=== PATIENT | male | born 1955 | race Caucasian/White ===

== ENCOUNTER 2016-06-22 12:17 | Emergency (ER) | payer BC ==
[~2016-06-22] VITALS: Ht 182.9 cm; Wt 107.8 kg
[~2016-06-22 12:17] MED LIST: CARV6.252 PO; ERGO1CAP41 PO; MULT-506 PO; milk thistle PO
[2016-06-22 12:34] VITALS: Ht 182.9 cm; Wt 107.8 kg
[2016-06-22] MEDS ORDERED: AMOX875T PO (13:06)
[2016-06-22] MEDS ORDERED: DIPHTHERIA/TETANUS/PERTUSSIS 0.5 ML SYR/VIAL IM. ONE (13:45)
[2016-06-22] MEDS ORDERED: AMOXICILLIN/CLAVULANATE TAB 875 MG TAB PO ONE (13:45)
[2016-06-22 14:12] VITALS: BP 180/102; PULSE 58; TEMP 37.2; O2SAT 94
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
== END 2016-06-22 14:14 | disposition home or self-care (01) ==
LOC: C.EDB 12:20 → C.EDD 14:14
DX: S61.452A Open bite of left hand, initial encounter (principal); W54.0XXA Bitten by dog, initial encounter; Z23 Encounter for immunization; K74.60 Unspecified cirrhosis of liver; I85.00 Esophageal varices without bleeding

== ENCOUNTER 2016-07-03 13:34 | Emergency (ER) | payer OTHER, BC ==
[~2016-07-03] VITALS: Ht 182.9 cm; Wt 108.0 kg
[2016-07-03 13:38] VITALS: TEMP 36.5; Ht 182.9 cm; Wt 108.0 kg
[2016-07-03] MEDS ORDERED: CHOL1000 PO (13:52)
--- NOTE | 2016-07-03 14:25 | DIAGNOSTIC IMAGING REPORT ---
RIGHT KNEE 3 VIEWS CLINICAL HISTORY: Right knee pain status post trauma COMPARISON: 05/11/2010 DISCUSSION: There are mild osteoarthritic changes. No fractures or dislocations are visualized. IMPRESSION: No fractures identified. Electronically signed by: Wilfredo Mcneal M.D. 07/03/2016 2:24 PM Dictated Date/Time: 07/03/2016 2:24 PM
--- NOTE | 2016-07-03 14:25 | DIAGNOSTIC IMAGING REPORT ---
LEFT KNEE 3 VIEWS CLINICAL HISTORY: Left knee pain status post trauma COMPARISON: None. DISCUSSION: No acute fractures or dislocations are visualized. There are mild degenerative changes. There is an osteochondroma versus supracondylar process arising from the medial femoral metaphysis. IMPRESSION: Distal femoral osteochondroma/supracondylar process. No acute fractures. Electronically signed by: Wilfredo Mcneal M.D. 07/03/2016 2:23 PM Dictated Date/Time: 07/03/2016 2:20 PM
[2016-07-03 14:43] VITALS: BP 151/77; PULSE 54; O2SAT 94
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
== END 2016-07-03 14:45 | disposition home or self-care (01) ==
LOC: C.EDB 13:36 → C.EDD 14:45
DX: S80.01XA Contusion of right knee, initial encounter (principal); S80.02XA Contusion of left knee, initial encounter; W18.09XA Striking against other object with subsequent fall, initial encounter; Y93.89 Activity, other specified; Y99.8 Other external cause status; I10 Essential (primary) hypertension; K74.60 Unspecified cirrhosis of liver

== ENCOUNTER → 2017-01-25 | Outpatient (CLI) | payer BC ==
[~2017-01-25] MED LIST changes: +CHOL1000 PO; -ERGO1CAP41 PO
== END | disposition home or self-care (01) ==
LOC: C.MAMM 08:07
PROVIDERS: ATTEND Nurse Practitioner Family
DX: K74.69 Other cirrhosis of liver (principal)

== ENCOUNTER → 2017-04-08 | Day surgery (SDC) | payer BC ==
[~2017-04-08] VITALS: Ht 180.3 cm; Wt 100.0 kg
[~2017-04-08] MED LIST changes: -CARV6.252 PO; +FENTANYL CITRATE INJ 50 MCG/1 ML 2 ML VIAL ONE; +LIDOCAINE HCL 2% 2 ML VIAL (20MG/ML) ONE; +PROPOFOL IV EMULSION 10 MG/ML 20 ML VIAL IV ONE; +SODIUM CHLORIDE 0.9% 500ML 500 ML IV ONE
[2017-04-08 12:35] VITALS: Ht 180.3 cm; Wt 100.0 kg
--- NOTE | 2017-04-08 13:25 | Endo History and Physical ---
History & Physical Date of Service: Apr 08, 2017. Chief Complaint: ABNORMAL CT SCAN Referring Physician: DR. RODRIGUEZ History of Present Illness abnormal virtual colonoscopy and cologard Past Medical History Arthritis, Hypertension, Liver Disease Past Surgical History Hx Cardiac Surgery: No Hx Internal Defibrillator: No Hx Pacemaker: No Hx Abdominal Surgery: No Hx of Implantable Prosthesis: No Hx Post-Op Nausea and Vomiting: No Hx Cancer Surgery: No Hx Thoracic Surgery: No Hx Orthopedic: No Hx Urinary Tract Surgery: No Family History None Social History Smoking Status: Never Smoker Hx Substance Use: No Hx Alcohol Use: No Allergies Coded Allergies: No Known Allergies (Verified , 04/08/17) Current Medications Reported Home Medications Medications Dose Route/Sig Max Daily Dose Days Date Category Vitamin D3 (Cholecalciferol) 1,000 Unit Tab 5,000 Units PO DAILY 07/03/16 Reported [milk thistle] 500 Mg PO QAM 07/25/11 Reported Multivitamin (Multivitamins) Tab 1 Tab PO QAM 07/25/11 Reported Vital Signs Weight (Kilograms): 100.00 Height (Feet): 5 Height (Inches): 11 Date Time Temp Pulse Resp B/P (MAP) Pulse Ox O2 Delivery O2 Flow Rate FiO2 04/08/17 12:55 36.6 81 20 183/58 (99) 97 Room Air Physical Exam General Appearance: WD/WN, no apparent distress Respiratory/Chest: Auscultation: breath sounds normal Cardiovascular: Heart Auscultation: RRR Abdomen: Bowel Sounds: normal Inspection & Palpation: soft, non-distended, no tenderness, guarding & rebound Assessment and Plan colonoscopy today
--- NOTE | 2017-04-08 14:36 | Discharge Instructions ---
Endoscopy Patient Instructions Date / Procedure(s) Performed Apr 08, 2017. Colonoscopy Allergy Information Coded Allergies: No Known Allergies (Verified , 04/08/17) Discharge Date / Findings Apr 08, 2017. colon polyps Medication Instructions Restart Stopped Medication(s): Reported Home Medications Medications Dose Route/Sig Max Daily Dose Days Date Category Vitamin D3 (Cholecalciferol) 1,000 Unit Tab 5,000 Units PO DAILY 07/03/16 Reported [milk thistle] 500 Mg PO QAM 07/25/11 Reported Multivitamin (Multivitamins) Tab 1 Tab PO QAM 07/25/11 Reported Reported Home Medications Medications Dose Route/Sig Max Daily Dose Days Date Category Vitamin D3 (Cholecalciferol) 1,000 Unit Tab 5,000 Units PO DAILY 07/03/16 Reported [milk thistle] 500 Mg PO QAM 07/25/11 Reported Multivitamin (Multivitamins) Tab 1 Tab PO QAM 07/25/11 Reported Provider Instructions Activity Restrictions - No exercising or heavy lifting for 24 hours. - Do not drink alcohol the day of the procedure. - Do not drive a car or operate machinery until the day after the procedure. - Do not make any important decisions or sign important papers in 24 hours after the procedure. Following Day: - Return to full activity which may include returning to work/school. Diet Start your diet with liquids and light foods (jello, soup, juice, toast). Then eat your usual diet if not nauseated. Treatment For Common After Affects For mild abdominal pain, bloating, or excessive gas: - Rest - Eat lightly - Lie on right side Follow-Up Information Follow-up with DR. RODRIGUEZ as scheduled Anesthesia Information What You Should Know You have had a procedure that required some medicine to reduce anxiety and discomfort. This treatment is called moderate sedation. After receiving the treatment, you may be sleepy, but you will be able to breathe on your own. The effects of the treatment may last for several hours. Follow these instructions along with Activity/Diet recommendations noted above: * Do NOT do anything where dizziness or clumsiness would be dangerous. * Rest quietly at home today, then you can be up and about tomorrow. * Have a responsible person stay with you the rest of today. * You may have had an I.V. today. If so, you may take the dressing off later today. Recommendations Call your doctor if: * Trouble breathing * Continuous vomiting for more than 24 hours * Temperature above 101 degrees * Severe abdominal pain or bloating * Pain not relieved by pain medicine ordered * There is increased drainage or redness from any incision * A large amount of rectal bleeding greater than 2-3 tablespoons. (If you had a polyp/s removed or have hemorrhoids, a small amount of blood - from the rectum is to be expected.) * You have any unanswered questions or concerns. IN THE EVENT OF A SERIOUS EMERGENCY, GO TO THE NEAREST EMERGENCY ROOM Your discharge instructions were prepared by provider Tung Landeros. Patient Instructions Signature Page Emile Card Patient (or Guardian) Signature/Date: I have read and understand the instructions given to me by my caregivers. Caregiver/RN/Doctor Signature/Date: The above-named patient and/or guardian has received patient instructions on this date. + Original Patient Signature Page (only) stays with chart. Please make copy for patient.
--- NOTE | 2017-04-08 14:50 | GI REPORT ---
Procedure Date: 04/08/2017 1:32 PM Procedure: Colonoscopy Indications: Abnormal virtual colonoscopy, equivocal Cologard Medicines: Propofol per Anesthesia Complications: No immediate complications. Estimated blood loss: None. Estimated Blood Loss: Estimated blood loss: none. Procedure: Pre-Anesthesia Assessment: - Prior to the procedure, a History and Physical was performed, and patient medications and allergies were reviewed. The patient's tolerance of previous anesthesia was also reviewed. The risks and benefits of the procedure and the sedation options and risks were discussed with the patient. All questions were answered, and informed consent was obtained. Prior Anticoagulants: The patient has taken no previous anticoagulant or antiplatelet agents. ASA Grade Assessment: III - A patient with severe systemic disease. After reviewing the risks and benefits, the patient was deemed in satisfactory condition to undergo the procedure. After I obtained informed consent, the scope was passed under direct vision. Throughout the procedure, the patient's blood pressure, pulse, and oxygen saturations were monitored continuously. The scope was introduced through the anus and advanced to the terminal ileum, with identification of the appendiceal orifice and IC valve. The colonoscopy was performed without difficulty. The patient tolerated the procedure well. The quality of the bowel preparation was good. Findings: The perianal and digital rectal examinations were normal. Pertinent negatives include normal sphincter tone, no palpable rectal lesions and no anal lesion or abnormality was detected. Two sessile polyps were found in the cecum. The polyps were 3 to 7 mm in size. These polyps were removed with a hot snare. Resection and retrieval were complete. To prevent bleeding after the polypectomy, two hemostatic clips were successfully placed (MR conditional). There was no bleeding during, and at the end, of the procedure. Two sessile polyps were found in the proximal ascending colon. The polyps were 5 to 8 mm in size. These polyps were removed with a hot snare. Resection and retrieval were complete. To prevent bleeding after the polypectomy, two hemostatic clips were successfully placed (MR conditional). There was no bleeding during, and at the end, of the procedure. A 14 mm polyp was found at 40 cm proximal to the anus. The polyp was pedunculated. Area was successfully injected with 2 mL of a 1:10,000 solution of epinephrine for a lift polypectomy. The polyp was removed with a hot snare. Resection and retrieval were complete. Verification of patient identification for the specimen was done by the physician and drain technician using the patient's name and medical record number. To prevent bleeding after the polypectomy, two hemostatic clips were successfully placed (MR conditional). There was no bleeding during, and at the end, of the procedure. Many small-mouthed diverticula were found in the sigmoid colon. The retroflexed view of the distal rectum and anal verge was normal and showed no anal or rectal abnormalities. The exam was otherwise without abnormality. The terminal ileum appeared normal. Impression: - Two 3 to 7 mm polyps in the cecum, removed with a hot snare. Resected and retrieved. Clips (MR conditional) were placed. - Two 5 to 8 mm polyps in the proximal ascending colon, removed with a hot snare. Resected and retrieved. Clips (MR conditional) were placed. - One 14 mm polyp at 40 cm proximal to the anus, removed with a hot snare. Resected and retrieved. Injected. Clips (MR conditional) were placed. - Diverticulosis in the sigmoid colon. - The distal rectum and anal verge are normal on retroflexion view. - The examination was otherwise normal. - The examined portion of the ileum was normal. Recommendation: - Discharge patient to home (ambulatory). - Advance diet as tolerated. - Continue present medications. - Await pathology results. - Repeat colonoscopy for surveillance based on pathology results. - Return to referring physician as previously scheduled. MD Tung Edgar MD 04/08/2017 2:49:10 PM This report has been signed electronically. Note Initiated On: 04/08/2017 1:32 PM I attest to the content of the Intraoperative Record and orders documented therein, exceptions below
--- NOTE | 2017-04-08 14:57 | Anesthesiology Progress Note ---
Anesthesia Post Op Note Date & Time Apr 08, 2017 at 14:57 Vital Signs Pain Intensity: 0 Vital Signs Past 12 Hours Date Time Temp Pulse Resp B/P (MAP) Pulse Ox O2 Delivery O2 Flow Rate FiO2 04/08/17 14:53 74 16 119/92 (101) 94 Room Air 04/08/17 14:38 73 14 116/54 (74) 95 Room Air 04/08/17 12:55 36.6 81 20 183/58 (99) 97 Room Air Notes Mental Status: alert / awake / arousable, participated in evaluation Pt Amnestic to Procedure: Yes Nausea / Vomiting: adequately controlled Pain: adequately controlled Airway Patency, RR, SpO2: stable & adequate BP & HR: stable & adequate Hydration State: stable & adequate Anesthetic Complications: no major complications apparent
[2017-04-08 15:22] VITALS: BP 143/71; PULSE 68; O2SAT 94
== END | disposition home or self-care (01) ==
LOC: C.GI 12:06
PROVIDERS: ATTEND Internal Medicine Gastroenterology
DX: R93.3 Abnormal findings on diagnostic imaging of other parts of digestive tract (principal); D12.0 Benign neoplasm of cecum; D12.2 Benign neoplasm of ascending colon; D12.9 Benign neoplasm of anus and anal canal; K57.30 Diverticulosis of large intestine without perforation or abscess without bleeding; I10 Essential (primary) hypertension

== ENCOUNTER 2018-11-10 02:47 | Inpatient (IN) ==
[2018-11-10 03:26] LABS: Basophils # (auto) 0.09 K/uL (0-0.2); Basophils % (auto) 1.1 %; Eosinophils # (auto) 0.15 K/uL (0-0.5); Eosinophils % (auto) 1.9 %; Hematocrit (blood only) 37.2 % (42-52); Hemoglobin 13.2 g/dL (14.0-18.0); Immature Granulocytes # (auto) 0.36 K/uL (0.00-0.02); Immature Granulocytes % (auto) 4.5 %; Lymphocytes # (auto) 1.13 K/uL (1.2-3.4); Lymphocytes % (auto) 14.1 %; Mean Corpuscular Hgb Conc 35.5 g/dL (32-36); Mean Corpuscular Volume 94.7 fL (80-100); Mean Platelet Volume 9.4 fL (7.4-10.4); Monocytes # (auto) 0.69 K/uL (0.11-0.59); Monocytes % (auto) 8.6 %; Neutrophils # (auto) 5.62 K/uL (1.4-6.5); Neutrophils % (auto) 69.8 %; Platelet Count 179 K/uL (130-400); RDW Coefficient of Variation 18.9 % (11.5-14.5); RDW Standard Deviation 64.8 fL (36.4-46.3); Red Blood Count 3.93 M/uL (4.7-6.1); White Blood Count 8.04 K/uL (4.8-10.8)
[2018-11-10 04:05] LABS: Albumin Globulin Ratio 0.2 (0.9-2); Albumin Level 1.4 gm/dl (3.4-5.0); BUN Creatinine Ratio 30.9 (10-20); Bilirubin,Total 4.4 mg/dl (0.2-1); Creatinine Clr Calc Pharmacy 156.2 ml/min; Est GFR (African American) 123.2; Est GFR (Non-African American) 106.3; Globulin 5.7 gm/dl (2.5-4.0); Total Protein 7.1 gm/dl (6.4-8.2)
[2018-11-10] MEDS ORDERED: IOVERSOL 100ml IV PRN (04:28)
[2018-11-10 05:49] LABS: INR 1.6 (0.9-1.1)
--- NOTE | 2018-11-10 06:22 | Emergency Department Note ---
Entered by Joselyn Potts acting as a scribe for History of Present Illness General Chief complaint: Abdominal Pain Stated complaint: PAIN IN ABD AREA Time Seen by Provider: 11/10/18 02:56 Source: patient History of Present Illness Provider complaint: abdominal pain Onset (ago): day(s) 1 Location: abdomen Pain Consistency: + intermittent Maximum Pain Intensity: 10 Quality: + stabbing Relieved By: + none Associated symptoms: + denies other symptoms The patient is a 63 y/o male who presents to the emergency department for evaluation of intermittent stabbing abdominal pain that began prior to arrival. The patient states he woke up to go to the bathroom and had stabbing abdominal pain; he used the rest room and felt like he wanted to throw up but was unable to. He notes that he has also been retaining fluid in his abdomen for a month. 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 The patient states he also has cellulitis of his left foot. He reports he is taking Doxycycline for the Lymes disease which he thought may have caused the stomach pain though he notes he felt fine before bed. The patient denies any other symptoms. Home Medications Home Medications Medication Instructions Recorded Confirmed Type cholecalciferol (vitamin D3) 5,000 unit PO DAILY 03/28/18 11/10/18 History [Vitamin D3] milk thistle 175 mg PO DAILY 03/28/18 11/10/18 History multivitamin 1 tab PO DAILY 03/28/18 11/10/18 History propranolol 60 mg PO QPM 03/28/18 11/10/18 History doxycycline hyclate 100 mg PO BID 11/10/18 11/10/18 History metformin 500 mg PO BID 11/10/18 11/10/18 History Allergies Allergy/AdvReac Type Severity Reaction Status Date / Time No Known Allergies Allergy Verified 11/10/18 05:10 Past Med/Surg History Medical History Cirrhosis GUAMAN Hypertension Osteoarthritis Prediabetes Sciatica Surgical History History of colonoscopy History of esophagogastroduodenoscopy (EGD) History of tooth extraction Social History Preferred Language: Amharic Communication Ability: Effective Beliefs That Will Affect Care: None Current Living Situation: Spouse Feels Safe at Home: Yes Smoking Status: Never smoker Second Hand Exposure: Yes (RARE OCCASION) Hx Alcohol Use: No Hx Substance Use: No Review of Systems See HPI for pertinent positives & negatives. and A total of 10 systems reviewed and were otherwise negative Physical Exam Vital Signs Vital Signs - 24 hr 11/10/18 02:50 11/10/18 03:19 11/10/18 05:33 Temperature 36.5 C Temperature Source Oral Sepsis Recent Fever Within 48 Hours No Sepsis Action Taken by Nursing No Action Required Pulse Rate 65 Pulse Rate [Right Finger] 58 L Pulse Rhythm Regular Pulse Rhythm [Right Finger] Irregular Pulse Strength [Right Finger] Normal Respiratory Rate 15 18 Respiratory Effort / Characteristics Non-Labored Non-Labored Respiratory Depth Normal Normal Respiratory Pattern Regular Regular Blood Pressure 122/74 Blood Pressure [Right Arm] 158/78 H Blood Pressure Mean 90 Blood Pressure Mean [Right Arm] 104 Blood Pressure Position Lying Blood Pressure Position [Right Arm] Lying Pulse Oximetry 97 96 Oxygen Delivery Method Room Air Room Air Room Air HEENT: Head - normocephalic and atraumatic Pupils are equal, round, and reactive to light. Extraocular eye muscles are intact, and sclera are anicteric. Eyes: Scleral icterus. Nose - moist nasal mucosa without discharge. Mouth - moist buccal mucosa. Oropharynx is nonerythematous and there is no tonsillar exudate or edema noted. Neck: Supple; no JVD, nuchal rigidity, cervical lymphadenopathy, or auscultated bruits. Heart: Regular rate and rhythm. There is a normal S1 and S2 with no murmurs, clicks, or gallops appreciated. Lungs: Clear to auscultation bilaterally with no wheezes, rales, or rhonchi. Abdomen: Soft, with good bowel sounds. There are no palpable pulsatile masses or hepatosplenomegaly. There is no guarding, rigidity, or rebound noted. Mild epi gastric discomfort to palpation. The abdomen is distended and appears to have ascites. Extremities: No evidence of cyanosis, clubbing, or edema. There are easily palpable peripheral pulses. The patient has his left ankle and left foot wrapped with an Caleb wrap because of significant edema secondary to cellulitis. Skin: Jaundice, warm and dry with good turgor and no rashes. The patient has multiple scabbed over lesions about his chest, back and neck where he had scratched himself. Course 0301: Past medical records reviewed. The patient was evaluated in room A10. A complete history and physical exam was performed. An IV lock was initiated and labs were drawn as above. 0412: I checked on the patient and sent him to CT. He states that the epigastric pain has not returned. . 0515: I checked on the patient and discussed the results. He is comfortable. Spoke with Dr. Gregg Hospitalist, she will evaluate for further management. Consultations Consultation #1: Spoke with Dr. Gregg Hospitalist, she will evaluate for further management. Time: 05:15 Administered Medications Ioversol (Optiray 320 100ml) 94 ml IV ONCE PRN PRN Reason: Interaction Checking Stop: 11/14/18 04:27 Last Admin: 11/10/18 04:28 Dose: 94 ml Documented by: [id number] Medical Decision Making Differential Diagnosis Differential Diagnosis: Ascites, pancreatitis, esophagitis, gastritis. Medical Records Attestation: I reviewed the patient's medical records. Home Medications Current Medication List: was personally reviewed by me Laboratory Data Attestation: I reviewed the patient's lab results. Result diagrams: 11/10/18 03:16 11/10/18 03:16 Lab Results 11/10/18 11/10/18 11/10/18 Range/Units 03:16 03:16 03:16 WBC 8.04 (4.8-10.8) K/uL RBC 3.93 L (4.7-6.1) M/uL Hgb 13.2 L (14.0-18.0) g/dL Hct 37.2 L (42-52) % MCV 94.7 (80-100) fL MCH 33.6 (25-34) pg MCHC 35.5 (32-36) g/dL RDW Std Deviation 64.8 H (36.4-46.3) fL RDW Coeff of Janice 18.9 H (11.5-14.5) % Plt Count 179 (130-400) K/uL MPV 9.4 (7.4-10.4) fL Immature Gran % (Auto) 4.5 % Neut % (Auto) 69.8 % Lymph % (Auto) 14.1 % Alfalfa % (Auto) 8.6 % Eos % (Auto) 1.9 % Baso % (Auto) 1.1 % Immature Gran # (Auto) 0.36 H (0.00-0.02) K/uL Neut # (Auto) 5.62 (1.4-6.5) K/uL Lymph # (Auto) 1.13 L (1.2-3.4) K/uL Alfalfa # (Auto) 0.69 H (0.11-0.59) K/uL Eos # (Auto) 0.15 (0-0.5) K/uL Baso # (Auto) 0.09 (0-0.2) K/uL PT 16.0 H (9.0-12.0) Seconds INR 1.6 H (0.9-1.1) Sodium 137 (136-145) mmol/L Potassium 4.0 (3.5-5.1) mmol/L Chloride 106 (98-107) mmol/L Carbon Dioxide 28 (21-32) mmol/L Anion Gap 3.0 (3-11) BUN 18 (7-18) mg/dl Creatinine 0.60 (0.6-1.4) mg/dl Est Cr Clr Drug Dosing 156.2 ml/min Est GFR ( Amer) 123.2 Est GFR (Non-Af Amer) 106.3 BUN/Creatinine Ratio 30.9 H (10-20) Glucose 224 H (70-99) mg/dl Calcium 8.0 L (8.5-10.1) mg/dl Total Bilirubin 4.4 H (0.2-1) mg/dl AST 109 H (15-37) U/L ALT 72 (12-78) U/L Alkaline Phosphatase 353 H (45-117) U/L Total Protein 7.1 (6.4-8.2) gm/dl Albumin 1.4 L (3.4-5.0) gm/dl Globulin 5.7 H (2.5-4.0) gm/dl Albumin/Globulin Ratio 0.2 L (0.9-2) Lipase 798 H (73-393) U/L Imaging Data Radiologist's Impression: Radiology results as stated below per my review and the radiologist's interpretation: CT ABDOMEN & PELVIS With Contrast: Irregular contours to the liver with a markedly prominent recanalized paraumbilical vein which demonstrates collateral varicosities along the anterior abdominal and pelvic wall leads into the left femoral vein. Findings are most consistent with cirrhosis and portal hypertension. Please correlate clinically. Moderate ascites throughout the abdomen and pelvis. No obvious inflammatory changes surrounding the pancreas is identified. Ascites slightly limits detailed evaluation. However, the pancreas demonstrates normal enhancement. Splenomegaly. The adrenal glands and kidneys demonstrate no significant abnormality. No bowel obstruction. The bladder is unremarkable. No acute osseous abnormality. Small fat containing umbilical hernia. Blood Pressure Blood Pressure Findings: Elevated blood pressure Blood Pressure Disposition: further management by hospitalist WENDY Narrative The patient is a 63 y/o male who presents to the emergency department for evaluation of intermittent stabbing abdominal pain that began prior to arrival. Patient has a long-standing history of cryptogenic cirrhosis. The patient has recently had a bout of left lower extremity cellulitis for which she was on antibiotics and then a bout of shingles. He is to developed increasing abdominal distention and fluid in his abdomen. He became more concerned tonight when he awoke with severe epigastric pain. The patient is uncomfortable on exam but declines wanting anything for the epigastric pain. CT scan confirms evidence of ascites with multiple abdominal wall varicosities. There is no active bleeding. There is no CT evidence of pancreatitis. I discussed the case with the [facility] Hospitalist and they will evaluate for further management. The patient is hemodynamically stable at this time. Impression & Plan Ascites, Epigastric pain Discharge Plan Visit Data Chief Complaint: Abdominal Pain Stated Complaint: PAIN IN ABD AREA ED Provider: Corinna Hoff Discharge Problem: Ascites, Epigastric pain Patient Disposition: Being Evaluated by Hospitalist Forms Stand Alone Forms: Call Back Authorization, Important Visit Information Prescriptions Prescriptions: No Action metformin 500 mg tablet 500 mg PO BID RF: 0 doxycycline hyclate 100 mg capsule 100 mg PO BID RF: 0 multivitamin Tablet 1 tab PO DAILY RF: 0 propranolol 60 mg Capsule,Extended Release 24 Hr 60 mg PO QPM RF: 0 milk thistle 175 mg Tablet 175 mg PO DAILY RF: 0 cholecalciferol (vitamin D3) [Vitamin D3] 5,000 unit Tablet 5,000 unit PO DAILY RF: 0 Referrals Referrals: Kim Saravia [Primary Care Provider] - Discharge Problem: Ascites Qualifiers: Ascites type: other type Qualified Code(s): R18.8 - Other ascites The scribe's documentation has been prepared under my direction and personally reviewed by me in its entirety. I confirm that the note above accurately reflects all work, treatment, procedures, and medical decision making performed by me.
--- NOTE | 2018-11-10 06:35 | CT Scan Report ---
CT abd pelvis IV con only CLINICAL HISTORY: Abdominal pain. Possible pancreatitis. COMPARISON STUDY: Ultrasound study dated 2009 TECHNIQUE: The patient was scanned in a dynamic helical fashion during intravenous administration of 94 cc of Optiray 320. A dose lowering technique was utilized adhering to the principles of ALARA. CT DOSE: 902.12 mGy.cm FINDINGS: Lower chest: There is lower lobe subpleural reticulation and atelectatic change. Liver: The liver has a cirrhotic morphology. No focal masses are visualized. There is a dilated recan nulization of the umbilical vein, which extends to the left femoral vein.. Gallbladder: Unremarkable. Spleen: The spleen is enlarged measuring 17 cm. There is evidence of portal hypertension. There are p eriesophageal varices. Pancreas: Unremarkable. Adrenal glands: Unremarkable. Kidneys: There is symmetric renal cortical enhancement. The kidneys are normal in size without hydron ephrosis. Bowel: There are no transition zones indicate bowel obstruction. There are no findings to indicate ac [place] diverticulitis. There are no findings to indicate acute appendicitis. Peritoneum: There is moderate ascites. No free air is visualized. There is a fat-containing umbilical hernia. Vasculature: The abdominal aorta is normal in course and caliber. Adenopathy: None. Pelvic viscera: The bladder, and pelvic viscera are unremarkable. Skeletal structures: No destructive osseous lesions are seen. IMPRESSION: 1. No evidence of bowel obstruction. No evidence of free air 2. No evidence of acute diverticulitis. No evidence of acute appendicitis 3. Cirrhotic liver with evidence of portal hypertension, varices, and splenomegaly. Electronically signed by: Wilfredo Mcneal M.D. 11/10/2018 6:34 AM
--- NOTE | 2018-11-10 06:49 | History & Physical Report ---
Date of Service November 10, 2018 Assessment & Plan (1) Cirrhosis: Patient with history of cryptogenic cirrhosis initially discovered in 2006. He has been following with [facility] and has been stable and improved, was recently taken off the transplant list. Patient with Grade I varices in the lower 3rd of the esophagus, moderate portal hypertensive gastropathy noted on EGD by Dr. Landeros 04/07/18. Patient presents today with episode of upper abdominal pain. Labs reveal decompensated cirrhosis. CT abdomen with moderate ascites. Per history it seems like patient has been steadily declining over the last month with worsening ascites, jaundice/icterus and edema. No inciting event identified. Patient does not drink or use Tylenol. He is afebrile, hemodynamically stable, nontoxic in appearance. No bleeding. No evidence of encephalopathy or asterixis. MELD=17, Child C -Admit to medical floor -Check Tylenol level, AFP, Hepatitis panel -Check RUQUS -Trend hepatic panel, LFTs -Mild thistle -Propranolol for varices -Diagnostic paracentesis ordered as this is patient's first presentation with ascites - studies to calculate SAAG, cell count, gram stain and culture ordered -GI consultation - appreciate assistance with this case -Given high MELD and Child score patient would benefit from continued followup at [facility]/Hepatology and placement on transplant list Present on Admission?: Yes (2) Ascites: As above. Patient denies previous history of ascites. Abdomen is nontender, no concern for SBP at this time -Diagnostic paracentesis -Consider initiation of diuretics for ascites management Present on Admission?: Yes (3) Epigastric pain: Etiology uncertain. Patient with mild elevation in Lipase, no inflammation on CT -RUQUS as above -Continue to monitor Present on Admission?: Yes (4) Hypertension: Patient reports blood pressure has been fairly low outpatient and he has not been taking his propranolol lately -Resume propranolol for BP and varices management -Continue to monitor Present on Admission?: Yes (5) Pre-diabetes: Blood sugar elevated at 212 -Check AIC -MOnitor fingersticks (6) Anemia: Patient with normochromic/normocytic anemia, H/H=13.2/37.2. No active bleeding. No melena/hematochezia -Continue to monitor (7) Lyme disease: Newly diagnosed. Patient on Doxycycline -Continue Doxycycline 100mg po BID F/E/N- Heplock. MOnitor electrolytes and replete as needed. NPO for now Ppx - Lovenox Code - Full Admit to medical floor History of Present Illness Chief Complaint: abdominal pain Primary Care Provider: Kim Saravia Mr. 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 His liver disease was incidentally discovered in 2006. He was following routinely with Hepatology at [facility] as well as Dr. Chacon and was previously on the transplant list. His laboratory values reportedly improved greatly and he was taken off the transplant list on 07 July 2018. Last labs were reportedly on September 29 and were near his baseline. He reports progressive jaundice, scleral icterus and abdominal distention and pedal edema since October. He was recently diagnosed with Lyme disease and started on Doxycycline 100mg po BID. Patient presents today with acute episode of epigastric/upper abdominal pain which woke him from sleep at 02:00 associated with nausea. Pain 10/10, stabbing in nature. Non-radiating. No diarrhea/fevers/chills. He presently feels well, abdominal pain has resolved. ER Course: CT Allergies Allergy/AdvReac Type Severity Reaction Status Date / Time No Known Allergies Allergy Verified 11/10/18 05:10 Home Medications Home Medications Medication Instructions Recorded Confirmed Type cholecalciferol (vitamin D3) 5,000 unit PO DAILY 03/28/18 11/10/18 History [Vitamin D3] milk thistle 175 mg PO DAILY 03/28/18 11/10/18 History multivitamin 1 tab PO DAILY 03/28/18 11/10/18 History propranolol 60 mg PO QPM 03/28/18 11/10/18 History doxycycline hyclate 100 mg PO BID 11/10/18 11/10/18 History metformin 500 mg PO BID 11/10/18 11/10/18 History Past Med/Surg History Medical History Lyme disease Cirrhosis GUAMAN Hypertension Osteoarthritis Prediabetes Sciatica Surgical History History of colonoscopy History of esophagogastroduodenoscopy (EGD) History of tooth extraction Family History Other No significant family history Social History Preferred Language: Citizen Of [place] Communication Ability: Effective Beliefs That Will Affect Care: None Current Living Situation: Spouse Feels Safe at Home: Yes Smoking Status: Never smoker Second Hand Exposure: Yes (RARE OCCASION) Hx Alcohol Use: No Hx Substance Use: No Review of Systems Review of Systems: All systems reviewed & are unremarkable except as noted in HPI & below +Blurry vision +Icterus +chills +mild SOB Physical Exam Physical Exam: General: patient resting comfortably, NAD, non-toxic in appearance, AA&O x 4 Skin: warm, dry, intact, +Jaundice, +scleral icterus HEENT: NC/AT, PERRL, EOMI, +Icteric sclera, conjunctiva without injection, external ear normal to inspection, tenderness of right TMJ, nares patent, moist mucus membranes with jaundice of oral mucosa, dentition intact, no oropharyngeal lesions, neck supple, trachea midline, no LAD, no thyromegaly, no JVD Heart: +S1/S2, regular, no m/r/g Lungs: equal air entry bilaterally, no rales/rhonchi/wheezes Abd: distended, soft, NT, no masses/organomegaly, +reducible umbilical hernia Ext: warm, 2+ pulses in UE/LE bilaterally, no clubbing/cyanosis, 3+ edema of bilateral LE Neuro: nonfocal, patient AA&O x 4, speech intact, no facial droop, moving all extremities on command with equal strength 5/5, no asterixis Results & Data Vital Signs (Past 12 Hours) Vital Signs Temp Pulse Pulse Resp BP BP Pulse Ox 11/10/18 05:33 58 L 18 158/78 H 96 11/10/18 02:50 36.5 C 65 15 122/74 97 Laboratory Results Lab Results 11/10/18 11/10/18 11/10/18 Range/Units 03:16 03:16 03:16 WBC 8.04 (4.8-10.8) K/uL RBC 3.93 L (4.7-6.1) M/uL Hgb 13.2 L (14.0-18.0) g/dL Hct 37.2 L (42-52) % MCV 94.7 (80-100) fL MCH 33.6 (25-34) pg MCHC 35.5 (32-36) g/dL RDW Std Deviation 64.8 H (36.4-46.3) fL RDW Coeff of Janice 18.9 H (11.5-14.5) % Plt Count 179 (130-400) K/uL MPV 9.4 (7.4-10.4) fL Immature Gran % (Auto) 4.5 % Neut % (Auto) 69.8 % Lymph % (Auto) 14.1 % [place] % (Auto) 8.6 % Eos % (Auto) 1.9 % Baso % (Auto) 1.1 % Immature Gran # (Auto) 0.36 H (0.00-0.02) K/uL Neut # (Auto) 5.62 (1.4-6.5) K/uL Lymph # (Auto) 1.13 L (1.2-3.4) K/uL [place] # (Auto) 0.69 H (0.11-0.59) K/uL Eos # (Auto) 0.15 (0-0.5) K/uL Baso # (Auto) 0.09 (0-0.2) K/uL PT 16.0 H (9.0-12.0) Seconds INR 1.6 H (0.9-1.1) Sodium 137 (136-145) mmol/L Potassium 4.0 (3.5-5.1) mmol/L Chloride 106 (98-107) mmol/L Carbon Dioxide 28 (21-32) mmol/L Anion Gap 3.0 (3-11) BUN 18 (7-18) mg/dl Creatinine 0.60 (0.6-1.4) mg/dl Est Cr Clr Drug Dosing 156.2 ml/min Est GFR ( Amer) 123.2 Est GFR (Non-Af Amer) 106.3 BUN/Creatinine Ratio 30.9 H (10-20) Glucose 224 H (70-99) mg/dl Calcium 8.0 L (8.5-10.1) mg/dl Total Bilirubin 4.4 H (0.2-1) mg/dl AST 109 H (15-37) U/L ALT 72 (12-78) U/L Alkaline Phosphatase 353 H (45-117) U/L Total Protein 7.1 (6.4-8.2) gm/dl Albumin 1.4 L (3.4-5.0) gm/dl Globulin 5.7 H (2.5-4.0) gm/dl Albumin/Globulin Ratio 0.2 L (0.9-2) Lipase 798 H (73-393) U/L Diagnostic Findings CT ABDOMEN AND PELVIS WITH CONTRAST: Irregular contours to the liver with a markedly prominent recanalized paraumbilical vein which demonstrates collateral varicosities along the anterior abdominal and pelvic wall lead into the femoral vein. Findings are most consistent with cirrhosis and portal hypertension. Moderate ascites throughout the abdomen and pelvis. No obvious inflammatory changes surrounding the pancreas is identified. Ascites slightly limits detailed evaluation. However, the pancreas demonstrates normal enhancement. Spllenomegaly. The adrenal glands and kidneys demonstrate no significant abnormality. No bowel obstruction. Bladder unremarkable. Small fat containing umbilical hernia Code Status & VTE Plan Code Status FULL VTE Prophylaxis Plan VTE Prophylaxis will be ordered: Yes (1) Cirrhosis Hepatic cirrhosis type: other cirrhosis Qualified Code(s): K74.69 - Other cirrhosis of liver (2) Ascites Ascites type: other type Qualified Code(s): R18.8 - Other ascites (3) Hypertension Hypertension type: essential hypertension Qualified Code(s): I10 - Essential (primary) hypertension
[2018-11-10] MEDS ORDERED: CARBOHYDRATES FOR HYPOGLYCEMIA PO PRN (08:07)
[2018-11-10] MEDS ORDERED: GLUCOSE 10 TABS/TUBE PO PRN (08:07)
[2018-11-10] MEDS ORDERED: DEXTROSE 50% 50 ML SYRINGE IV PRN (08:07)
[2018-11-10] MEDS ORDERED: GLUCOSE 40% GEL 15 GM TUBE PO PRN (08:07)
[2018-11-10] MEDS ORDERED: GLUCAGON FOR INJ 1 MG VIAL SQ PRN (08:07)
[2018-11-10] MEDS ORDERED: NON-FORMULARY MEDICATION (Milk Thistle 175 MG) PO SCH (09:00)
[2018-11-10] MEDS ORDERED: ENOXAPARIN INJ 40 MG/0.4 ML SYR SQ SCH (09:00)
[2018-11-10] MEDS ORDERED: PNEUMOCOCCAL ADMINISTRATION CHARGE ONE (09:30)
[2018-11-10] MEDS ORDERED: PNEUMOCOCCAL POLYSACCHARIDES 25 MCG/0.5 ML VIAL/SYR IM ONE (09:30)
[2018-11-10 09:44] LABS: Hepatitis B Surface Antigen Neg (Neg); Magnesium 1.6 mg/dl (1.8-2.4); Phosphorus 2.9 mg/dl (2.5-4.9)
[2018-11-10 10:17] LABS: Hepatitis C IgG 13Yrs+Old_Rflx Neg (Neg)
--- NOTE | 2018-11-10 10:57 | Ultrasound Report ---
THERAPEUTIC AND DIAGNOSTIC PARACENTESIS UNDER ULTRASOUND GUIDANCE CLINICAL HISTORY: Ascites COMPARISON STUDY: No previous studies for comparison. FINDINGS: The risks, benefits, and alternatives to the procedure were discussed with the patient. Melvijuan diego coelho informed consent was obtained. Following real-time ultrasound localization, the skin was prepped and draped. Following local anesthesia with Xylocaine, the sheath paracentesis needle was inserted a nd approximately 2.1 liters of straw-colored fluid was removed by vacuum suction. A right lower quadr ant approach was utilized. 1 L of fluid was sent to the laboratory for analysis as specified by the kyle deras clinician. The patient tolerated the procedure well and left the department in satisfactory condition. IMPRESSION: Successful ultrasound-guided paracentesis with removal of approximately 2.1 liters of asc itic fluid. Electronically signed by: Wilfredo Mcneal M.D. 11/10/2018 10:55 AM
--- NOTE | 2018-11-10 11:07 | Ultrasound Report ---
Study: Duplex Doppler of the portal and hepatic veins HISTORY: Cirrhosis. FINDINGS: Diminished antegrade volume of flow through the portal and hepatic veins. There is a patent umbilical vein. This potentially indicates increased resistance hepatic and portal venous structures all there is no evidence for venous occlusion or retrograde flow or occlusion. IMPRESSION:. 1. Diminished flow within the hepatic and portal venous structures 2. The amount of flow, however is antegrade 3. Patent rather prominent umbilical vein 4. No evidence for thrombosis or venous occlusion Electronically signed by: Jeronimo Yeboah M.D. 11/10/2018 11:06 AM
[2018-11-10] MEDS: DOXYCYCLINE HYCLATE 100 MG CAP PO SCH ×2 (11:27→19:25)
[2018-11-10 11:44] LABS: Albumin Peritoneal Fluid < 0.6 g/dl; Lipase Peritoneal Fluid 313 U/L; Triglyceride Peritoneal Fluid 44 mg/dl
[2018-11-10 12:12] LABS: Appearance Peritoneal Fluid CLEAR; Color Peritoneal Fluid YELLOW; Mononuclear WBC Peritoneal 72.6 %; Polynuclear WBC Peritoneal 27.4 %; RBC Peritoneal Fluid (A) < 3000 /uL; WBC Peritoneal Fluid (A) 693 /ul (0-300)
--- NOTE | 2018-11-10 13:58 | Family Medicine Progress Note ---
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 Acute decompensated cirrhosis, MELD [address] abdomen shows moderate ascites, varices, splenic megaly. Portal vein ultrasound shows anterograde but diminished portal flow with no evidence of thrombosis AST 109, alk phos 353, lipase 798 APAP level, AFP, hepatitis panel pending Propranolol 60 mg nightly for varices, poor compliance prior to admission. Hold as below GI consulted Ascites First episode, no prior episodes and no prior paracenteses Diagnostic paracentesis shows elevated white blood cells (693), negative RBC, total protein 1.0, albumin less than 0.6 Paracentesis with no organisms on Gram stain, culture pending Paracentesis cytology pending No signs of SBP Atrial flutter with high degree 6:1 block and bradycardia No prior cardiac or arrhythmia history per patient Serial troponins ordered. Troponin X1 negative. TTE with contrast pending No history of digoxin use/exposure. New arrhythmia with high-grade AV block suspicious for Lyme carditis. Continue treatment as below Transferred to telemetry If 2/2 Lyme carditis should have some recovery within 1 week, a complete recovery may be prolonged over several weeks. -Consider cardiology consult for evaluation as a possible pacer candidate if not improving or likely worsening Epigastric pain Unclear etiology Lipase RUQ ultrasound as above Hypertension Propranolol for BP and varices management, hold for hypotension/bradycardia Adequately controlled Prediabetes PSG elevated at 212 on admit, per his outpatient provider with his liver condition his target goal is approximately 200 A1c pending Chronic anemia Normocytic/normocytic anemia Hemoglobin 13.2 today, no signs of active bleeding CBC daily Lyme disease Continue doxycycline 100 mg p.o. twice daily -Suspicious for Lyme carditis as noted above Given concern for cardiac involvement treat with doxycycline for 21 days Diet: 2 g sodium restricted diet DVT prophylaxis: Enoxaparin 40 SQ CODE STATUS: Full code (2) Epigastric pain: (3) Lyme disease: (4) Pre-diabetes: (5) Anemia: Subjective Same day admission, see H&P for subjective Review of Systems Review of Systems: See H&P for subjective Physical Exam 2 Physical Exam: General: A&Ox3. NAD. Cooperative. HEENT: Atraumatic, normocephalic. Pulm: CTAB A&P. -wheezes, -rales, -rhonchi. Symmetrical chest rise. No increase work of breathing. No respiratory distress. Cardiac: RRR, -mrg. Radial pulses intact and symmetrical. Abdominal: Softly distended, nontender, soft. See same-day H&P for detailed physical Results & Data Vital Signs (Past 12 Hours) Vital Signs Temp Pulse Pulse Resp BP BP Pulse Ox 11/10/18 06:55 36.4 C L 47 L 16 111/55 L 95 11/10/18 06:38 54 L 16 154/72 H 99 11/10/18 05:33 58 L 18 158/78 H 96 11/10/18 02:50 36.5 C 65 15 122/74 97 PG Care Time/CCT Total # of Minutes Spent Total Time Spent with Patient: Total time spent is greater than 50% in coordination of care (as documented) at patient's floor/unit and/or counseling patient: Resident Activity Tracking Resident Involvement: Resident Care Provided Care Provided: Adult Hospital Medicine (1) Cirrhosis Hepatic cirrhosis type: other cirrhosis Qualified Code(s): K74.69 - Other cirrhosis of liver
--- NOTE | 2018-11-10 15:25 | Cardiology Consultation ---
Date of Consultation November 10, 2018 Assessment & Plan (1) Bradycardia: He reports that he has a long history of bradycardia, however generally at around 60 bpm. He is only noticed today that his heart rate is significantly slower, in the 40s. He is not aware of the irregularity. He has never been told that he has an abnormal rhythm in the past. Since he has not been taking his propranolol for about 4 days I do not know that that is a factor but I would certainly hold it. He has evidence of intact AV conduction at a slow heart rate during atrial fibrillation, however his heart rate seems to be limited at at the lower and at just about 45 bpm suggesting if this may be a junctional rhythm at those rates. This low heart rate may indicate when he converted to atrial fibrillation, it could also indicate that he has developed heart block, possibly from Lyme disease. He is asymptomatic, I do not think we have to do anything particular other than hold his propranolol although it is conceivable he will need a pacemaker in the future. (2) Atrial fibrillation: He presents now in atrial fibrillation, he is unaware of the arrhythmia and I do not have recent electrocardiograms to determine when this might have occurred. He has not been feeling well recently which could indicate the arrhythmia but that has been at least several weeks, he also noted his heart rate was slower than normal this morning which could indicate that it started down. We do not know the true duration of the arrhythmia therefore I would be uncomfortable trying to convert the rhythm. Ordinarily I would consider anticoagulation but he is already somewhat auto anticoagulated (presumably from his liver disease) with an INR of 1.6. I do not know that it would be prudent to add an anticoagulant to his regimen at this point. (3) Lyme disease: He has been diagnosed with Lyme disease, that can certainly cause bradycardia and heart block however generally that does not occur after starting doxycycline which based on his history would seem to be the case here. It still could be contributory and in that case it is likely to resolve with treatment. (4) Aortic valve sclerosis: He has aortic sclerosis but does not have aortic stenosis. He should have periodic echocardiograms (every year or 2) but certainly I would not do anything with this finding now. History of Present Illness Reason for Consultation: Atrial fibrillation, bradycardia, aortic sclerosis Attending Physician: Lo Lees MD History of Present Illness This is a very pleasant 63-year-old gentleman who has a history of cirrhosis which was identified in 2006. He was on a liver transplant list but was taken off. He does have esophageal varices and does have ascites. He has been feeling worse over the last month or so, he has been recently diagnosed with Lyme disease and by his recollection he started doxycycline about 4 days ago although the infection apparently was present prior to that. He came into the emergency room today with symptoms of abdominal pain which resolved. He was however observed to have a slow heart rate which he reports was not present until this morning, generally when he checks his heart rate at home it is around 60 bpm until this morning. He does take propranolol I believe for portal hypertension, however he was not feeling well so he actually has not taken it for at least the last 3 evenings including last evening. He takes it in the evening only. At the time of my evaluation he is feeling relatively well, he felt that he did not have the strength he has recently but is no longer having abdominal pain. He denies symptoms of palpitations, he has not had lightheadedness or dizziness. He has never been told he had atrial fibrillation. I do not believe he has ever seen a insulation worker but he has had extensive evaluations at [facility], he describes annual visits including a number of what sounds like dobutamine stress test and was never told that he had a problem with his heart or an arrhythmia that he is aware of. Allergies Allergy/AdvReac Type Severity Reaction Status Date / Time No Known Allergies Allergy Verified 11/10/18 05:10 Home Medications Home Medications Medication Instructions Recorded Confirmed Type cholecalciferol (vitamin D3) 5,000 unit PO DAILY 03/28/18 11/10/18 History [Vitamin D3] milk thistle 175 mg PO DAILY 03/28/18 11/10/18 History multivitamin 1 tab PO DAILY 03/28/18 11/10/18 History propranolol 60 mg PO QPM 03/28/18 11/10/18 History doxycycline hyclate 100 mg PO BID 11/10/18 11/10/18 History metformin 500 mg PO BID 11/10/18 11/10/18 History Patient History Medical History Lyme disease Cirrhosis GUAMAN Hypertension Osteoarthritis Prediabetes Sciatica Surgical History History of colonoscopy History of esophagogastroduodenoscopy (EGD) History of tooth extraction Family History Other No significant family history Social History Preferred Language: Vietnamese Communication Ability: Effective Beliefs That Will Affect Care: Scientology Scientology Beliefs: Baptist Current Living Situation: Spouse Feels Safe at Home: Yes Smoking Status: Never smoker Second Hand Exposure: No Hx Alcohol Use: No Hx Substance Use: No Review of Systems Review of Systems: All systems reviewed & are unremarkable except as noted in HPI & below Physical Exam Physical Exam: Constitutional: Alert, cooperative and in no distress. HEENT: Unremarkable Neck: No jugular venous distention, carotid pulses are irregular but otherwise normal and equal bilaterally without bruits. Pulmonary: Clear to auscultation bilaterally. Cardiac: Irregular slow rhythm with a soft crescendo decrescendo murmur at the base, no gallop or rub. Abdomen: Soft, nontender with normal bowel sounds. Extremities: No edema. Distal pulses intact. Neurologic: No focal findings. Gait is steady. Skin: No rash, ecchymoses or petechiae. Results & Data Vital Signs (Past 12 Hours) Vital Signs Temp Pulse Pulse Resp BP BP Pulse Ox 11/10/18 06:55 36.4 C L 47 L 16 111/55 L 95 11/10/18 06:38 54 L 16 154/72 H 99 11/10/18 05:33 58 L 18 158/78 H 96 Diagnostic Findings An electrocardiogram done November 10, 2018 at 9 AM shows atrial fibrillation or perhaps atrial flutter but it looks more like a course of atrial fibrillation, with a slow ventricular response of 54 bpm. The only prior electrocardiogram here was in 2011. An echocardiogram done November 10, 2018 shows normal left ventricular systolic function, concentric left ventricular hypertrophy, aortic sclerosis without stenosis and mild mitral regurgitation. Telemetry: Atrial fibrillation with a slow heart rate, based on the trend I believe at times that he is in a junctional rhythm at around 40-45 bpm, other times slow atrial fibrillation.
--- NOTE | 2018-11-10 17:49 | Discharge Summary ---
Date of Service November 10, 2018 Admission HPI Per Admitting Provider Mr. 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 His liver disease was incidentally discovered in 2006. He was following routinely with Hepatology at [facility] as well as Dr. Chacon and was previously on the transplant list. His laboratory values reportedly improved greatly and he was taken off the transplant list on 07 July 2018. Last labs were reportedly on September 29 and were near his baseline. He reports progressive jaundice, scleral icterus and abdominal distention and pedal edema since October. He was recently diagnosed with Lyme disease and started on Doxycycline 100mg po BID. Patient presents today with acute episode of epigastric/upper abdominal pain which woke him from sleep at 02:00 associated with nausea. Pain 10/10, stabbing in nature. Non-radiating. No diarrhea/fevers/chills. He presently feels well, abdominal pain has resolved. ER Course: CT Admission Exam Per Admitting Provider General: patient resting comfortably, NAD, non-toxic in appearance, AA&O x 4 Skin: warm, dry, intact, +Jaundice, +scleral icterus HEENT: NC/AT, PERRL, EOMI, +Icteric sclera, conjunctiva without injection, external ear normal to inspection, tenderness of right TMJ, nares patent, moist mucus membranes with jaundice of oral mucosa, dentition intact, no oropharyngeal lesions, neck supple, trachea midline, no LAD, no thyromegaly, no JVD Heart: +S1/S2, regular, no m/r/g Lungs: equal air entry bilaterally, no rales/rhonchi/wheezes Abd: distended, soft, NT, no masses/organomegaly, +reducible umbilical hernia Ext: warm, 2+ pulses in UE/LE bilaterally, no clubbing/cyanosis, 3+ edema of bilateral LE Neuro: nonfocal, patient AA&O x 4, speech intact, no facial droop, moving all extremities on command with equal strength 5/5, no asterixis Principal Diagnosis Decompensated nonalcoholic liver cirrhosis, Lyme disease, Atrial flutter with junctional heart block Discharge Exam General: A&Ox3. NAD. Cooperative. + Jaundice, +scleral icterus HEENT: Atraumatic, normocephalic. Pulm: CTAB A&P. -wheezes, -rales, -rhonchi. Symmetrical chest rise. No increase work of breathing. No respiratory distress. Cardiac: bradycardic. +systolic murmur. Radial pulses intact and symmetrical. Abdominal: soft, mild distension, nontender. Discharge Data Allergies Allergy/AdvReac Type Severity Reaction Status Date / Time No Known Allergies Allergy Verified 11/10/18 05:10 Consultations 11/10/18 06:27 ED Decision to Admit Stat 11/10/18 08:07 Consult Gastroenterology Routine 11/10/18 14:45 Consult Cardiology Routine Ordered Studies 11/10/18 04:10 CT abd pelvis IV con only Urgent 11/10/18 08:07 US paracentesis abd w/image Routine 11/10/18 08:40 US duplex portal hepatic veins Routine Hospital Course (1) Bradycardia: Emile is a 63-year-old male with past medical history of prediabetes, hypertension, nonalcoholic cirrhosis followed by [facility] hepatology since 2006 who presented with acute upper abdominal pain and his first episode of moderate ascites. He was noted to be in atrial flutter with a junctional rhythm on admission, and after consultation with cardiology and his hepatology team he was accepted for transfer for further care at [facility]. Acute decompensated cirrhosis, MALT 17, child Rodriguez class C Emile is a history of nonalcoholic cirrhosis followed since 2006 by [facility] hepatology. He was previously doing well, and had withdrawn from the transplant list in September 2018. On admission his CT scan showed moderate ascites, varices, and splenomegaly. Portal vein ultrasound showed anterior grade but diminished portal flow with no evidence of thrombosis. He had mild transaminitis with increased alkaline phosphatase and lipase. Synthetic dysfunction was present with an increased INR. He had previously been prescribed and lost 60 mg nightly for varices, but had not been taking this prior to admission. He was noted to be bradycardic with a junctional rhythm on admission which may have contributed to his decompensation, further discussed below. He had moderate ascites on admission, this was his first episode of ascites and he had had no prior paracenteses. Diagnostic paracentesis showed a elevated white blood cell count, was negative for red blood cells, and had a total protein of 1.0. He had no organisms seen on Gram stain with culture pending. Paracentesis cytology was pending at time of transfer. His epigastric pain resolved by admission to the floor. Atrial flutter/fibrillation with bradycardic junctional rhythm versus high degree block Twelve-lead EKG revealed atrial flutter and with bradycardia. He was noted to have a systolic murmur on physical exam. He was hemodynamically stable and denied any cardiac symptoms including chest pain, chest pressure, palpitations, shortness of breath, lightheadedness, and dizziness. He endorsed a long history of mild bradycardia in the 60s, never in the 40s, and otherwise he had no prior history of arrhythmia or murmurs. He had no history of digoxin exposure. He was transferred to telemetry and cardiology was consulted. Given his medical complexity, mild hepatic coagulopathy, and concern for decompensation his case the need for a possible pacer was discussed. His case was discussed between [facility] hospitalist service, [facility] cardiology and [facility]. It was recommended that he be transferred to [facility] for further care. He was accepted for transfer to IMC at [facility]. Echo done today - Mild LVH, Normal systolic function, mild AV sclerosis, mild AR Hypertension Emile is a history of hypertension for which she takes propranolol both for blood pressure and varices management. He had not been taking propranolol prior to admission. This was held on admission in the setting of bradycardia. His blood pressure was moderately controlled ranging from 111-144 systolic during admission. Lyme disease Emile had approximately 1 month of aches and malaise before having positive Lyme serology prior to admission. He had completed approximately 6 days of doxycycline 100 mg by mouth twice daily prior to admission. He was continued on doxycycline 100 mg p.o. twice daily with an anticipated total course of 21 days out of concern for possible Lyme carditis. Prediabetes Emile has a past medical history of prediabetes for which she takes metformin 500 mg p.o. twice daily. He was intolerant to higher doses of metformin due to global malaise and overall ill feeling without diarrhea. On admission his serum glucose was 224, he reports that his goal glucose is approximately 200. Per his outpatient provider he is maintained on a slightly higher target glucose due to his liver disease. DVT prophylaxis On admission Guerda was noted to have mild synthetic dysfunction with an INR of 1.6. He was maintained on DVT prophylaxis with enoxaparin 40 mg SQ daily and did not show any signs of thrombosis or bleeding. CODE STATUS CODE STATUS was confirmed with Emile on admission, he is full code. (2) Lyme disease: (3) Non-alcoholic cirrhosis: (4) Atrial fibrillation: (5) Aortic valve sclerosis: (6) Pre-diabetes: (7) Hypertension: (8) Ascites: Total Time Total Time Spent Total Time Spent (In Minutes): 30 Discharge Plan Discharge Items Reason For Visit: ASCITES Discharge Diagnosis: Atrial flutter with junctional rhythm, Acute decompensated nonalcoholic cirrhosis Discharge Goals: Therapeutic intervention Activity: Per 'Additional Instructions' section Non-emergency contact: Primary Care Provider Follow-up/Referrals: Kim Saravia [Primary Care Provider] - Diet: Low Sodium (2gm) Addtl Provider Instructions: You were seen in the hospital for sudden onset abdominal pain. You were found to have an acute worsening of your liver cirrhosis with ascites. You were also found to have an abnormal heart rhythm. Your case was discussed with the land acquisition specialist and hematology team at [facility] and was recommended that you be transferred to their service for further care. You have been acc epted for [place] [facility] [place] at [facility]. A discharge summary including the details of your admission to [facility] have been sent to [facility]. Prescriptions: Continued metformin 500 mg tablet 500 mg PO BID RF: 0 doxycycline hyclate 100 mg capsule 100 mg PO BID RF: 0 multivitamin Tablet 1 tab PO DAILY RF: 0 milk thistle 175 mg Tablet 175 mg PO DAILY RF: 0 cholecalciferol (vitamin D3) [Vitamin D3] 5,000 unit Tablet 5,000 unit PO DAILY RF: 0 Discontinued propranolol 60 mg Capsule,Extended Release 24 Hr 60 mg PO QPM RF: 0 Stand-Alone Forms: Call Back Authorization, My [facility] Admission Data Admit Date/Time: 11/10/18 06:12 Attending Provider: Lo Lees Admit Provider: Gabi Worthington Primary Care Provider: Kim Saravia Other Providers: Gabi Worthington ; Saravanan Chacon ; Travis Coffey Service: Telemetry Supervising Physician Co-Signing Physician Notes Resident Physician Supervision Note: I independently interviewed and examined the patient and verified the linton history and physical, reviewed labs and image studies, discussed the case with the resident Dr. Baresel and agree with the findings and care plan. Spent 60min of critical care time in following and reviewing the case with multiple providers, arranging transfer to [facility]. Resident Activity Tracking Resident Involvement: Resident Care Provided Care Provided: Adult [facility] Medicine
--- NOTE | 2018-11-10 19:26 | Gastrointestinal Consultation ---
Date of Consultation November 10, 2018 Assessment & Plan (1) Ascites: New, cytology pending, no obvious SBP. Pt going to [facility] so this can continue to be addressed there. Serum ascites albumin gradient cannot be accurately calculated because serum albumin 1.4 and ascites albumin states as less than 06 but no number. Suspect from cirrhosis cryptogenic cirrhosis--can be adresed at [facility] and perhaps will go back on transplant list. junctional heart rhythm--managed by cardiology and patient being sent to [place] for this.. History of Present Illness Reason for Consultation: Ascites Requesting Physician: DR Gabi Worthington Attending Physician: Lo Lees MD History of Present Illness CC ascites HPI Pt with cryptogenic cirrhosis on transplant list unitl 07/2018 when patient elected to come off because he felt he was stable. He was treated with Keflex for cellulitis of his foot then diagnossed with Lyme disease and treated with Doxyclycline. Worsening of his baseline TB from up to 7.7 on 11/03 vs 3.6 07/03/18 was noted. Also ascites new for him recently. He has lower extremity edema also. Paracentesis today or 2 L of fluid showed calculaed neutrophil count of 187 so no obvious SBP and dopple liver us negative for occulsion of liver vessels. CT showed moderate varices and ascites. Pt denies abd pain. Pt with junctional rhythm noted today and plan he is planning to go to [facility] in about an hour to manage heart problems. Allergies Allergy/AdvReac Type Severity Reaction Status Date / Time No Known Allergies Allergy Verified 11/10/18 05:10 Home Medications Home Medications Medication Instructions Recorded Confirmed Type cholecalciferol (vitamin D3) 5,000 unit PO DAILY 03/28/18 11/10/18 History [Vitamin D3] milk thistle 175 mg PO DAILY 03/28/18 11/10/18 History multivitamin 1 tab PO DAILY 03/28/18 11/10/18 History propranolol 60 mg PO QPM 03/28/18 11/10/18 History doxycycline hyclate 100 mg PO BID 11/10/18 11/10/18 History metformin 500 mg PO BID 11/10/18 11/10/18 History Patient History Medical History Lyme disease Cirrhosis GUAMAN Hypertension Osteoarthritis Prediabetes Sciatica Surgical History History of colonoscopy History of esophagogastroduodenoscopy (EGD) History of tooth extraction Family History Other No significant family history Social History Preferred Language: Icelandic Communication Ability: Effective Beliefs That Will Affect Care: Amish Amish Beliefs: Bahai Current Living Situation: Spouse Feels Safe at Home: Yes Smoking Status: Never smoker Second Hand Exposure: No Hx Alcohol Use: No Hx Substance Use: No Review of Systems Review of Systems: All systems reviewed & are unremarkable except as noted in HPI & below Physical Exam Constitutional: WD/WN, vitals as above Eyes: PERRL, conjunctivae normal, anicteric sclerae ENMT: external ear and nose normal, oropharynx normal Neck: normal visual inspection and trachea midline Respiratory: normal respiratory effort, lungs clear to auscultation Cardiovascular: Rate/Rhythm: + bradycardic Heart Sounds: normal S1 and normal S2 Gastrointestinal (Abdomen): moderate distension, pos bs, no guarding nor rebound Psychiatric: A+Ox3, euthymic affect Results & Data Vital Signs (Past 12 Hours) Vital Signs Temp Pulse Resp BP Pulse Ox 11/10/18 15:56 36.4 C L 47 L 20 144/69 H 97 (1) Ascites Ascites type: other type Qualified Code(s): R18.8 - Other ascites
[2018-11-10] MEDS ORDERED: PROPRANOLOL HCL 60 MG LA CAP PO SCH (21:00)
[2018-11-13 09:32] LABS: AFP Tumor Marker Serum 2.2 NG/ML (<6.1)
== END 2018-11-10 22:10 | disposition short-term general hospital (02) | DRG 433 ==
LOC: ED 02:47 → 3N 06:12 → SUATTDRO 06:12 → 3N 06:38 → 2S 12:11

== ENCOUNTER 2022-12-14 01:39 | Inpatient (IN) ==
[2022-12-14] MEDS ORDERED: AMPICILLIN/SULBACTAM SOD 3,000 MG in 0.9 % SODIUM CHLORIDE 100 ML IV STA (02:10)
[2022-12-14] MEDS ORDERED: SODIUM CHLORIDE 0.9% 1000ML 1,000 ML IV SCH (02:15)
[2022-12-14 02:52] LABS: Basophils # (auto) 0.02 K/uL (0-0.2); Basophils % (auto) 0.4 %; Eosinophils # (auto) 0.17 K/uL (0-0.50); Eosinophils % (auto) 3.5 %; Hematocrit (blood only) 36.3 % (42.0-52.0); Hemoglobin 13.1 g/dl (14.0-18.0); Immature Granulocytes # (auto) 0.01 K/uL (0.01-0.20); Immature Granulocytes % (auto) 0.2 %; Lymphocytes # (auto) 0.81 K/uL (1.2-3.4); Lymphocytes % (auto) 16.9 %; Mean Corpuscular Hemoglobin 31.8 pg (25.0-34.0); Mean Corpuscular Hgb Conc 36.1 g/dL (32.0-36.0); Mean Corpuscular Volume 88.1 fL (80.0-100.0); Mean Platelet Volume 10.9 fL (9.4-12.4); Monocytes # (auto) 0.53 K/uL (0.11-0.59); Monocytes % (auto) 11.1 %; Neutrophils # (auto) 3.25 K/uL (1.40-6.50); Neutrophils % (auto) 67.9 %; Platelet Count 110 K/uL (130-400); RDW Coefficient of Variation 13.4 % (11.5-14.5); RDW Standard Deviation 43.5 fL (36.4-46.3); Red Blood Count 4.12 M/uL (4.70-6.10); White Blood Count 4.79 K/ul (4.8-10.8)
[2022-12-14 03:08] LABS: Albumin Globulin Ratio 0.8 (0.9-2); Bilirubin,Total 2.6 mg/dl (0.2-1.0); C Reactive Protein 4.26 mg/dl (0-0.5); Calcium 8.5 mg/dl (8.6-10.3); Creatinine Clr Calc Pharmacy 127.2 ml/min; Est GFR (African American) 118.9 ml/min; Est GFR (Non-African American) 102.6 ml/min; Globulin 3.7 gm/dl (2.5-4.0); Potassium 4.1 mmol/L (3.5-5.1); Total Protein 6.7 gm/dl (6.0-8.3)
--- NOTE | 2022-12-14 03:42 | Emergency Department Note ---
ED Visit Note I was consulted by the Advanced Practice Provider. I saw the patient personally and performed a substantive portion of the visit. This includes aspects of the HPI, MDM, diagnostic interpretations, and disposition/plan. Patient's exam and workup are consistent for possible tenosynovitis. Hospitalization was felt warranted. IV antibiotic therapy was felt warranted. .
--- NOTE | 2022-12-14 03:48 | Emergency Department Note ---
History of Present Illness General Chief complaint: Hand Injury/Pain Stated complaint: SEVERE PAIN IN RIGHT HAND AND ARM Time Seen by Provider: 12/14/22 01:48 History of Present Illness Maximum Pain Intensity: 10 This is a 67-year-old male presenting to the emergency department for evaluation of pain into his right hand and wrist. Patient was bit by his dog about a month ago, and the injuries have taken a long time to heal. Over the past 1 to 2 days he has had worsening pain and discomfort into the hand, which is now puffy and swollen. He is right-hand dominant and has difficulty with flexion. The patient is diabetic. No fevers or chills. He rates his discomfort a 10/10. He went to his primary care physician earlier today and has completed 1 dose of Augmentin. Home Medications Medication Instructions Recorded Confirmed Type milk thistle 175 mg tablet 175 mg PO DAILY 03/28/18 12/14/22 History multivitamin 1 tab PO DAILY 03/28/18 12/14/22 History spironolactone 25 mg tablet 25 mg PO QAM PRN NEEDED 11/02/19 12/14/22 History fluticasone propionate 50 1 spray intranasal DAILY PRN 01/15/22 12/14/22 History mcg/actuation nasal Congestion spray,suspension furosemide 40 mg tablet (Lasix) 40 mg PO BID PRN SWELLING 01/15/22 12/14/22 History glipizide 5 mg tablet See Rx Instructions .Route .COMPLEX 01/15/22 12/14/22 History propranolol 20 mg tablet 20 mg PO QPM 01/15/22 12/14/22 History amoxicillin 500 mg-potassium 1 tab PO BID 12/14/22 12/14/22 History clavulanate 125 mg tablet cholecalciferol (vitamin D3) 50 50 mcg PO DAILY 12/14/22 12/14/22 History mcg (2,000 unit) capsule (Vitamin D3) Allergies Allergy/AdvReac Type Severity Reaction Status Date / Time No Known Allergies Allergy Verified 12/14/22 02:18 Past Med/Surg History Medical History Cirrhosis GUAMAN (REASON FOR PROPRANOLOL) Degenerative disc disease Diabetes mellitus, type 2 Esophageal varices History of abdominal paracentesis History of atrial fibrillation WHEN DX WITH LYMES DISEASE 2019 *HAD SEEN DR. 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 Beliefs That Will Affect Care: None Current Living Situation: Spouse Other Information That Helps Us Care for You: No Feels Safe at Home: Yes Safety Concerns: Feels Safe At This Time Assistive Devices: None Review of Systems A total of 10 systems reviewed and were otherwise negative Physical Exam Vital Signs Vital Signs - 24 hr 12/14/22 03:45 12/14/22 03:53 Pulse Rate 52 L Pulse Rate [Apical] 57 L Pulse Rhythm [Apical] Regular Pulse Strength [Apical] Normal Respiratory Rate 16 Respiratory Effort / Characteristics Non-Labored Spontaneous Respiratory Depth Normal Respiratory Pattern Regular Blood Pressure [Left Arm] 152/69 H Blood Pressure Mean [Left Arm] 96 Pulse Oximetry 95 Oxygen Delivery Method Room Air VITALS: Vitals are noted on the nurse's note and reviewed by myself. Vital signs stable. GENERAL: Well-developed, well-nourished, white male, who is in no acute distress and resting comfortably. Patient is cooperative with the examination. HEAD: Normocephalic atraumatic. HEART: Regular rate and rhythm without murmurs gallops or rubs. LUNGS: Clear to auscultation bilaterally without wheezes, rales or rhonchi. No retractions or accessory muscle use. MUSCULOSKELETAL: Notable edema and tenderness around the right wrist and hand. There appears to be slow healing puncture wound to the dorsal aspect of the hand. Patient not able to fully close the hand. Chairperson Anesthesiology strength is 1/5. Course Administered Medications Ampicillin Sodium/Sulbactam Sodium 3,000 mg/ Sodium Chloride 108 mls @ 200 mls/hr IV Q6H ALISIA; Protocol Stop: 01/25/23 08:59 Last Infusion: 12/14/22 21:48 Dose: 0 mls/hr Documented By: Admin: 12/14/22 20:51 Dose: 200 mls/hr Documented By: Infusion: 12/14/22 16:12 Dose: 0 mls/hr Documented By: Admin: 12/14/22 15:31 Dose: 200 mls/hr Documented By: Infusion: 12/14/22 09:38 Dose: 0 mls/hr Documented By: Admin: 12/14/22 08:49 Dose: 200 mls/hr Documented By: VANDANA Insulin Aspart (Insulin Aspart Per Unit Charge) 0 units SC ACHS ALISIA Stop: 01/13/23 11:29 Last Admin: 12/14/22 20:51 Dose: 6 units Documented By: ALLYSON Co-signed By: NEMO Admin: 12/14/22 17:41 Dose: 10 units Documented By: VANDANA Co-signed By: ED Admin: 12/14/22 12:33 Dose: 11 units Documented By: VANDANA Co-signed By: [facility] Insulin Glargine (Lantus Per Unit Charge) 5 units SQ BID ALISIA Stop: 01/13/23 08:59 Last Admin: 12/14/22 20:52 Dose: 5 units Documented By: ALLYSON Co-signed By: NEMO Admin: 12/14/22 08:49 Dose: 5 units Documented By: VANDANA Co-signed By: Propranolol HCl (Propranolol Hcl 20 Mg Tab) 20 mg PO QPM ALISIA Stop: 01/13/23 20:59 Last Admin: 12/14/22 20:50 Dose: 20 mg Documented By: ALLYSON Discontinued Medications Sodium Chloride (Nss 1000ml) 1,000 mls @ 999 mls/hr IV .Q1H1M ALISIA Stop: 12/14/22 03:15 Last Infusion: 12/14/22 03:24 Dose: 0 mls/hr Documented By: Admin: 12/14/22 02:25 Dose: 999 mls/hr Documented By: HORACIO Ampicillin Sodium/Sulbactam Sodium 3,000 mg/ Sodium Chloride 108 mls @ 200 mls/hr IV NOW STA; Protocol Stop: 12/14/22 02:42 Last Infusion: 12/14/22 03:24 Dose: 0 mls/hr Documented By: Admin: 12/14/22 02:51 Dose: 200 mls/hr Documented By: RADHA Acetaminophen (Ofirmev) 1,000 mg in 100 mls @ 400 mls/hr IV NOW STA Stop: 12/14/22 04:43 Last Infusion: 12/14/22 04:56 Dose: 0 mls/hr Documented By: Admin: 12/14/22 04:41 Dose: 400 mls/hr Documented By: RADHA Lactated Ringer's (Lr) 1,000 mls @ 125 mls/hr IV .Q8H ALISIA Stop: 12/14/22 13:50 Last Infusion: 12/14/22 15:31 Dose: 0 mls/hr Documented By: Admin: 12/14/22 06:24 Dose: 125 mls/hr Documented By: MERLIN Insulin Aspart (Insulin Aspart Per Unit Charge) 0 units SC Q6 ALISIA Stop: 01/13/23 05:59 Last Admin: 12/14/22 06:24 Dose: 6 units Documented By: MERLIN Co-signed By: INDIGO Insulin Human Regular (Novolin-R Insulin Per Unit Charge) 8 units IV NOW STA Stop: 12/14/22 03:58 Last Admin: 12/14/22 04:09 Dose: 8 units Documented By: RADHA Co-signed By: PEYMAN Medical Decision Making Differential Diagnosis Differential diagnosis includes: Etiologies such as cellulitis, abscess, osteomyelitis, MRSA infection, DVT, necrotizing fasciitis, dermatitis, drug eruption, as well as others were enter tained Laboratory Data 12/14/22 02:16 12/14/22 02:16 Lab Results 12/14/22 12/14/22 12/14/22 Range/Units 02:16 02:16 02:16 WBC 4.79 L (4.8-10.8) K/ul RBC 4.12 L (4.70-6.10) M/uL Hgb 13.1 L (14.0-18.0) g/dl Hct 36.3 L (42.0-52.0) % MCV 88.1 (80.0-100.0) fL MCH 31.8 (25.0-34.0) pg MCHC 36.1 H (32.0-36.0) g/dL RDW Std Deviation 43.5 (36.4-46.3) fL RDW Coeff of Janice 13.4 (11.5-14.5) % Plt Count 110 L (130-400) K/uL MPV 10.9 (9.4-12.4) fL Immature Gran % (Auto) 0.2 % Neut % (Auto) 67.9 % Lymph % (Auto) 16.9 % [place] % (Auto) 11.1 % Eos % (Auto) 3.5 % Baso % (Auto) 0.4 % Neut # (Auto) 3.25 (1.40-6.50) K/uL Lymph # (Auto) 0.81 L (1.2-3.4) K/uL [place] # (Auto) 0.53 (0.11-0.59) K/uL Eos # (Auto) 0.17 (0-0.50) K/uL Baso # (Auto) 0.02 (0-0.2) K/uL Immature Gran # (Auto) 0.01 (0.01-0.20) K/uL ESR 63 H (0-20) mm/hr Sodium 132 L (136-145) mmol/L Potassium 4.1 (3.5-5.1) mmol/L Chloride 104 (98-107) mmol/L Carbon Dioxide 23 (21-32) mmol/L Anion Gap 5 (3-11) BUN 14 (6-23) mg/dl Creatinine 0.61 (0.6-1.4) mg/dl Est Cr Clr Drug Dosing 127.2 ml/min Est GFR ( Amer) 118.9 ml/min Est GFR (Non-Af Amer) 102.6 ml/min BUN/Creatinine Ratio 23.0 H (10-20) Glucose 383 H* (70-99(Fasting)) mg/dl Uric Acid 1.8 L (2.6-7.2) mg/dl Calcium 8.5 L (8.6-10.3) mg/dl Total Bilirubin 2.6 H (0.2-1.0) mg/dl AST 73 H (13-39) U/L ALT 68 H (7-52) U/L Alkaline Phosphatase 356 H (34-104) U/L C-Reactive Protein 4.26 H (0-0.5) mg/dl Total Protein 6.7 (6.0-8.3) gm/dl Albumin 3.0 L (3.4-5.0) gm/dl Globulin 3.7 (2.5-4.0) gm/dl Albumin/Globulin Ratio 0.8 L (0.9-2) Lyme Disease IgG Ab (Negative) Lyme Disease IgM Ab (Negative) 12/14/22 Range/Units 03:50 WBC (4.8-10.8) K/ul RBC (4.70-6.10) M/uL Hgb (14.0-18.0) g/dl Hct (42.0-52.0) % MCV (80.0-100.0) fL MCH (25.0-34.0) pg MCHC (32.0-36.0) g/dL RDW Std Deviation (36.4-46.3) fL RDW Coeff of Janice (11.5-14.5) % Plt Count (130-400) K/uL MPV (9.4-12.4) fL Immature Gran % (Auto) % Neut % (Auto) % Lymph % (Auto) % [place] % (Auto) % Eos % (Auto) % Baso % (Auto) % Neut # (Auto) (1.40-6.50) K/uL Lymph # (Auto) (1.2-3.4) K/uL [place] # (Auto) (0.11-0.59) K/uL Eos # (Auto) (0-0.50) K/uL Baso # (Auto) (0-0.2) K/uL Immature Gran # (Auto) (0.01-0.20) K/uL ESR (0-20) mm/hr Sodium (136-145) mmol/L Potassium (3.5-5.1) mmol/L Chloride (98-107) mmol/L Carbon Dioxide (21-32) mmol/L Anion Gap (3-11) BUN (6-23) mg/dl Creatinine (0.6-1.4) mg/dl Est Cr Clr Drug Dosing ml/min Est GFR ( Amer) ml/min Est GFR (Non-Af Amer) ml/min BUN/Creatinine Ratio (10-20) Glucose (70-99(Fasting)) mg/dl Uric Acid (2.6-7.2) mg/dl Calcium (8.6-10.3) mg/dl Total Bilirubin (0.2-1.0) mg/dl AST (13-39) U/L ALT (7-52) U/L Alkaline Phosphatase (34-104) U/L C-Reactive Protein (0-0.5) mg/dl Total Protein (6.0-8.3) gm/dl Albumin (3.4-5.0) gm/dl Globulin (2.5-4.0) gm/dl Albumin/Globulin Ratio (0.9-2) Lyme Disease IgG Ab Positive A (Negative) Lyme Disease IgM Ab Negative (Negative) MDM Narrative Physical exam and history were performed. Nursing notes, EMR, and Medication List were personally reviewed. No social concerns were identified as barriers to patients care. Patient appears to have pain and swelling to his right hand. This is atraumatic, and is likely from a dog bite last month. IV access was established and labs were obtained. Patient was hydrated and given IV Unasyn. Patient's blood work is as above and was reviewed. He does not have a significantly elevated white blood cell count, gross anemia, or significant electrolyte imbalance. Glucose is markedly elevated over 300. Additionally he has increases in his sed rate and CRP. X-ray does show some arthritic findings but no obvious bony decay. Case was discussed with the on-call hospitalist for ongoing care and evaluation. The patient does not appear well for discharge home. I have concern for flexor tenosynovitis or deep space infection. He will likely need ongoing antibiotics and possibly orthopedic evaluation. Please see the hospitalist dictation for further patient course, plan, and disposition. The chart was completed utilizing [employer] Speech Voice Recognition Software. Grammatical errors, random word insertions, pronoun errors, and incomplete sentences are an occasional consequence of this system due to software limitations, ambient noise, and hardware issues. Any formal questions or concerns about the content, text, or information contained within the body of this dictation should be directly addressed to the provider for clarification. . Impression & Plan Dog bite of right arm Discharge Plan Visit Data Chief Complaint: Hand Injury/Pain Stated Complaint: SEVERE PAIN IN RIGHT HAND AND ARM ED Provider: Eris Jorgensen ED Midlevel Provider: Samuel Ash Discharge Problem: Dog bite of right arm Patient Disposition: Admitted As Inpatient Discharge Instructions Interventions: ED Discharge Assessment Last Done: 12/14/22 05:27
[2022-12-14] MEDS ORDERED: NovoLIN-R INSULIN PER UNIT CHARGE IV STA (03:57)
--- NOTE | 2022-12-14 04:03 | History & Physical Report ---
Date of Service December 14, 2022 Assessment & Plan (1) Dog bite of left hand: Plan: 67yo male with history of DM, atrial fibrillation and cirrhosis of the liver presenting with worsening pain and stiffness of right hand following a dog bite from approximately 1 month ago. Afebrile, HD stable, no evidence of sepsis. Does have elevation of ESR=63 and CRP=4/26 -Continue Unasyn -Tylenol, Oxycodone, Morphine as needed for pain control -Orthopedic surgery consultation appreciated (2) Cirrhosis: Plan: Chronic -Continue Propranolol -Repeat LFTs in AM (3) Diabetes mellitus, type 2: Plan: With hyperglycemia. Patient is on Glipizide outpatient. Elevated blood sugar presently at 383 likely secondary to underlying infection. -Lantus 8u IV given -Lantus 5u BID with ISS -Goal blood sugar 110-140 F/E/N - LR at 125mL/hr x 1 liter, monitor electrolytes, NPO for now Ppx - low risk for DVT Code - Full per discussion with patient Dispo - Admit to medical History of Present Illness Chief Complaint: right hand pain Primary Care Provider: Ashleigh Carreno Emile Card is a pleasant 67yo male with history of liver cirrhosis with varices, DM and atrial fibrillation presenting with infection of the right hand. Patient reports his dog bit him in the right hand approximately 1 month ago. The dog is a pet, indoor animal, healthy and up to date with his veterinary care. He reports that the hand bite was sore and painful at first but then slowly recovered through November. He had some increased pain and stiffness of the right hand, wrist and forearm which prompted him to see his PCP yesterday 12/13/22. He was subsequently started on Augmentin for concern for infection. He reports taking one dose of Augmentin on 12/13/22 around 16:00 after which he developed more pain and swelling in his right hand. He also had pain in the right forearm and wrist. He reports limited mobility and strength of the right hand. He is right handed Denies fever, chills, nausea, malaise or other evidence of systemic infection. No report of chest pain, cough, SOB, vomiting, diarrhea. No additional complaints at this time. In the ER he is afebrile, HD stable ER Course: Unasyn Ofirmev ordered Allergies Allergy/AdvReac Type Severity Reaction Status Date / Time No Known Allergies Allergy Verified 12/14/22 02:18 Home Medications Medication Instructions Recorded Confirmed Type milk thistle 175 mg tablet 175 mg PO DAILY 03/28/18 12/14/22 History multivitamin 1 tab PO DAILY 03/28/18 12/14/22 History spironolactone 25 mg tablet 25 mg PO QAM PRN NEEDED 11/02/19 12/14/22 History fluticasone propionate 50 1 spray intranasal DAILY PRN 01/15/22 12/14/22 History mcg/actuation nasal Congestion spray,suspension furosemide 40 mg tablet (Lasix) 40 mg PO BID PRN SWELLING 01/15/22 12/14/22 History glipizide 5 mg tablet See Rx Instructions .Route .COMPLEX 01/15/22 12/14/22 History propranolol 20 mg tablet 20 mg PO QPM 01/15/22 12/14/22 History amoxicillin 500 mg-potassium 1 tab PO BID 12/14/22 12/14/22 History clavulanate 125 mg tablet cholecalciferol (vitamin D3) 50 50 mcg PO DAILY 12/14/22 12/14/22 History mcg (2,000 unit) capsule (Vitamin D3) Past Med/Surg History Medical History (Updated 12/14/22 @ 04:52 by Gabi Worthington DO) Cirrhosis GUAMAN (REASON FOR PROPRANOLOL) Degenerative disc disease Diabetes mellitus, type 2 Esophageal varices History of abdominal paracentesis History of atrial fibrillation WHEN DX WITH LYMES DISEASE 2019 *HAD SEEN DR. MUNIZ Lyme disease 2019 Osteoarthritis Sciatica Surgical History History of colonoscopy History of esophagogastroduodenoscopy (EGD) History of right cataract extraction History of tooth extraction Family History Other No significant family history Social History Smoking Status: Never smoker Second Hand Exposure: Yes (mom smoked/father smoked a pipe); Do You Dip or Chew Tobacco: No; Hx Alcohol Use: No Preferred Language: Occitan Communication Ability: Effective Parks And Recreation Manager Required: No Beliefs That Will Affect Care: None Current Living Situation: Spouse Feels Safe at Home: Yes Assistive Devices: Glasses Review of Systems Review of Systems: All systems reviewed & are unremarkable except as noted in HPI & below Physical Exam Physical Exam: General: patient resting comfortably, NAD, non-toxic in appearance, AA&O x 4 HEENT: NC/AT, PERRL, EOMI, anicteric sclera, conjunctiva without injection, external ear normal to inspection and nontender, nares patent, moist mucus membranes, dentition intact, no oropharyngeal lesions, neck supple, trachea midline, no LAD, no thyromegaly, no JVD Heart: +S1/S2, irregularly irregular, no m/r/g Lungs: equal air entry bilaterally, no rales/rhonchi/wheezes Abd: +BS, soft, NT/ND, no masses/organomegaly/ascites Ext: warm, 2+ pulses in UE/LE bilaterally, no clubbing/cyanosis or edema Right hand held in semi-flexed position - difficulty with full extension. Weakness. Pain with palpation of wrist Neuro: nonfocal, patient AA&O x 4, speech intact, no facial droop, moving all extremities on command with equal strength with exception of right hand limited due to pain Results & Data Results & Data Vital Signs (Past 12 Hours) Vital Signs Temp Pulse Pulse Resp BP BP Pulse Ox 12/14/22 03:53 52 L 12/14/22 03:45 57 L 16 152/69 H 95 12/14/22 01:42 36.8 C 63 20 149/69 H 96 O2 Del Method 12/14/22 03:53 12/14/22 03:45 Room Air 12/14/22 01:42 Room Air Laboratory Results Laboratory Results WBC 4.79 K/ul (4.8-10.8) L 12/14/22 02:16 RBC 4.12 M/uL (4.70-6.10) L 12/14/22 02:16 Hgb 13.1 g/dl (14.0-18.0) L 12/14/22 02:16 Hct 36.3 % (42.0-52.0) L 12/14/22 02:16 MCV 88.1 fL (80.0-100.0) 12/14/22 02:16 MCH 31.8 pg (25.0-34.0) 12/14/22 02:16 MCHC 36.1 g/dL (32.0-36.0) H 12/14/22 02:16 RDW Std Deviation 43.5 fL (36.4-46.3) 12/14/22 02:16 RDW Coeff of Janice 13.4 % (11.5-14.5) 12/14/22 02:16 Plt Count 110 K/uL (130-400) L 12/14/22 02:16 MPV 10.9 fL (9.4-12.4) 12/14/22 02:16 Immature Gran % (Auto) 0.2 % 12/14/22 02:16 Neut % (Auto) 67.9 % 12/14/22 02:16 Lymph % (Auto) 16.9 % 12/14/22 02:16 [place] % (Auto) 11.1 % 12/14/22 02:16 Eos % (Auto) 3.5 % 12/14/22 02:16 Baso % (Auto) 0.4 % 12/14/22 02:16 Neut # (Auto) 3.25 K/uL (1.40-6.50) 12/14/22 02:16 Lymph # (Auto) 0.81 K/uL (1.2-3.4) L 12/14/22 02:16 [place] # (Auto) 0.53 K/uL (0.11-0.59) 12/14/22 02:16 Eos # (Auto) 0.17 K/uL (0-0.50) 12/14/22 02:16 Baso # (Auto) 0.02 K/uL (0-0.2) 12/14/22 02:16 Immature Gran # (Auto) 0.01 K/uL (0.01-0.20) 12/14/22 02:16 ESR 63 mm/hr (0-20) H 12/14/22 02:16 Sodium 132 mmol/L (136-145) L 12/14/22 02:16 Potassium 4.1 mmol/L (3.5-5.1) 12/14/22 02:16 Chloride 104 mmol/L (98-107) 12/14/22 02:16 Carbon Dioxide 23 mmol/L (21-32) 12/14/22 02:16 Anion Gap 5 (3-11) 12/14/22 02:16 BUN 14 mg/dl (6-23) 12/14/22 02:16 Creatinine 0.61 mg/dl (0.6-1.4) 12/14/22 02:16 Est Cr Clr Drug Dosing 127.2 ml/min 12/14/22 02:16 Est GFR ( Amer) 118.9 ml/min 12/14/22 02:16 Est GFR (Non-Af Amer) 102.6 ml/min 12/14/22 02:16 BUN/Creatinine Ratio 23.0 (10-20) H 12/14/22 02:16 Glucose 383 mg/dl (70-99(Fasting)) H* 12/14/22 02:16 Uric Acid 1.8 mg/dl (2.6-7.2) L 12/14/22 02:16 Calcium 8.5 mg/dl (8.6-10.3) L 12/14/22 02:16 Total Bilirubin 2.6 mg/dl (0.2-1.0) H 12/14/22 02:16 AST 73 U/L (13-39) H 12/14/22 02:16 ALT 68 U/L (7-52) H 12/14/22 02:16 Alkaline Phosphatase 356 U/L (34-104) H 12/14/22 02:16 C-Reactive Protein 4.26 mg/dl (0-0.5) H 12/14/22 02:16 Total Protein 6.7 gm/dl (6.0-8.3) 12/14/22 02:16 Albumin 3.0 gm/dl (3.4-5.0) L 12/14/22 02:16 Globulin 3.7 gm/dl (2.5-4.0) 12/14/22 02:16 Albumin/Globulin Ratio 0.8 (0.9-2) L 12/14/22 02:16 PG Care Time/CCT Total # of Minutes Spent Total Time Spent with Patient: Total time spent is greater than 50% in coordination of care (as documented) at patient's floor/unit and/or counseling patient: Coding Level of Care Code 19313 INT INP/OBS CARE 2/55MIN Diagnoses Dog bite of left hand S61.452A; W54.0XXA Cirrhosis K74.69 Hepatic cirrhosis type: other cirrhosis Diabetes mellitus, type 2 E11.9 (2) Cirrhosis Hepatic cirrhosis type: other cirrhosis Qualified Code(s): K74.69 - Other cirrhosis of liver
[2022-12-14 04:18] LABS: Uric Acid 1.8 mg/dl (2.6-7.2)
[2022-12-14] MEDS ORDERED: ACETAMINOPHEN 1,000 MG/100 ML VIAL IV STA (04:29)
[2022-12-14 05:02] LABS: Lyme Ab IgM w/WB Rflx Negative (Negative)
[2022-12-14] MEDS ORDERED: LACTATED RINGER'S 1,000 ML IV SCH (05:51)
[2022-12-14] MEDS ORDERED: CARBOHYDRATES FOR HYPOGLYCEMIA PO PRN (05:51)
[2022-12-14] MEDS ORDERED: ACETAMINOPHEN 325 MG TAB PO PRN (05:51)
[2022-12-14] MEDS ORDERED: DOCUSATE SODIUM 100 MG CAP PO PRN (05:51)
[2022-12-14] MEDS ORDERED: GLUCOSE 40% GEL 15 GM TUBE PO PRN (05:51)
[2022-12-14] MEDS ORDERED: oxyCODONE HCL IR 5 MG TAB (IMMEDIATE RELEASE) PO PRN (05:51)
[2022-12-14] MEDS ORDERED: ONDANSETRON INJ 2 MG/ML 2 ML VIAL IV PRN (05:51)
[2022-12-14] MEDS ORDERED: GLUCAGON FOR INJ 1 MG VIAL SQ PRN (05:51)
[2022-12-14] MEDS ORDERED: GLUCOSE 10 TAB/TUBE PO PRN (05:51)
[2022-12-14] MEDS ORDERED: DEXTROSE 50% 50 ML SYRINGE IV PRN (05:51)
[2022-12-14] MEDS ORDERED: MoRPHine SULFATE 2 MG/ML CARP IV PRN (05:51)
[2022-12-14 05:56] LABS: Lyme Ab IgG w/WB Rflx Positive (Negative)
[2022-12-14] MEDS ORDERED: Nursing to Pharmacy Communication SCH ×2 (06:00→11:15)
[2022-12-14] MEDS ORDERED: INSULIN ASPART PER UNIT CHARGE SC SCH (06:00)
--- NOTE | 2022-12-14 07:00 | XRay Report ---
RIGHT WRIST 4 VIEWS CLINICAL HISTORY: Wrist pain. Infection. Dog bite injury. FINDINGS: 4 views of the right wrist are correlated with radiographs of the right hand dated 02/29/20. The skeletal structures are well mineralized. No fracture is seen. There is no bony erosion or pe riostitis. Mild degenerative change is seen at the radiocarpal articulation as well as at the distal radioulnar joint. Cystic change seen in the lunate. Moderate osteoarthritic change is present at the first carpometacarpal joint. Mild soft tissue swelling is seen around the wrist and hand. No soft tis joaquim gas or radiodense foreign body is identified. IMPRESSION: Soft tissue swelling with no acute bony abnormality identified. Electronically signed by: Eris Russell M.D. 12/14/2022 6:59 AM
[2022-12-14] MEDS: LANTUS PER UNIT CHARGE SQ SCH ×2 (08:49→20:52)
[2022-12-14] MEDS: AMPICILLIN/SULBACTAM SOD 3,000 MG in 0.9 % SODIUM CHLORIDE 100 ML IV SCH ×3 (08:49→20:51)
--- NOTE | 2022-12-14 09:08 | Orthopedic Consultation ---
Date of Consultation December 14, 2022 Assessment & Plan (1) Dog bite of left hand: Patient has a history of a dog bite from home pet approximately 6 weeks ago. Symptoms are improving since he has been given IV antibiotics in the ER. He does have an elevated sed rate at 63 and elevated CRP at 4.46 which can be inflammatory versus infectious. Recommend continuing IV antibiotics. He was advised on continue with gentle range of motion of the fingers wrist and forearm. Recommend repeat CRP and sed rate in the morning of 12/15/2022. His white blood cell count is normal no elevation he is afebrile. Would recommend upon discharge being transitioned to oral antibiotic if symptoms continue to improve. At this time no surgical intervention is required. He does have findings of arthritis in the right wrist as well as the right thumb. Discussed this can be managed as an outpatient with injections however I would not recommend any injections at this time. Pain per primary service. Patient can resume normal diet/diabetic diet. If any changes or concerns please do not hesitate to contact our office. Will continue to follow patient while in house. Patient can follow up in our office as an outpatient once d/c approx 7-10 days post d/c. Time spent with patient and reviewing chart/imaging 35 minutes. I, Dr. Chun, spent 40 minutes reviewing the chart, reading the imaging, evaluating the patient, discussing care plan with the patient and my PA. I, Dr. Chun, saw and examined the patient and discussed the management with my PA. I reviewed my PAs note and agree with the documented findings and the plan of care I developed. RUE: Sensation to light touch intact distally. BCR < sec. Motor to median, radial, ulnar, AIN, PIN are intact. No erythema. No swelling. Able to make a full fist. Partial amp right IF healed ,no evidence of infection. Small wounds scabbed, no evidence of infection. Present on Admission?: Yes (2) Osteoarthritis of right wrist: See above can be treated as an out patient. D/W patient potentially using a cock-up wrist as needed. (3) Osteoarthritis of carpometacarpal joint of right thumb: See above can be treated as an outpatient. History of Present Illness Reason for Consultation: Right hand pain history of dog bite Requesting Physician: Mike Chun MD Attending Physician: Gaby Barclay, History of Present Illness Patient is a 67-year-old [id number] male who went to the emergency room last night and admitted for right hand pain with a history of a dog bite. Patient explains he has a 14 y.o. great Jero, he was assisting the pet up like he had previously done multiple times because of back leg weakness when the dog reached around and bit his right hand. He states this occurred November 06. He states he had slight bleeding however he was able to clean it out and put a topical ointment on the 2 areas that were marked. He states this seemed to heal pretty quickly. He states he initially had some soreness. He never had any drainage or redness around the bite telles. He states he continued about doing activities without any difficulty. He states over the weekend and on Tuesday he had pain in the right hand and forearm which prompted him to see his PCP. He states he did not really have any redness but he had pain that was worsening with activities so he was seen and provided with a prescription of Augmentin. He states he took 1 pill yesterday however he felt that his symptoms seem to get worse in the right upper extremity and this prompted him to go to the ER. He states he had some swelling and had pain with motion of his fingers and wrist. He states the pain went the whole way up into his forearm. He states since being seen in the ER and having IV antibiotics the pain has greatly improved as well as his motion in his hand. He states he has pain that is 5/10. He denies any redness over the upper extremity. He states he is able to almost close his fist where he was not able to do this last night. He states he has no numbness or tingling in his fingers he denies any fever, chills, night sweats, nausea or vomiting. He does have a history of being a prediabetic he is on glipizide. He is unsure what his A1c is. He does have a history of cirrhosis of the liver denies any history of alcohol abuse. In his history he is listed as having A- fib patient denies this he states he never had a history of this and denies being on any anticoagulation. He does have a history of having a partial amputation at the DIP joint of the right index finger last fall 2021. He states there is a little area over the top of it that has been there and is unchanged. He denies any drainage or redness from the site Allergies Allergy/AdvReac Type Severity Reaction Status Date / Time No Known Allergies Allergy Verified 12/14/22 02:18 Home Medications Medication Instructions Recorded Confirmed Type milk thistle 175 mg tablet 175 mg PO DAILY 03/28/18 12/14/22 History multivitamin 1 tab PO DAILY 03/28/18 12/14/22 History spironolactone 25 mg tablet 25 mg PO QAM PRN NEEDED 11/02/19 12/14/22 History fluticasone propionate 50 1 spray intranasal DAILY PRN 01/15/22 12/14/22 History mcg/actuation nasal Congestion spray,suspension furosemide 40 mg tablet (Lasix) 40 mg PO BID PRN SWELLING 01/15/22 12/14/22 History glipizide 5 mg tablet See Rx Instructions .Route .COMPLEX 01/15/22 12/14/22 History propranolol 20 mg tablet 20 mg PO QPM 01/15/22 12/14/22 History amoxicillin 500 mg-potassium 1 tab PO BID 12/14/22 12/14/22 History clavulanate 125 mg tablet cholecalciferol (vitamin D3) 50 50 mcg PO DAILY 12/14/22 12/14/22 History mcg (2,000 unit) capsule (Vitamin D3) Patient History Medical History (Updated 12/14/22 @ 09:20 by KIRILL Marmolejo) Cirrhosis GUAMAN (REASON FOR PROPRANOLOL) Degenerative disc disease Diabetes mellitus, type 2 Esophageal varices History of abdominal paracentesis History of atrial fibrillation WHEN DX WITH LYMES DISEASE 2019 *HAD SEEN DR. MUNIZ Lyme disease 2019 Osteoarthritis Sciatica Surgical History History of colonoscopy History of esophagogastroduodenoscopy (EGD) History of right cataract extraction History of tooth extraction Family History Other No significant family history Social History Smoking Status: Never smoker Second Hand Exposure: Yes (mom smoked/father smoked a pipe); Do You Dip or Chew Tobacco: No; Hx Alcohol Use: No Hx Substance Use: No Preferred Language: Croatian Communication Ability: Effective [employer] Manager Required: No Beliefs That Will Affect Care: None Current Living Situation: Spouse Other Information That Helps Us Care for You: No Feels Safe at Home: Yes Safety Concerns: Feels Safe At This Time Assistive Devices: None Review of Systems 2 Constitutional: as per Subjective / HPI Respiratory: Denies any shortness of breath or wheezing Cardiovascular: as per Subjective / HPI Additional Comments: Denies any chest pain Gastrointestinal: as per Subjective / HPI Musculoskeletal: as per Subjective / HPI Integumentary: as per Subjective / HPI Physical Exam Physical Exam: General: Patient is alert and oriented x 3 pleasant and conversive Integumentary: There are 2 areas over the dorsum of the hand and 1 on the radial and ulnar aspect. There is a scab on the ulnar aspect and scarring on the radial aspect. Both areas showed no signs of infection including erythema or edema. There is no fluctuance or induration of these areas. On the upper forearm more proximally he has superficial abrasions per patient this was not from the dog. Bilateral upper extremities are normal in temperature they feel the same. There is minimal edema over the distal hand when compared to the left upper extremity. Musculoskeletal: Negative for any deformities except right index finger partial amputation at the DIP. There is a small area at the tip that appears to be like an ulceration negative for any drainage induration or erythema at this area. Patient has palpable tenderness over the first CMC joint. He is able to tolerate palpation over the bite zhane areas without increased pain. He has no palpable tenderness over the metacarpals on the dorsal or palmar side of the hand. Mild tenderness over the radiocarpal joint. Negative for any tenderness over the digits. He is able to tolerate deep palpation over the forearm without discomfort. No elbow joint tenderness. Patient is able to actively flex and extend wrist and fingers. There may be slight limitation with wrist flexion and extension when compared to left upper extremity by 5 degrees. He is able to flex and extend digits able to almost close the fist. 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 He has full active elbow extension and flexion. Full supination and pronation. He has no pain with passive range of motion of the wrist and digits. Radial pulses 2. Results & Data Vital Signs (Past 12 Hours) Vital Signs Temp Pulse Pulse Pulse Resp BP BP 12/14/22 05:51 36.6 C 60 16 132/61 12/14/22 05:00 54 L 15 143/68 H 12/14/22 03:53 52 L 12/14/22 03:45 57 L 16 152/69 H 12/14/22 01:42 36.8 C 63 20 149/69 H Pulse Ox O2 Del Method 12/14/22 05:51 95 Room Air 12/14/22 05:00 94 Room Air 12/14/22 03:53 12/14/22 03:45 95 Room Air 12/14/22 01:42 96 Room Air Laboratory Results 12/14/22 12/14/22 12/14/22 Range/Units 06:04 05:11 03:50 WBC (4.8-10.8) K/ul RBC (4.70-6.10) M/uL Hgb (14.0-18.0) g/dl Hct (42.0-52.0) % MCV (80.0-100.0) fL MCH (25.0-34.0) pg MCHC (32.0-36.0) g/dL RDW Std Deviation (36.4-46.3) fL RDW Coeff of Janice (11.5-14.5) % Plt Count (130-400) K/uL MPV (9.4-12.4) fL Immature Gran % (Auto) % Neut % (Auto) % Lymph % (Auto) % Frontier % (Auto) % Eos % (Auto) % Baso % (Auto) % Neut # (Auto) (1.40-6.50) K/uL Lymph # (Auto) (1.2-3.4) K/uL Frontier # (Auto) (0.11-0.59) K/uL Eos # (Auto) (0-0.50) K/uL Baso # (Auto) (0-0.2) K/uL Immature Gran # (Auto) (0.01-0.20) K/uL ESR (0-20) mm/hr Sodium (136-145) mmol/L Potassium (3.5-5.1) mmol/L Chloride (98-107) mmol/L Carbon Dioxide (21-32) mmol/L Anion Gap (3-11) BUN (6-23) mg/dl Creatinine (0.6-1.4) mg/dl Est Cr Clr Drug Dosing ml/min Est GFR ( Amer) ml/min Est GFR (Non-Af Amer) ml/min BUN/Creatinine Ratio (10-20) Glucose (70-99(Fasting)) mg/dl POC Glucose 233 H 247 H (70-99) mg/dl Uric Acid (2.6-7.2) mg/dl Calcium (8.6-10.3) mg/dl Total Bilirubin (0.2-1.0) mg/dl AST (13-39) U/L ALT (7-52) U/L Alkaline Phosphatase (34-104) U/L C-Reactive Protein (0-0.5) mg/dl Total Protein (6.0-8.3) gm/dl Albumin (3.4-5.0) gm/dl Globulin (2.5-4.0) gm/dl Albumin/Globulin Ratio (0.9-2) Lyme Disease IgG Ab (Negative) Lyme IgG (Western Blot) Pending Lyme IgG 18 kDa Band Pending Lyme IgG 23 kDa Band Pending Lyme IgG 28 kDa Band Pending Lyme IgG 30 kDa Band Pending Lyme IgG 39 kDa Band Pending Lyme IgG 41 kDa Band Pending Lyme IgG 45 kDa Band Pending Lyme IgG 58 kDa Band Pending Lyme IgG 66 kDa Band Pending Lyme IgG 93 kDa Band Pending Lyme IgM Ab (WB) Pending Lyme Disease IgM Ab (Negative) Lyme IgM 23 kDa Band Pending Lyme IgM 39 kDa Band Pending Lyme IgM 41 kDa Band Pending 12/14/22 12/14/22 12/14/22 Range/Units 03:50 02:16 02:16 WBC (4.8-10.8) K/ul RBC (4.70-6.10) M/uL Hgb (14.0-18.0) g/dl Hct (42.0-52.0) % MCV (80.0-100.0) fL MCH (25.0-34.0) pg MCHC (32.0-36.0) g/dL RDW Std Deviation (36.4-46.3) fL RDW Coeff of Janice (11.5-14.5) % Plt Count (130-400) K/uL MPV (9.4-12.4) fL Immature Gran % (Auto) % Neut % (Auto) % Lymph % (Auto) % Frontier % (Auto) % Eos % (Auto) % Baso % (Auto) % Neut # (Auto) (1.40-6.50) K/uL Lymph # (Auto) (1.2-3.4) K/uL Frontier # (Auto) (0.11-0.59) K/uL Eos # (Auto) (0-0.50) K/uL Baso # (Auto) (0-0.2) K/uL Immature Gran # (Auto) (0.01-0.20) K/uL ESR 63 H (0-20) mm/hr Sodium 132 L (136-145) mmol/L Potassium 4.1 (3.5-5.1) mmol/L Chloride 104 (98-107) mmol/L Carbon Dioxide 23 (21-32) mmol/L Anion Gap 5 (3-11) BUN 14 (6-23) mg/dl Creatinine 0.61 (0.6-1.4) mg/dl Est Cr Clr Drug Dosing 127.2 ml/min Est GFR ( Amer) 118.9 ml/min Est GFR (Non-Af Amer) 102.6 ml/min BUN/Creatinine Ratio 23.0 H (10-20) Glucose 383 H* (70-99(Fasting)) mg/dl POC Glucose (70-99) mg/dl Uric Acid 1.8 L (2.6-7.2) mg/dl Calcium 8.5 L (8.6-10.3) mg/dl Total Bilirubin 2.6 H (0.2-1.0) mg/dl AST 73 H (13-39) U/L ALT 68 H (7-52) U/L Alkaline Phosphatase 356 H (34-104) U/L C-Reactive Protein 4.26 H (0-0.5) mg/dl Total Protein 6.7 (6.0-8.3) gm/dl Albumin 3.0 L (3.4-5.0) gm/dl Globulin 3.7 (2.5-4.0) gm/dl Albumin/Globulin Ratio 0.8 L (0.9-2) Lyme Disease IgG Ab Positive A (Negative) Lyme IgG (Western Blot) Lyme IgG 18 kDa Band Lyme IgG 23 kDa Band Lyme IgG 28 kDa Band Lyme IgG 30 kDa Band Lyme IgG 39 kDa Band Lyme IgG 41 kDa Band Lyme IgG 45 kDa Band Lyme IgG 58 kDa Band Lyme IgG 66 kDa Band Lyme IgG 93 kDa Band Lyme IgM Ab (WB) Lyme Disease IgM Ab Negative (Negative) Lyme IgM 23 kDa Band Lyme IgM 39 kDa Band Lyme IgM 41 kDa Band 12/14/22 Range/Units 02:16 WBC 4.79 L (4.8-10.8) K/ul RBC 4.12 L (4.70-6.10) M/uL Hgb 13.1 L (14.0-18.0) g/dl Hct 36.3 L (42.0-52.0) % MCV 88.1 (80.0-100.0) fL MCH 31.8 (25.0-34.0) pg MCHC 36.1 H (32.0-36.0) g/dL RDW Std Deviation 43.5 (36.4-46.3) fL RDW Coeff of Janice 13.4 (11.5-14.5) % Plt Count 110 L (130-400) K/uL MPV 10.9 (9.4-12.4) fL Immature Gran % (Auto) 0.2 % Neut % (Auto) 67.9 % Lymph % (Auto) 16.9 % Frontier % (Auto) 11.1 % Eos % (Auto) 3.5 % Baso % (Auto) 0.4 % Neut # (Auto) 3.25 (1.40-6.50) K/uL Lymph # (Auto) 0.81 L (1.2-3.4) K/uL Frontier # (Auto) 0.53 (0.11-0.59) K/uL Eos # (Auto) 0.17 (0-0.50) K/uL Baso # (Auto) 0.02 (0-0.2) K/uL Immature Gran # (Auto) 0.01 (0.01-0.20) K/uL ESR (0-20) mm/hr Sodium (136-145) mmol/L Potassium (3.5-5.1) mmol/L Chloride (98-107) mmol/L Carbon Dioxide (21-32) mmol/L Anion Gap (3-11) BUN (6-23) mg/dl Creatinine (0.6-1.4) mg/dl Est Cr Clr Drug Dosing ml/min Est GFR ( Amer) ml/min Est GFR (Non-Af Amer) ml/min BUN/Creatinine Ratio (10-20) Glucose (70-99(Fasting)) mg/dl POC Glucose (70-99) mg/dl Uric Acid (2.6-7.2) mg/dl Calcium (8.6-10.3) mg/dl Total Bilirubin (0.2-1.0) mg/dl AST (13-39) U/L ALT (7-52) U/L Alkaline Phosphatase (34-104) U/L C-Reactive Protein (0-0.5) mg/dl Total Protein (6.0-8.3) gm/dl Albumin (3.4-5.0) gm/dl Globulin (2.5-4.0) gm/dl Albumin/Globulin Ratio (0.9-2) Lyme Disease IgG Ab (Negative) Lyme IgG (Western Blot) Lyme IgG 18 kDa Band Lyme IgG 23 kDa Band Lyme IgG 28 kDa Band Lyme IgG 30 kDa Band Lyme IgG 39 kDa Band Lyme IgG 41 kDa Band Lyme IgG 45 kDa Band Lyme IgG 58 kDa Band Lyme IgG 66 kDa Band Lyme IgG 93 kDa Band Lyme IgM Ab (WB) Lyme Disease IgM Ab (Negative) Lyme IgM 23 kDa Band Lyme IgM 39 kDa Band Lyme IgM 41 kDa Band Diagnostic Findings Wrist X-Ray 12/14/22 02:10 RIGHT WRIST 4 VIEWS CLINICAL HISTORY: Wrist pain. Infection. Dog bite injury. FINDINGS: 4 views of the right wrist are correlated with radiographs of the right hand dated 02/28/2022. The skeletal structures are well mineralized. No fracture is seen. There is no bony erosion or periostitis. Mild degenerative change is seen at the radiocarpal articulation as well as at the distal radioulnar joint. Cystic change seen in the lunate. Moderate osteoarthritic change is present at the first carpometacarpal joint. Mild soft tissue swelling is seen around the wrist and hand. No soft tissue gas or radiodense foreign body is identified. IMPRESSION: Soft tissue swelling with no acute bony abnormality identified. Electronically signed by: Eris Russell M.D. 12/14/2022 6:59 AM
[2022-12-14] MEDS: INSULIN ASPART PER UNIT CHARGE SC SCH ×3 (12:33→20:51)
[2022-12-14] MEDS ORDERED: PROPRANOLOL HCL 20 MG TAB PO SCH (21:00)
[2022-12-15] MEDS: AMPICILLIN/SULBACTAM SOD 3,000 MG in 0.9 % SODIUM CHLORIDE 100 ML IV SCH ×2 (03:09→08:52)
[2022-12-15] MEDS: LANTUS PER UNIT CHARGE SQ SCH (08:40)
[2022-12-15] MEDS: INSULIN ASPART PER UNIT CHARGE SC SCH ×2 (08:41→12:24)
--- NOTE | 2022-12-15 09:06 | Orthopedic Progress Note ---
Date of Service December 15, 2022 Assessment & Plan (1) Dog bite of right arm: Plan: Swelling, pain and stiffness are improving with antibiotic treatment. Repeat CBC, ESR and CRP are pending. Patient states his wrist pain and discomfort is improving. (2) Osteoarthritis of right wrist: Plan: Pain and stiffness and warmth to the right hand. He states has been ongoing for years. 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 He is right-hand dominant. He may have inflammatory underlying infectious process due to the recent dog bite. This does seem to be improving with the antibiotics. Encouraged wrist, finger and hand range of motion. He can advance activities as tolerated. Follow-up next week with Dr. Chun in 7 to 10 days for reassessment. Once infection is completely treated or ruled out we can consider possibly doing a cortisone injection as an outpatient with or without fluoroscopic or ultrasound guidance. Patient understands and agrees with the plan. Discharge instructions were reviewed. Will follow-up as needed while in the hospital and outpatient follow-up has been scheduled. Admission and Anticipated Discharge Date Admission Date: December 14, 2022 Subjective Patient is doing well today. States that he is even improved since yesterday. Less pain and less swelling. He states that it was a little stiff and sore this morning but he attributes that to the way that it was positioned while he was sleeping. Denies any numbness or tingling in his hand. States there is redness and warmth have also improved. Physical Exam Musculoskeletal: Mild edema. Mild warmth. No erythema. Strength of his right upper extremity is 5/5. Distal pulses are 1+. Sensation is normal throughout his right hand and forearm. He has full pronation and supination. Limited extension and flexion due to discomfort and stiffness. He is able to approximate his thumb to all of his fingers. Mild stiffness in the MCP joints but full range of motion of the DIP and PIP joints of his right hand. Full elbow range of motion. Nontender throughout his forearm. Most of his tenderness is over the dorsal aspect of the wrist and base of his hand. Wound is healing nicely with no surrounding erythema or fluctuance. Nontender to palpation. No active drainage. Clean and dry. Results & Data Vital Signs (Past 12 Hours) Vital Signs Temp Pulse Resp BP Pulse Ox O2 Del Method 12/15/22 06:24 36.6 C 62 16 118/51 L 95 Room Air Laboratory Results 12/15/22 12/15/22 12/15/22 Range/Units 07:44 07:44 07:44 WBC Pending RBC Pending Hgb Pending Hct Pending MCV Pending MCH Pending MCHC Pending Plt Count Pending ESR 49 H (0-20) mm/hr Sodium Pending Potassium Pending Chloride Pending Carbon Dioxide Pending Anion Gap Pending BUN Pending Creatinine Pending Est Cr Clr Drug Dosing Pending Est GFR ( Amer) Pending Est GFR (Non-Af Amer) Pending BUN/Creatinine Ratio Pending Glucose Pending POC Glucose (70-99) mg/dl Calcium Pending Total Bilirubin Pending Direct Bilirubin Pending AST Pending ALT Pending Alkaline Phosphatase Pending C-Reactive Protein Pending Total Protein Pending Albumin Pending 12/15/22 12/14/22 12/14/22 Range/Units 07:37 20:17 16:33 WBC RBC Hgb Hct MCV MCH MCHC Plt Count ESR (0-20) mm/hr Sodium Potassium Chloride Carbon Dioxide Anion Gap BUN Creatinine Est Cr Clr Drug Dosing Est GFR ( Amer) Est GFR (Non-Af Amer) BUN/Creatinine Ratio Glucose POC Glucose 140 H 244 H 194 H (70-99) mg/dl Calcium Total Bilirubin Direct Bilirubin AST ALT Alkaline Phosphatase C-Reactive Protein Total Protein Albumin 12/14/22 Range/Units 11:35 WBC RBC Hgb Hct MCV MCH MCHC Plt Count ESR (0-20) mm/hr Sodium Potassium Chloride Carbon Dioxide Anion Gap BUN Creatinine Est Cr Clr Drug Dosing Est GFR ( Amer) Est GFR (Non-Af Amer) BUN/Creatinine Ratio Glucose POC Glucose 267 H (70-99) mg/dl Calcium Total Bilirubin Direct Bilirubin AST ALT Alkaline Phosphatase C-Reactive Protein Total Protein Albumin
--- NOTE | 2022-12-15 09:12 | Discharge Summary ---
Discharge Summary Date of Service December 15, 2022 Admission HPI Per Admitting Provider Emile Card is a pleasant 67yo male with history of liver cirrhosis with varices, DM and atrial fibrillation presenting with infection of the right hand. Patient reports his dog bit him in the right hand approximately 1 month ago. The dog is a pet, indoor animal, healthy and up to date with his veterinary care. He reports that the hand bite was sore and painful at first but then slowly recovered through November. He had some increased pain and stiffness of the right hand, wrist and forearm which prompted him to see his PCP yesterday 12/13/22. He was subsequently started on Augmentin for concern for infection. He reports taking one dose of Augmentin on 12/13/22 around 16:00 after which he developed more pain and swelling in his right hand. He also had pain in the right forearm and wrist. He reports limited mobility and strength of the right hand. He is right handed Denies fever, chills, nausea, malaise or other evidence of systemic infection. No report of chest pain, cough, SOB, vomiting, diarrhea. No additional complaints at this time. In the ER he is afebrile, HD stable ER Course: Unasyn Ofirmev ordered Admission Exam Per Admitting Provider General: patient resting comfortably, NAD, non-toxic in appearance, AA&O x 4 HEENT: NC/AT, PERRL, EOMI, anicteric sclera, conjunctiva without injection, external ear normal to inspection and nontender, nares patent, moist mucus membranes, dentition intact, no oropharyngeal lesions, neck supple, trachea midline, no LAD, no thyromegaly, no JVD Heart: +S1/S2, irregularly irregular, no m/r/g Lungs: equal air entry bilaterally, no rales/rhonchi/wheezes Abd: +BS, soft, NT/ND, no masses/organomegaly/ascites Ext: warm, 2+ pulses in UE/LE bilaterally, no clubbing/cyanosis or edema Right hand held in semi-flexed position - difficulty with full extension. Weakness. Pain with palpation of wrist Neuro: nonfocal, patient AA&O x 4, speech intact, no facial droop, moving all extremities on command with equal strength with exception of right hand limited due to pain Principal Dx & Hospital Course #1 = Principal Diagnosis (1) Dog bite of left hand: 67yo male with history of DM, atrial fibrillation and cirrhosis of the liver presenting with worsening pain and stiffness of right hand following a dog bite from approximately 1 month ago. Afebrile, HD stable, no evidence of sepsis Does have elevation of ESR and CRP improved with IV Abx Unasyn transitioned to Augmentin to complete 10 more days, advised probiotic Could consider Abx outpatient adjustment if symptoms worsening however did well on amp/sulbactam of which Augmentin is a good oral transition Orthopedic surgery consultation appreciated, no surgical intervention needed at this time, follow up outpatient 7-10 days post-discharge with Dr. Chun (2) Cirrhosis: Chronic Continue Propranolol LFTs stable to improved, follow up with PCP (3) Diabetes mellitus, type 2: Can resume home regimen on discharge, intermittent hyperglycemia likely in the setting of acute infection, advised monitoring and given return precautions. Discharge Exam Constitutional WD/WN, vitals as above Musculoskeletal No ascending erythema, swelling of right hand improved, can make a fist with good strength and minimal pain, very minimal tenderness to palpation over wrist Updated Medication List Medication Instructions Recorded Confirmed Type milk thistle 175 mg tablet 175 mg PO DAILY 03/28/18 12/14/22 History multivitamin 1 tab PO DAILY 03/28/18 12/14/22 History spironolactone 25 mg tablet 25 mg PO QAM PRN NEEDED 11/02/19 12/14/22 History fluticasone propionate 50 1 spray intranasal DAILY PRN 01/15/22 12/14/22 History mcg/actuation nasal Congestion spray,suspension furosemide 40 mg tablet (Lasix) 40 mg PO BID PRN SWELLING 01/15/22 12/14/22 History glipizide 5 mg tablet See Rx Instructions .Route .COMPLEX 01/15/22 12/14/22 History propranolol 20 mg tablet 20 mg PO QPM 01/15/22 12/14/22 History cholecalciferol (vitamin D3) 50 50 mcg PO DAILY 12/14/22 12/14/22 History mcg (2,000 unit) capsule (Vitamin D3) amoxicillin 875 mg-potassium 1 tab PO BID 10 days #20 tabs 12/15/22 Rx clavulanate 125 mg tablet Hospital Stay Data Consultations 12/14/22 03:55 ED Decision to Admit Stat 12/14/22 05:51 Consult Orthopedic Surgery Routine Pending Results Patient Have Any Pending Studies at Discharge: No Discharge Instructions Given to Patient (Per Discharging Provider) You are admitted to the hospital for evaluation and management of a possible infection from a dog bite. You were started on IV antibiotics, with improvement in your findings. You were given the IV equivalent of amoxicillin here, so you were able to be transitioned to Augmentin. You were seen by the orthopedic service, who fortunately did not feel that any surgical intervention was needed for this infection. You were able to be discharged with the following recommendations: You will start Augmentin, and oral antibiotic, 1 tablet every 12 hours starting this evening. This will continue through December 23. This was sent to your [facility]. You should continue this antibiotic even if your hand feels completely better, to make sure that all of the bacteria is killed. If you have any worsening of the pain or redness, please call the orthopedic service or your family doctor to try adjusting the antibiotic choice. You will have follow-up with [facility] orthopedics with Dr. Chun or one of his colleagues in 7 to 10 days. Total Time Total Time Spent Total Time Spent (In Minutes): 35 min Coding Level of Care Code 33837 INP/OBS DISCH >30 MIN Diagnoses Dog bite of left hand S61.452A; W54.0XXA Cirrhosis K74.69 Hepatic cirrhosis type: other cirrhosis Diabetes mellitus, type 2 E11.9
[2022-12-15 09:15] LABS: Hematocrit (blood only) 36.1 % (42.0-52.0); Hemoglobin 12.7 g/dl (14.0-18.0); Mean Corpuscular Hemoglobin 31.4 pg (25.0-34.0); Mean Corpuscular Hgb Conc 35.2 g/dL (32.0-36.0); Mean Corpuscular Volume 89.4 fL (80.0-100.0); Mean Platelet Volume 10.7 fL (9.4-12.4); Platelet Count 94 K/uL (130-400); RDW Coefficient of Variation 13.7 % (11.5-14.5); RDW Standard Deviation 45.1 fL (36.4-46.3); Red Blood Count 4.04 M/uL (4.70-6.10); White Blood Count 3.75 K/ul (4.8-10.8)
[2022-12-15 09:19] LABS: Albumin Level 2.7 gm/dl (3.4-5.0); BUN Creatinine Ratio 24.5 (10-20); Bilirubin Direct 1.6 mg/dl (0-0.2); C Reactive Protein 4.14 mg/dl (0-0.5); Calcium 8.4 mg/dl (8.6-10.3); Est GFR (African American) 130.1 ml/min; Est GFR (Non-African American) 112.3 ml/min; Potassium 3.9 mmol/L (3.5-5.1); Total Protein 6.1 gm/dl (6.0-8.3)
[2022-12-15 13:57] LABS: 18KDIGG Band REACTIVE; 23KDIGG Band NON-REACTIVE; 23KDIGM Band NON-REACTIVE; 28KDIGG Band NON-REACTIVE; 30KDIGG Band NON-REACTIVE; 39KDIGG Band REACTIVE; 39KDIGM Band NON-REACTIVE; 41KDIGG Band NON-REACTIVE; 41KDIGM Band NON-REACTIVE; 45KDIGG Band NON-REACTIVE; 58KDIGG Band REACTIVE; 66KDIGG Band NON-REACTIVE; 93KDIGG Band NON-REACTIVE; Lyme Antibodies, WB IgG NEGATIVE (NEGATIVE); Lyme Antibodies, WB IgM NEGATIVE (NEGATIVE)
--- NOTE | 2022-12-16 14:32 | Coding Query ---
CODING QUERY To promote full compliance with coding requirements relating to patient care, provider participation is requested in all cases of class b driver uncertainty. Please assist us with the question(s) below: Coding Question(s): The Orthopedic Consultation documents, "Symptoms are improving since he has been given IV antibiotics in the ER. He does have an elevated sed rate at 63 and elevated CRP at 4.46 which can be inflammatory versus infectious. Recommend continuing IV antibiotics", and the 12/15 Orthopedic Progress Note documents, "He may have inflammatory underlying infectious process due to the recent dog bite. This does seem to be improving with the antibiotics". The ER H&P's document, "possible tenosynovitis", and, "concern for flexor tenosynovitis or deep space infection", but this is not documented past the ER. Please specify below, in your clinical opinion, the possible underlying infectious process due to the recent dog bite: ( ) Possible infectious process is possible Tenosynovitis of right hand ( x ) Possible infectious process is unspecified infection of skin/subcutaneous right hand ( ) Possible infectious process is Other: Please Specify Physician's Response(s): Thank you Lisbeth Murillo Principal Diagnosis: "that condition established after study, to be chiefly responsible for occasioning the admission of the patient to the hospital for care." Co-Existing Principal Diagnosis: "when two or more diagnoses equally meet the criteria for principal diagnosis as determined by the circumstances of admission, diagnostic work up, and/or therapy provided, and the Alphabetic Index, Tabular List, or another coding guideline does not provide sequencing direction, any one of the diagnoses may be sequenced first." "When the physician has documented what appears to be a current diagnosis in the body of the record, but has not included the diagnosis in the final diagnostic statement, the physician should be asked whether the diagnosis should be added." (Source Coding Clinic 2 QTR90. p3-4) DAR
== END 2022-12-15 12:58 | disposition home or self-care (01) | DRG 603 ==
LOC: ED 01:39 → 3N 04:03 → SUATTDRO 04:03 → 3N 05:27

== ENCOUNTER 2024-11-05 07:28 | Inpatient (IN) ==
[2024-11-05] MEDS: METOPROLOL TARTRATE 1 MG/ML VIAL IV STA ×2 (07:59→09:41)
[2024-11-05] MEDS: METOPROLOL TARTRATE 1 MG/ML VIAL IV ONE (08:00)
[2024-11-05 08:09] LABS: Hematocrit (blood only) 40.1 % (42.0-52.0); Hemoglobin 13.6 g/dl (14.0-18.0); Immature Granulocytes # (auto) 0.03 K/uL (0.01-0.20); Immature Granulocytes % (auto) 0.6 %; Mean Corpuscular Hemoglobin 32.8 pg (25.0-34.0); Mean Corpuscular Volume 96.6 fL (80.0-100.0); Platelet Count 142 K/uL (130-400); RDW Standard Deviation 58.4 fL (36.4-46.3); Red Blood Count 4.15 M/uL (4.70-6.10); White Blood Count 5.24 K/ul (4.8-10.8)
[2024-11-05 08:25] LABS: Alanine Aminotransferase 85.0 U/L (7-52); Albumin Globulin Ratio 0.8 (0.9-2); Alkaline Phosphatase 326.0 U/L (34-104); Anion Gap 8.0 (3-11); Bilirubin,Total 11.6 mg/dl (0.2-1.0); Blood Urea Nitrogen 46.0 mg/dl (6-23); Calcium 8.7 mg/dl (8.6-10.3); Carbon Dioxide 25.0 mmol/L (21-32); Chloride 99.0 mmol/L (98-107); Creatinine Clr Calc Pharmacy 79.6 ml/min; Globulin 3.9 gm/dl (2.5-4.0); Glucose 208.0 mg/dl (70-99(Fasting)); Magnesium 2.0 mg/dl (1.7-2.4); Potassium 3.3 mmol/L (3.5-5.1); Sodium 132.0 mmol/L (136-145); Total Protein 6.9 gm/dl (6.0-8.3)
[2024-11-05 08:39] LABS: INR 1.4 (0.9-1.1); Partial Thromboplastin Time 34 Seconds (21-31); Prothrombin Time 15.1 Seconds (9.0-12.0)
--- NOTE | 2024-11-05 09:10 | Ultrasound Report ---
US liver CLINICAL HISTORY: cirrhosis, jaundiced today COMPARISON STUDY: 11/11/2023 MRCP and 09/07/2023 CT and ultrasound of 06/29/2022. FINDINGS: The pancreas is mostly obscured by bowel gas. The liver has diffuse nodular contour and het erogeneity consistent with cirrhosis. No focal liver abnormality seen. Liver measures 16 cm. There is reversed direction of flow in the portal vein. There is a recanalized umbilical vein. There is trace ascites. There is gallbladder sludge. Gallbladder wall thickness is upper limits of normal to border line thickened between 3 and 4 mm. Common bile duct measures normal diameter for age of 7 mm. Right k idney shows no hydronephrosis. IMPRESSION: 1. Cirrhosis with reversal of portal vein flow consistent with portal hypertension. Trace ascites. 2. Gallbladder sludge with borderline gallbladder wall thickness. No sonographic Worrell's sign was pr esent during the exam, so this likely relates to gallbladder edema due to the trace ascites. 3. Otherwise as described. ACT 112: Negative or not required by law. Electronically signed by: Timothy Choi M.D. 11/05/2024 9:08 AM
[2024-11-05] MEDS: SODIUM CHLORIDE 0.9% 1,000 ML IV SCH (09:14)
--- NOTE | 2024-11-05 09:15 | XRay Report ---
XR chest 1V portable CLINICAL HISTORY: Dyspnea COMPARISON STUDY: 07/31/2020 FINDINGS: There is prominent cardiomegaly with moderate pulmonary vascular congestion. There are diff use interstitial and faint patchy pulmonary opacities. There are small bilateral pleural effusions wi th associated lung base consolidation. No pneumothorax. IMPRESSION: 1. CHF with small bilateral pleural effusions. 2. Diffuse pulmonary opacities could represent pulmonary edema or pneumonia. ACT 112: Negative or not required by law. Electronically signed by: Timothy Choi M.D. 11/05/2024 9:13 AM
[2024-11-05] MEDS: FUROSEMIDE 40 MG/4 ML VIAL IV ONE (09:17)
--- NOTE | 2024-11-05 09:52 | History & Physical Report ---
Date of Service November 05, 2024 Assessment & Plan (1) Atrial fibrillation: (2) (HFpEF) heart failure with preserved ejection fraction: (3) Acute respiratory failure with hypoxia: (4) Hypokalemia: Plan This patient is a 69-year-old male with a history of cryptogenic cirrhosis with portal hypertension and esophageal varices, DM2, paroxysmal atrial fibrillation/flutter and Lyme carditis, seasonal allergies, pancytopenia who presents to the ER with increasing shortness of breath, fatigue, generalized weakness, leg swelling, and abdominal bloating over the last 4 to 5 days. He is admitted for rapid atrial fibrillation and acute on chronic HFpEF with acute on chronic respiratory failure with hypoxemia in the setting of cirrhosis. #Rapid atrial fibrillation/PAF/acute on chronic HFpEF/acute respiratory failure with hypoxemia-most likely the rapid A-fib contributing to the acute HFpEF. His typical resting heart rate is 60-70 but he is otherwise asymptomatic with the atrial fibrillation-unclear how long he has had paroxysms of atrial fibrillation. Pulse ox 85-88% on room air and now improved with supplemental O2. Troponin negative, BNP elevated at 533. Heart rate was responsive with IV Lopressor going from the 130s to the low 100s, BPs are soft. With peripheral edema, ascites and abdominal bloating, cardiomegaly and pulmonary edema on CXR. No ischemic changes on ECG. Would not consider cardioversion at this point without further information to include echo and KAHLIL therefore would approach with rate control at this point. Last echo 2018 with preserved EF. - Admit to PCU for telemetry/arrhythmia monitoring - Switch home propranolol to carvedilol which is also a nonselective beta- anant for his portal hypertension but can titrate for better improvement in rate control - Consult cardiology for further assessment/management - Check echo - Start Lasix 40 Mg IV twice daily, make spironolactone from home daily rather than as needed - Follow BMP, magnesium and keep electrolytes replete/optimal - Check TSH - Strict I's and O's, fluid restriction 1500 mL, low-sodium diet, daily weights - Start Eliquis 5 Mg p.o. twice daily-will consult GI for opinion on anticoagulation in the setting of cirrhosis-however, platelets normal to low normal and no current bleeding #Hypokalemia potassium mildly low at 3.3 on admission - Give potassium chloride 40 mEq p.o. x 1 now and start daily spironolactone - Follow BMP, magnesium level in the morning #Cryptogenic cirrhosis with portal HTN/grade 1 esophageal varices-His total bilirubin is elevated more than previous at 11, and AST/ALT/alkaline phosphatase all slightly more elevated than previous. A RUQ US showed cirrhosis with portal HTN, trace ascites, gallbladder sludge with borderline gallbladder wall thickness likely related to ascites. He has abdominal bloating likely from ascites but no abdominal pain. Last EGD In 03/2023 with grade 1 varices. Fortunately, platelets are normal at this time. MELD score 23 currently -Consult to GI appreciated - Follow BMP, LFTs, INR #Pancytopenia-secondary to cirrhosis, mild - Check iron studies, TSH, B12, folate and keep nutrients replete as needed - Follow CBC #DM2-no recent HgbA1c in our system - Hold home glipizide - Give NovoLog SSI, Accu-Cheks ACHS - Check HgbA1c in the a.m. DVT prophylaxis-LISSY Barker Disposition-admit to PCU History of Present Illness Chief Complaint: Shortness of breath Primary Care Provider: Ashleigh Carreno This patient is a 69-year-old male with a history of cryptogenic cirrhosis with portal hypertension and esophageal varices, DM2, paroxysmal atrial fibrillation/flutter and Lyme carditis, seasonal allergies, pancytopenia who presents to the ER with increasing shortness of breath, fatigue, generalized weakness, leg swelling, and abdominal bloating over the last 4 to 5 days. At 3:00 this morning, he took his vital signs and his heart rate was 70 and his pulse ox was 97%. He felt worse as the morning went on and his rechecked his vital signs and found his heart rate to be in the 130s and his pulse ox was 85% on room air at home. He does not have any chest pain or heart palpitations but describes significant abdominal bloating and lower extremity edema. In the ED, he was found to be hypoxemic at 88% on room air. He was also found to be in rapid atrial fibrillation with rates in the 120s. He was given IV metoprolol and IV Lasix as well as some IV fluids initially. His total bilirubin is elevated more than previous at 11 and a right upper quadrant ultrasound showed cirrhosis with portal HTN, trace ascites, gallbladder sludge with borderline gallbladder wall thickness likely related to ascites. He will be admitted for rapid atrial fibrillation and acute on chronic HFpEF with acute on chronic respiratory failure with hypoxemia. Allergies Allergy/AdvReac Type Severity Reaction Status Date / Time penicillin G Allergy Unknown Childhood Unverified 11/05/24 09:54 allergy penicillin V Allergy Unknown Childhood Unverified 11/05/24 09:54 allergy Home Medications Medication Instructions Recorded Confirmed Type multivitamin 1 tab PO QAM 03/28/18 11/05/24 History spironolactone 25 mg tablet 25 mg PO QAM PRN swelling 11/02/19 11/05/24 History furosemide 40 mg tablet (Lasix) 40 mg PO DAILY PRN SWELLING 01/15/22 11/05/24 History glipizide 5 mg tablet See Rx Instructions .Route .COMPLEX 01/15/22 11/05/24 History propranolol 20 mg tablet 20 mg PO QAM 01/15/22 11/05/24 History cholecalciferol (vitamin D3) 50 100 mcg PO QAM 12/14/22 11/05/24 History mcg (2,000 unit) capsule (Vitamin D3) ascorbic acid (vitamin C) 250 mg 250 mg PO QAM 03/04/23 11/05/24 History tablet (Vitamin C) fluticasone propionate 50 1 spray intranasal DAILY 11/05/24 11/05/24 History mcg/actuation nasal spray,suspension glucosamine sulf dipot 1 cap PO DAILY 11/05/24 11/05/24 History chlr,msm,chond 550 mg-C 30 mg-lauren 1 mg capsule (Glucosamine Chondroitin) hydroxyzine HCl 10 mg tablet 10 mg PO TID PRN Itching 11/05/24 11/05/24 History milk thistle 150 mg capsule 150 mg PO QAM 11/05/24 11/05/24 History Past Med/Surg History Problem List (Updated 11/05/24 @ 09:51 by Zoey Pardo MD) Acute respiratory failure with hypoxia (HFpEF) heart failure with preserved ejection fraction Hypokalemia History of colon polyps Colon cancer screening Dog bite of right arm (Acute) Osteoarthritis of carpometacarpal joint of right thumb Osteoarthritis of right wrist Esophageal varices Diabetes mellitus, type 2 NIDDM Encounter for pre-operative examination Non-alcoholic cirrhosis Aortic valve sclerosis Atrial fibrillation hx ~2019. no current issues. follows with Dr Vegas Bradycardia Anemia Lyme disease hx ~2019. no current issues. Pre-diabetes Hypertension Epigastric pain (Acute) Ascites (Acute) hx - is unsure. Cirrhosis (Acute) Encounter for pre-operative examination Elevated blood pressure reading (Acute) Dog bite of left hand (Acute) Medical History Ascites pt denies current issues HTN (hypertension) Hx of Lyme disease hx ~2019. no current issues. History of anemia Aortic valve sclerosis Atrial fibrillation hx ~2019. no current issues. 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 History of right cataract extraction History of esophagogastroduodenoscopy (EGD) History of colonoscopy History of tooth extraction Family History Other No family history of adverse response to anesthesia No significant family history Social History Smoking Status: Former smoker Second Hand Exposure: Yes (mom smoked/father smoked a pipe); Do You Dip or Chew Tobacco: No; Hx Alcohol Use: No Hx Substance Use: No Preferred Language: Venezuelan Communication Ability: Effective Annealing Furnace Tender Required: No Beliefs That Will Affect Care: None Current Living Situation: Spouse Feels Safe at Home: Yes Assistive Devices: Glasses Review of Systems Review of Systems: All systems reviewed & are unremarkable except as noted in HPI & below Denies fevers or chills, no cough or cold symptoms. Has felt pressure in his ears lately. No bleeding in the stool-previously had bleeding hemorrhoids when had loose stools from metformin. Physical Exam Constitutional: WD/WN, vitals as above Eyes: + scleral abnormality (Scleral icterus) ENMT: external ear and nose normal, oropharynx normal Ears: no external ear abnormality, no EAC abnormality and no TM abnormality Neck: trachea midline, no thyromegaly Respiratory: + tachypneic (With speaking in complete sentences); does not use accessory muscles and no cough Auscultation: + diminished lung sounds (At the bases bilaterally) and + crackles (Left base); no wheezes Cardiovascular: Rate/Rhythm: + tachycardic and + irregularly irregular Heart Sounds: no murmur Extremities: + edema (1+ pitting edema from the feet to the mid legs bilaterally) Chest (Breasts): Chest: normal inspection of chest Gastrointestinal (Abdomen): Inspection/Auscultation: + abdomen distended (Mild), normal bowel sounds and + visible herniation (Umbilical, reducible) Percussion/Palpation: abdomen soft; abdomen nontender and no guarding Musculoskeletal: Extremities: extremities normal to inspection; no cyanosis and no clubbing Skin: no rashes, warm and dry Neurologic: moves all extremities and awake; no focal motor deficits Psychiatric: A+Ox3, euthymic affect Results & Data Results & Data Vital Signs (Past 12 Hours) Vital Signs Temp Pulse Pulse Resp BP BP Pulse Ox 11/05/24 09:41 128 H 108/73 11/05/24 09:29 117 H 18 108/73 93 11/05/24 09:24 130 H 20 92 11/05/24 09:15 108 H 105/80 11/05/24 09:08 105/80 11/05/24 08:08 138 H 11/05/24 08:03 116 H 19 93 11/05/24 08:00 122 H 25 H 93 11/05/24 08:00 111/73 11/05/24 08:00 111/73 11/05/24 07:59 142 H 106/83 11/05/24 07:56 110 H 18 93 11/05/24 07:56 11/05/24 07:43 11/05/24 07:42 129 H 25 H 88 L 11/05/24 07:36 134/91 11/05/24 07:29 18 88 L 11/05/24 07:29 11/05/24 07:29 36.4 C L 99 H 18 134/91 88 L O2 Del Method O2 Flow Rate 11/05/24 09:41 11/05/24 09:29 Nasal Cannula 2 11/05/24 09:24 11/05/24 09:15 11/05/24 09:08 11/05/24 08:08 11/05/24 08:03 11/05/24 08:00 11/05/24 08:00 11/05/24 08:00 11/05/24 07:59 11/05/24 07:56 Nasal Cannula 2 11/05/24 07:56 Nasal Cannula 2 11/05/24 07:43 Nasal Cannula 2 11/05/24 07:42 11/05/24 07:36 11/05/24 07:29 Room Air 11/05/24 07:29 Room Air 11/05/24 07:29 Room Air Laboratory Results CBC, CMP, PT/INR/PTT, magnesium, troponin, BNP, and UA reviewed Diagnostic Findings Chest x-ray image personally reviewed by me and agree with the following report: Chest X-Ray 11/05/24 07:56 XR chest 1V portable CLINICAL HISTORY: Dyspnea COMPARISON STUDY: 07/31/2020 FINDINGS: There is prominent cardiomegaly with moderate pulmonary vascular congestion. There are diffuse interstitial and faint patchy pulmonary opacities. There are small bilateral pleural effusions with associated lung base consolidation. No pneumothorax. IMPRESSION: 1. CHF with small bilateral pleural effusions. 2. Diffuse pulmonary opacities could represent pulmonary edema or pneumonia. Liver ultrasound report reviewed: Liver Ultrasound 11/05/24 07:58 US liver CLINICAL HISTORY: cirrhosis, jaundiced today COMPARISON STUDY: 11/11/2023 MRCP and 09/07/2023 CT and ultrasound of 06/29/2022. FINDINGS: The pancreas is mostly obscured by bowel gas. The liver has diffuse nodular contour and heterogeneity consistent with cirrhosis. No focal liver abnormality seen. Liver measures 16 cm. There is reversed direction of flow in the portal vein. There is a recanalized umbilical vein. There is trace ascites. There is gallbladder sludge. Gallbladder wall thickness is upper limits of normal to borderline thickened between 3 and 4 mm. Common bile duct measures normal diameter for age of 7 mm. Right kidney shows no hydronephrosis. IMPRESSION: 1. Cirrhosis with reversal of portal vein flow consistent with portal hypertension. Trace ascites. 2. Gallbladder sludge with borderline gallbladder wall thickness. No sonographic Worrell's sign was present during the exam, so this likely relates to gallbladder edema due to the trace ascites. 3. Otherwise as described. ECG Indication: SOB/dyspnea, tachycardia and weakness Rate (beats per minute): 137 Additional Comments: ECG on 11/05/2024 at 7:41 AM with atrial fibrillation with RVR, rate 137, no acute ischemic changes, QTc 398 Code Status & VTE Plan Code Status Full code VTE Prophylaxis Plan VTE Prophylaxis will be ordered: Yes PG Care Time/CCT Total # of Minutes Spent Total Time Spent with Patient: Total time spent is greater than 50% in coordination of care (as documented) at patient's floor/unit and/or counseling patient: Coding Level of Care Code 61806 INT INP/OBS CARE 3/75MIN Diagnoses Atrial fibrillation I48.91 (HFpEF) heart failure with preserved ejection fraction I50.30 Acute respiratory failure with hypoxia J96.01 Hypokalemia E87.6
[2024-11-05] MEDS: POTASSIUM CHLORIDE CRTAB 20 MEQ TABCR PO STA (09:59)
--- NOTE | 2024-11-05 10:10 | Emergency Department Note ---
Impression & Plan Atrial fibrillation with rapid ventricular response, Cirrhosis, Jaundice ED Provider Note CHIEF COMPLAINT: Shortness of breath HISTORY OF PRESENT ILLNESS: This 69-year-old male patient with past medical history of cirrhosis of the liver secondary to GUAMAN, esophageal varices, type 2 diabetes aortic valve sclerosis, presents to the emergency department with complaints of shortness of breath and generalized weakness for the last several days. Patient's notes that he has been a bit jaundiced. He does have a history of cirrhosis of the liver and was listed on the liver transplant list at 1 point but was taken off. He has been doing reasonably well over the last several years. REVIEW OF SYSTEMS: A review of systems was performed with positives and pertinent negatives listed in the history of present illness. 10 systems were reviewed and are otherwise negative. ALLERGIES: see below MEDICATIONS: see below PMH: see below SOCIAL HISTORY: see below DDx: Cardiac arrhythmia, sepsis, pneumonia, congestive heart failure, metabolic abnormality, electrolyte abnormality, kidney failure, UTI among others. PHYSICAL EXAM: Vital signs reviewed. General: Chronically ill-appearing 69-year-old male, jaundiced, in no distress. HEENT: Positive scleral icterus, PERRLA, neck supple. Moist mucous membranes. Cardiovascular: Tachycardic and irregular. Pulmonary: Clear to auscultation bilaterally, normal work of breathing. Abdomen: Soft, nontender, nondistended, positive bowel sounds. Musculoskeletal: Atraumatic, no peripheral edema. Neurologic: Patient awake alert and oriented x 3, speech is clear Skin: Warm, dry, no rash. Jaundiced with telangiectasias noted to the anterior chest wall and upper thighs bilaterally. EMERGENCY DEPARTMENT COURSE/MDM: This patient was evaluated and appeared to be in no significant distress. Patient is noted to be jaundiced on exam. IV access was obtained and laboratory work was drawn. Patient was placed on the cardiac cath lab technologist and noted to be in atrial fibrillation with RVR. Gentle IV hydration was initiated, patient was given 5 mg of IV metoprolol. Chest x-ray reveals CHF with bilateral pleural effusions with diffuse pulmonary opacities representing edema or pneumonia. IV fluids were then stopped and the patient was given 40 mg of IV Lasix. Patient did require second dose of IV metoprolol. Ultrasound of right upper quadrant was performed and reveals cirrhosis with gallbladder sludge and wall thickness consistent with ascites. This is likely consistent with the patient's known liver disease. Laboratory work reveals a total bilirubin of 11.6 with moderately elevated liver enzymes. WBC is within normal limits, troponin is normal. Patient's case was discussed with the hospitalist service who will evaluate the patient for admission and further management. MONITORING: An order for cardiac monitoring was placed and the patient is noted to be in a rapid atrial fibrillation at 130 beats per minute. RADIOLOGY: Chest x-ray: IMPRESSION: 1. CHF with small bilateral pleural effusions. 2. Diffuse pulmonary opacities could represent pulmonary edema or pneumonia. Ultrasound of the right upper quadrant: IMPRESSION: 1. Cirrhosis with reversal of portal vein flow consistent with portal hypertension. Trace ascites. 2. Gallbladder sludge with borderline gallbladder wall thickness. No sonographic Worrell's sign was present during the exam, so this likely relates to gallbladder edema due to the trace ascites. 3. Otherwise as described. EKG: To my interpretation reveals atrial fibrillation with rapid ventricular response at 137 bpm. Overall low voltage, QTc of 398. DISPOSITION: Admission I have personally spent greater than 40 minutes of critical care time in the direct management of this patient. This includes bedside care, interpretation of diagnostic studies, and testing, discussion with consultants, patient, and family members, and other required patient management activities. This 40 minutes is in excess of all separately billable procedures. Past Med/Surg History Problem List (Updated 11/10/24 @ 08:32 by Macey Burgess MD) Jaundice (Acute) Atrial fibrillation with rapid ventricular response (Acute) Pericardial effusion Acute respiratory failure with hypoxia (HFpEF) heart failure with preserved ejection fraction Hypokalemia History of colon polyps Colon cancer screening Dog bite of right arm (Acute) Osteoarthritis of carpometacarpal joint of right thumb Osteoarthritis of right wrist Esophageal varices Diabetes mellitus, type 2 NIDDM Encounter for pre-operative examination Non-alcoholic cirrhosis Aortic valve sclerosis Atrial fibrillation hx ~2019. no current issues. follows with Dr Vegas Bradycardia Anemia Lyme disease hx ~2019. no current issues. Pre-diabetes Hypertension Epigastric pain (Acute) Ascites (Acute) hx - is unsure. Cirrhosis (Acute) Encounter for pre-operative examination Elevated blood pressure reading (Acute) Dog bite of left hand (Acute) Medical History Ascites pt denies current issues HTN (hypertension) Hx of Lyme disease hx ~2019. no current issues. History of anemia Aortic valve sclerosis Atrial fibrillation hx ~2019. no current issues. 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 History of right cataract extraction History of esophagogastroduodenoscopy (EGD) History of colonoscopy History of tooth extraction Family History Other No family history of adverse response to anesthesia No significant family history Social History Smoking Status: Former smoker Second Hand Exposure: Yes (mom smoked/father smoked a pipe); Do You Dip or Chew Tobacco: No; Hx Alcohol Use: No Hx Substance Use: No Preferred Language: Indian Communication Ability: Effective Ethnic Studies Professor Required: No Beliefs That Will Affect Care: None Current Living Situation: Spouse Feels Safe at Home: Yes Assistive Devices: None Allergies Allergies Allergy/AdvReac Type Severity Reaction Status Date / Time penicillin G Allergy Unknown Childhood Unverified 11/05/24 09:54 allergy penicillin V Allergy Unknown Childhood Unverified 11/05/24 09:54 allergy Home Meds Home Medications Medication Instructions Recorded Confirmed multivitamin 1 tab PO QAM 03/28/18 11/05/24 glipizide 5 mg tablet See Rx Instructions .Route .COMPLEX 01/15/22 11/05/24 cholecalciferol (vitamin D3) 50 100 mcg PO QAM 12/14/22 11/05/24 mcg (2,000 unit) capsule (Vitamin D3) ascorbic acid (vitamin C) 250 mg 250 mg PO QAM 03/04/23 11/05/24 tablet (Vitamin C) fluticasone propionate 50 1 spray intranasal DAILY 11/05/24 11/05/24 mcg/actuation nasal spray,suspension glucosamine sulf dipot 1 cap PO DAILY 11/05/24 11/05/24 chlr,msm,chond 550 mg-C 30 mg-lauren 1 mg capsule (Glucosamine Chondroitin) hydroxyzine HCl 10 mg tablet 10 mg PO TID PRN Itching 11/05/24 11/05/24 milk thistle 150 mg capsule 150 mg PO QAM 11/05/24 11/05/24 Previous Rx's Medication Instructions Recorded apixaban 5 mg tablet (Eliquis) 5 mg PO BID #60 tabs 11/08/24 bumetanide 1 mg tablet 1 mg PO BID #60 tabs 11/09/24 carvedilol 3.125 mg tablet 3.125 mg PO BIDM #60 tabs 11/09/24 lactulose 10 gram/15 mL oral 30 g (45 mL) PO DAILY 30 days 11/09/24 solution #1,350 mL magnesium chloride 64 mg 64 mg PO QAM #30 tabs 11/09/24 (magnesium chloride) tablet,delayed release (Mag 64) spironolactone 50 mg tablet 50 mg PO DAILY #30 tabs 11/09/24 Results & Data (ED) Vital Signs Vital Signs - 24 hr 11/05/24 07:29 11/05/24 07:29 11/05/24 07:29 Temperature 36.4 C L Temperature Source Oral Pulse Rate 99 H Pulse Rate [Apical] Pulse Rate from SpO2 Sensor Respiratory Rate 18 18 Blood Pressure 134/91 Blood Pressure [Left Arm] Blood Pressure Mean 105 Blood Pressure Mean [Left Arm] Pulse Oximetry 88 L 88 L Oxygen Delivery Method Room Air Room Air Room Air Oxygen Flow Rate Sepsis Recent Fever Within 48 Hours No Sepsis New/Unexplained Change in Mental Status N/A Sepsis Action Taken by Nursing No Action Required Pulse Oximetry Post Tiitration 11/05/24 07:36 11/05/24 07:42 11/05/24 07:43 Temperature Temperature Source Pulse Rate 129 H Pulse Rate [Apical] Pulse Rate from SpO2 Sensor 107 H Respiratory Rate 25 H Blood Pressure 134/91 Blood Pressure [Left Arm] Blood Pressure Mean 113 Blood Pressure Mean [Left Arm] Pulse Oximetry 88 L Oxygen Delivery Method Nasal Cannula Oxygen Flow Rate 2 Sepsis Recent Fever Within 48 Hours Sepsis New/Unexplained Change in Mental Status Sepsis Action Taken by Nursing Pulse Oximetry Post Tiitration 91 11/05/24 07:56 11/05/24 07:56 11/05/24 07:59 Temperature Temperature Source Pulse Rate 110 H 142 H Pulse Rate [Apical] Pulse Rate from SpO2 Sensor Respiratory Rate 18 Blood Pressure 106/83 Blood Pressure [Left Arm] Blood Pressure Mean Blood Pressure Mean [Left Arm] Pulse Oximetry 93 Oxygen Delivery Method Nasal Cannula Nasal Cannula Oxygen Flow Rate 2 2 Sepsis Recent Fever Within 48 Hours Sepsis New/Unexplained Change in Mental Status Sepsis Action Taken by Nursing Pulse Oximetry Post Tiitration 11/05/24 08:00 11/05/24 08:00 11/05/24 08:00 Temperature Temperature Source Pulse Rate 122 H Pulse Rate [Apical] Pulse Rate from SpO2 Sensor 92 H Respiratory Rate 25 H Blood Pressure 111/73 111/73 Blood Pressure [Left Arm] Blood Pressure Mean 78 78 Blood Pressure Mean [Left Arm] Pulse Oximetry 93 Oxygen Delivery Method Oxygen Flow Rate Sepsis Recent Fever Within 48 Hours Sepsis New/Unexplained Change in Mental Status Sepsis Action Taken by Nursing Pulse Oximetry Post Tiitration 11/05/24 08:03 11/05/24 08:08 11/05/24 09:08 Temperature Temperature Source Pulse Rate 116 H 138 H Pulse Rate [Apical] Pulse Rate from SpO2 Sensor 106 H Respiratory Rate 19 Blood Pressure 105/80 Blood Pressure [Left Arm] Blood Pressure Mean 93 Blood Pressure Mean [Left Arm] Pulse Oximetry 93 Oxygen Delivery Method Oxygen Flow Rate Sepsis Recent Fever Within 48 Hours Sepsis New/Unexplained Change in Mental Status Sepsis Action Taken by Nursing Pulse Oximetry Post Tiitration 11/05/24 09:15 11/05/24 09:24 11/05/24 09:29 Temperature Temperature Source Pulse Rate 108 H 130 H Pulse Rate [Apical] 117 H Pulse Rate from SpO2 Sensor 85 Respiratory Rate 20 18 Blood Pressure 105/80 Blood Pressure [Left Arm] 108/73 Blood Pressure Mean Blood Pressure Mean [Left Arm] 84 Pulse Oximetry 92 93 Oxygen Delivery Method Nasal Cannula Oxygen Flow Rate 2 Sepsis Recent Fever Within 48 Hours Sepsis New/Unexplained Change in Mental Status Sepsis Action Taken by Nursing Pulse Oximetry Post Tiitration 11/05/24 09:30 11/05/24 09:30 11/05/24 09:33 Temperature Temperature Source Pulse Rate 117 H Pulse Rate [Apical] Pulse Rate from SpO2 Sensor 86 Respiratory Rate 20 Blood Pressure 108/73 108/73 Blood Pressure [Left Arm] Blood Pressure Mean 75 75 Blood Pressure Mean [Left Arm] Pulse Oximetry 92 Oxygen Delivery Method Oxygen Flow Rate Sepsis Recent Fever Within 48 Hours Sepsis New/Unexplained Change in Mental Status Sepsis Action Taken by Nursing Pulse Oximetry Post Tiitration 11/05/24 09:41 11/05/24 09:45 11/05/24 09:51 Temperature Temperature Source Pulse Rate 128 H 114 H 112 H Pulse Rate [Apical] Pulse Rate from SpO2 Sensor 95 H 107 H Respiratory Rate 24 22 Blood Pressure 108/73 Blood Pressure [Left Arm] Blood Pressure Mean Blood Pressure Mean [Left Arm] Pulse Oximetry 93 91 Oxygen Delivery Method Oxygen Flow Rate Sepsis Recent Fever Within 48 Hours Sepsis New/Unexplained Change in Mental Status Sepsis Action Taken by Nursing Pulse Oximetry Post Tiitration 11/05/24 09:55 Temperature Temperature Source Pulse Rate 105 H Pulse Rate [Apical] Pulse Rate from SpO2 Sensor Respiratory Rate Blood Pressure Blood Pressure [Left Arm] Blood Pressure Mean Blood Pressure Mean [Left Arm] Pulse Oximetry Oxygen Delivery Method Oxygen Flow Rate Sepsis Recent Fever Within 48 Hours Sepsis New/Unexplained Change in Mental Status Sepsis Action Taken by Nursing Pulse Oximetry Post Tiitration Home Medications Current Medication List: was personally reviewed by me Laboratory Data Attestation: I reviewed the patient's lab results. 11/09/24 06:40 11/09/24 06:40 Lab Results 11/05/24 Range/Units 07:55 WBC 5.24 (4.8-10.8) K/ul RBC 4.15 L (4.70-6.10) M/uL Hgb 13.6 L (14.0-18.0) g/dl Hct 40.1 L (42.0-52.0) % MCV 96.6 (80.0-100.0) fL MCH 32.8 (25.0-34.0) pg MCHC 33.9 (32.0-36.0) g/dL RDW Std Deviation 58.4 H (36.4-46.3) fL RDW Coeff of Janice 16.8 H (11.5-14.5) % Plt Count 142 (130-400) K/uL MPV 9.6 (9.4-12.4) fL Immature Gran % (Auto) 0.6 % Neut % (Auto) 69.6 % Lymph % (Auto) 12.6 % Cotton % (Auto) 13.7 % Eos % (Auto) 2.5 % Baso % (Auto) 1.0 % Neut # (Auto) 3.65 (1.40-6.50) K/uL Lymph # (Auto) 0.66 L (1.20-3.40) K/uL Cotton # (Auto) 0.72 H (0.11-0.59) K/uL Eos # (Auto) 0.13 (0.00-0.50) K/uL Baso # (Auto) 0.05 (0.00-0.20) K/uL Immature Gran # (Auto) 0.03 (0.01-0.20) K/uL PT 15.1 H (9.0-12.0) Seconds INR 1.4 H (0.9-1.1) APTT 34 H (21-31) Seconds PTT Ratio 1.3 Sodium 132 L (136-145) mmol/L Potassium 3.3 L (3.5-5.1) mmol/L Chloride 99 (98-107) mmol/L Carbon Dioxide 25 (21-32) mmol/L Anion Gap 8 (3-11) BUN 46 H (6-23) mg/dl Creatinine 1.03 (0.6-1.4) mg/dl Est Cr Clr Drug Dosing 79.6 ml/min eGFR 78.15 BUN/Creatinine Ratio 44.7 H (10-20) Glucose 208 H (70-99(Fasting)) mg/dl Calcium 8.7 (8.6-10.3) mg/dl Magnesium 2.0 (1.7-2.4) mg/dl Total Bilirubin 11.6 H (0.2-1.0) mg/dl AST 129 H (13-39) U/L ALT 85 H (7-52) U/L Alkaline Phosphatase 326 H (34-104) U/L Troponin I High Sens 9.3 (0-20) pg/ml B-Natriuretic Peptide 533 H (0-100) pg/ml Total Protein 6.9 (6.0-8.3) gm/dl Albumin 3.0 L (3.4-5.0) gm/dl Globulin 3.9 (2.5-4.0) gm/dl Albumin/Globulin Ratio 0.8 L (0.9-2) TSH 5.340 H (0.300-4.500) uIu/ml Free T4 1.21 (0.61-1.60) ng/dl Administered Medications Discontinued Medications Apixaban (Apixaban 5 Mg Tablet) 5 mg PO BID ALISIA Stop: 12/05/24 20:59 Last Admin: 11/09/24 07:54 Dose: 5 mg Documented By: Admin: 11/08/24 20:58 Dose: 5 mg Documented By: Admin: 11/08/24 10:06 Dose: 5 mg Documented By: Admin: 11/07/24 20:33 Dose: 5 mg Documented By: Admin: 11/07/24 08:25 Dose: 5 mg Documented By: Admin: 11/06/24 21:57 Dose: 5 mg Documented By: Admin: 11/06/24 08:29 Dose: 5 mg Documented By: Admin: 11/05/24 21:49 Dose: 5 mg Documented By: CINDY Benzocaine/Butamben/Tetracaine HCl (Benzocaine/Tetracain/Butam 50 Appln/5 Gm Can) Confirm Administered Dose 50 appln EXT .STK-MED ONE Stop: 11/08/24 08:00 Last Admin: 11/08/24 10:03 Dose: Not Given Documented By: KEN Carvedilol (Carvedilol 3.125 Mg Tab) 3.125 mg PO BIDM [facility] Stop: 12/05/24 12:51 Last Admin: 11/06/24 16:59 Dose: 3.125 mg Documented By: Admin: 11/06/24 08:29 Dose: 3.125 mg Documented By: Admin: 11/05/24 16:36 Dose: 3.125 mg Documented By: Admin: 11/05/24 13:40 Dose: 3.125 mg Documented By: MEGHA Carvedilol (Carvedilol 6.25 Mg Tab) 6.25 mg PO BIDM [facility] Stop: 12/07/24 07:59 Last Admin: 11/08/24 10:06 Dose: 6.25 mg Documented By: Admin: 11/07/24 16:47 Dose: 6.25 mg Documented By: Admin: 11/07/24 08:25 Dose: 6.25 mg Documented By: MEGHA Carvedilol (Carvedilol 3.125 Mg Tab) 3.125 mg PO BIDM [facility] Stop: 12/08/24 16:59 Last Admin: 11/09/24 07:54 Dose: 3.125 mg Documented By: Admin: 11/08/24 16:53 Dose: 3.125 mg Documented By: KEN Digoxin (Digoxin 0.125 Mg Tab) 0.125 mg PO DAILY@1600 [facility] Stop: 12/06/24 15:59 Last Admin: 11/07/24 15:46 Dose: 0.125 mg Documented By: Admin: 11/06/24 16:58 Dose: 0.125 mg Documented By: MEGHA Fluticasone Propionate (Fluticasone Propionate Na Spr 16 Gm Btl) 1 sprays CINTHYA DAILY ALISIA Stop: 12/06/24 08:59 Last Admin: 11/09/24 07:55 Dose: 1 sprays Documented By: Admin: 11/08/24 10:06 Dose: 1 sprays Documented By: Admin: 11/07/24 08:25 Dose: 1 sprays Documented By: Admin: 11/06/24 08:27 Dose: 1 sprays Documented By: MEGHA Furosemide (Furosemide 40 Mg/4 Ml Vial) 40 mg IV ONE ONE Stop: 11/05/24 09:15 Last Admin: 11/05/24 09:17 Dose: 40 mg Documented By: EMELINA Furosemide (Furosemide 40 Mg/4 Ml Vial) 40 mg IV BID17 ALISIA Stop: 12/05/24 16:59 Last Admin: 11/08/24 16:53 Dose: 40 mg Documented By: Admin: 11/08/24 10:07 Dose: 40 mg Documented By: Admin: 11/07/24 16:48 Dose: 40 mg Documented By: Admin: 11/07/24 08:25 Dose: 40 mg Documented By: Admin: 11/06/24 16:59 Dose: 40 mg Documented By: Admin: 11/06/24 08:30 Dose: 40 mg Documented By: Admin: 11/05/24 16:36 Dose: 40 mg Documented By: MEGHA Furosemide (Furosemide 40 Mg/4 Ml Vial) 60 mg IV BID17 ALISIA Stop: 12/09/24 08:59 Last Admin: 11/09/24 07:53 Dose: 60 mg Documented By: GARY Sodium Chloride (Nss) 1,000 mls @ 125 mls/hr IV .Q8H ALISIA Stop: 11/08/24 08:44 Last Infusion: 11/05/24 13:29 Dose: Infused Documented By: Admin: 11/05/24 09:14 Dose: 125 mls/hr Documented By: MES Digoxin 250 mcg/ Syringe 10 mls @ 2 mls/min IV Q6H ALISIA Stop: 11/06/24 00:19 Last Admin: 11/05/24 23:52 Dose: 2 mls/min Documented By: Admin: 11/05/24 18:36 Dose: 2 mls/min Documented By: MEGHA Magnesium Sulfate/Dextrose (Magnesium Sulfate / D5w) 1 gm in 100 mls @ 50 mls/hr IV ONE ONE Stop: 11/06/24 11:23 Last Infusion: 11/06/24 12:06 Dose: Infused Documented By: Admin: 11/06/24 09:52 Dose: 50 mls/hr Documented By: MEGHA Magnesium Sulfate/Dextrose (Magnesium Sulfate / D5w) 1 gm in 100 mls @ 50 mls/hr IV ONE ONE Stop: 11/07/24 10:22 Last Infusion: 11/07/24 10:44 Dose: Infused Documented By: Admin: 11/07/24 08:28 Dose: 50 mls/hr Documented By: MEGHA Magnesium Sulfate/Dextrose (Magnesium Sulfate / D5w) 1 gm in 100 mls @ 50 mls/hr IV ONE ONE Stop: 11/08/24 10:38 Last Infusion: 11/08/24 12:44 Dose: Infused Documented By: Admin: 11/08/24 10:14 Dose: 50 mls/hr Documented By: KEN Insulin Aspart (Insulin Aspart Per Unit Charge) 0 units SC ACHS [facility] Stop: 12/05/24 12:51 Last Admin: 11/09/24 11:41 Dose: 4 units Documented By: GARY Co-signed By: SMITH Admin: 11/09/24 07:54 Dose: Not Given Documented By: Admin: 11/08/24 20:58 Dose: 3 units Documented By: EVANGELINA Co-signed By: KIT Admin: 11/08/24 16:53 Dose: 3 units Documented By: KEN Co-signed By: APRIL Admin: 11/08/24 11:55 Dose: 5 units Documented By: KEN Co-signed By: APRIL Admin: 11/08/24 07:34 Dose: Not Given Documented By: Admin: 11/07/24 20:32 Dose: 3 units Documented By: ASM Co-signed By: HSM Admin: 11/07/24 16:50 Dose: 3 units Documented By: RRD Co-signed By: RJL Admin: 11/07/24 12:19 Dose: 4 units Documented By: PK Co-signed By: OSCAR Admin: 11/07/24 08:28 Dose: 2 units Documented By: PK Co-signed By: OSCAR Admin: 11/06/24 21:56 Dose: 1 units Documented By: ASM Co-signed By: MILVIAP Admin: 11/06/24 17:00 Dose: 2 units Documented By: PK Co-signed By: CM Admin: 11/06/24 12:05 Dose: 4 units Documented By: PK Co-signed By: OSCAR Admin: 11/06/24 08:34 Dose: 1 units Documented By: PK Co-signed By: OSCAR Admin: 11/05/24 21:49 Dose: 3 units Documented By: CINDY Co-signed By: ANALI Admin: 11/05/24 16:35 Dose: 3 units Documented By: PK Co-signed By: DTT Admin: 11/05/24 13:43 Dose: 2 units Documented By: PK Co-signed By: SOLOMON Ioversol (Optiray 320 125ml) 115 ml IV ONCE ONE Stop: 11/06/24 14:23 Last Admin: 11/06/24 14:24 Dose: 115 ml Documented By: ANDRADE Lactulose (Lactulose Syrup 20 Gm/30 Ml Udc) 20 gm PO NOW ONE Stop: 11/07/24 14:16 Last Admin: 11/07/24 14:23 Dose: 20 gm Documented By: MEGHA Lactulose (Lactulose Syrup 20 Gm/30 Ml Udc) 30 gm PO DAILY ALISIA Stop: 12/08/24 12:14 Last Admin: 11/09/24 07:53 Dose: 30 gm Documented By: Admin: 11/08/24 12:53 Dose: 30 gm Documented By: KEN Magnesium Chloride (Magnesium Chloride W/Calcium 64mg Delayed Rel Tab) 64 mg PO QAShayna ALISIA Stop: 12/09/24 08:59 Last Admin: 11/09/24 07:54 Dose: 64 mg Documented By: GARY Metoprolol Tartrate (Metoprolol Tartrate 1 Mg/Ml Vial) 5 mg IV NOW STA Stop: 11/05/24 07:58 Last Admin: 11/05/24 07:59 Dose: 5 mg Documented By: EMELINA Metoprolol Tartrate (Metoprolol Tartrate 1 Mg/Ml Vial) Confirm Administered Dose 5 mg IV .STK-MED ONE Stop: 11/05/24 07:59 Last Admin: 11/05/24 08:00 Dose: Not Given Documented By: EMELINA Metoprolol Tartrate (Metoprolol Tartrate 1 Mg/Ml Vial) 5 mg IV NOW STA Stop: 11/05/24 09:40 Last Admin: 11/05/24 09:41 Dose: 5 mg Documented By: EMELINA Potassium Chloride (Potassium Chloride Crtab 20 Meq Tabcr) 40 meq PO NOW STA Stop: 11/05/24 09:53 Last Admin: 11/05/24 09:59 Dose: 40 meq Documented By: EMELINA Potassium Chloride (Potassium Chloride Crtab 20 Meq Tabcr) 40 meq PO NOW STA Stop: 11/06/24 09:25 Last Admin: 11/06/24 09:52 Dose: 40 meq Documented By: MEGHA Potassium Chloride (Potassium Chloride Crtab 20 Meq Tabcr) 20 meq PO NOW STA Stop: 11/07/24 08:24 Last Admin: 11/07/24 08:28 Dose: 20 meq Documented By: MEGHA Potassium Chloride (Potassium Chloride 10 Meq Tabcr) 10 meq PO NOW STA Stop: 11/08/24 08:40 Last Admin: 11/08/24 10:10 Dose: 10 meq Documented By: KEN [facility]ironolact[facility] (Sp[facility]actone 25 Mg Tab) [facility] Stop: 12/05/24 12:51 Last Admin: 11/07/24 08:26 Dose: 25 mg Documented By: Admin: 11/06/24 08:29 Dose: 25 mg Documented By: Admin: 11/05/24 13:40 Dose: 25 mg Documented By: MEGHA Spironolactone (Spironolactone 25 Mg Tab) [facility] Stop: 12/08/24 08:59 Last Admin: 11/09/24 07:54 Dose: 50 mg Documented By: Admin: 11/08/24 10:05 Dose: 50 mg Documented By: KEN Vitamin D (Cholecalciferol 25 Mcg (1000 Units) Tab) [facility] Stop: 12/06/24 08:59 Last Admin: 11/09/24 07:54 Dose: 100 mcg Documented By: Admin: 11/08/24 10:06 Dose: 100 mcg Documented By: Admin: 11/07/24 08:25 Dose: 100 mcg Documented By: Admin: 11/06/24 08:27 Dose: 100 mcg Documented By: PK Imaging Data Radiologist's Impression: Chest X-Ray 11/05/24 07:56 XR chest 1V portable CLINICAL HISTORY: Dyspnea COMPARISON STUDY: 07/31/2020 FINDINGS: There is prominent cardiomegaly with moderate pulmonary vascular congestion. There are diffuse interstitial and faint patchy pulmonary opacities. There are small bilateral pleural effusions with associated lung base consolidation. No pneumothorax. IMPRESSION: 1. CHF with small bilateral pleural effusions. 2. Diffuse pulmonary opacities could represent pulmonary edema or pneumonia. ACT 112: Negative or not required by law. Electronically signed by: Timothy Choi M.D. 11/05/2024 9:13 AM Liver Ultrasound 11/05/24 07:58 US liver CLINICAL HISTORY: cirrhosis, jaundiced today COMPARISON STUDY: 11/11/2023 MRCP and 09/07/2023 CT and ultrasound of 06/29/2022. FINDINGS: The pancreas is mostly obscured by bowel gas. The liver has diffuse nodular contour and heterogeneity consistent with cirrhosis. No focal liver abnormality seen. Liver measures 16 cm. There is reversed direction of flow in the portal vein. There is a recanalized umbilical vein. There is trace ascites. There is gallbladder sludge. Gallbladder wall thickness is upper limits of normal to borderline thickened between 3 and 4 mm. Common bile duct measures normal diameter for age of 7 mm. Right kidney shows no hydronephrosis. IMPRESSION: 1. Cirrhosis with reversal of portal vein flow consistent with portal hypertension. Trace ascites. 2. Gallbladder sludge with borderline gallbladder wall thickness. No sonographic Worrell's sign was present during the exam, so this likely relates to gallbladder edema due to the trace ascites. 3. Otherwise as described. ACT 112: Negative or not required by law. Electronically signed by: Timothy Choi M.D. 11/05/2024 9:08 AM Discharge Plan Visit Data Chief Complaint: Shortness of Breath/Dyspnea Stated Complaint: LOW OXIGEN, LIVER DISEASES ED Provider: Macey Burgess Discharge Problem: Atrial fibrillation with rapid ventricular response, Cirrhosis, Jaundice Patient Disposition: Admitted As Inpatient Condition: Fair Discharge Instructions Interventions: ED Discharge Assessment Last Done: 11/05/24 12:12 Discharge Problem: Cirrhosis Qualifiers: Hepatic cirrhosis type: unspecified hepatic cirrhosis Ascites presence: with ascites Qualified Code(s): K74.60 - Unspecified cirrhosis of liver
[2024-11-05 11:42] LABS: Thyroid Stimulating Hormone 5.34 uIu/ml (0.300-4.500)
[2024-11-05] MEDS ORDERED: ACETAMINOPHEN 325 MG TAB PO PRN (12:52)
[2024-11-05] MEDS ORDERED: ONDANSETRON INJ 2 MG/ML 2 ML VIAL IV PRN (12:52)
[2024-11-05] MEDS ORDERED: GLUCOSE 40% GEL 15 GM TUBE PO PRN (12:52)
[2024-11-05] MEDS ORDERED: GLUCOSE 10 TAB/TUBE PO PRN (12:52)
[2024-11-05] MEDS ORDERED: CARBOHYDRATES FOR HYPOGLYCEMIA PO PRN (12:52)
[2024-11-05] MEDS ORDERED: DEXTROSE 50% 50 ML SYRINGE IV PRN (12:52)
[2024-11-05] MEDS ORDERED: POLYETHYLENE (MIRALAX) 17 GM PACK PO PRN (12:52)
[2024-11-05] MEDS ORDERED: GLUCAGON FOR INJ 1 MG VIAL SQ PRN (12:52)
--- NOTE | 2024-11-05 13:16 | Gastrointestinal Consultation ---
Date of Consultation November 05, 2024 Assessment & Plan (1) Acute respiratory failure with hypoxia: (2) (HFpEF) heart failure with preserved ejection fraction: (3) Cirrhosis: Plan 69-year-old male with a history of cryptogenic cirrhosis with portal hypertension and esophageal varices, DM2, paroxysmal atrial fibrillation/flutter and Lyme carditis, seasonal allergies, pancytopenia who presents to the ER with increasing shortness of breath, fatigue, generalized weakness, leg swelling, and abdominal bloating over the last 4 to 5 days. He is admitted for rapid atrial fibrillation and acute on chronic HFpEF with acute on chronic respiratory failure with hypoxemia in the setting of cirrhosis. (1) Cirrhosis with volume overload r/t acute on chronic HFpEF in the setting of reportedly stable cirrhosis. MELD Na 24, Child Rodriguez class B. - Requested records from Hepatology. - In regards to use of AC for Afib: If considering apixaban, patient is Child Rodriguez class B, therefore per manufacturing label, this is okay to use for AC moving forward. It's recommend to avoid this in CTP class C. If using warfarin would consider lowering dosing with close INR monitoring as patient would be at increased risk for bleeding/supratherapeutic INR. - In regards to volume overload. Agree with current recommendations on Lasix IV 40mg BID and Spironolactone 25mg/day per cardiology and primary team. - Please feel free to reach out if you have any further questions or concerns. - Further recommendations to come with Supervising GI provider on medical rounds. Please see co-signature comments. Supervising Physician Co-Signing Physician Notes I saw and examined this patient with our nurse practitioner and agree with her assessment and plan. Major issues appear to be cardiopulmonary related to new onset atrial fibrillation at a rapid rate chronic respiratory failure also be aggravated by fluid overload. This less likely represents hepatopulmonary syndrome related to his liver disease. There is no significant hydrothorax. His liver disease appears to be stable his bilirubin back over a year ago was 8.9 now it is 11.1 which is not too different. He has been followed closely at [facility] [address] and had a recent evaluation a few months ago. Recommend addressing his rapid atrial fibrillation possibly a pulmonary comment on his chest x-ray findings. We are awaiting records from [facility] [address] regarding his liver disease. History of Present Illness Reason for Consultation: Cirrhosis Attending Physician: Zoey Pardo MD History of Present Illness 69-year-old male with a history of cryptogenic cirrhosis with portal hypertension and esophageal varices, DM2, paroxysmal atrial fibrillation/flutter and Lyme carditis, seasonal allergies, pancytopenia who presents to the ER with increasing shortness of breath, fatigue, generalized weakness, leg swelling, and abdominal bloating over the last 4 to 5 days. He is admitted for rapid atrial fibrillation and acute on chronic HFpEF with acute on chronic respiratory fa ilure with hypoxemia in the setting of cirrhosis. The hospitalist team is requesting recommendations of anticoagulation given history of cirrhosis and atrial fibrillation. Hgb 13.6g/dl, Hct 40.1% Plt 142k/ul, WBC 5.24 k/ul Na 132, K 3.3, Cl 99, CO2 25, BUN 46, Cr 1.3, GFR 78, Glucose 208, T-Bili 11.6, AST 129, ALT 85, Alk Phos 326, Albumin 3.0. Troponin 9.3, BNP 533 INR 1.4 Liver US 11/05/24 IMPRESSION: 1. Cirrhosis with reversal of portal vein flow consistent with portal hypertension. Trace ascites. 2. Gallbladder sludge with borderline gallbladder wall thickness. No sonographic Worrell's sign was present during the exam, so this likely relates to gallbladder edema due to the trace ascites. 3. Otherwise as described. CXR 11/05/24 FINDINGS: There is prominent cardiomegaly with moderate pulmonary vascular congestion. There are diffuse interstitial and faint patchy pulmonary opacities. There are small bilateral pleural effusions with associated lung base consolidation. No pneumothorax. IMPRESSION: 1. CHF with small bilateral pleural effusions. 2. Diffuse pulmonary opacities could represent pulmonary edema or pneumonia. He reports that he started to feel more edematous with larger abdominal girth and shortness of breath over the last few weeks. Patient was seen by Cardiology and is starting on IV Lasix 40mg BID and Spironolactone 25mg/day. He denies any fevers, chills, abdominal pain, dysphagia, N/V/D, changes in urination. We reviewed his cirrhosis history: Cirrhosis Management Currently following with Dr. Digna [facility]. Records are to be faxed over. He reports that he follows closely with them reporting he just had an EGD and Liver US in the past couple weeks. He also reports that they ordered a CT scan of lungs. Decompensations Edema/Ascites - trace Varices - + Grade 1 Hepatic Encephalopathy - None Screenings HCC - Liver US 10/26/24 - No evidence of mass. Varices/EGD - 03/10/23 - Grade 1 Varices. Hep A and B immunizations. Hepatitis A vaccine received. Hepatitis B immunity documented. MELD 23 CTP class B. Allergies Allergy/AdvReac Type Severity Reaction Status Date / Time penicillin G Allergy Unknown Childhood Unverified 11/05/24 09:54 allergy penicillin V Allergy Unknown Childhood Unverified 11/05/24 09:54 allergy Home Medications Medication Instructions Recorded Confirmed Type multivitamin 1 tab PO QAM 03/28/18 11/05/24 History spironolactone 25 mg tablet 25 mg PO QAM PRN swelling 11/02/19 11/05/24 History furosemide 40 mg tablet (Lasix) 40 mg PO DAILY PRN SWELLING 01/15/22 11/05/24 History glipizide 5 mg tablet See Rx Instructions .Route .COMPLEX 01/15/22 11/05/24 History propranolol 20 mg tablet 20 mg PO QAM 01/15/22 11/05/24 History cholecalciferol (vitamin D3) 50 100 mcg PO QAM 12/14/22 11/05/24 History mcg (2,000 unit) capsule (Vitamin D3) ascorbic acid (vitamin C) 250 mg 250 mg PO QAM 03/04/23 11/05/24 History tablet (Vitamin C) fluticasone propionate 50 1 spray intranasal DAILY 11/05/24 11/05/24 History mcg/actuation nasal spray,suspension glucosamine sulf dipot 1 cap PO DAILY 11/05/24 11/05/24 History chlr,msm,chond 550 mg-C 30 mg-lauren 1 mg capsule (Glucosamine Chondroitin) hydroxyzine HCl 10 mg tablet 10 mg PO TID PRN Itching 11/05/24 11/05/24 History milk thistle 150 mg capsule 150 mg PO QAM 11/05/24 11/05/24 History Patient History Medical History Ascites pt denies current issues HTN (hypertension) Hx of Lyme disease hx ~2018. no current issues. History of anemia Aortic valve sclerosis Atrial fibrillation hx ~2018. no current issues. 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 History of right cataract extraction History of esophagogastroduodenoscopy (EGD) History of colonoscopy History of tooth extraction Family History Other No family history of adverse response to anesthesia No significant family history Social History Smoking Status: Former smoker Second Hand Exposure: Yes (mom smoked/father smoked a pipe); Do You Dip or Chew Tobacco: No; Hx Alcohol Use: No Hx Substance Use: No Preferred Language: Congolese Communication Ability: Effective Window Maker Required: No Beliefs That Will Affect Care: None Current Living Situation: Spouse Other Information That Helps Us Care for You: No Feels Safe at Home: Yes Safety Concerns: Feels Safe At This Time Assistive Devices: Glasses Review of Systems Review of Systems: See HPI Physical Exam Physical Exam: Constitutional: NAD. Alert. Answering questions appropriately. Respiratory: Breathing is even, non-labored. Lungs penn are clear to auscultation anteriorly. Cardiovascular: Irregular irregular rhythm. Tachycardiac. No murmurs appreciated. Gastrointestinal (Abdomen): Normoactive bowel sounds x4, soft, non-tender. Mildly distended. Musculoskeletal: Lying in bed comfortably. +1 BLE pedal to knees bilaterally. Results & Data Vital Signs (Past 12 Hours) Vital Signs Temp Pulse Pulse Resp BP BP Pulse Ox 11/05/24 12:52 97.2 F L 111 H 16 106/78 92 11/05/24 12:12 111 H 18 113/90 93 11/05/24 11:28 121 H 18 112/72 92 11/05/24 09:55 105 H 11/05/24 09:51 112 H 22 91 11/05/24 09:45 114 H 24 93 11/05/24 09:41 128 H 108/73 11/05/24 09:33 117 H 20 92 11/05/24 09:30 108/73 11/05/24 09:30 108/73 11/05/24 09:29 117 H 18 108/73 93 11/05/24 09:24 130 H 20 92 11/05/24 09:15 108 H 105/80 11/05/24 09:08 105/80 11/05/24 08:08 138 H 11/05/24 08:03 116 H 19 93 11/05/24 08:00 122 H 25 H 93 11/05/24 08:00 111/73 11/05/24 08:00 111/73 11/05/24 07:59 142 H 106/83 11/05/24 07:56 110 H 18 93 11/05/24 07:56 11/05/24 07:43 11/05/24 07:42 129 H 25 H 88 L 11/05/24 07:36 134/91 11/05/24 07:29 18 88 L 11/05/24 07:29 11/05/24 07:29 97.5 F L 99 H 18 134/91 88 L O2 Del Method O2 Flow Rate 11/05/24 12:52 Room Air 11/05/24 12:12 Nasal Cannula 2 11/05/24 11:28 Nasal Cannula 2 11/05/24 09:55 11/05/24 09:51 11/05/24 09:45 11/05/24 09:41 11/05/24 09:33 11/05/24 09:30 11/05/24 09:30 11/05/24 09:29 Nasal Cannula 2 11/05/24 09:24 11/05/24 09:15 11/05/24 09:08 11/05/24 08:08 11/05/24 08:03 11/05/24 08:00 11/05/24 08:00 11/05/24 08:00 11/05/24 07:59 11/05/24 07:56 Nasal Cannula 2 11/05/24 07:56 Nasal Cannula 2 11/05/24 07:43 Nasal Cannula 2 11/05/24 07:42 11/05/24 07:36 11/05/24 07:29 Room Air 11/05/24 07:29 Room Air 11/05/24 07:29 Room Air Laboratory Results Laboratory Results - last 48 hr 11/05/24 11/05/24 11/05/24 07:55 13:37 13:40 WBC 5.24 RBC 4.15 L Hgb 13.6 L Hct 40.1 L MCV 96.6 MCH 32.8 MCHC 33.9 RDW Std Deviation 58.4 H RDW Coeff of Janice 16.8 H Plt Count 142 MPV 9.6 Immature Gran % (Auto) 0.6 Neut % (Auto) 69.6 Lymph % (Auto) 12.6 Dickinson % (Auto) 13.7 Eos % (Auto) 2.5 Baso % (Auto) 1.0 Neut # (Auto) 3.65 Lymph # (Auto) 0.66 L Dickinson # (Auto) 0.72 H Eos # (Auto) 0.13 Baso # (Auto) 0.05 Immature Gran # (Auto) 0.03 PT 15.1 H INR 1.4 H APTT 34 H PTT Ratio 1.3 Sodium 132 L Potassium 3.3 L Chloride 99 Carbon Dioxide 25 Anion Gap 8 BUN 46 H Creatinine 1.03 Est Cr Clr Drug Dosing 79.6 eGFR 78.15 BUN/Creatinine Ratio 44.7 H Glucose 208 H POC Glucose 180 H Calcium 8.7 Magnesium 2.0 Total Bilirubin 11.6 H AST 129 H ALT 85 H Alkaline Phosphatase 326 H Troponin I High Sens 9.3 B-Natriuretic Peptide 533 H Total Protein 6.9 Albumin 3.0 L Globulin 3.9 Albumin/Globulin Ratio 0.8 L TSH 5.340 H Free T4 1.21 Urine Color Dark Yellow Urine Appearance Clear Urine pH 5.5 Ur Specific [place] 1.017 Urine Protein Negative Urine Glucose (UA) Negative Urine Ketones Negative Urine Blood Negative Urine Nitrite Negative Urine Bilirubin 2+ H Urine Urobilinogen Negative Ur Leukocyte Esterase Trace H Urine WBC (Auto) 0-5 Urine RBC (Auto) 0-2 U Hyaline Cast (Auto) 6-10 H U Epithel Cells (Auto) 0-2 Urine Bacteria (Auto) None Seen Hyaline Casts Present A Urine Comment Diagnostic Findings Chest X-Ray 11/05/24 07:56 XR chest 1V portable CLINICAL HISTORY: Dyspnea COMPARISON STUDY: 07/31/2020 FINDINGS: There is prominent cardiomegaly with moderate pulmonary vascular congestion. There are diffuse interstitial and faint patchy pulmonary opacities. There are small bilateral pleural effusions with associated lung base consolidation. No pneumothorax. IMPRESSION: 1. CHF with small bilateral pleural effusions. 2. Diffuse pulmonary opacities could represent pulmonary edema or pneumonia. ACT 112: Negative or not required by law. Electronically signed by: Timothy Choi M.D. 11/05/2024 9:13 AM Liver Ultrasound 11/05/24 07:58 US liver CLINICAL HISTORY: cirrhosis, jaundiced today COMPARISON STUDY: 11/11/2023 MRCP and 09/07/2023 CT and ultrasound of 06/29/2022. FINDINGS: The pancreas is mostly obscured by bowel gas. The liver has diffuse nodular contour and heterogeneity consistent with cirrhosis. No focal liver abnormality seen. Liver measures 16 cm. There is reversed direction of flow in the portal vein. There is a recanalized umbilical vein. There is trace ascites. There is gallbladder sludge. Gallbladder wall thickness is upper limits of normal to borderline thickened between 3 and 4 mm. Common bile duct measures normal diameter for age of 7 mm. Right kidney shows no hydronephrosis. IMPRESSION: 1. Cirrhosis with reversal of portal vein flow consistent with portal hypertension. Trace ascites. 2. Gallbladder sludge with borderline gallbladder wall thickness. No sonographic Worrell's sign was present during the exam, so this likely relates to gallbladder edema due to the trace ascites. 3. Otherwise as described. ACT 112: Negative or not required by law. Electronically signed by: Timothy Choi M.D. 11/05/2024 9:08 AM PG Care Time/CCT Total # of Minutes Spent Total Time Spent with Patient: Total time spent is greater than 50% in coordination of care (as documented) at patient's floor/unit and/or counseling patient: Coding Level of Care Code 91685 IN/OBS CONSULT LVL 3,45M Diagnoses Acute respiratory failure with hypoxia J96.01 (HFpEF) heart failure with preserved ejection fraction I50.30 Other cirrhosis of liver K74.60
[2024-11-05] MEDS: SPIRONOLACTONE 25 MG TAB PO SCH (13:40)
[2024-11-05] MEDS: INSULIN ASPART PER UNIT CHARGE SC SCH (13:43)
[2024-11-05 15:45] LABS: Appearance Urine Clear (Clear); Bacteria Urine Automated None Seen (None Seen); Epithelial Cell Urine Auto 0-2 /hpf (0-2); Glucose Urine UA Negative (Negative); RBC Urine Automated 0-2 /hpf (0-2); WBC Urine Automated 0-5 /hpf (0-5)
[2024-11-05] MEDS ORDERED: METOPROLOL TARTRATE 1 MG/ML VIAL IV PRN (16:31)
[2024-11-05] MEDS: FUROSEMIDE 40 MG/4 ML VIAL IV SCH (16:36)
--- NOTE | 2024-11-05 17:14 | Cardiology Consultation ---
Date of Consultation November 05, 2024 Assessment & Plan (1) Acute respiratory failure with hypoxia: (2) Atrial fibrillation: (3) (HFpEF) heart failure with preserved ejection fraction: (4) Hypokalemia: Plan Mr. Angel'juju heart rate continues to be rapid in afib. He has been started on carvedilol for rate control. He has also had a few doses of IV metoprolol to help slow him down. His blood pressures are low end of normal. I will start him on digoxin with a loading IV dose today and po starting tomorrow. He was started on Eliquis for stroke prevention. Per GI's note, he is a Child Rodriguez class B and ok for blood thinner. If he were to progress to a class C, ant icoagulation would be contraindicated. He is receiving furosemide and spironolactone for his heart failure. My assumption is that he has been in afib for some time as he does not feel it, and is now experiencing tachycardia induced cardiomyopathy. Echo is pending. Given that we do not know how long he has been in afib, I would recommend holding off on cardioversion for now. If we cannot get his rates under control, he would need a KAHLIL cardioversion. Otherwise, a rate control strategy can be undertaken for the next three weeks and then cardioversion if still in afib at that point. He was hypokalemic on admission and given po potassium replacement. Continue to follow and supplement per hospitalists to keep serum potassium above 4. Case was discussed with Dr. Vegas who is in agreement Supervising Physician Co-Signing Physician Notes ECHO reviewed. EF 35-40% with moderate hypokinesis. There is beat to beat variability in the EF due to Afib with RVR. There is a moderate circumferential pericardial effusion without tamponade physiology. PA pressures 35-40mmHg. History of Present Illness Attending Physician: Zoey Pardo MD History of Present Illness Mr. Nacho Nina presented to the emergency department this morning due to progressive shortness of breath over the last few days. His had been noticing he seemed winded and urged him to present. He is not having any chest discomfort but did have belly discomfort below his ribs. No orthopnea. He has some lower extremity edema. No palpitations; he has not been able to sense being in afib. His bnp is significantly elevated. Troponin has remained wnl. Allergies Allergy/AdvReac Type Severity Reaction Status Date / Time penicillin G Allergy Unknown Childhood Unverified 11/05/24 09:54 allergy penicillin V Allergy Unknown Childhood Unverified 11/05/24 09:54 allergy Home Medications Medication Instructions Recorded Confirmed Type multivitamin 1 tab PO QAM 03/28/18 11/05/24 History spironolactone 25 mg tablet 25 mg PO QAM PRN swelling 11/02/19 11/05/24 History furosemide 40 mg tablet (Lasix) 40 mg PO DAILY PRN SWELLING 01/15/22 11/05/24 History glipizide 5 mg tablet See Rx Instructions .Route .COMPLEX 01/15/22 11/05/24 History propranolol 20 mg tablet 20 mg PO QAM 01/15/22 11/05/24 History cholecalciferol (vitamin D3) 50 100 mcg PO QAM 12/14/22 11/05/24 History mcg (2,000 unit) capsule (Vitamin D3) ascorbic acid (vitamin C) 250 mg 250 mg PO QAM 03/04/23 11/05/24 History tablet (Vitamin C) fluticasone propionate 50 1 spray intranasal DAILY 11/05/24 11/05/24 History mcg/actuation nasal spray,suspension glucosamine sulf dipot 1 cap PO DAILY 11/05/24 11/05/24 History chlr,msm,chond 550 mg-C 30 mg-lauren 1 mg capsule (Glucosamine Chondroitin) hydroxyzine HCl 10 mg tablet 10 mg PO TID PRN Itching 11/05/24 11/05/24 History milk thistle 150 mg capsule 150 mg PO QAM 11/05/24 11/05/24 History Patient History Medical History Ascites pt denies current issues HTN (hypertension) Hx of Lyme disease hx ~2018. no current issues. History of anemia Aortic valve sclerosis Atrial fibrillation hx ~2018. no current issues. 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 History of right cataract extraction History of esophagogastroduodenoscopy (EGD) History of colonoscopy History of tooth extraction Family History Other No family history of adverse response to anesthesia No significant family history Social History Smoking Status: Former smoker Second Hand Exposure: Yes (mom smoked/father smoked a pipe); Do You Dip or Chew Tobacco: No; Hx Alcohol Use: No Hx Substance Use: No Preferred Language: [place] Islander Communication Ability: Effective Refining Supervisor Required: No Beliefs That Will Affect Care: None Current Living Situation: Spouse Other Information That Helps Us Care for You: No Feels Safe at Home: Yes Safety Concerns: Feels Safe At This Time Assistive Devices: Glasses Review of Systems Review of Systems: All systems reviewed & are unremarkable except as noted in HPI & below Physical Exam Constitutional: WD/WN, vitals as above Respiratory: normal respiratory effort, lungs clear to auscultation Cardiovascular: Rate/Rhythm: + abnormal rate and + abnormal rhythm Heart Sounds: no murmur Extremities: + edema (mild bilateral) Skin: + jaundice Neurologic: moves all extremities and awake Psychiatric: A+Ox3, euthymic affect Results & Data Vital Signs (Past 12 Hours) Vital Signs Temp Pulse Pulse Resp BP BP Pulse Ox 11/05/24 16:25 121 H 11/05/24 15:46 36.3 C L 106 H 19 108/78 90 11/05/24 13:27 130 H 11/05/24 12:52 36.2 C L 111 H 16 106/78 92 11/05/24 12:12 111 H 18 113/90 93 11/05/24 11:28 121 H 18 112/72 92 11/05/24 09:55 105 H 11/05/24 09:51 112 H 22 91 11/05/24 09:45 114 H 24 93 11/05/24 09:41 128 H 108/73 11/05/24 09:33 117 H 20 92 11/05/24 09:30 108/73 11/05/24 09:30 108/73 11/05/24 09:29 117 H 18 108/73 93 11/05/24 09:24 130 H 20 92 11/05/24 09:15 108 H 105/80 11/05/24 09:08 105/80 11/05/24 08:08 138 H 11/05/24 08:03 116 H 19 93 11/05/24 08:00 122 H 25 H 93 11/05/24 08:00 111/73 11/05/24 08:00 111/73 11/05/24 07:59 142 H 106/83 11/05/24 07:56 110 H 18 93 11/05/24 07:56 11/05/24 07:43 11/05/24 07:42 129 H 25 H 88 L 11/05/24 07:36 134/91 11/05/24 07:29 18 88 L 11/05/24 07:29 11/05/24 07:29 36.4 C L 99 H 18 134/91 88 L O2 Del Method O2 Flow Rate 11/05/24 16:25 11/05/24 15:46 Room Air 11/05/24 13:27 11/05/24 12:52 Room Air 11/05/24 12:12 Nasal Cannula 2 11/05/24 11:28 Nasal Cannula 2 11/05/24 09:55 11/05/24 09:51 11/05/24 09:45 11/05/24 09:41 11/05/24 09:33 11/05/24 09:30 11/05/24 09:30 11/05/24 09:29 Nasal Cannula 2 11/05/24 09:24 11/05/24 09:15 11/05/24 09:08 11/05/24 08:08 11/05/24 08:03 11/05/24 08:00 11/05/24 08:00 11/05/24 08:00 11/05/24 07:59 11/05/24 07:56 Nasal Cannula 2 11/05/24 07:56 Nasal Cannula 2 11/05/24 07:43 Nasal Cannula 2 11/05/24 07:42 11/05/24 07:36 11/05/24 07:29 Room Air 11/05/24 07:29 Room Air 11/05/24 07:29 Room Air (2) Atrial fibrillation Atrial fibrillation type: paroxysmal Qualified Code(s): I48.0 - Paroxysmal atrial fibrillation
[2024-11-05] MEDS: DIGOXIN 250 MCG in SYRINGE 9 ML IV SCH (18:36)
[2024-11-05] MEDS: APIXABAN 5 MG TABLET PO SCH (21:49)
[2024-11-06 07:49] LABS: Hematocrit (blood only) 39.9 % (42.0-52.0); Hemoglobin 13.3 g/dl (14.0-18.0); Immature Granulocytes # (auto) 0.03 K/uL (0.01-0.20); Immature Granulocytes % (auto) 0.6 %; Mean Corpuscular Hemoglobin 32.4 pg (25.0-34.0); Mean Corpuscular Volume 97.3 fL (80.0-100.0); Platelet Count 129 K/uL (130-400); RDW Standard Deviation 58.5 fL (36.4-46.3); Red Blood Count 4.10 M/uL (4.70-6.10); White Blood Count 4.71 K/ul (4.8-10.8)
[2024-11-06 08:07] LABS: Alanine Aminotransferase 80.0 U/L (7-52); Alkaline Phosphatase 288.0 U/L (34-104); Anion Gap 9.0 (3-11); Bilirubin,Total 11.7 mg/dl (0.2-1.0); Blood Urea Nitrogen 46.0 mg/dl (6-23); Calcium 8.5 mg/dl (8.6-10.3); Carbon Dioxide 25.0 mmol/L (21-32); Chloride 100.0 mmol/L (98-107); Creatinine Clr Calc Pharmacy 70.3 ml/min; Glucose 154.0 mg/dl (70-99(Fasting)); Iron 71.0 mcg/dl (35-175); Magnesium 1.9 mg/dl (1.7-2.4); Potassium 3.6 mmol/L (3.5-5.1); Sodium 134.0 mmol/L (136-145); Total Iron Binding Cap Calc 225.0 mcg/dl (250-450); Total Protein 6.9 gm/dl (6.0-8.3); Transferrin 161.0 mg/dl (200-360); Transferrin (FE) Percent Satur 32.0 % (20-50)
[2024-11-06 08:25] LABS: Ferritin 725.3 ng/ml (8-388)
[2024-11-06] MEDS: FLUTICASONE PROPIONATE NA SPR 16 GM BTL NAE SCH (08:27)
[2024-11-06] MEDS: CHOLECALCIFEROL 25 MCG (1000 UNITS) TAB PO SCH (08:27)
[2024-11-06 08:28] LABS: INR 1.6 (0.9-1.1); Prothrombin Time 16.7 Seconds (9.0-12.0)
[2024-11-06 08:30] LABS: Folate (Folic Acid),Ser orPlas > 22.30 ng/ml (>5.38)
[2024-11-06 08:31] LABS: Vitamin B12 > 1500 pg/ml (180-914)
[2024-11-06 08:40] LABS: Hemoglobin A1C 6.5 % (4.5-5.6)
--- NOTE | 2024-11-06 09:07 | Gastroenterology Progress Note ---
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 He is admitted for rapid atrial fibrillation and acute on chronic HFpEF with acute on chronic respiratory failure with hypoxemia in the setting of cirrhosis. Today he's reportedly breathing much easier with diuresis. No GI issues or complications from diuresis (ie, hepatic encephalopathy). 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 MELD Na 25, Child Rodriguez class B. - Continue with rhythm/rate and stroke prevention management per Cardiology. Reviewed AC options given liver disease. At Child Rodriguez class A and B Eliquis can be given without dose modification with caution. Medication should be avoided in Child Rodriguez class C. - The hospitalist group asked us to weigh in on the pericardial effusion possibly being related to PSC which can occur rarely. Other possible differentials would include viral pericarditis or volume overload. - Continue with diuresis management per cardiology. - Reviewed liver labs today and CBC which remained stable. - Case reviewed with plan developed with Supervising GI provider Dr. Duke who will plan to see patient in person today on afternoon medical rounds. Please see co-signature additional recommendations. Admission and Anticipated Discharge Date Admission Date: November 05, 2024 Supervising Physician Co-Signing Physician Notes I saw and examined this patient with our nurse practitioner and agree with her assessment and plan. Patient clinically improved after diuresis. Symptoms most consistent with fluid overload. Primary sclerosing cholangitis is not commonly associated with pericardial effusion, case reports are rare. Other autoimmune disorders are more likely. He has had colonoscopies in the past which were not consistent with ulcerative colitis. At the present time his liver disease seems stable. 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 Subjective 69-year-old male with a history of cryptogenic cirrhosis with portal hypertension and esophageal varices, DM2, paroxysmal atrial fibrillation/flutter and Lyme carditis, seasonal allergies, pancytopenia who presents to the ER with increasing shortness of breath, fatigue, generalized weakness, leg swelling, and abdominal bloating over the last 4 to 5 days. He is admitted for rapid atrial fibrillation and acute on chronic HFpEF with acute on chronic respiratory failure with hypoxemia in the setting of cirrhosis. The hospitalist team is requesting recommendations of anticoagulation given history of cirrhosis and atrial fibrillation. He reports that he started to feel more edematous with larger abdominal girth and shortness of breath over the last few weeks. Patient was seen by Cardiology and is starting on IV Lasix 40mg BID and Spironolactone 25mg/day. He is Child Rodriguez class B with normal platelets, therefore Eliquis for stroke prevention was recommended. He's seen today for 1 day follow up on rounds. He reports he's doing well and breathing much better with diuretics received. He voices decreased bloating in abdomen and legs are less edematous. He's speaking full sentences with ease. He denies any fevers, chills, abdominal pain, N/V/D, melena or hematochezia. No encephalopathy reported. [facility] records were obtained and summarized below. Pertinent Labs 11/06/24 - Hgb 13.3 g/dl, Hct 39.9%, WBC 4.71, Plt 129 k/ul, INR 1.6 Na 134, K 3.6, Cl 100, CO2 25, AG 9, BUN 46, Cr 1.16, Glucose 165, Ca 8.5, T- Bili 11.7 mg/dl, Bilirubin 6.0, AST 114, ALT 80, Alk Phos 288, Albumin 3.0 gm/dl. Iron 71, Transferrin Sat 32%, Ferritin 725. Labs on Presentation 11/05/24: Hgb 13.6g/dl, Hct 40.1% Plt 142k/ul, WBC 5.24 k/ul Na 132, K 3.3, Cl 99, CO2 25, BUN 46, Cr 1.3, GFR 78, Glucose 208, T-Bili 11.6, AST 129, ALT 85, Alk Phos 326, Albumin 3.0. Troponin 9.3, BNP 533 INR 1.4 Liver US 11/05/24 IMPRESSION: 1. Cirrhosis with reversal of portal vein flow consistent with portal hypertension. Trace ascites. 2. Gallbladder sludge with borderline gallbladder wall thickness. No sonographic Worrell's sign was present during the exam, so this likely relates to gallbladder edema due to the trace ascites. 3. Otherwise as described. CXR 11/05/24 FINDINGS: There is prominent cardiomegaly with moderate pulmonary vascular congestion. There are diffuse interstitial and faint patchy pulmonary opacities. There are small bilateral pleural effusions with associated lung base consolidation. No pneumothorax. IMPRESSION: 1. CHF with small bilateral pleural effusions. 2. Diffuse pulmonary opacities could represent pulmonary edema or pneumonia. Echocardiogram 11/05/24 - LV normal in size, Moderate concentric LVH - LVEF 35-40% moderately reduced ejection fraction - Circumferential pericardial effusion noted without echocardiographic evidence of tamponade. 05/2023 MRCP IMPRESSION: 1. Redemonstration of the cirrhotic liver with sequela of portal hypertension including splenomegaly. This is similar to the prior study. 2. Trace ascites. 3. Normal caliber common bile duct. No filling defects within the common bile duct. 4. Multifocal smooth strictures seen within the intra and extra hepatic bile ducts. Therefore, these findings raise the possibly of primary sclerosing cholangitis Colonoscopy 03/12/2024 Indication H/O adenomatous polyps. Findings: - The perianal examination was normal. - A 4 mm polyp was found in the transverse colon. The polyp was sessile. The polyp was removed with a cold snare. Resection and retrieval were complete. - Multiple small-mouthed diverticula were found in the sigmoid colon. - Internal hemorrhoids were found during retroflexion. The hemorrhoids were small. Impression: - One 4 mm polyp in the transverse colon, removed with a cold snare. Resected and retrieved. - Diverticulosis in the sigmoid colon. - Internal hemorrhoids. Recommendation: - Discharge patient to home (ambulatory). - Resume previous diet. - Continue present medications. - Repeat colonoscopy date to be determined after pending pathology results are reviewed for surveillance based on pathology results. - Return to referring physician as previously scheduled. - Patient has a contact number available for emergencies. The signs and symptoms of potential delayed complications were discussed with the patient. Return to normal activities tomorrow. Written discharge instructions were provided to the patient. Path: Benign gastric mucosa with lymphoid aggregate. We reviewed his cirrhosis history: 06/05/2024 ERCP ([facility]) The fire official film was normal. The esophagus was successfully intubated under direct vision. The scope was advanced to a normal major papilla in the descending duodenum without detailed examination of the pharynx, larynx and associated structures, and upper GI tract. The upper GI tract was grossly normal. A short 0.025 inch Jagwire was passed into the biliary tree. The short-nosed traction sphincterotome was passed over the guidewire and the bile duct was then deeply cannulated. Contrast was injected. I personally interpreted the bile duct images. Ductal flow of contrast was adequate. Image quality was adequate. Contrast extended to the main bile duct. Opacification of the entire biliary tree was successful. The maximum diameter of the ducts was 8 mm. No dominant strictures seen. Intrahepatic ducts with beading pattern consistent with PSC. Biliary sphincterotomy was made with a monofilament traction (standard) sphincterotome using ERBE electrocautery. There was no post-sphinc terotomy bleeding. Dilation of the common hepatic ducts and bifurcations with a 6 mm balloon dilator was successful. The biliary tree was swept with a 12 mm balloon starting at the bifurcation. Debris was swept from the duct. The biliary tree was irrigated with saline to wash out the contrast. Cirrhosis Management Currently following with Dr. [facility]. Records are to be faxed over (received 11/06/24) He reports that he follows closely with them reporting he just had an EGD and Liver US in the past couple weeks. He also reports that they ordered a CT scan of lungs. Decompensations Edema/Ascites - trace Varices - + Grade 1 Hepatic Encephalopathy - None Screenings HCC - Liver US 10/26/24 - No evidence of mass. Varices/EGD - 03/10/23 - Grade 1 Varices. Hep A and B immunizations. Hepatitis A vaccine received. Hepatitis B immunity documented. MELD 23 CTP class B. Last Seen by Hepatology 07/11/24 Assessment and plan: PSC cirrhosis c/b ascites and non-bleeding EV. Was told for many years over 15 years he had cryptogenic cirrhosis but MRCP imaging in November 2023 with evidence of PSC and this was found on ERCP as well. -Liver disease severity. Pt.'s last MELD was 17. We will get MELD labs today.His ferritin was 657 and iron saturation 75%. HFE genetic testing ordered but he did not get this done yet. He will get this today. Most recent LFTs with AST 66, ALT 53, ALP 322, total bilirubin 3.4. we discussed that if he has + HFE genetic testing we would get MRI to quantify iron in the liver and if there was iron overload would pursue phlebotomy. -Variceal screening: EGD 03/2024 with small varices. Repeat again in 1 year or sooner in event of decompensation. He is on propanolol for primary prophylaxis. -Ascites. Has not required diuretics in 5 years. Had 1 paracentesis 5 years ago. I recommend a low salt diet no more than 2 grams per day. No need for TIPS at this time. -Hepatic encephalopathy: based on today's examination, the pt. does not have asterixis. No history of HE. -Renal function: pt.'s most recent SCr was 0.6. We will get another BMP and monitor his renal function periodically. -HCC screening. Pt.'s last liver imaging study was done 04/2024. Pt will need HCC screening every 6 months with imaging in conjunction with an AFP. Due gain 10/2024 which was ordered today. Will alternate MRCP with ultrasound every 6 months. -Avoid liver toxins including over the counter herbal supplements. May take Acetaminophen up to 2 grams a day. Avoid NSAIDS due to increased risk of GI bleeding and fluid retention. Avoid all alcohol. Patient encouraged to avoid benzodiazepines and opiate pain medications due to risk of precipitating HE. -Vaccination: will get HAV and HBV serologies and then vaccinate accordingly. -Transplant evaluation: while MELD is 17 currently he is very well compensated without any ascites for 5 years, no HE, no swelling, and he has not had any episodes of cholangitis. He was previously listed for transplant for 12 years at [facility] but taken off the list. Will continue to monitor and only if MELD worsens or he decompensates refer for transplant. -Follow up in 6 months Kathrin Sawyer DO Gastroenterology and Hepatology Review of Systems Review of Systems: See HPI Physical Exam Physical Exam: Constitutional: NAD. Alert. Answering questions appropriately. Eyes: + Scleral icterus. Respiratory: Breathing is even, non-labored. Lungs penn are clear to auscultation anteriorly. Cardiovascular: Irregular irregular rhythm. Rate controlled. Gastrointestinal (Abdomen): Normoactive bowel sounds x4, soft non-tender. Musculoskeletal: Lying in bed comfortably. Trace edema to bilateral shins. Results & Data Results & Data Vital Signs (Past 12 Hours) Vital Signs Temp Pulse Pulse Resp BP BP Pulse Ox 11/06/24 08:06 97.3 F L 92 H 18 115/74 96 11/06/24 08:00 121 H 11/06/24 07:54 11/06/24 03:17 97.2 F L 94 H 20 103/65 93 11/06/24 00:28 114 H 11/05/24 23:52 110 H 11/05/24 23:50 97.3 F L 97 H 18 112/67 94 11/05/24 22:56 O2 Del Method O2 Flow Rate 11/06/24 08:06 Room Air 11/06/24 08:00 11/06/24 07:54 Nasal Cannula 2 11/06/24 03:17 Nasal Cannula 3.0 11/06/24 00:28 11/05/24 23:52 11/05/24 23:50 Nasal Cannula 3.0 11/05/24 22:56 Nasal Cannula 2 Laboratory Results 11/06/24 11/06/24 11/05/24 07:30 07:24 20:14 WBC 4.71 L RBC 4.10 L Hgb 13.3 L Hct 39.9 L MCV 97.3 MCH 32.4 MCHC 33.3 RDW Std Deviation 58.5 H RDW Coeff of Janice 16.8 H Plt Count 129 L MPV 10.0 Immature Gran % (Auto) 0.6 Neut % (Auto) 69.3 Lymph % (Auto) 14.4 [place] % (Auto) 12.1 Eos % (Auto) 2.8 Baso % (Auto) 0.8 Neut # (Auto) 3.26 Lymph # (Auto) 0.68 L [place] # (Auto) 0.57 Eos # (Auto) 0.13 Baso # (Auto) 0.04 Immature Gran # (Auto) 0.03 PT 16.7 H INR 1.6 H Sodium 134 L Potassium 3.6 Chloride 100 Carbon Dioxide 25 Anion Gap 9 BUN 46 H Creatinine 1.16 Est Cr Clr Drug Dosing 70.3 eGFR 67.76 BUN/Creatinine Ratio 39.7 H Glucose 154 H POC Glucose 162 H 209 H Estimat Average Glucose 140 Hemoglobin A1c 6.5 H Calcium 8.5 L Magnesium 1.9 Iron 71 TIBC 225 L Transferrin 161 L Transferrin % Sat 32 Ferritin 725.3 H Total Bilirubin 11.7 H Direct Bilirubin 6.0 H AST 114 H ALT 80 H Alkaline Phosphatase 288 H B-Natriuretic Peptide Total Protein 6.9 Albumin 3.0 L Vitamin B12 > 1500 H Folate > 22.30 TSH Free T4 Urine Color Urine Appearance Urine pH Ur Specific [place] Urine Protein Urine Glucose (UA) Urine Ketones Urine Blood Urine Nitrite Urine Bilirubin Urine Urobilinogen Ur Leukocyte Esterase Urine WBC (Auto) Urine RBC (Auto) U Hyaline Cast (Auto) U Epithel Cells (Auto) Urine Bacteria (Auto) Hyaline Casts Urine Comment 11/05/24 11/05/24 11/05/24 16:25 13:40 13:37 WBC RBC Hgb Hct MCV MCH MCHC RDW Std Deviation RDW Coeff of Janice Plt Count MPV Immature Gran % (Auto) Neut % (Auto) Lymph % (Auto) [place] % (Auto) Eos % (Auto) Baso % (Auto) Neut # (Auto) Lymph # (Auto) [place] # (Auto) Eos # (Auto) Baso # (Auto) Immature Gran # (Auto) PT INR Sodium Potassium Chloride Carbon Dioxide Anion Gap BUN Creatinine Est Cr Clr Drug Dosing eGFR BUN/Creatinine Ratio Glucose POC Glucose 218 H 180 H Estimat Average Glucose Hemoglobin A1c Calcium Magnesium Iron TIBC Transferrin Transferrin % Sat Ferritin Total Bilirubin Direct Bilirubin AST ALT Alkaline Phosphatase B-Natriuretic Peptide Total Protein Albumin Vitamin B12 Folate TSH Free T4 Urine Color Dark Yellow Urine Appearance Clear Urine pH 5.5 Ur Specific [place] 1.017 Urine Protein Negative Urine Glucose (UA) Negative Urine Ketones Negative Urine Blood Negative Urine Nitrite Negative Urine Bilirubin 2+ H Urine Urobilinogen Negative Ur Leukocyte Esterase Trace H Urine WBC (Auto) 0-5 Urine RBC (Auto) 0-2 U Hyaline Cast (Auto) 6-10 H U Epithel Cells (Auto) 0-2 Urine Bacteria (Auto) None Seen Hyaline Casts Present A Urine Comment 11/05/24 07:55 WBC RBC Hgb Hct MCV MCH MCHC RDW Std Deviation RDW Coeff of Janice Plt Count MPV Immature Gran % (Auto) Neut % (Auto) Lymph % (Auto) [place] % (Auto) Eos % (Auto) Baso % (Auto) Neut # (Auto) Lymph # (Auto) [place] # (Auto) Eos # (Auto) Baso # (Auto) Immature Gran # (Auto) PT INR Sodium Potassium Chloride Carbon Dioxide Anion Gap BUN Creatinine Est Cr Clr Drug Dosing eGFR BUN/Creatinine Ratio Glucose POC Glucose Estimat Average Glucose Hemoglobin A1c Calcium Magnesium Iron TIBC Transferrin Transferrin % Sat Ferritin Total Bilirubin Direct Bilirubin AST ALT Alkaline Phosphatase B-Natriuretic Peptide 533 H Total Protein Albumin Vitamin B12 Folate TSH 5.340 H Free T4 1.21 Urine Color Urine Appearance Urine pH Ur Specific [place] Urine Protein Urine Glucose (UA) Urine Ketones Urine Blood Urine Nitrite Urine Bilirubin Urine Urobilinogen Ur Leukocyte Esterase Urine WBC (Auto) Urine RBC (Auto) U Hyaline Cast (Auto) U Epithel Cells (Auto) Urine Bacteria (Auto) Hyaline Casts Urine Comment PG Care Time/CCT Total # of Minutes Spent Total Time Spent with Patient: Total time spent is greater than 50% in coordination of care (as documented) at patient's floor/unit and/or counseling patient: Coding Level of Care Code 25875 SUB INP/OBS CARE 3/50MIN Diagnoses Acute respiratory failure with hypoxia J96.01 (HFpEF) heart failure with preserved ejection fraction I50.30 Non-alcoholic cirrhosis K74.60 Paroxysmal atrial fibrillation I48.0 Atrial fibrillation type: paroxysmal (4) Atrial fibrillation Atrial fibrillation type: paroxysmal Qualified Code(s): I48.0 - Paroxysmal atrial fibrillation
[2024-11-06] MEDS: POTASSIUM CHLORIDE CRTAB 20 MEQ TABCR PO STA (09:52)
[2024-11-06] MEDS: MAGNESIUM SULFATE / D5W 1 GM/100 ML BAG IV ONE (09:52)
--- NOTE | 2024-11-06 10:35 | Cardiology Progress Note ---
Date of Service November 06, 2024 Assessment & Plan (1) Acute respiratory failure with hypoxia: (2) Atrial fibrillation: (3) (HFpEF) heart failure with preserved ejection fraction: (4) Hypokalemia: Plan Mr. Angel's heart rate has improved with digoxin and carvedilol. Hop efully, with further diuresis his heart rate will further improve. His blood pressures remains on the low end of normal. He was started on Eliquis for stroke prevention. Per GI's note, he is a Child Rodriguez class B and ok for blood thinner. If he were to progress to a class C, anticoagulation would be contraindicated. He is mildly thrombocytopenic. We reviewed that he would need to let us know right away if he were to see any nina bleeding or black tarry stools. If he falls or hits his head while on Eliquis, he needs to seek emergency evaluation. He is receiving furosemide and spironolactone for his heart failure. His echo demonstrates newly reduced EF of 35-40%. 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 He does not have symptoms with his afib and may have been in a rapid rate for some time. Given that we do not know how long he has been in afib, I would recommend holding off on cardioversion for now. If we cannot get his rates under control, he would need a KAHLIL cardioversion. Otherwise, a rate control strategy can be undertaken for the next three weeks and then cardioversion if still in afib at that point. He also has a moderate pericardial effusion without tamponade. I will order crp and sed rate. I'll hold off on colchicine given it's interaction with Coreg. It's unclear if the effusion is secondary to his general fluid overload or whether there are other factors involved. 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 A quick literature perusal notes that this is rarely associated with pericardial effusion but can be in instances of significant inflammation. He was hypokalemic on admission and given po potassium replacement. Continue to follow and supplement per hospitalists to keep serum potassium above 4. Admission and Anticipated Discharge Date Admission Date: November 05, 2024 Subjective Mr. Card is feeling less sob this morning. His Is&Os do not appear accurate but he is down a kg. His edema is improved. No chest pain. He continues to be in afib on the monitor. Rates have improved with digoxin and carvedilol. Review of Systems Review of Systems: All systems reviewed & are unremarkable except as noted in HPI & below Physical Exam Constitutional: WD/WN, vitals as above Respiratory: normal respiratory effort, lungs clear to auscultation Cardiovascular: Rate/Rhythm: + abnormal rate and + abnormal rhythm Heart Sounds: no murmur Extremities: no edema Skin: no rashes, warm and dry Neurologic: moves all extremities and awake Psychiatric: A+Ox3, euthymic affect Results & Data Vital Signs (Past 12 Hours) Vital Signs Temp Pulse Pulse Resp BP BP Pulse Ox 11/06/24 08:06 36.3 C L 92 H 18 115/74 96 11/06/24 08:00 121 H 11/06/24 07:54 11/06/24 03:17 36.2 C L 94 H 20 103/65 93 11/06/24 00:28 114 H 11/05/24 23:52 110 H 11/05/24 23:50 36.3 C L 97 H 18 112/67 94 11/05/24 22:56 O2 Del Method O2 Flow Rate 11/06/24 08:06 Room Air 11/06/24 08:00 11/06/24 07:54 Nasal Cannula 2 11/06/24 03:17 Nasal Cannula 3.0 11/06/24 00:28 11/05/24 23:52 11/05/24 23:50 Nasal Cannula 3.0 11/05/24 22:56 Nasal Cannula 2 (2) Atrial fibrillation Atrial fibrillation type: paroxysmal Qualified Code(s): I48.0 - Paroxysmal atrial fibrillation
--- NOTE | 2024-11-06 10:40 | Electrocardiogram Report ---
Test Reason : Blood Pressure : */* mmHG Vent. Rate : 137 BPM Atrial Rate : * BPM P-R Int : * ms QRS Dur : 74 ms QT Int : 264 ms P-R-T Axes : * 26 258 degrees QTcB Int : 398 ms Atrial fibrillation with rapid ventricular response Low voltage QRS Septal infarct (cited on or before 10-Nov-2018) Abnormal ECG When compared with ECG of 10-Nov-2018 09:01, Atrial fibrillation has replaced Atrial flutter Vent. rate has increased by 83 bpm QRS voltage has decreased Nonspecific T wave abnormality now evident in Anterolateral leads Confirmed by Aron Beth ([id number]) on 11/06/2024 10:39:42 AM Referred By: REFERRED SELF Confirmed By: Aron Beth
--- NOTE | 2024-11-06 14:07 | Hospitalist Progress Note ---
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 He is admitted for rapid atrial fibrillation and acute on chronic HFpEF with acute on chronic respiratory failure with hypoxemia in the setting of cirrhosis. He was subsequently found to have a moderate pericardial effusion. #Rapid atrial fibrillation/PAF/acute on chronic HFrEF/acute respiratory failure with hypoxemia-most likely the rapid A-fib contributing to the acute HFpEF. His typical resting heart rate is 60-70 but he is otherwise asymptomatic with the atrial fibrillation-unclear how long he has had paroxysms of atrial fibrillation. Pulse ox 85-88% on room air initially requiring supplemental O2 and now weaned off to room air after diuresis. Troponin negative, BNP elevated at 533. With peripheral edema, ascites and abdominal bloating, cardiomegaly and pulmonary edema on CXR. No ischemic changes on ECG. Last echo 2018 with preserved EF, however now with reduced EF 35-40%, RV function moderately reduced, moderate pericardial effusion. Heart rates remain uncontrolled with rates in the 90s to 120s despite loading with and continuing on digoxin and starting carvedilol. Blood pressures remain soft. Diuresing and improving. Renal function remains normal. TSH mildly elevated at 5.3 but free T4 normal - Continue telemetry for arrhythmia monitoring - Discontinued home propranolol and started carvedilol (also a nonselective beta-anant for his portal hypertension) for HFrEF and rapid [id number] carvedilol to 6.25 Mg p.o. twice daily - Consult cardiology for further assessment/management appreciated-added digoxin-continue at 0.125 Mg p.o. once daily -Continue Lasix 40 Mg IV twice daily; continue spironolactone daily - Follow BMP, magnesium and keep electrolytes replete/optimal-give KCl 40 mEq p.o. x 1 and magnesium sulfate 1 g IV x 1 - Follow TSH as an outpatient in 4 to 6 weeks - Strict I's and O's, fluid restriction 1500 mL, low-sodium diet, daily weights - Started Eliquis 5 Mg p.o. twice daily-appreciate GI opinion on anticoagulation in the setting of cirrhosis-Eliquis okay for now with hepatic failure Child-Rodriguez class A and B but should be avoided in class C - Plan for cardioversion if rate control strategy not working #Pericardial effusion with circumferential moderate sized pericardial effusion seen on echo without tamponade. ESR elevated at 86, CRP elevated at 8. No recent viral syndrome or signs of infection. No pericarditis or chest pains and troponin normal at 9 on admission. Unclear etiology and could be idiopathic versus autoimmune versus underlying malignancy. He does not have uremia and is not on any medications that typically induce pericardial effusions. No need for urgent drainage at this time. - Checked CT angiogram of chest-no evidence of thoracic aortic dissection or malignancy. There is mild mediastinal lymphadenopathy which will need to be followed - Checked CT abdomen/pelvis-no obvious evidence of malignancy. He had a colonoscopy in 03/2024 without evidence of colon cancer - Check WENDY, RF, ANCA, Sjogren's antibodies, JAME level, vitamin 1, 25 -OH vitamin D (for sarcoidosis) -Will need close follow-up with echocardiogram in the near future #Cryptogenic cirrhosis with portal HTN/grade 1 esophageal varices-His total bi lirubin is elevated more than previous at 11, and AST/ALT/alkaline phosphatase all slightly more elevated than previous although now improving. A RUQ US showed cirrhosis with portal HTN, trace ascites, gallbladder sludge with borderline gallbladder wall thickness likely related to ascites. He has abdominal bloating likely from ascites but no abdominal pain. Last EGD In 03/2023 with grade 1 varices. Fortunately, platelets are normal at this time. MELD score [address] A/P on 11/06 with cirrhosis, portal hypertension and varices seen. No liver masses other than calcified granuloma -Consult to GI appreciated - Follow BMP, LFTs, INR, CBC #Pancytopenia-secondary to cirrhosis, mild. Hemoglobin stable at 11-13 over many years. Iron studies with transferrin saturation of 32%, ferritin elevated in the 700s likely from acute inflammation of unknown cause. B12 and folate normal. TSH mildly elevated at 5.3 with normal free T4. Anemia likely of chronic disease. Thrombocytopenia and leukopenia from liver disease and splenomegaly. - Follow CBC - Okay to continue Eliquis but would hold if platelets drop below 50 #DM2-HgbA1c controlled at 6.5% - Hold home glipizide - Give NovoLog SSI, Accu-Cheks ACHS DVT prophylaxis-LISSY Barker Disposition-continued stay on PCU Admission and Anticipated Discharge Date Admission Date: November 05, 2024 Subjective Patient reports feeling better today. Less short of breath and is now weaned off supplemental O2 to room air. He denies any chest pain. He reports chronic hip and knee pains bilaterally for many years. He only has occasional pain in the hands. No other pains chronically in the other joints including shoulders ankles toes, elbows. No fevers or chills prior to admission. I discussed his care with cardiology and GI. Telemetry with atrial fibrillation, rates in the 100s to 130s. Physical Exam Constitutional: WD/WN, vitals as above Eyes: + scleral abnormality (Scleral icterus) Neck: trachea midline, no thyromegaly Respiratory: does not use accessory muscles and no cough Auscultation: + diminished lung sounds (At the bases bilaterally); no wheezes Cardiovascular: Rate/Rhythm: + tachycardic and + irregularly irregular Heart Sounds: no murmur Extremities: + edema (1+ pitting edema from the feet to the mid legs bilaterally) Chest (Breasts): Chest: normal inspection of chest Gastrointestinal (Abdomen): Inspection/Auscultation: + abdomen distended (Mild), normal bowel sounds and + visible herniation (Umbilical, reducible) Percussion/Palpation: abdomen soft; abdomen nontender and no guarding Musculoskeletal: Extremities: extremities normal to inspection; no cyanosis and no clubbing Skin: + jaundice Neurologic: moves all extremities and awake; no focal motor deficits Psychiatric: A+Ox3, euthymic affect Results & Data Results & Data Vital Signs (Past 12 Hours) Vital Signs Temp Pulse Pulse Resp BP Pulse Ox O2 Del Method 11/06/24 14:05 95 Room Air 11/06/24 12:10 36.3 C L 99 H 20 109/68 98 Nasal Cannula 11/06/24 08:06 36.3 C L 92 H 18 115/74 96 Room Air 11/06/24 08:00 121 H 11/06/24 07:54 Nasal Cannula 11/06/24 03:17 36.2 C L 94 H 20 103/65 93 Nasal Cannula O2 Flow Rate 11/06/24 14:05 11/06/24 12:10 3 11/06/24 08:06 11/06/24 08:00 11/06/24 07:54 2 11/06/24 03:17 3.0 Laboratory Results CBC, BMP, LFTs, magnesium, INR, iron studies, B12, folate, TSH, free T4 reviewed Diagnostic Findings Echo reviewed PG Care Time/CCT Total # of Minutes Spent Total Time Spent with Patient: Total time spent is greater than 50% in coordination of care (as documented) at patient's floor/unit and/or counseling patient: Coding Level of Care Code 15987 SUB INP/OBS CARE 3/50MIN Diagnoses Paroxysmal atrial fibrillation I48.0 Atrial fibrillation type: paroxysmal (HFpEF) heart failure with preserved ejection fraction I50.30 Pericardial effusion I31.39 Acute respiratory failure with hypoxia J96.01 (1) Atrial fibrillation Atrial fibrillation type: paroxysmal Qualified Code(s): I48.0 - Paroxysmal atrial fibrillation
[2024-11-06] MEDS: OPTIRAY 320 125ml IV ONE (14:24)
--- NOTE | 2024-11-06 14:44 | CT Scan Report ---
CT angio chest w con CLINICAL HISTORY: pericardial effusion COMPARISON STUDY: None FINDINGS: There is a moderate pericardial effusion. There is mild cardiomegaly with mild prominence o f the pulmonary vasculature suggesting CHF. There are small bilateral pleural effusions which layer d ependently. There is mild adjacent compressive atelectasis at the lower lung lobes. There is mild sep chu thickening and mild groundglass opacity in the lungs, likely mild pulmonary edema. No pneumothora x. There is mild mediastinal lymphadenopathy with largest lymph node in the left AP window node measu ring 2 cm. There are moderate coronary artery and aortic calcifications. There is no thoracic aortic dissection or aneurysm. The contrast bolus is limited for evaluation of pulmonary embolism, but no la rge central or main pulmonary emboli seen. There is cirrhotic morphology of the liver. No acute osseo us findings. IMPRESSION: 1. Moderate pericardial effusion. 2. CHF with small bilateral pleural effusions and mild pulmonary edema. 3. Otherwise as described. ACT 112: Negative or not required by law. Electronically signed by: Timothy Choi M.D. 11/06/2024 2:43 PM
--- NOTE | 2024-11-06 14:44 | CT Scan Report ---
CT SCAN OF THE ABDOMEN AND PELVIS WITH IV CONTRAST CLINICAL HISTORY: Pericardial effusion. COMPARISON STUDY: Abdominal CT scans dated 09/07/2023 and 11/10/2018. TECHNIQUE: Following the IV administration of 115 cc of Optiray 320, CT scan of the abdomen and pelv is is performed from the lung bases to the proximal femora. Images are reviewed in the axial, sagitta l, and coronal planes. IV contrast was administered without complication. A dose lowering technique w as utilized adhering to the principles of ALARA. CT DOSE: 1950.3 mGy.cm FINDINGS: Lung bases: The heart is top normal in size noting a large pericardial effusion. There are small-to-m oderate pleural effusions with dependent consolidation. Intralobular septal thickening at the lung ba ses suggests fluid overload/congestive change. Esophageal varices are noted. Liver: The contrast-enhanced liver is cirrhotic in morphology and heterogeneous in attenuation. There is hypertrophy of the left lobe and nodularity of the surface contour. There is no intrahepatic bili luisana ductal dilatation. The hepatic veins and portal veins are patent. The left portal vein is markedl y dilated and the right portal vein is diminutive. There is recanalization of the periumbilical vein and large varices in the ventral abdomen and left pelvis. A calcific granuloma is noted in the right lobe. Gallbladder: Unremarkable. Spleen: The spleen is enlarged measuring 15.3 cm in length. There are perisplenic varices. Pancreas: Unremarkable. Adrenal glands: Unremarkable. Kidneys: The contrast enhanced kidneys are normal in size and without hydronephrosis. The kidneys enh ance symmetrically. Abdominal vasculature: The abdominal aorta is normal in course and caliber noting moderate atheroscle rotic calcification. Calcification within the wall of the superior mesenteric vein and the splenic ve in is likely related to portal hypertension. Bowel: There is no bowel obstruction. The appendix is well-visualized and normal. Peritoneum: There is no intraperitoneal free air or abdominal ascites. There is a fat-containing umbi lical hernia. Lymphadenopathy: None. Pelvic viscera: The prostate gland is enlarged and heterogeneous. The bladder wall appears thickened/ trabeculated indicating chronic outlet obstruction. Skeletal structures: The skeletal structures are osteopenic. There is mild to moderate lumbosacral sp ondylosis. No lytic or blastic lesions are seen. Soft tissues: There is mild body wall edema. IMPRESSION: 1. Large pericardial effusion. 2. Small to moderate pleural effusions with dependent consolidation. 3. Intralobular septal thickening at the lung bases suggests fluid overload/congestive change. Correl ate clinically. 4. The liver is cirrhotic in morphology and heterogeneous attenuation. 5. Esophageal varices, splenomegaly, and large abdominal varices/collaterals indicate portal hyperten my. 6. Additional findings as above. ACT 112: Negative or not required by law. Electronically signed by: Eris Russell M.D. 11/06/2024 2:42 PM
[2024-11-06] MEDS: DIGOXIN 0.125 MG TAB PO SCH (16:58)
[2024-11-07 06:13] LABS: Hematocrit (blood only) 39.1 % (42.0-52.0); Hemoglobin 13.7 g/dl (14.0-18.0); Immature Granulocytes # (auto) 0.04 K/uL (0.01-0.20); Immature Granulocytes % (auto) 0.8 %; Mean Corpuscular Hemoglobin 33.8 pg (25.0-34.0); Mean Corpuscular Volume 96.5 fL (80.0-100.0); Platelet Count 140 K/uL (130-400); RDW Standard Deviation 58.2 fL (36.4-46.3); Red Blood Count 4.05 M/uL (4.70-6.10); White Blood Count 5.32 K/ul (4.8-10.8)
[2024-11-07 07:00] LABS: INR 1.7 (0.9-1.1); Prothrombin Time 17.8 Seconds (9.0-12.0)
[2024-11-07 07:22] LABS: Albumin Globulin Ratio 0.8 (0.9-2); Anion Gap 10.0 (3-11); Bilirubin,Total 11.9 mg/dl (0.2-1.0); Calcium 8.4 mg/dl (8.6-10.3); Carbon Dioxide 24.0 mmol/L (21-32); Chloride 98.0 mmol/L (98-107); Globulin 3.9 gm/dl (2.5-4.0); Magnesium 1.8 mg/dl (1.7-2.4); Potassium 3.8 mmol/L (3.5-5.1); Sodium 132.0 mmol/L (136-145)
[2024-11-07 07:27] LABS: Alanine Aminotransferase 82.0 U/L (7-52); Alkaline Phosphatase 292.0 U/L (34-104); Creatinine Clr Calc Pharmacy 69.7 ml/min; Glucose 150.0 mg/dl (70-99(Fasting))
[2024-11-07 07:31] LABS: Blood Urea Nitrogen 44.0 mg/dl (6-23); Total Protein 6.9 gm/dl (6.0-8.3)
--- NOTE | 2024-11-07 07:56 | Cardiology Progress Note ---
Date of Service November 07, 2024 Assessment & Plan (1) Atrial fibrillation: (2) (HFpEF) heart failure with preserved ejection fraction: (3) Hypokalemia: Plan Mr. Angel's heart rate has improved with digoxin and carvedilol, but still remains 120-130s or even faster when ambulating Hopefully, with further diuresis his heart rate will further improve. His blood pressures remains on the low end of normal. He was started on Eliquis for stroke prevention. Per GI's note, he is a Child Rodriguez class B and ok for blood thinner. If he were to progress to a class C, anticoagulation would be contraindicated. He is mildly thrombocytopenic. We reviewed that he would need to let us know right away if he were to see any nina bleeding or black tarry stools. If he falls or hits his head while on Eliquis, he needs to seek emergency evaluation. His last EGD showing some esoph ageal varices was noted. Reviewed with GI need for KAHLIL. will reassess EF post CV. He is receiving furosemide and spironolactone for his heart failure. His echo demonstrates newly reduced EF of 35-40%. 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 He does not have symptoms with his afib and may have been in a rapid rate for some time. Given that we do not know how long he has been in afib, I would recommend holding off on cardioversion for now. If we cannot get his rates under control, he would need a KAHLIL cardioversion. Otherwise, a rate control strategy can be undertaken for the next three weeks and then cardioversion if still in afib at that point. He also has a moderate pericardial effusion without tamponade. I will order crp and sed rate. I'll hold off on colchicine given it's interaction with Coreg. It's unclear if the effusion is secondary to his general fluid overload or whether there are other factors involved. 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 A quick literature perusal notes that this is rarely associated with pericardial effusion but can be in instances of significant inflammation. He was hypokalemic on admission and given po potassium replacement. Continue to follow and supplement per hospitalists to keep serum potassium above 4. Admission and Anticipated Discharge Date Admission Date: November 05, 2024 Subjective Although he is not aware of the Afib with RVR, med changes have not controlled his HR. His BP remains marginal. I discussed with him doing KAHLIL and possible CV if no clot. He is agreeable. Review of Systems Review of Systems: All systems reviewed & are unremarkable except as noted in HPI & below Physical Exam Physical Exam: standing in room in NAD Respiratory: diminished at bases Cardiovascular: tachy MR noted +1 edema Gastrointestinal (Abdomen): protuberant without overt ascites Results & Data Vital Signs (Past 12 Hours) Vital Signs Temp Pulse Pulse Resp BP BP Pulse Ox 11/07/24 07:35 36.3 C L 134 H 18 130/47 L 95 11/07/24 02:32 36.3 C L 105 H 18 127/76 93 11/06/24 22:56 36.4 C L 119 H 18 110/69 93 11/06/24 21:42 143 H O2 Del Method 11/07/24 07:35 Room Air 11/07/24 02:32 Room Air 11/06/24 22:56 Room Air 11/06/24 21:42 Laboratory Results Abnormal lab results 11/06/24 11/06/24 11/06/24 Range/Units 07:24 11:15 16:13 RBC (4.70-6.10) M/uL Hgb (14.0-18.0) g/dl Hct (42.0-52.0) % RDW Std Deviation (36.4-46.3) fL RDW Coeff of Janice (11.5-14.5) % Lymph # (Auto) (1.20-3.40) K/uL Bracken # (Auto) (0.11-0.59) K/uL ESR 86 H (0-20) mm/hr PT 16.7 H (9.0-12.0) Seconds INR 1.6 H (0.9-1.1) Sodium 134 L (136-145) mmol/L BUN 46 H (6-23) mg/dl BUN/Creatinine Ratio 39.7 H (10-20) Glucose 154 H (70-99(Fasting)) mg/dl POC Glucose 234 H 175 H (70-99) mg/dl Hemoglobin A1c 6.5 H (4.5-5.6) % Calcium 8.5 L (8.6-10.3) mg/dl TIBC 225 L (250-450) mcg/dl Transferrin 161 L (200-360) mg/dl Ferritin 725.3 H (8-388) ng/ml Total Bilirubin 11.7 H (0.2-1.0) mg/dl Direct Bilirubin 6.0 H (0-0.2) mg/dl AST 114 H (13-39) U/L ALT 80 H (7-52) U/L Alkaline Phosphatase 288 H (34-104) U/L C-Reactive Protein 8.34 H (0-0.5) mg/dl Albumin 3.0 L (3.4-5.0) gm/dl Albumin/Globulin Ratio (0.9-2) Vitamin B12 > 1500 H (180-914) pg/ml 11/06/24 11/07/24 11/07/24 Range/Units 20:50 05:55 07:16 RBC 4.05 L (4.70-6.10) M/uL Hgb 13.7 L (14.0-18.0) g/dl Hct 39.1 L (42.0-52.0) % RDW Std Deviation 58.2 H (36.4-46.3) fL RDW Coeff of Janice 16.3 H (11.5-14.5) % Lymph # (Auto) 0.72 L (1.20-3.40) K/uL Bracken # (Auto) 0.73 H (0.11-0.59) K/uL ESR (0-20) mm/hr PT 17.8 H (9.0-12.0) Seconds INR 1.7 H (0.9-1.1) Sodium 132 L (136-145) mmol/L BUN 44 H (6-23) mg/dl BUN/Creatinine Ratio 37.6 H (10-20) Glucose 150 H (70-99(Fasting)) mg/dl POC Glucose 169 H 173 H (70-99) mg/dl Hemoglobin A1c (4.5-5.6) % Calcium 8.4 L (8.6-10.3) mg/dl TIBC (250-450) mcg/dl Transferrin (200-360) mg/dl Ferritin (8-388) ng/ml Total Bilirubin 11.9 H (0.2-1.0) mg/dl Direct Bilirubin (0-0.2) mg/dl AST 122 H (13-39) U/L ALT 82 H (7-52) U/L Alkaline Phosphatase 292 H (34-104) U/L C-Reactive Protein (0-0.5) mg/dl Albumin 3.0 L (3.4-5.0) gm/dl Albumin/Globulin Ratio 0.8 L (0.9-2) Vitamin B12 (180-914) pg/ml (1) Atrial fibrillation Atrial fibrillation type: paroxysmal Qualified Code(s): I48.0 - Paroxysmal atrial fibrillation
[2024-11-07] MEDS: MAGNESIUM SULFATE / D5W 1 GM/100 ML BAG IV ONE (08:28)
[2024-11-07] MEDS: POTASSIUM CHLORIDE CRTAB 20 MEQ TABCR PO STA (08:28)
--- NOTE | 2024-11-07 09:42 | Gastroenterology Progress Note ---
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 He is admitted for rapid atrial fibrillation and acute on chronic HFpEF with acute on chronic respiratory failure with hypoxemia in the setting of cirrhosis. Today he's reportedly breathing much easier with diuresis. No GI issues or complications from diuresis (ie, hepatic encephalopathy). 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 MELD Na 25, Child Rodriguez class B. - Continue with rhythm/rate and stroke prevention management per Cardiology. Reviewed AC options given liver disease. At Child Rodriguez class A and B Eliquis can be given with caution and is preferred over warfarin and Xarelto due to less risks of bleeding. However medication should be avoided in Child Rodriguez class C. - The hospitalist group asked us to weigh in on the pericardial effusion possibly being related to PSC which can occur rarely. Case reviewed with Dr. Duke Attending Shingle Sawyer, who feels this is unlikely r/t PSC at this time. - Reviewed EGD with h/o varices. Case reviewed with Cardiology and patient okay from GI perspective to proceed with TEEcho. - Continue with diuresis management per cardiology. - Reviewed liver labs today and CBC which remained stable. - Upon discharge would recommend ongoing f/u with Cardiology and Hepatology. - Case reviewed with plan developed with Supervising GI provider Dr. Duke who will plan to see patient in person today on afternoon medical rounds. Please see co-signature additional recommendations. Admission and Anticipated Discharge Date Admission Date: November 05, 2024 Supervising Physician Co-Signing Physician Notes I saw and examined this patient with our nurse practitioner and agree with her assessment and plan. Continues to improve less short of breath persistent lower extremity edema. Suspect hyperbilirubinemia related to his PSC and aggravated by congestive heart failure. I anticipate the bilirubin to get back to baseline after atrial fibrillation is better controlled and fluid overload improves. Call if any further GI issues. Subjective 69-year-old male with a history of primary sclerosing cholangitis with cirrhosis with portal hypertension and esophageal varices, DM2, paroxysmal atrial fibrillation/flutter and Lyme carditis, seasonal allergies, pancytopenia who presents to the ER with increasing shortness of breath, fatigue, generalized weakness, leg swelling, and abdominal bloating over the last 4 to 5 days. He is admitted for rapid atrial fibrillation and acute on chronic HFpEF with acute on chronic respiratory failure with hypoxemia in the setting of cirrhosis. We were consulted for opinion on anticoagulation given his history of cirrhosis. He reports that he started to feel more edematous with larger abdominal girth and shortness of breath over the last few weeks. Patient was seen by Cardiology and is starting on IV Lasix 40mg BID and Spironolactone 25mg/day. He is Child Rodriguez class B with normal platelets, therefore Eliquis for stroke prevention was recommended. He's seen today for follow up on rounds. He reports he's doing well and breathing much better with diuretics received. He voices decreased bloating in abdomen and legs are less edematous. He's speaking full sentences with ease. However he continues to remain tachycardic with pericardial effusion. Case discussed with cardiology who recommends TEEcho with cardioversion. He denies any fevers, chills, abdominal pain, N/V/D, melena or hematochezia. No encephalopathy reported. [facility] Records Hepatology records were obtained and summarized below. Pertinent Labs 11/07/24 - Hgb 13.7g/dl, HCT 39.1%, WBC 5.32, Plt 140 k/ul INR 1.7 Na 132, K 3.8, Cl 98 CO2 24 BUN 44, Cr 1.17, Glucose 150, T- Bili 11.9 mg/dl, AST 122, ALT 82 Alk Phos 292, Albumin 3.0 gm/dl. Labs on Presentation 11/05/24: Hgb 13.6g/dl, Hct 40.1% Plt 142k/ul, WBC 5.24 k/ul Na 132, K 3.3, Cl 99, CO2 25, BUN 46, Cr 1.3, GFR 78, Glucose 208, T-Bili 11.6, AST 129, ALT 85, Alk Phos 326, Albumin 3.0. Troponin 9.3, BNP 533 INR 1.4 Liver US 11/05/24 IMPRESSION: 1. Cirrhosis with reversal of portal vein flow consistent with portal hypertension. Trace ascites. 2. Gallbladder sludge with borderline gallbladder wall thickness. No sonographic Worrell's sign was present during the exam, so this likely relates to gallbladder edema due to the trace ascites. 3. Otherwise as described. CXR 11/05/24 FINDINGS: There is prominent cardiomegaly with moderate pulmonary vascular congestion. There are diffuse interstitial and faint patchy pulmonary opacities. There are small bilateral pleural effusions with associated lung base consolidat ion. No pneumothorax. IMPRESSION: 1. CHF with small bilateral pleural effusions. 2. Diffuse pulmonary opacities could represent pulmonary edema or pneumonia. Echocardiogram 11/05/24 - LV normal in size, Moderate concentric LVH - LVEF 35-40% moderately reduced ejection fraction - Circumferential pericardial effusion noted without echocardiographic evidence of tamponade. 05/2023 MRCP IMPRESSION: 1. Redemonstration of the cirrhotic liver with sequela of portal hypertension including splenomegaly. This is similar to the prior study. 2. Trace ascites. 3. Normal caliber common bile duct. No filling defects within the common bile duct. 4. Multifocal smooth strictures seen within the intra and extra hepatic bile ducts. Therefore, these findings raise the possibly of primary sclerosing cholan gitis Colonoscopy 03/12/2024 Indication H/O adenomatous polyps. Findings: - The perianal examination was normal. - A 4 mm polyp was found in the transverse colon. The polyp was sess ile. The polyp was removed with a cold snare. Resection and retrieval were complete. - Multiple small-mouthed diverticula were found in the sigmoid colon. - Internal hemorrhoids were found during retroflexion. The hemorrhoids were small. Impression: - One 4 mm polyp in the transverse colon, removed with a cold snare. Resected and retrieved. - Diverticulosis in the sigmoid colon. - Internal hemorrhoids. Recommendation: - Discharge patient to home (ambulatory). - Resume previous diet. - Continue present medications. - Repeat colonoscopy date to be determined after pending pathology results are reviewed for surveillance based on pathology results. - Return to referring physician as previously scheduled. - Patient has a contact number available for emergencies. The signs and symptoms of potential delayed complications were discussed with the patient. Return to normal activities tomorrow. Written discharge instructions were provided to the patient. Path: Benign gastric mucosa with lymphoid aggregate. We reviewed his cirrhosis history: 06/05/2024 ERCP ([facility]) The off track betting manager film was normal. The esophagus was successfully intubated under direct vision. The scope was advanced to a normal major papilla in the descending duodenum without detailed examination of the pharynx, larynx and associated structures, and upper GI tract. The upper GI tract was grossly normal. A short 0.025 inch Jagwire was passed into the biliary tree. The short-nosed traction sphincterotome was passed over the guidewire and the bile duct was then deeply cannulated. Contrast was injected. I personally interpreted the bile duct images. Ductal flow of contrast was adequate. Image quality was adequate. Contrast extended to the main bile duct. Opacification of the entire biliary tree was successful. The maximum diameter of the ducts was 8 mm. No dominant strictures seen. Intrahepatic ducts with beading pattern consistent with PSC. Biliary sphincterotomy was made with a monofilament traction (standard) sphincterotome using ERBE electrocautery. There was no post- sphincterotomy bleeding. Dilation of the common hepatic ducts and bifurcations with a 6 mm balloon dilator was successful. The biliary tree was swept with a 12 mm balloon starting at the bifurcation. Debris was swept from the duct. The biliary tree was irrigated with saline to wash out the contrast. Cirrhosis Management Currently following with Dr. [facility]. Records are to be faxed over (received 11/06/24) He reports that he follows closely with them reporting he just had an EGD and Liver US in the past couple weeks. He also reports that they ordered a CT scan of lungs. Decompensations Edema/Ascites - trace Varices - + Grade 1 Hepatic Encephalopathy - None Screenings HCC - Liver US 10/26/24 - No evidence of mass. Varices/EGD - 03/10/23 - Grade 1 Varices. Hep A and B immunizations. Hepatitis A vaccine received. Hepatitis B immunity documented. MELD 23 CTP class B. Last Seen by Hepatology 07/11/24 Assessment and plan: PSC cirrhosis c/b ascites and non-bleeding EV. Was told for many years over 15 years he had cryptogenic cirrhosis but MRCP imaging in November 2023 with evidence of PSC and this was found on ERCP as well. -Liver disease severity. Pt.'s last MELD was 17. We will get MELD labs today.His ferritin was 657 and iron saturation 75%. HFE genetic testing ordered but he did not get this done yet. He will get this today. Most recent LFTs with AST 66, ALT 53, ALP 322, total bilirubin 3.4. we discussed that if he has + HFE genetic testing we would get MRI to quantify iron in the liver and if there was iron overload would pursue phlebotomy. -Variceal screening: EGD 03/2024 with small varices. Repeat again in 1 year or sooner in event of decompensation. He is on propanolol for primary prophylaxis. -Ascites. Has not required diuretics in 5 years. Had 1 paracentesis 5 years ago. I recommend a low salt diet no more than 2 grams per day. No need for TIPS at this time. -Hepatic encephalopathy: based on today's examination, the pt. does not have asterixis. No history of HE. -Renal function: pt.'s most recent SCr was 0.6. We will get another BMP and monitor his renal function periodically. -HCC screening. Pt.'s last liver imaging study was done 04/2024. Pt will need HCC screening every 6 months with imaging in conjunction with an AFP. Due gain 10/2024 which was ordered today. Will alternate MRCP with ultrasound every 6 months. -Avoid liver toxins including over the counter herbal supplements. May take Acetaminophen up to 2 grams a day. Avoid NSAIDS due to increased risk of GI bleeding and fluid retention. Avoid all alcohol. Patient encouraged to avoid benzodiazepines and opiate pain medications due to risk of precipitating HE. -Vaccination: will get HAV and HBV serologies and then vaccinate accordingly. -Transplant evaluation: while MELD is 17 currently he is very well compensated without any ascites for 5 years, no HE, no swelling, and he has not had any episodes of cholangitis. He was previously listed for transplant for 12 years at [facility] but taken off the list. Will continue to monitor and only if MELD worsens or he decompensates refer for transplant. -Follow up in 6 months Kathrin Sawyer, DO Gastroenterology and Hepatology Review of Systems Review of Systems: See HPI Physical Exam Physical Exam: Constitutional: NAD. Alert. Answering questions appropriately. Eyes: + Scleral icterus. Respiratory: Breathing is even, non-labored. Lungs penn are clear to auscultation anteriorly. Cardiovascular: Irregular irregular rhythm. Tachycardic. Gastrointestinal (Abdomen): Normoactive bowel sounds x4, mildly distended. Improved from initial presentation. Musculoskeletal: Sitting comfortably in gerichair. +2 bilateral shins. Results & Data Results & Data Vital Signs (Past 12 Hours) Vital Signs Temp Pulse Pulse Resp BP BP Pulse Ox 11/07/24 08:00 129 H 11/07/24 07:35 97.3 F L 134 H 18 130/47 L 95 11/07/24 02:32 97.3 F L 105 H 18 127/76 93 11/06/24 22:56 97.5 F L 119 H 18 110/69 93 11/06/24 21:42 143 H O2 Del Method 11/07/24 08:00 11/07/24 07:35 Room Air 11/07/24 02:32 Room Air 11/06/24 22:56 Room Air 11/06/24 21:42 Laboratory Results 11/07/24 11/07/24 11/07/24 11:13 07:16 05:55 WBC 5.32 RBC 4.05 L Hgb 13.7 L Hct 39.1 L MCV 96.5 MCH 33.8 MCHC 35.0 RDW Std Deviation 58.2 H RDW Coeff of Janice 16.3 H Plt Count 140 MPV 9.8 Immature Gran % (Auto) 0.8 Neut % (Auto) 68.4 Lymph % (Auto) 13.5 [place] % (Auto) 13.7 Eos % (Auto) 2.8 Baso % (Auto) 0.8 Neut # (Auto) 3.64 Lymph # (Auto) 0.72 L [place] # (Auto) 0.73 H Eos # (Auto) 0.15 Baso # (Auto) 0.04 Immature Gran # (Auto) 0.04 PT 17.8 H INR 1.7 H Sodium 132 L Potassium 3.8 Chloride 98 Carbon Dioxide 24 Anion Gap 10 BUN 44 H Creatinine 1.17 Est Cr Clr Drug Dosing 69.7 eGFR 67.06 BUN/Creatinine Ratio 37.6 H Glucose 150 H POC Glucose 219 H 173 H Calcium 8.4 L Magnesium 1.8 Total Bilirubin 11.9 H AST 122 H ALT 82 H Alkaline Phosphatase 292 H Total Protein 6.9 Albumin 3.0 L Globulin 3.9 Albumin/Globulin Ratio 0.8 L 11/06/24 11/06/24 20:50 16:13 WBC RBC Hgb Hct MCV MCH MCHC RDW Std Deviation RDW Coeff of Janice Plt Count MPV Immature Gran % (Auto) Neut % (Auto) Lymph % (Auto) [place] % (Auto) Eos % (Auto) Baso % (Auto) Neut # (Auto) Lymph # (Auto) [place] # (Auto) Eos # (Auto) Baso # (Auto) Immature Gran # (Auto) PT INR Sodium Potassium Chloride Carbon Dioxide Anion Gap BUN Creatinine Est Cr Clr Drug Dosing eGFR BUN/Creatinine Ratio Glucose POC Glucose 169 H 175 H Calcium Magnesium Total Bilirubin AST ALT Alkaline Phosphatase Total Protein Albumin Globulin Albumin/Globulin Ratio Diagnostic Findings Abdomen/Pelvis CT 11/06/24 13:23 CT SCAN OF THE ABDOMEN AND PELVIS WITH IV CONTRAST CLINICAL HISTORY: Pericardial effusion. COMPARISON STUDY: Abdominal CT scans dated 09/07/2023 and 11/10/2018. TECHNIQUE: Following the IV administration of 115 cc of Optiray 320, CT scan of the abdomen and pelvis is performed from the lung bases to the proximal femora. Images are reviewed in the axial, sagittal, and coronal planes. IV contrast was administered without complication. A dose lowering technique was utilized adhering to the principles of ALARA. CT DOSE: 1950.3 mGy.cm FINDINGS: Lung bases: The heart is top normal in size noting a large pericardial effusion. There are [id number] pleural effusions with dependent consolidation. Intralobular septal thickening at the lung bases suggests fluid overload/congestive change. Esophageal varices are noted. Liver: The contrast-enhanced liver is cirrhotic in morphology and heterogeneous in attenuation. There is hypertrophy of the left lobe and nodularity of the surface contour. There is no intrahepatic biliary ductal dilatation. The hepatic veins and portal veins are patent. The left portal vein is markedly dilated and the right portal vein is diminutive. There is recanalization of the periumbilical vein and large varices in the ventral abdomen and left pelvis. A calcific granuloma is noted in the right lobe. Gallbladder: Unremarkable. Spleen: The spleen is enlarged measuring 15.3 cm in length. There are perisplenic varices. Pancreas: Unremarkable. Adrenal glands: Unremarkable. Kidneys: The contrast enhanced kidneys are normal in size and without hydronephrosis. The kidneys enhance symmetrically. Abdominal vasculature: The abdominal aorta is normal in course and caliber noting moderate atherosclerotic calcification. Calcification within the wall of the superior mesenteric vein and the splenic vein is likely related to portal hypertension. Bowel: There is no bowel obstruction. The appendix is well-visualized and normal. Peritoneum: There is no intraperitoneal free air or abdominal ascites. There is a fat-containing umbilical hernia. Lymphadenopathy: None. Pelvic viscera: The prostate gland is enlarged and heterogeneous. The bladder wall appears thickened/trabeculated indicating chronic outlet obstruction. Skeletal structures: The skeletal structures are osteopenic. There is mild to moderate lumbosacral spondylosis. No lytic or blastic lesions are seen. Soft tissues: There is mild body wall edema. IMPRESSION: 1. Large pericardial effusion. 2. Small to moderate pleural effusions with dependent consolidation. 3. Intralobular septal thickening at the lung bases suggests fluid overload/congestive change. Correlate clinically. 4. The liver is cirrhotic in morphology and heterogeneous attenuation. 5. Esophageal varices, splenomegaly, and large abdominal varices/collaterals indicate portal hypertension. 6. Additional findings as above. ACT 112: Negative or not required by law. Electronically signed by: Eris Russell M.D. 11/06/2024 2:42 PM Chest CTA 11/06/24 13:23 CT angio chest w con CLINICAL HISTORY: pericardial effusion COMPARISON STUDY: None FINDINGS: There is a moderate pericardial effusion. There is mild cardiomegaly with mild prominence of the pulmonary vasculature suggesting CHF. There are small bilateral pleural effusions which layer dependently. There is mild adjacent compressive atelectasis at the lower lung lobes. There is mild septal thickening and mild groundglass opacity in the lungs, likely mild pulmonary edema. No pneumothorax. There is mild mediastinal lymphadenopathy with largest lymph node in the left AP window node measuring 2 cm. There are moderate coronary artery and aortic calcifications. There is no thoracic aortic dissection or aneurysm. The contrast bolus is limited for evaluation of pulmonary embolism, but no large central or main pulmonary emboli seen. There is cirrhotic morphology of the liver. No acute osseous findings. IMPRESSION: 1. Moderate pericardial effusion. 2. CHF with small bilateral pleural effusions and mild pulmonary edema. 3. Otherwise as described. ACT 112: Negative or not required by law. Electronically signed by: Timothy Choi M.D. 11/06/2024 2:43 PM PG Care Time/CCT Total # of Minutes Spent Total Time Spent with Patient: Total time spent is greater than 50% in coordination of care (as documented) at patient's floor/unit and/or counseling patient: Coding Level of Care Code 16405 SUB INP/OBS CARE 3/50MIN Diagnoses Pericardial effusion I31.39 Other cirrhosis of liver K74.60 Acute respiratory failure with hypoxia J96.01 (HFpEF) heart failure with preserved ejection fraction I50.30 Non-alcoholic cirrhosis K74.60 Paroxysmal atrial fibrillation I48.0 Atrial fibrillation type: paroxysmal Hypokalemia E87.6 (6) Atrial fibrillation Atrial fibrillation type: paroxysmal Qualified Code(s): I48.0 - Paroxysmal atrial fibrillation
--- NOTE | 2024-11-07 14:17 | Hospitalist Progress Note ---
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 He is admitted for rapid atrial fibrillation and acute on chronic HFpEF with acute on chronic respiratory failure with hypoxemia in the setting of cirrhosis. He was subsequently found to have a moderate pericardial effusion. #Rapid atrial fibrillation/PAF/acute on chronic HFrEF/acute respiratory failure with hypoxemia-most likely the rapid A-fib contributing to the acute HFpEF. His typical resting heart rate is 60-70 but he is otherwise asymptomatic with the atrial fibrillation-unclear how long he has had paroxysms of atrial fibrillation. Pulse ox 85-88% on room air initially requiring supplemental O2 and now weaned off to room air after diuresis. Troponin negative, BNP elevated at 533. With peripheral edema, ascites and abdominal bloating, cardiomegaly and pulmonary edema on CXR. No ischemic changes on ECG. Last echo 2018 with preserved EF, however now with reduced EF 35-40%, RV function moderately reduced, moderate pericardial effusion. Heart rates remain uncontrolled with rates in the 90s to 120s despite loading with and continuing on digoxin and starting carvedilol. Blood pressures remain soft. Diuresing and improving, but lower extremity edema remains significant. Renal function remains normal. TSH mildly elevated at 5.3 but free T4 normal - Continue telemetry for monitoring of A-fib - Discontinued home propranolol and started carvedilol (also a nonselective beta-anant for his portal hypertension) for HFrEF and rapid E-wyh-[id number] carvedilol to 6.25 Mg p.o. twice daily - Consult cardiology for further assessment/management appreciated-added digoxin-continue at 0.125 Mg p.o. once daily -Continue Lasix 40 Mg IV twice daily; continue spironolactone daily - Follow BMP, magnesium and keep electrolytes replete/optimal-give KCl 20 mEq p.o. x 1 and magnesium sulfate 1 g IV x 1 - Follow TSH as an outpatient in 4 to 6 weeks - Strict I's and O's, fluid restriction 1500 mL, low-sodium diet, daily weights - Started Eliquis 5 Mg p.o. twice daily-appreciate GI opinion on anticoagulation in the setting of cirrhosis-Eliquis okay for now with hepatic failure Child-Rodriguez class A and B but should be avoided in class C - Plan for cardioversion on 11/08 as rates are not improving with carvedilol and digoxin #Pericardial effusion with circumferential moderate sized pericardial effusion seen on echo without tamponade. ESR elevated at 86, CRP elevated at 8. No recent viral syndrome or signs of infection. No pericarditis or chest pains and troponin normal at 9 on admission. Unclear etiology and could be idiopathic versus autoimmune versus underlying malignancy. He does not have uremia and is not on any medications that typically induce pericardial effusions. Heart failure is not a common cause of pericardial effusion, but can be seen with right-sided heart failure which he does have. No need for urgent drainage at this time. - Checked CT angiogram of chest-no evidence of thoracic aortic dissection or malignancy. There is mild mediastinal lymphadenopathy which will need to be followed as an outpatient with repeat imaging - Checked CT abdomen/pelvis-no obvious evidence of malignancy. He had a colonoscopy in 03/2024 without evidence of colon cancer - Check WENDY, RF, ANCA, Sjogren's antibodies, JAME level, vitamin 1, 25 -OH vitamin D (for sarcoidosis)-pending -Will need close follow-up with echocardiogram in the near future as an outpatient #Hepatic encephalopathy-developed increasing confusion on 11/07. Ammonia level elevated at 78. He has only been moving his bowels once daily at the most since admission - Give lactulose 20 g p.o. x 1 - Follow clinically and provide supportive care - Will likely need daily lactulose dosing #Cryptogenic cirrhosis with portal HTN/grade 1 esophageal varices-His total bilirubin is elevated more than previous at 11, and AST/ALT/alkaline phosphatase all slightly more elevated than previous although stable this admission. A RUQ US showed cirrhosis with portal HTN, trace ascites, gallbladder sludge with borderline gallbladder wall thickness likely related to ascites. He has abdominal bloating likely from ascites but no abdominal pain. Last EGD In 03/2023 with grade 1 varices. Fortunately, platelets are normal at this time. MELD score [address] A/P on 11/06 with cirrhosis, portal hypertension and varices seen. No liver masses other than calcified granuloma -Consult to GI appreciated - Follow BMP, LFTs, CBC #Pancytopenia-secondary to cirrhosis, mild. Hemoglobin stable at 11-13 over many years. Iron studies with transferrin saturation of 32%, ferritin elevated in the 700s likely from acute inflammation of unknown cause. B12 and folate normal. TSH mildly elevated at 5.3 with normal free T4. Anemia likely of chronic disease. Thrombocytopenia and leukopenia from liver disease and splenomegaly. - Follow CBC - Okay to continue Eliquis but would hold if platelets drop below 50 #DM2-HgbA1c controlled at 6.5% - Hold home glipizide - Give NovoLog SSI, Accu-Cheks ACHS DVT prophylaxis-LISSY Barker Disposition-continued stay on PCU Admission and Anticipated Discharge Date Admission Date: November 05, 2024 Subjective Patient a bit more confused today than previous days. He reports he is feeling "lousy" and when I ask why, says that he cannot get his gown tied. He knows that he is having a KAHLIL tomorrow, but then asks me if I need his phone number to call him to tell him when to show up for the appointment for the procedure. He has not moved his bowels in the last 2 days since admission as per nursing notes but the patient did report he moved his bowels once each day. Unclear if this is true as nothing is recorded. I discussed his care with GI at the bedside. Telemetry remains with atrial fibrillation with rates in the 1 teens to 130s Physical Exam Constitutional: WD/WN, vitals as above Eyes: + scleral abnormality (Scleral icterus) Neck: trachea midline, no thyromegaly Respiratory: does not use accessory muscles and no cough Auscultation: + diminished lung sounds (At the bases bilaterally) and + crackles (Left base); no wheezes Cardiovascular: Rate/Rhythm: + tachycardic and + irregularly irregular Heart Sounds: no murmur Extremities: + edema (2+ pitting edema from the feet to the mid legs bilaterally) Chest (Breasts): Chest: normal inspection of chest Gastrointestinal (Abdomen): Inspection/Auscultation: + abdomen distended (Mild, but improved from previous and softer), normal bowel sounds and + visible herniation (Umbilical, reducible) Percussion/Palpation: abdomen soft; abdomen nontender and no guarding Musculoskeletal: Extremities: extremities normal to inspection; no cyanosis an d no clubbing Skin: no rashes, warm and dry + jaundice Neurologic: moves all extremities and awake; no focal motor deficits Results & Data Results & Data Vital Signs (Past 12 Hours) Vital Signs Temp Pulse Pulse Resp BP BP Pulse Ox 11/07/24 14:04 134 H 11/07/24 11:44 36.4 C L 120 H 18 143/78 H 93 11/07/24 08:00 129 H 11/07/24 07:35 36.3 C L 134 H 18 130/47 L 95 11/07/24 02:32 36.3 C L 105 H 18 127/76 93 O2 Del Method 11/07/24 14:04 11/07/24 11:44 Room Air 11/07/24 08:00 11/07/24 07:35 Room Air 11/07/24 02:32 Room Air Laboratory Results CBC, BMP, LFTs, magnesium, INR, ammonia level reviewed PG Care Time/CCT Total # of Minutes Spent Total Time Spent with Patient: Total time spent is greater than 50% in coordination of care (as documented) at patient's floor/unit and/or counseling patient: Coding Level of Care Code 53722 SUB INP/OBS CARE 3/50MIN Diagnoses Paroxysmal atrial fibrillation I48.0 Atrial fibrillation type: paroxysmal (HFpEF) heart failure with preserved ejection fraction I50.30 Pericardial effusion I31.39 Acute respiratory failure with hypoxia J96.01 (1) Atrial fibrillation Atrial fibrillation type: paroxysmal Qualified Code(s): I48.0 - Paroxysmal atrial fibrillation
[2024-11-07] MEDS: LACTULOSE SYRUP 20 GM/30 ML UDC PO ONE (14:23)
[2024-11-08 06:53] LABS: Hematocrit (blood only) 35.9 % (42.0-52.0); Hemoglobin 12.7 g/dl (14.0-18.0); Immature Granulocytes # (auto) 0.03 K/uL (0.01-0.20); Immature Granulocytes % (auto) 0.7 %; Mean Corpuscular Hemoglobin 34.0 pg (25.0-34.0); Mean Corpuscular Volume 96.2 fL (80.0-100.0); Platelet Count 115 K/uL (130-400); RDW Standard Deviation 58.4 fL (36.4-46.3); Red Blood Count 3.73 M/uL (4.70-6.10); White Blood Count 4.33 K/ul (4.8-10.8)
[2024-11-08 07:16] LABS: Alanine Aminotransferase 78.0 U/L (7-52); Albumin Globulin Ratio 0.8 (0.9-2); Alkaline Phosphatase 279.0 U/L (34-104); Anion Gap 9.0 (3-11); Bilirubin,Total 11.2 mg/dl (0.2-1.0); Blood Urea Nitrogen 46.0 mg/dl (6-23); Calcium 8.3 mg/dl (8.6-10.3); Carbon Dioxide 26.0 mmol/L (21-32); Chloride 98.0 mmol/L (98-107); Creatinine Clr Calc Pharmacy 78.9 ml/min; Globulin 3.6 gm/dl (2.5-4.0); Glucose 155.0 mg/dl (70-99(Fasting)); Magnesium 1.9 mg/dl (1.7-2.4); Potassium 3.9 mmol/L (3.5-5.1); Sodium 133.0 mmol/L (136-145); Total Protein 6.5 gm/dl (6.0-8.3)
--- NOTE | 2024-11-08 07:41 | Cardiology Progress Note ---
Date of Service November 08, 2024 Assessment & Plan (1) Atrial fibrillation: (2) (HFpEF) heart failure with preserved ejection fraction: (3) Hypokalemia: Plan He did well with the transesophageal echo and then cardioversion. He is in normal sinus rhythm with occasional PACs. We also did a brief 2D echo after cardioversion and his ejection fraction appears to have normalized since his cardioversion. He should be maintained on NOAC as well as beta-anant. Once he is deemed stable for discharge to home he will need follow-up with Dr. Vegas in the office. Admission and Anticipated Discharge Date Admission Date: November 05, 2024 Subjective Although he is not aware of the Afib with RVR, med changes have not controlled his HR. His BP remains marginal. I discussed with him doing KAHLIL and possible CV if no clot. He is agreeable. For cardioversion this am with anesthesia Review of Systems Review of Systems: All systems reviewed & are unremarkable except as noted in HPI & below Physical Exam Physical Exam: without changes Results & Data Vital Signs (Past 12 Hours) Vital Signs Temp Pulse Pulse Resp BP Pulse Ox O2 Del Method 11/08/24 07:34 107 H 17 99/71 L 93 Room Air 11/08/24 07:24 Room Air 11/08/24 07:24 100 H 11/08/24 03:15 36.5 C 122 H 20 136/75 91 Room Air 11/07/24 23:29 36.4 C L 115 H 20 100/64 93 Room Air 11/07/24 21:56 112 H 11/07/24 20:41 Room Air Laboratory Results Abnormal lab results 11/07/24 11/07/24 11/07/24 Range/Units 11:13 14:31 15:59 WBC (4.8-10.8) K/ul RBC (4.70-6.10) M/uL Hgb (14.0-18.0) g/dl Hct (42.0-52.0) % RDW Std Deviation (36.4-46.3) fL RDW Coeff of Janice (11.5-14.5) % Plt Count (130-400) K/uL Lymph # (Auto) (1.20-3.40) K/uL Sodium (136-145) mmol/L BUN (6-23) mg/dl BUN/Creatinine Ratio (10-20) Glucose (70-99(Fasting)) mg/dl POC Glucose 219 H 207 H (70-99) mg/dl Calcium (8.6-10.3) mg/dl Total Bilirubin (0.2-1.0) mg/dl AST (13-39) U/L ALT (7-52) U/L Alkaline Phosphatase (34-104) U/L Ammonia 78.0 H (18-72) umol/L Albumin (3.4-5.0) gm/dl Albumin/Globulin Ratio (0.9-2) 11/07/24 11/08/24 Range/Units 20:23 06:31 WBC 4.33 L (4.8-10.8) K/ul RBC 3.73 L (4.70-6.10) M/uL Hgb 12.7 L (14.0-18.0) g/dl Hct 35.9 L (42.0-52.0) % RDW Std Deviation 58.4 H (36.4-46.3) fL RDW Coeff of Janice 16.4 H (11.5-14.5) % Plt Count 115 L (130-400) K/uL Lymph # (Auto) 0.55 L (1.20-3.40) K/uL Sodium 133 L (136-145) mmol/L BUN 46 H (6-23) mg/dl BUN/Creatinine Ratio 44.7 H (10-20) Glucose 155 H (70-99(Fasting)) mg/dl POC Glucose 210 H (70-99) mg/dl Calcium 8.3 L (8.6-10.3) mg/dl Total Bilirubin 11.2 H (0.2-1.0) mg/dl AST 112 H (13-39) U/L ALT 78 H (7-52) U/L Alkaline Phosphatase 279 H (34-104) U/L Ammonia (18-72) umol/L Albumin 2.9 L (3.4-5.0) gm/dl Albumin/Globulin Ratio 0.8 L (0.9-2) Medications Administered Current Inpatient Medications Acetaminophen (Acetaminophen 325 Mg Tab) 650 mg PO Q8H PRN PRN Reason: Pain or Fever Stop: 12/05/24 12:51 Apixaban (Apixaban 5 Mg Tablet) 5 mg PO BID [facility] Stop: 12/05/24 20:59 Last Admin: 11/07/24 20:33 Dose: 5 mg Carvedilol (Carvedilol 6.25 Mg Tab) 6.25 mg PO BIDM [facility] Stop: 12/07/24 07:59 Last Admin: 11/07/24 16:47 Dose: 6.25 mg Dextrose (Dextrose 50% 50 Ml Syringe) 25 - 50 ml IV UD PRN; Protocol PRN Reason: Hypoglycemia Protocol Stop: 12/05/24 12:51 Digoxin (Digoxin 0.125 Mg Tab) 0.125 mg PO DAILY@1600 [facility] Stop: 12/06/24 15:59 Last Admin: 11/07/24 15:46 Dose: 0.125 mg Fluticasone Propionate (Fluticasone Propionate Na Spr 16 Gm Btl) 1 sprays CINTHYA DAILY [facility] Stop: 12/06/24 08:59 Last Admin: 11/07/24 08:25 Dose: 1 sprays Furosemide (Furosemide 40 Mg/4 Ml Vial) 40 mg IV BID17 [facility] Stop: 12/05/24 16:59 Last Admin: 11/07/24 16:48 Dose: 40 mg Glucagon (Glucagon For Inj 1 Mg Vial) 1 mg SQ UD PRN; Protocol PRN Reason: Hypoglycemia Protocol Stop: 12/05/24 12:51 Glucose (Glucose 40% Gel 15 Gm Tube) 15 - 30 gm PO UD PRN; Protocol PRN Reason: Hypoglycemia Protocol Stop: 12/05/24 12:51 Glucose (Glucose 10 Tab/Tube) 4 - 8 tab PO UD PRN; Protocol PRN Reason: Hypoglycemia Protocol Stop: 12/05/24 12:51 Hydroxyzine HCl (Hydroxyzine Hcl 10 Mg Tab) 10 mg PO TID PRN PRN Reason: Itching Stop: 12/05/24 12:51 Insulin Aspart (Insulin Aspart Per Unit Charge) 0 units SC ACHS [facility] Stop: 12/05/24 12:51 Last Admin: 11/08/24 07:34 Dose: Not Given Metoprolol Tartrate (Metoprolol Tartrate 1 Mg/Ml Vial) 2.5 mg IV Q4H PRN PRN Reason: HR>120 Stop: 12/05/24 16:30 Miscellaneous (Carbohydrates For Hypoglycemia ) 15 - 30 gm PO UD PRN PRN Reason: Hypoglycemia Protocol Stop: 12/05/24 12:51 Ondansetron HCl (Ondansetron Inj 2 Mg/Ml 2 Ml Vial) 4 mg IV Q6H PRN PRN Reason: Nausea Stop: 12/05/24 12:51 Polyethylene Glycol (Polyethylene (Miralax) 17 Gm Pack) 17 gm PO DAILY PRN PRN Reason: Constipation Stop: 12/05/24 12:51 Spironolactone (Spironolactone 25 Mg Tab) [facility] Stop: 12/05/24 12:51 Last Admin: 11/07/24 08:26 Dose: 25 mg Vitamin D (Cholecalciferol 25 Mcg (1000 Units) Tab) 100 [facility]cg [facility] [place] Stop: 12/06/24 08:59 Last Admin: 11/07/24 08:25 Dose: 100 mcg (1) Atrial fibrillation Atrial fibrillation type: paroxysmal Qualified Code(s): I48.0 - Paroxysmal atrial fibrillation
--- NOTE | 2024-11-08 07:41 | Anesthesiology Consultation ---
Date of Service November 08, 2024 Assessment & Plan Chart Review Chart Review: Acceptable Risk for Surgery and Patient NOT seen in Pre Admission Testing Consults Requested none History Surgery Operation Date: 11/08/24 07:45 Proposed Procedures p Cardioversion Brake Operator w/Anesthesia - Jessica Tolentino DO s Transesophageal Echo w/Anesthesia/ cardioversion - Jessica Tolentino DO Height/Weight Height: 5 ft 11 in Weight: 96 kg Allergies Allergy/AdvReac Type Severity Reaction Status Date / Time penicillin G Allergy Unknown Childhood Unverified 11/05/24 09:54 allergy penicillin V Allergy Unknown Childhood Unverified 11/05/24 09:54 allergy Medications Home Medications Medication Instructions Recorded Confirmed Last Taken multivitamin 1 tab PO QAM 03/28/18 11/05/24 11/04/24 spironolactone 25 mg tablet 25 mg PO QAM PRN swelling 11/02/19 11/05/24 12/09/19 furosemide 40 mg tablet (Lasix) 40 mg PO DAILY PRN SWELLING 01/15/22 11/05/24 Unknown glipizide 5 mg tablet See Rx Instructions .Route .COMPLEX 01/15/22 11/05/24 11/04/24 propranolol 20 mg tablet 20 mg PO QAM 01/15/22 11/05/24 11/04/24 cholecalciferol (vitamin D3) 50 100 mcg PO QAM 12/14/22 11/05/24 11/04/24 mcg (2,000 unit) capsule (Vitamin D3) ascorbic acid (vitamin C) 250 mg 250 mg PO QAM 03/04/23 11/05/24 11/04/24 tablet (Vitamin C) fluticasone propionate 50 1 spray intranasal DAILY 11/05/24 11/05/24 11/04/24 mcg/actuation nasal spray,suspension glucosamine sulf dipot 1 cap PO DAILY 11/05/24 11/05/24 11/04/24 chlr,msm,chond 550 mg-C 30 mg-lauren 1 mg capsule (Glucosamine Chondroitin) hydroxyzine HCl 10 mg tablet 10 mg PO TID PRN Itching 11/05/24 11/05/24 Unknown milk thistle 150 mg capsule 150 mg PO QAM 11/05/24 11/05/24 11/04/24 Active Medications Generic Name Dose Route Start Last Admin Trade Name Freq PRN Reason Stop Dose Admin Apixaban 5 mg 11/05/24 21:00 11/07/24 20:33 Apixaban 5 Mg Tablet PO 12/05/24 20:59 5 mg BID ALISIA Administration Carvedilol 6.25 mg 11/07/24 08:00 11/07/24 16:47 Carvedilol 6.25 Mg Tab PO 12/07/24 07:59 6.25 mg BIDM ALISIA Administration Digoxin 0.125 mg 11/06/24 16:00 11/07/24 15:46 Digoxin 0.125 Mg Tab PO 12/06/24 15:59 0.125 mg DAILY@1600 ALISIA Administration Fluticasone Propionate 1 sprays 11/06/24 09:00 11/07/24 08:25 Fluticasone Propionate Na Spr 16 Gm Btl CINTHYA 12/06/24 08:59 1 sprays DAILY ALISIA Administration Furosemide 40 mg 11/05/24 17:00 11/07/24 16:48 Furosemide 40 Mg/4 Ml Vial IV 12/05/24 16:59 40 mg BID17 ALISIA Administration Insulin Aspart 0 units 11/05/24 12:52 11/08/24 07:34 Insulin Aspart Per Unit Charge SC 12/05/24 12:51 Not Given ACHS ALISIA Spironolactone 25 mg 11/05/24 12:52 11/07/24 08:26 Spironolactone 25 Mg Tab PO 12/05/24 12:51 25 mg QAM ALISIA Administration Vitamin D 100 mcg 11/06/24 09:00 11/07/24 08:25 Cholecalciferol 25 Mcg (1000 Units) Tab PO 12/06/24 08:59 100 mcg QAM ALISIA Administration Past Medical History Medical History Ascites pt denies current issues HTN (hypertension) Hx of Lyme disease hx ~2019. no current issues. History of anemia Aortic valve sclerosis Atrial fibrillation hx ~2019. no current issues. follows with Dr Vegas Hx of esophageal varices Diabetes mellitus NIDDM Degenerative disc disease Osteoarthritis Sciatica Cirrhosis GUAMAN Exercise / Class Metabolic Activity II 4-5 Yardwork/Stairs/Walk up hill Past Family History Family History Other No family history of adverse response to anesthesia No significant family history Past Surgical History Surgical History History of abdominal paracentesis History of amputation partial tip of right index finger History of right cataract extraction History of esophagogastroduodenoscopy (EGD) History of colonoscopy History of tooth extraction Social History Smoking Status: Former smoker Do You Dip or Chew Tobacco: No Hx Alcohol Use: No Hx Substance Use: No substance use type: does not use Physical Exam Vital Signs Last Vital Signs Temp 36.5 C 11/08/24 03:15 Pulse 107 H 11/08/24 07:34 Resp 17 11/08/24 07:34 BP 99/71 L 11/08/24 07:34 Pulse Ox 93 11/08/24 07:34 O2 Del Method Room Air 11/08/24 07:34 O2 Flow Rate 3 11/06/24 12:10 Testing Laboratory Results 11/08/24 06:31 11/08/24 06:31 PT 17.8 Seconds (9.0-12.0) H 11/07/24 05:55 INR 1.7 (0.9-1.1) H 11/07/24 05:55 APTT 34 Seconds (21-31) H 11/05/24 07:55 Hemoglobin A1c 6.5 % (4.5-5.6) H 11/06/24 07:24 Urine Color Dark Yellow 11/05/24 13:40 Urine Appearance Clear (Clear) 11/05/24 13:40 Urine pH 5.5 (4.5-7.5) 11/05/24 13:40 Ur Specific [place] 1.017 (1.000-1.030) 11/05/24 13:40 Urine Protein Negative (Negative) 11/05/24 13:40 Urine Glucose (UA) Negative (Negative) 11/05/24 13:40 Urine Ketones Negative (Negative) 11/05/24 13:40 Urine Nitrite Negative (Negative) 11/05/24 13:40 Ur Leukocyte Esterase Trace (Negative) H 11/05/24 13:40 Urine WBC (Auto) 0-5 /hpf (0-5) 11/05/24 13:40 Urine RBC (Auto) 0-2 /hpf (0-2) 11/05/24 13:40 U Hyaline Cast (Auto) 6-10 /lpf (0-2) H 11/05/24 13:40 U Epithel Cells (Auto) 0-2 /hpf (0-2) 11/05/24 13:40 Urine Bacteria (Auto) None Seen (None Seen) 11/05/24 13:40 11/07/24 20:23 POC Glucose 210 H
[2024-11-08] MEDS ORDERED: PROPOFOL IV EMULSION 10 MG/ML 20 ML VIAL IV ONE (08:35)
[2024-11-08] MEDS ORDERED: PHENYLEPHRINE 100MCG/ML 5ML SYR ONE (08:35)
--- NOTE | 2024-11-08 08:37 | Cardioversion ---
Date of Service November 08, 2024 Electrical Cardioversion Rpt Electrical Cardioversion Report The procedure of DC cardioversion was discussed including all risks and benefits with the patient. Conscious sedation was provided by the anesthesiology department. He tolerated the procedure well. There was no evidence of trauma to his oral cavity or esophagus with the KAHLIL procedure. After his KAHLIL was completed and he was found to have no evidence of left atrial appendage thrombus he underwent synchronous successful DC cardioversion at 200 J x 1. Normal sinus rhythm with occasional PACs were noted. Post cardioversion EKG was ordered and confirms normal sinus rhythm. \ Impression #1 paroxysmal atrial fibrillation with successful DC cardioversion. #2 post cardioversion improvement in the overall left ventricular ejection fraction to 55 to 60% #3 moderate pericardial effusion.
--- NOTE | 2024-11-08 08:39 | Anesthesiology Progress Note ---
Date of Service November 08, 2024 Anesthesia Post Procedure Vital Signs Vital Signs: Temp Pulse Pulse Resp BP BP Pulse Ox 11/08/24 08:37 60 18 94/49 L 95 11/08/24 07:34 107 H 17 99/71 L 93 11/08/24 07:24 11/08/24 07:24 100 H 11/08/24 03:15 36.5 C 122 H 20 136/75 91 11/07/24 23:29 36.4 C L 115 H 20 100/64 93 11/07/24 21:56 112 H 11/07/24 20:41 11/07/24 19:29 36.6 C 117 H 18 104/67 93 11/07/24 15:46 105 H 11/07/24 15:41 36.5 C 105 H 20 112/76 94 11/07/24 15:40 11/07/24 14:04 134 H 11/07/24 11:44 36.4 C L 120 H 18 143/78 H 93 O2 Del Method 11/08/24 08:37 Room Air 11/08/24 07:34 Room Air 11/08/24 07:24 Room Air 11/08/24 07:24 11/08/24 03:15 Room Air 11/07/24 23:29 Room Air 11/07/24 21:56 11/07/24 20:41 Room Air 11/07/24 19:29 Room Air 11/07/24 15:46 11/07/24 15:41 Room Air 11/07/24 15:40 Nasal Cannula 11/07/24 14:04 11/07/24 11:44 Room Air Transfer of Care Handoff Completed per policy Notes Mental Status: alert / awake / arousable and participated in evaluation Patient Amnestic to Procedure: Yes Nausea / Vomiting: adequately controlled Pain: adequately controlled Airway Patency, RR, SpO2: stable & adequate BP & HR: stable & adequate Hydration State: stable & adequate Anesthetic Complications: no major complications apparent and Pt Satisfied with anesthetic care
[2024-11-08] MEDS: BENZOCAINE/TETRACAIN/BUTAM 50 APPLN/5 GM CAN EXT ONE (10:03)
[2024-11-08] MEDS: SPIRONOLACTONE 25 MG TAB PO SCH (10:05)
[2024-11-08] MEDS: POTASSIUM CHLORIDE 10 MEQ TABCR PO STA (10:10)
[2024-11-08] MEDS: MAGNESIUM SULFATE / D5W 1 GM/100 ML BAG IV ONE (10:14)
--- NOTE | 2024-11-08 12:11 | Hospitalist Progress Note ---
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 He is admitted for rapid atrial fibrillation and acute on chronic HFpEF with acute on chronic respiratory failure with hypoxemia in the setting of cirrhosis. He was subsequently found to have a moderate pericardial effusion. #Rapid atrial fibrillation/PAF/acute on chronic HFrEF/acute respiratory failure with hypoxemia-most likely the rapid A-fib contributing to the acute HFpEF. His typical resting heart rate is 60-70 but he is otherwise asymptomatic with the atrial fibrillation-unclear how long he has had paroxysms of atrial fibrillation. Pulse ox 85-88% on room air initially requiring supplemental O2 and now weaned off to room air after diuresis. Troponin negative, BNP elevated at 533. With peripheral edema, ascites and abdominal bloating, cardiomegaly and pulmonary edema on CXR, pericardial effusion. No ischemic changes on ECG. Last echo 2018 with preserved EF, however now with reduced EF 35-40%, RV function moderately reduced, moderate pericardial effusion. Heart rates remained uncontrolled with rates in the 90s to 130s at rest despite loading with and continuing on digoxin and starting carvedilol. Blood pressures remain soft. Diuresing and improving, but lower extremity edema remains significant. Renal function remains normal. TSH mildly elevated at 5.3 but free T4 normal Male status post KAHLIL and cardioversion on 11/08. Post cardioversion Limited echo shows normalized EF. - Continue telemetry for arrhythmia monitoring - Discontinued home propranolol and started carvedilol (also a nonselective beta-anant for his portal hypertension) for HFrEF and rapid [id number] dose back to 3.125 for soft BPs - Consult cardiology for further assessment/management appreciated-added digoxin-will now stop digoxin as per cardiology while in sinus rhythm -Continue Lasix 40 Mg IV twice daily; continue spironolactone daily and increased to 50 mg - Follow BMP, magnesium and keep electrolytes replete/optimal-give 10 mEq of potassium and 1 g IV magnesium today - Follow TSH as an outpatient in 4 to 6 weeks - Strict I's and O's, fluid restriction 1500 mL, low-sodium diet, daily weights - Started Eliquis 5 Mg p.o. twice daily-appreciate GI opinion on anticoagulation in the setting of cirrhosis-Eliquis okay for now with hepatic failure Child-Rodriguez class A and B but should be avoided in class C #Pericardial effusion with circumferential moderate sized pericardial effusion seen on echo without tamponade. ESR elevated at 86, CRP elevated at 8. No recent viral syndrome or signs of infection. No pericarditis or chest pains and troponin normal at 9 on admission. Unclear etiology and could be idiopathic halima candace autoimmune versus underlying malignancy. He does not have uremia and is not on any medications that typically induce pericardial effusions. Heart failure is not a common cause of pericardial effusion, but can be seen with right-sided heart failure which he does have. No need for urgent drainage at this time. - Checked CT angiogram of chest-no evidence of thoracic aortic dissection or malignancy. There is mild mediastinal lymphadenopathy which will need to be followed as an outpatient with repeat imaging - Checked CT abdomen/pelvis-no obvious evidence of malignancy. He had a colonoscopy in 03/2024 without evidence of colon cancer - Check WENDY, RF, ANCA, Sjogren's antibodies, JAME level, vitamin 1, 25 -OH vitamin D (for sarcoidosis)-pending -Will need close follow-up with echocardiogram in the near future as an outpatient #Hepatic encephalopathy-developed increasing confusion on 11/07. Ammonia level elevated at 78. He has only been moving his bowels once daily at the most since admission. Giving lactulose and ammonia level improving and mentation improved on 11/08. Still awaiting bowel movement on 11/08 - Increase lactulose to 30 g daily and make it scheduled - Follow clinically and provide supportive care #Cryptogenic cirrhosis with portal HTN/grade 1 esophageal varices-His total bilirubin is elevated more than previous at 11, and AST/ALT/alkaline phosphatase all slightly more elevated than previous although stable this admission. A RUQ US showed cirrhosis with portal HTN, trace ascites, gallbladder sludge with borderline gallbladder wall thickness likely related to ascites. He has abdominal bloating likely from ascites but no abdominal pain. Last EGD In 03/2023 with grade 1 varices. Fortunately, platelets are normal at this time. MELD score [address] A/P on 11/06 with cirrhosis, portal hypertension and varices seen. No liver masses other than calcified granuloma -Consult to GI appreciated - Follow BMP, LFTs, CBC #Pancytopenia-secondary to cirrhosis, mild. Hemoglobin stable at 11-13 over many years. Iron studies with transferrin saturation of 32%, ferritin elevated in the 700s likely from acute inflammation of unknown cause. B12 and folate normal. TSH mildly elevated at 5.3 with normal free T4. Anemia likely of chronic disease. Thrombocytopenia and leukopenia from liver disease and splenomegaly. - Follow CBC - Okay to continue Eliquis but would hold if platelets drop below 50 #DM2-HgbA1c controlled at 6.5% - Hold home glipizide - Give NovoLog SSI, Accu-Cheks ACHS DVT prophylaxis-Eliquis, LISSY hose Disposition-continued stay on PCU for ongoing diuresis. Eliquis of note is quite expensive for him at $143 per month. He was given a coupon for the first month free and will continue on this for now. He may need samples of Eliquis at his [employer] office versus switching to Coumadin cautiously in the setting of cirrhosis Admission and Anticipated Discharge Date Admission Date: November 05, 2024 Subjective Patient feeling better today. Still no bowel movement. He is not nearly as confused. He had his cardioversion this morning and remains in sinus rhythm. Denies shortness of breath. Still with a lot of leg swelling. The LISSY hose were making his legs feel like they are burning. I discussed his care with stephani iologremi. I discussed his care with his at the bedside. Telemetry with atrial fibrillation with rates in the 100s to 120s overnight and now with normal sinus rhythm with rates in the 50s to 60s Physical Exam Constitutional: WD/WN, vitals as above Eyes: + scleral abnormality (Scleral icterus) Neck: trachea midline, no thyromegaly Respiratory: does not use accessory muscles and no cough Auscultation: + diminished lung sounds (At the bases bilaterally); no wheezes Cardiovascular: Heart Sounds: no murmur Extremities: + edema (2+ pitting edema from the feet to the mid legs bilaterally) Chest (Breasts): Chest: normal inspection of chest Musculoskeletal: Extremities: extremities normal to inspection; no cyanosis Skin: no rashes, warm and dry + jaundice Neurologic: moves all extremities and awake; no focal motor deficits Psychiatric: A+Ox3, euthymic affect Results & Data Results & Data Vital Signs (Past 12 Hours) Vital Signs Temp Pulse Pulse Resp BP BP Pulse Ox 11/08/24 11:30 36.3 C L 61 20 93/56 L 91 11/08/24 11:03 60 11/08/24 09:30 67 18 107/73 11/08/24 09:10 70 18 90/61 L 91 11/08/24 08:57 66 18 97/62 L 91 11/08/24 08:37 60 18 94/49 L 95 11/08/24 07:34 107 H 17 99/71 L 93 11/08/24 07:24 11/08/24 07:24 100 H 11/08/24 03:15 36.5 C 122 H 20 136/75 91 O2 Del Method 11/08/24 11:30 Room Air 11/08/24 11:03 11/08/24 09:30 11/08/24 09:10 Room Air 11/08/24 08:57 Room Air 11/08/24 08:37 Room Air 11/08/24 07:34 Room Air 11/08/24 07:24 Room Air 11/08/24 07:24 11/08/24 03:15 Room Air Laboratory Results CBC, CMP, magnesium, ammonia reviewed PG Care Time/CCT Total # of Minutes Spent Total Time Spent with Patient: Total time spent is greater than 50% in coordination of care (as documented) at patient's floor/unit and/or counseling patient: Coding Level of Care Code 57726 SUB INP/OBS CARE 3/50MIN Diagnoses Paroxysmal atrial fibrillation I48.0 Atrial fibrillation type: paroxysmal (HFpEF) heart failure with preserved ejection fraction I50.30 Pericardial effusion I31.39 Acute respiratory failure with hypoxia J96.01 (1) Atrial fibrillation Atrial fibrillation type: paroxysmal Qualified Code(s): I48.0 - Paroxysmal atrial fibrillation
[2024-11-08] MEDS: LACTULOSE SYRUP 20 GM/30 ML UDC PO SCH (12:53)
[2024-11-09 07:19] LABS: Hematocrit (blood only) 36.0 % (42.0-52.0); Hemoglobin 12.1 g/dl (14.0-18.0); Immature Granulocytes # (auto) 0.03 K/uL (0.01-0.20); Immature Granulocytes % (auto) 0.6 %; Mean Corpuscular Hemoglobin 32.9 pg (25.0-34.0); Mean Corpuscular Volume 97.8 fL (80.0-100.0); Platelet Count 134 K/uL (130-400); RDW Standard Deviation 58.4 fL (36.4-46.3); Red Blood Count 3.68 M/uL (4.70-6.10); White Blood Count 4.67 K/ul (4.8-10.8)
[2024-11-09 07:37] LABS: Alanine Aminotransferase 76.0 U/L (7-52); Albumin Globulin Ratio 0.8 (0.9-2); Alkaline Phosphatase 264.0 U/L (34-104); Anion Gap 7.0 (3-11); Bilirubin,Total 11.3 mg/dl (0.2-1.0); Blood Urea Nitrogen 47.0 mg/dl (6-23); Calcium 8.1 mg/dl (8.6-10.3); Carbon Dioxide 26.0 mmol/L (21-32); Chloride 97.0 mmol/L (98-107); Creatinine Clr Calc Pharmacy 68.9 ml/min; Globulin 3.5 gm/dl (2.5-4.0); Glucose 141.0 mg/dl (70-99(Fasting)); Magnesium 2.0 mg/dl (1.7-2.4); Potassium 3.9 mmol/L (3.5-5.1); Sodium 130.0 mmol/L (136-145); Total Protein 6.3 gm/dl (6.0-8.3)
[2024-11-09] MEDS: FUROSEMIDE 40 MG/4 ML VIAL IV SCH (07:53)
[2024-11-09] MEDS: MAGNESIUM CHLORIDE W/CALCIUM 64MG DELAYED REL TAB PO SCH (07:54)
[2024-11-09 08:27] LABS: INR 1.7 (0.9-1.1); Prothrombin Time 17.5 Seconds (9.0-12.0)
[2024-11-09 12:46] VITALS: PULSE 64; RESP 18; TEMP 97.7; O2SAT 94
--- NOTE | 2024-11-09 13:53 | Discharge Summary ---
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 He is admitted for rapid atrial fibrillation and acute on chronic HFpEF with acute on chronic respiratory failure with hypoxemia in the setting of cirrhosis. He was subsequently found to have a moderate pericardial effusion. #Rapid atrial fibrillation/PAF/acute on chronic HFrEF/acute respiratory failure with hypoxemia-most likely the rapid A-fib contributing to the acute HFpEF. His typical resting heart rate is 60-70 but he is otherwise asymptomatic with the atrial fibrillation-unclear how long he has had paroxysms of atrial fibrillation. Pulse ox 85-88% on room air initially requiring supplemental O2 and now weaned off to room air after diuresis. Troponin negative, BNP elevated at 533. With significant peripheral edema, ascites and abdominal bloating, cardiomegaly and pulmonary edema on CXR, pericardial effusion. No ischemic changes on ECG. Last echo 2018 with preserved EF, however now echo with reduced EF 35-40%, RV function moderately reduced, moderate pericardial effusion. Heart rates remained uncontrolled with rates in the 90s to 130s at rest despite loading with and continuing on digoxin and starting carvedilol. Blood pressures remained soft. Diuresing and improving, but lower extremity edema remains significant. Renal function remains normal. TSH mildly elevated at 5.3 but free T4 normal Now status post KAHLIL and cardioversion on 11/08. Post cardioversion Limited echo shows normalized EF. Feeling much improved and despite significant lower extremity edema, he feels ready for discharge. He is ambulating the halls without dyspnea, remains in a sinus rhythm, and abdominal bloating is much improved. Weaned to room air. - Discontinued home propranolol and started carvedilol (also a nonselective beta-anant for his portal hypertension) for HFrEF and rapid A-fib - Consult cardiology for further assessment/management appreciated-no further digoxin needed as per Cardio. Follow-up with cardiology within 2 weeks - Received Lasix 40 Mg IV twice daily for many days but did not diurese much due to rapid [id number] home on Bumex 1 mg p.o. twice daily for better gut absorption in the setting of cirrhosis -Started spironolactone 50 mg p.o. daily-uptitrate as blood pressure can tolerate as an outpatient - Follow repeat TSH as an outpatient in 4 to 6 weeks - Continue fluid restriction 1500 mL, low-sodium diet, daily weights at home - Started Eliquis 5 Mg p.o. twice daily-appreciate GI opinion on anticoagulation in the setting of cirrhosis-Eliquis okay for now with hepatic failure Child-Rodriguez class A and B but should be avoided in class C #Pericardial effusion with circumferential moderate sized pericardial effusion seen on echo without tamponade. ESR elevated at 86, CRP elevated at 8. No recent viral syndrome or signs of infection. No pericarditis or chest pains and troponin normal at 9 on admission. Unclear etiology and could be idiopathic versus autoimmune versus underlying malignancy. He does not have uremia and is not on any medications that typically induce pericardial effusions. Heart failure is not a common cause of pericardial effusion, but can be seen with right-sided heart failure which he does have. No need for urgent drainage at this time. - Checked CT angiogram of chest-no evidence of thoracic aortic dissection or malignancy. There is mild mediastinal lymphadenopathy which will need to be followed as an outpatient with repeat imaging - Checked CT abdomen/pelvis-no obvious evidence of malignancy. He had a colonoscopy in 03/2024 without evidence of colon cancer - Check WENDY, RF, ANCA, Sjogren's antibodies, JAME level, vitamin 1, 25 -OH vitamin D (for sarcoidosis)-pending still at the time of discharge -Will need close follow-up with echocardiogram in the near future as an [id number] with cardiology #Hepatic encephalopathy-developed increasing confusion on 11/07. Ammonia level elevated at 78. He has only been moving his bowels once daily at the most since admission. Giving lactulose and ammonia level improving and mentation improved on 11/08. Moving bowels once daily and mentation normalized - Continue lactulose 30 g daily on discharge - Follow clinically and provide supportive care #Cryptogenic cirrhosis with portal HTN/grade 1 esophageal varices-His total bilirubin is elevated more than previous at 11, and AST/ALT/alkaline phosphatase all slightly more elevated than previous although stable this admission. A RUQ US showed cirrhosis with portal HTN, trace ascites, gallbladder sludge with borderline gallbladder wall thickness likely related to ascites. He has abdominal bloating likely from ascites but no abdominal pain. Last EGD In 03/2023 with grade 1 varices. Fortunately, platelets are normal at this time. MELD score [address] A/P on 11/06 with cirrhosis, portal hypertension and varices seen. No liver masses other than calcified granuloma. His total bilirubin remained at 11 throughout his hospital stay. His abdominal bloating improved with diuresis -Consult to GI appreciated -Follow-up with timber hand as an outpatient - Started on spironolactone and loop diuretic this admission as well as lactulose #Pancytopenia-secondary to cirrhosis, mild. Hemoglobin stable at 11-13 over man y years. Iron studies with transferrin saturation of 32%, ferritin elevated in the 700s likely from acute inflammation of unknown cause. B12 and folate normal. TSH mildly elevated at 5.3 with normal free T4. Anemia likely of chronic disease. Thrombocytopenia and leukopenia from liver disease and splenomegaly. - Follow CBC - Okay to continue Eliquis but would hold if platelets drop below 50 #DM2-HgbA1c controlled at 6.5% - Okay to resume home glipizide on discharge DVT prophylaxis-LISSY Barker Disposition-discharged to home. Eliquis of note is quite expensive for him at $143 per month. He was given a coupon for the first month free and will continue on this for now. He may need samples of Eliquis at his icing machine operator office versus switching to Coumadin cautiously in the setting of cirrhosis Notes For Next Care Provider Needs close follow-up with cardiology and PCP as an outpatient Medication Changes From Visit See list Admission HPI Per Admitting Provider This patient is a 69-year-old male with a history of cryptogenic cirrhosis with portal hypertension and esophageal varices, DM2, paroxysmal atrial fibrillatio n/flutter and Lyme carditis, seasonal allergies, pancytopenia who presents to the ER with increasing shortness of breath, fatigue, generalized weakness, leg swelling, and abdominal bloating over the last 4 to 5 days. At 3:00 this morning, he took his vital signs and his heart rate was 70 and his pulse ox was 97%. He felt worse as the morning went on and his rechecked his vital signs and found his heart rate to be in the 130s and his pulse ox was 85% on room air at home. He does not have any chest pain or heart palpitations but describes significant abdominal bloating and lower extremity edema. In the ED, he was found to be hypoxemic at 88% on room air. He was also found to be in rapid atrial fibrillation with rates in the 120s. He was given IV metoprolol and IV Lasix as well as some IV fluids initially. His total bilirubin is elevated more than previous at 11 and a right upper quadrant ultrasound showed cirrhosis with portal HTN, trace ascites, gallbladder sludge with borderline gallbladder wall thickness likely related to ascites. He will be admitted for rapid atrial fibrillation and acute on chronic HFpEF with acute on chronic respiratory failure with hypoxemia. Discharge Exam Constitutional WD/WN, vitals as above Eyes + scleral abnormality (Scleral icterus) ENMT Ears: no external ear abnormality, no EAC abnormality and no TM abnormality Neck trachea midline, no thyromegaly Respiratory normal respiratory effort Auscultation: + diminished lung sounds (At the bases bilaterally); no crackles and no wheezes Cardiovascular Rate/Rhythm: regular rate and regular rhythm Heart Sounds: no murmur Extremities: + edema (2+ pitting edema from the feet to the mid legs bilaterally) Chest (Breasts) Chest: normal inspection of chest Gastrointestinal (Abdomen) Inspection/Auscultation: normal bowel sounds and + visible herniation (Umbilical, reducible); abdomen not distended Percussion/Palpation: abdomen soft; abdomen nontender and no guarding Musculoskeletal Extremities: extremities normal to inspection; no cyanosis and no clubbing Skin no rashes, warm and dry + jaundice Neurologic moves all extremities and awake; no focal motor deficits Psychiatric A+Ox3, euthymic affect Discharge Plan Discharge Items Patient Disposition: Home - Self-Care Reason For Visit: RAPID AFIB, CHF Discharge Diagnosis: Rapid atrial fibrillation Congestive heart failure Acute respiratory failure with hypoxia Pericardial effusion Activity: As commented below Lifting: No more than 10 pounds Bathing: No limitations Exercise Comment: No heavy exertion Non-emergency contact: Primary Care Provider and Principal Bioinformatics Specialist Call non-emergency contact if: you have any medication questions and your symptoms worsen Follow-up/Referrals: Ashleigh Carreno [Primary Care Provider] - (Follow-up within 1 to 2 weeks after discharge) Dutch Vegas, DO [Physician] - (Please follow-up within 2 weeks after discharge.) Diet: Low Sodium (2gm) Fluids: 1500ml (6 cups) Addtl Attending Provider Instructions: You are admitted with rapid atrial fibrillation and fluid overload and low oxygen levels from congestive heart failure. This did improve with a cardioversion back to a normal heart rhythm. You were also given diuretics to get fluid off. You still have a lot of swelling in the legs and this hopefully will continue to improve with taking the diuretics at home. Please weigh yourself every day and let your doctor know if your weight goes up by more than 2 to 3 pounds from 1 day to the next. You were found to have fluid around your heart which is called a pericardial effusion. This may be from congestive heart failure but there are some blood test still pending to help determine the cause of this. You will need to follow-up closely with icing machine operator for this problem. You were started on a blood thinner called Eliquis. This is to help prevent stroke in the setting of having atrial fibrillation. Here are some guidelines about taking Eliquis: There is an increased risk of blood clots if you stop taking Eliquis. Do not stop taking Eliquis without talking to your doctor.. Stopping Eliquis increases your risk of having a stroke. Three is an increased risk of bleeding. Eliquis can cause bleeding which can be serious and may lead to . This is because Eliquis is a blood thinner medicine (anticoagulant) that lowers blood clotting. During treatment with Eliquis you are likely to bruise more easily, and it may take longer for bleeding to stop. * If you ever cannot get the bleeding to stop please report to the ER * If you have a bruise that is large/painful or swollen you should also be seen by a medical provider Call your doctor or get medical help right away if you or your child develop any of these signs or symptoms of bleeding: unexpected bleeding or bleeding that lasts a long time, such as: * Nose bleeds that happen often * unusual bleeding from the gums * bleeding that is severe or you cannot control * red, pink or brown urine * bright red or black stools (looks like tar) * cough up blood or blood clots * vomit blood or your vomit looks like coffee grounds If you have a fall and hit your head, please come to the ER and get checked out. Being on a blood thinner increases your risk of brain bleeding with falls. Avoid high risk activities, such as: * standing on tall ladders * riding motorcycles * anything where you are high risk for falls or trauma Avoid taking NSAIDs (pain medication) while you are taking a blood thinner. This includes: * Ibuprofen, Aleve Advil, Naproxen. * If you are ever unsure you can ask your doctor or pharmacist. * Tylenol is SAFE to take. If you have any new or worsening chest pain or shortness of breath please return to the ER. Call your Primary Care doctor if any of the following symptoms or problems start or get worse: * Shortness of breath or difficulty breathing * Wake up at night short of breath * Chest pain * Cough * Swelling of your hands, feet, or legs * More fatigued or tired with your normal activity * Palpitations - sudden fast heart beats WEIGHT * Weigh yourself every morning after using the bathroom. * Use the same scale. * Wear the same amount of clothing. * Write your weight down on a chart. * Call your Primary Care doctor if you gain more than 2-3 pounds in 1-2 days. MEDICATIONS * Use this discharge instruction sheet for medication instructions. * Take your medications at the time your doctor ordered. * Do not skip a dose of your medicines. * If you miss a dose of medicine, take it as soon as possible, but DO NOT DOUBLE A DOSE. * Read your medicine information when you get home. * Know all of the side effects of your medicine. If in doubt, ask your pharmacist * Call your Primary Care doctor's office if you have any side effects. * Be sure all of your doctors know what medicine and herbs you take (including cold, flu, and herbal medicine). Take the following with you to your follow-up doctor appointments: * Weight Chart * Medication List * List of questions Do not drink excessive alcohol, beer or wine. Pending Studies at Discharge: Yes Studies:: RF, WENDY, ANCA, Sjogren antibodies, vitamin D 1, 25-OH, JAME level Stand-Alone Forms: My [facility] Medications and DC Order Prescriptions: New Eliquis 5 mg Tablet 5 mg PO BID Qty: 60 0RF carvedilol 3.125 mg Tablet 3.125 mg PO BIDM Qty: 60 0RF spironolactone 50 mg tablet 50 mg PO DAILY Qty: 30 0RF lactulose 10 gram/15 mL Solution 30 g PO DAILY 30 Days Qty: 1350 0RF magnesium chloride [Mag 64] 64 mg Tablet,Delayed Release (Dr/Ec) 64 mg PO QAM Qty: 30 0RF bumetanide 1 mg tablet 1 mg PO BID Qty: 60 0RF Rx Instructions: Take the evening dose around 5 PM Continued multivitamin Tablet 1 tab PO QAM cholecalciferol (vitamin D3) [Vitamin D3] 50 mcg (2,000 unit) Capsule 100 mcg PO QAM glipizide 5 mg Tablet See Rx Instructions .ROUTE .COMPLEX Rx Instructions: TAKES 5 MG QAM, THEN 10 MG QPM. ascorbic acid (vitamin C) [Vitamin C] 250 mg Tablet 250 mg PO QAM milk thistle 150 mg Capsule 150 mg PO QAM Rx Instructions: give with meal/snack hydroxyzine HCl 10 mg tablet 10 mg PO TID PRN (Reason: Itching) fluticasone propionate [Flonase] 50 mcg/actuation [place],Suspension 1 spray INTRANASAL DAILY Rx Instructions: administer into each nostril Glucosamine Chondroitin 550-30-1 mg Capsule 1 cap PO DAILY Discontinued spironolactone 25 mg Tablet 25 mg PO QAM PRN (Reason: swelling) furosemide [Lasix] 40 mg Tablet 40 mg PO DAILY PRN (Reason: SWELLING) propranolol 20 mg Tablet 20 mg PO QAM Discharge Orders: Discharge Order- CHF (Routine); Ordered 11/09/24 Ordered By: Zoey Lezama/Other Patient Handouts: Managing Type 2 Diabetes Admission Data Admit Date/Time: 11/05/24 10:55 Attending Provider: Zoey Pardo Admit Provider: Zoey Pardo Primary Care Provider: Ashleigh Carreno Other Providers: Johnny Duke I; Jessica Tolentino; Zoey Pardo; Opal Dickey; Pearl Cortez; Carlee Garcia; Pricila Mtz; Robert Wilcox; Heron Dickens; Lucas Molina; Lalit Gillis; Lady Cosby; Derick Vega; Hiro Boyle; Dimitrios Barton; Sherrill Borja; Jeronimo Arrieta; Rolanda Arrieta; Juan Carlos Wilkerson; Kathrin Cobos; Scar Rg; Camelia Mcmullen; nAnette Sheriff; Timothy Teixeira; Gabi De Santiago; Minna Richards; Nancy Newell; Macey Schwarz; Kingsley Schwarz V; Nate Christian; Pearl Cruz; Price Birch; Shaina Garcia; Kingsley Bello; Sebas Borja; Tello Payne; Nany Murillo; Gretel Rodriguez; Kingsley Segura; Dusty Hoskins; Iva Burrows; Eris Palomo; Shaila Herrera; Mirian Caraballo; Samuel Aguilera; Jeramie Cameron; Ella Albert; Lucas Moreland; Guerda Foley.; Rajesh Moore; Padilla Toney; Robert Brooks Jr; Heather Marie; Nel Stiles A.; Jayshree Hernandez.; Timothy Carter; Kael Badillo; Nel Wong A.; Dutch Santana; Scot Qureshi; Keegan Chun; Yordan Lynn; Jennifer Salcido; Lenny No; Juany Hernandez; Ellyn Schwarz; Janet Bashir; Darlyn Peguero; Francisco Still Jr; Charity Lovell; Gabi Ruth; Aditya Perez; Daphnie Pool; Tiffany Lane; Bessie Sauceda; Marielena Borja Hospital Stay Data Consultations 11/05/24 09:53 Consult Cardiology Routine 11/05/24 10:07 ED Decision to Admit Stat 11/05/24 10:56 Consult Gastroenterology Routine 11/07/24 10:15 Consult Anesthesiology Routine Procedures Performed Operation Date: 11/08/24 07:45 Actual Procedures p Echo Transesophageal - Jessica Tolentino DO s Cardioversion - Jessica Tolentino DO s Doppler Echo Limited/Follow Up - Jessica Tolentino DO Diagnostic Imagining Performed 11/05/24 07:58 US RUQ [US liver] Stat 11/06/24 13:23 CT abd pelvis IV con only Urgent CT angio chest w con Urgent ECHO Pending Results Patient Have Any Pending Studies at Discharge: Yes Discharge Instructions Given to Patient (Per Discharging Provider) You are admitted with rapid atrial fibrillation and fluid overload and low oxygen levels from congestive heart failure. This did improve with a cardioversion back to a normal heart rhythm. You were also given diuretics to get fluid off. You still have a lot of swelling in the legs and this hopefully will continue to improve with taking the diuretics at home. Please weigh yourself every day and let your doctor know if your weight goes up by more than 2 to 3 pounds from 1 day to the next. You were found to have fluid around your heart which is called a pericardial effusion. This may be from congestive heart failure but there are some blood test still pending to help determine the cause of this. You will need to follow-up closely with icing machine operator for this problem. You were started on a blood thinner called Eliquis. This is to help prevent stroke in the setting of having atrial fibrillation. Here are some guidelines about taking Eliquis: There is an increased risk of blood clots if you stop taking Eliquis. Do not stop taking Eliquis without talking to your doctor.. Stopping Eliquis increases your risk of having a stroke. Three is an increased risk of bleeding. Eliquis can cause bleeding which can be serious and may lead to . This is because Eliquis is a blood thinner medicine (anticoagulant) that lowers blood clotting. During treatment with Eliquis you are likely to bruise more easily, and it may take longer for bleeding to stop. * If you ever cannot get the bleeding to stop please report to the ER * If you have a bruise that is large/painful or swollen you should also be seen by a medical provider Call your doctor or get medical help right away if you or your child develop any of these signs or symptoms of bleeding: unexpected bleeding or bleeding that lasts a long time, such as: * Nose bleeds that happen often * unusual bleeding from the gums * bleeding that is severe or you cannot control * red, pink or brown urine * bright red or black stools (looks like tar) * cough up blood or blood clots * vomit blood or your vomit looks like coffee grounds If you have a fall and hit your head, please come to the ER and get checked out. Being on a blood thinner increases your risk of brain bleeding with falls. Avoid high risk activities, such as: * standing on tall ladders * riding motorcycles * anything where you are high risk for falls or trauma Avoid taking NSAIDs (pain medication) while you are taking a blood thinner. This includes: * Ibuprofen, Aleve Advil, Naproxen. * If you are ever unsure you can ask your doctor or pharmacist. * Tylenol is SAFE to take. If you have any new or worsening chest pain or shortness of breath please return to the ER. Call your Primary Care doctor if any of the following symptoms or problems start or get worse: * Shortness of breath or difficulty breathing * Wake up at night short of breath * Chest pain * Cough * Swelling of your hands, feet, or legs * More fatigued or tired with your normal activity * Palpitations - sudden fast heart beats WEIGHT * Weigh yourself every morning after using the bathroom. * Use the same scale. * Wear the same amount of clothing. * Write your weight down on a chart. * Call your Primary Care doctor if you gain more than 2-3 pounds in 1-2 days. MEDICATIONS * Use this discharge instruction sheet for medication instructions. * Take your medications at the time your doctor ordered. * Do not skip a dose of your medicines. * If you miss a dose of medicine, take it as soon as possible, but DO NOT DOUBLE A DOSE. * Read your medicine information when you get home. * Know all of the side effects of your medicine. If in doubt, ask your pharmacist * Call your Primary Care doctor's office if you have any side effects. * Be sure all of your doctors know what medicine and herbs you take (including cold, flu, and herbal medicine). Take the following with you to your follow-up doctor appointments: * Weight Chart * Medication List * List of questions Do not drink excessive alcohol, beer or wine. Total Time Total Time Spent Total Time Spent (In Minutes): 35 min Total Time Includes: Examination of the Patient, Discharge Planning, Medication Reconciliation and Communication With Other Providers Coding Level of Care Code 24909 INP/OBS DISCH >30 MIN Diagnoses Paroxysmal atrial fibrillation I48.0 Atrial fibrillation type: paroxysmal (HFpEF) heart failure with preserved ejection fraction I50.30 Pericardial effusion I31.39 Acute respiratory failure with hypoxia J96.01
[2024-11-09 14:01] VITALS: BP 114/62
== END 2024-11-09 14:39 | disposition home or self-care (01) | DRG 308 ==
LOC: SUATTDRO → ED 07:28 → 2S 10:55
DX: K76.6 Portal hypertension; I42.8 Other cardiomyopathies; E87.6 Hypokalemia; I11.0 Hypertensive heart disease with heart failure; K76.82 Hepatic encephalopathy; I31.39 Other pericardial effusion (noninflammatory); Z79.84 Long term (current) use of oral hypoglycemic drugs; I48.0 Paroxysmal atrial fibrillation; Z88.0 Allergy status to penicillin; E11.9 Type 2 diabetes mellitus without complications; K75.81 Nonalcoholic steatohepatitis (NASH); I85.10 Secondary esophageal varices without bleeding; J96.01 Acute respiratory failure with hypoxia; D61.818 Other pancytopenia; Z87.891 Personal history of nicotine dependence; I50.33 Acute on chronic diastolic (congestive) heart failure; K74.69 Other cirrhosis of liver

== ENCOUNTER 2024-11-23 09:34 | Inpatient (IN) ==
--- NOTE | 2024-11-23 10:19 | Emergency Department Note ---
Impression & Plan Atrial fibrillation with rapid ventricular response, Acute exacerbation of CHF (congestive heart failure), Arm and leg pain, Hypomagnesemia ED Provider Note Provider: Oliverio Vazquez MD CHIEF COMPLAINT: Right upper arm pain, knee pain and leg swelling HISTORY OF PRESENT ILLNESS: Patient is a 69-year-old gentleman history of hypertension, diabetes, liver cirrhosis, atrial fibrillation on Eliquis presenting here today for evaluation since yesterday of having increasing leg swelling and some pain behind the bilateral knees and legs. Patient also reports for 2 days has had some pain in the left upper arm mid arm not involving the shoulder or elbow. Hurts a bit more with movement but not to touch. Denies trauma. Denies falling. Significant increase in swelling of the lower legs this morning. Noted his heart rate was elevated at home. Was hospitalized here last month for rapid atrial fibrillation and had swelling at that time. No new confusion although his jaundice is a bit worse than normal according to . He does not like to take his lactulose as this causes explosive diarrhea but again she states he does not seem confused. Denies abdominal pain or chest pain or shortness of breath or lightheadedness. Intact sensation in the hands and feet. States compliance with home medications otherwise including blood thinner this morning. Patient states his left arm he thinks is hurting because he slept on it wrong 2 days ago. Was feeling better until yesterday and today. Had been losing weight. PAST MEDICAL HISTORY: As noted above MEDICATIONS: Reviewed home medications SOCIAL HISTORY: , no reported alcohol use PHYSICAL EXAM: GENERAL: alert and oriented in no acute distress on stretcher Head: normocephalic and atraumatic EYES: No injection or discharge with some slight icterus. EOMI. NECK: Trachea midline. Supple. ENT: Mucous membranes pink and moist. LUNGS: Airway patent. No retractions. Breath sounds clear with good air entry bilaterally. HEART: Irregular regular tachycardic rate and rhythm. No chest wall tenderness ABDOMEN: Soft and non-tender, without guarding or rebound slight distention. SKIN: Acyanotic, warm, dry, without rashes EXTREMITIES: Without swelling, tenderness or deformity of the upper extremities particularly overlying the left upper arm elbow and bicep. Some mild pain with ROM of the left forearm in the biceps region however. Patient with 2-3+ bilateral lower extreme edema of the knees down with some tenderness over this area. No weeping wounds or erythema. NEUROLOGICAL: No focal deficits. No aphasia. No facial droop or slurred speech. Ambulatory. EK bpm atrial fibrillation without acute ST segment elevation or depression. QTc 389. CONTINUOUS CARDIAC MONITORING: was ordered and showed a heart rate of 100s-140s bpm in atrial fibrillation Patient's laboratory studies and imaging reviewed. Differential includes Infection, dehydration, metabolic abnormality, hypo/hyperglycemia, electrolyte disturbance, anemia, hypoxia, cardiac sources, intracerebral event, toxicologic, neurologic, as well as other pathologies. IMPRESSION/MEDICAL DECISION MAKING: Patient with leg pain and significant swelling here appears to be in rapid A-fib again likely having pain related to swelling. Will obtain x-rays here but no significant trauma. Reports some pain to left upper arm in the humerus region as well worse with movement but optically tender on exam. Does not appear red or swollen here. Anticoagulated doubt VTE/DVT. No other chest pain or palpitations or abdominal pain. Chest x-ray obtained to look for pulmonary edema although he does not seem prickly short of breath or hypoxic. Does have some increased jaundice and noncompliant with his lactulose at home but does not seem encephalopathic and states he seems at his baseline. Will check an ammonia level. Benign abdomen on exam. Doubt SBP. No evidence of significant wounds or cellulitis on clinical exam of the extremities. Will attempt additional dose of IV metoprolol if blood pressure allows but borderline to slightly hypotensive here. Not in distress however and does not appear unstable. Given some IV magnesium. Blood work here without severe anemia or leukocytosis. Stable hyponatremia. Normal renal function. Mildly low magnesium again supplementation will help. Bilirubin LFTs similar to previous. Chest x-ray per my review interpretation does show some evidence of mild pulmonary edema. Does later become slightly hypoxic at 89% and placed on a little oxygen supplementation. Not feeling short of breath. X-rays per radiology without evidence of bony injury with soft tissue swelling prickly in the lower extremities. Was able to trial small 2 and half milligrams dose of IV metoprolol and again 2 g IV magnesium given. Does have a depressed ejection fraction so try to avoid diltiazem if able. Again not unstable requiring electrocardioversion at this time. Will likely need diuresis once blood pressure will tolerate. Discussed with him and his findings and plan of care for admission. They are agreeable to stay for further evaluation. Hospitalist team was consulted. DIAGNOSIS: Rapid atrial fibrillation, acute heart failure exacerbation, leg swelling, arm pain and leg pain DISPOSITION: Hospitalist will evaluate Patient was agreeable with this plan. Critical Care I have personally spent 36 minutes of critical care time in the direct management of this patient. This includes bedside care, interpretation of diagnostic studies, and testing, discussion with consultants, patient, and family members, and other required patient management activities. These 36 minutes is in excess of all separately billable procedures. Past Med/Surg History Problem List (Updated 11/23/24 @ 11:28 by Oliverio Vazquez M.D.) Hypomagnesemia (Acute) Arm and leg pain (Acute) Acute exacerbation of CHF (congestive heart failure) (Acute) Atrial fibrillation with rapid ventricular response (Acute) Jaundice (Acute) Atrial fibrillation with rapid ventricular response (Acute) Pericardial effusion Acute respiratory failure with hypoxia (HFpEF) heart failure with preserved ejection fraction Hypokalemia History of colon polyps Colon cancer screening Dog bite of right arm (Acute) Osteoarthritis of carpometacarpal joint of right thumb Osteoarthritis of right wrist Esophageal varices Diabetes mellitus, type 2 NIDDM Encounter for pre-operative examination Non-alcoholic cirrhosis Aortic valve sclerosis Atrial fibrillation hx ~2019. no current issues. follows with Dr Vegas Bradycardia Anemia Lyme disease hx ~2019. no current issues. Pre-diabetes Hypertension Epigastric pain (Acute) Ascites (Acute) hx - is unsure. Cirrhosis (Acute) Encounter for pre-operative examination Elevated blood pressure reading (Acute) Dog bite of left hand (Acute) Medical History Ascites pt denies current issues HTN (hypertension) Hx of Lyme disease hx ~2019. no current issues. History of anemia Aortic valve sclerosis Atrial fibrillation hx ~2019. no current issues. 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 History of right cataract extraction History of esophagogastroduodenoscopy (EGD) History of colonoscopy History of tooth extraction Family History Other No family history of adverse response to anesthesia No significant family history Social History Smoking Status: Never smoker Second Hand Exposure: Yes (mom smoked/father smoked a pipe); Do You Dip or Chew Tobacco: No; Hx Alcohol Use: No Hx Substance Use: No Preferred Language: Icelandic Communication Ability: Effective 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: No Beliefs That Will Affect Care: None Current Living Situation: Spouse Feels Safe at Home: Yes Assistive Devices: None Allergies Allergies Allergy/AdvReac Type Severity Reaction Status Date / Time penicillin G Allergy Unknown Childhood Unverified 11/05/24 09:54 allergy penicillin V Allergy Unknown Childhood Unverified 11/05/24 09:54 allergy Home Meds Home Medications Medication Instructions Recorded Confirmed multivitamin 1 tab PO QAM 03/28/18 11/23/24 glipizide 5 mg tablet See Rx Instructions .Route .COMPLEX 01/15/22 11/23/24 cholecalciferol (vitamin D3) 50 100 mcg PO QAM 12/14/22 11/23/24 mcg (2,000 unit) capsule (Vitamin D3) ascorbic acid (vitamin C) 250 mg 250 mg PO QAM 03/04/23 11/23/24 tablet (Vitamin C) fluticasone propionate 50 1 spray intranasal DAILY 11/05/24 11/23/24 mcg/actuation nasal spray,suspension glucosamine sulf dipot 1 cap PO DAILY 11/05/24 11/23/24 chlr,msm,chond 550 mg-C 30 mg-lauren 1 mg capsule (Glucosamine Chondroitin) hydroxyzine HCl 10 mg tablet 10 mg PO TID PRN Itching 11/05/24 11/23/24 milk thistle 150 mg capsule 150 mg PO QAM 11/05/24 11/23/24 Previous Rx's Medication Instructions Recorded apixaban 5 mg tablet (Eliquis) 5 mg PO BID #60 tabs 11/08/24 bumetanide 1 mg tablet 1 mg PO BID #60 tabs 11/09/24 carvedilol 3.125 mg tablet 3.125 mg PO BIDM #60 tabs 11/09/24 lactulose 10 gram/15 mL oral 30 g (45 mL) PO DAILY 30 days 11/09/24 solution #1,350 mL magnesium chloride 64 mg 64 mg PO QAM #30 tabs 11/09/24 (magnesium chloride) tablet,delayed release (Mag 64) spironolactone 50 mg tablet 50 mg PO DAILY #30 tabs 11/09/24 Results & Data (ED) Vital Signs Vital Signs - 24 hr 11/23/24 09:37 11/23/24 10:08 11/23/24 11:09 Temperature 37 C Temperature Source Temporal Artery Scan Pulse Rate 118 H 123 H 136 H Pulse Rate from SpO2 Sensor Respiratory Rate 18 30 H Respiratory Effort / Characteristics Non-Labored Spontaneous Respiratory Depth Normal Respiratory Pattern Regular Blood Pressure 109/57 L 103/65 Blood Pressure Mean 74 75 Blood Pressure Position Sitting Pulse Oximetry 94 90 Oxygen Delivery Method Room Air Room Air Oxygen Flow Rate Sepsis Recent Fever Within 48 Hours No Sepsis New/Unexplained Change in Mental Status No Sepsis Action Taken by Nursing No Action Required Oxygen Flow Rate - Titration Pulse Oximetry Post Tiitration 11/23/24 11:19 11/23/24 11:27 11/23/24 11:28 Temperature Temperature Source Pulse Rate 118 H 112 H Pulse Rate from SpO2 Sensor 112 H Respiratory Rate 21 Respiratory Effort / Characteristics Respiratory Depth Respiratory Pattern Blood Pressure 103/95 99/64 L Blood Pressure Mean 75 Blood Pressure Position Pulse Oximetry 95 89 L Oxygen Delivery Method Nasal Cannula Room Air Oxygen Flow Rate 2 Sepsis Recent Fever Within 48 Hours Sepsis New/Unexplained Change in Mental Status Sepsis Action Taken by Nursing Oxygen Flow Rate - Titration 2 Pulse Oximetry Post Tiitration 95 11/23/24 11:41 11/23/24 11:48 11/23/24 12:02 Temperature Temperature Source Pulse Rate 123 H 114 H 105 H Pulse Rate from SpO2 Sensor Respiratory Rate Respiratory Effort / Characteristics Respiratory Depth Respiratory Pattern Blood Pressure 108/67 102/57 L 94/49 L Blood Pressure Mean Blood Pressure Position Pulse Oximetry Oxygen Delivery Method Oxygen Flow Rate Sepsis Recent Fever Within 48 Hours Sepsis New/Unexplained Change in Mental Status Sepsis Action Taken by Nursing Oxygen Flow Rate - Titration Pulse Oximetry Post Tiitration 11/23/24 12:09 11/23/24 12:30 11/23/24 13:00 Temperature Temperature Source Pulse Rate 111 H 109 H 126 H Pulse Rate from SpO2 Sensor 136 H Respiratory Rate 18 22 18 Respiratory Effort / Characteristics Respiratory Depth Respiratory Pattern Blood Pressure 113/72 108/73 Blood Pressure Mean 98 87 Blood Pressure Position Pulse Oximetry 95 95 96 Oxygen Delivery Method Nasal Cannula Nasal Cannula Nasal Cannula Oxygen Flow Rate 2 2 2 Sepsis Recent Fever Within 48 Hours Sepsis New/Unexplained Change in Mental Status Sepsis Action Taken by Nursing Oxygen Flow Rate - Titration Pulse Oximetry Post Tiitration Laboratory Data 11/23/24 10:20 11/23/24 10:20 Lab Results 11/23/24 11/23/24 11/23/24 Range/Units 10:20 11:28 12:07 WBC 8.85 (4.8-10.8) K/ul RBC 3.69 L (4.70-6.10) M/uL Hgb 12.4 L (14.0-18.0) g/dl Hct 34.6 L (42.0-52.0) % MCV 93.8 (80.0-100.0) fL MCH 33.6 (25.0-34.0) pg MCHC 35.8 (32.0-36.0) g/dL RDW Std Deviation 53.4 H (36.4-46.3) fL RDW Coeff of Janice 15.5 H (11.5-14.5) % Plt Count 128 L (130-400) K/uL MPV 10.4 (9.4-12.4) fL Immature Gran % (Auto) 0.6 % Neut % (Auto) 85.1 % Lymph % (Auto) 4.3 % [place] % (Auto) 8.9 % Eos % (Auto) 0.8 % Baso % (Auto) 0.3 % Neut # (Auto) 7.53 H (1.40-6.50) K/uL Lymph # (Auto) 0.38 L (1.20-3.40) K/uL [place] # (Auto) 0.79 H (0.11-0.59) K/uL Eos # (Auto) 0.07 (0.00-0.50) K/uL Baso # (Auto) 0.03 (0.00-0.20) K/uL Immature Gran # (Auto) 0.05 (0.01-0.20) K/uL PT 16.8 H (9.0-12.0) Seconds INR 1.6 H (0.9-1.1) Sodium 130 L (136-145) mmol/L Potassium 4.2 (3.5-5.1) mmol/L Chloride 99 (98-107) mmol/L Carbon Dioxide 25 (21-32) mmol/L Anion Gap 6 (3-11) BUN 25 H (6-23) mg/dl Creatinine 0.85 (0.6-1.4) mg/dl Est Cr Clr Drug Dosing Not Reportable eGFR 93.48 BUN/Creatinine Ratio 29.4 H (10-20) Glucose 209 H (70-99(Fasting)) mg/dl Calcium 8.2 L (8.6-10.3) mg/dl Magnesium 1.5 L (1.7-2.4) mg/dl Total Bilirubin 10.8 H (0.2-1.0) mg/dl AST 98 H (13-39) U/L ALT 74 H (7-52) U/L Alkaline Phosphatase 352 H (34-104) U/L Ammonia 53.0 (18-72) umol/L Troponin I High Sens 6.6 (0-20) pg/ml B-Natriuretic Peptide 297 H (0-100) pg/ml Total Protein 6.8 (6.0-8.3) gm/dl Albumin 2.3 L (3.4-5.0) gm/dl Globulin 4.5 H (2.5-4.0) gm/dl Albumin/Globulin Ratio 0.5 L (0.9-2) TSH 4.725 H (0.300-4.500) uIu/ml Free T4 1.34 (0.61-1.60) ng/dl Urine Color Dark Yellow Urine Appearance Clear (Clear) Urine pH 6.0 (4.5-7.5) Ur Specific [place] 1.013 (1.000-1.030) Urine Protein Negative (Negative) Urine Glucose (UA) Negative (Negative) Urine Ketones Negative (Negative) Urine Blood Negative (Negative) Urine Nitrite Positive A (Negative) Urine Bilirubin 2+ H (Negative) Urine Urobilinogen Negative (Negative) Ur Leukocyte Esterase Trace H (Negative) Urine WBC (Auto) 0-5 (0-5) /hpf Urine RBC (Auto) 0-2 (0-2) /hpf U Hyaline Cast (Auto) 0-2 (0-2) /lpf U Epithel Cells (Auto) 0-2 (0-2) /hpf Urine Bacteria (Auto) None Seen (None Seen) Urine Comment Administered Medications Discontinued Medications Magnesium Sulfate/Dextrose (Magnesium Sulfate / D5w) 1 gm in 100 mls @ 200 mls/hr IV Q30M ALISIA Stop: 11/23/24 11:59 Last Infusion: 11/23/24 12:30 Dose: Infused Documented By: Admin: 11/23/24 11:47 Dose: 200 mls/hr Documented By: Infusion: 11/23/24 11:47 Dose: Infused Documented By: Admin: 11/23/24 11:19 Dose: 200 mls/hr Documented By: HILARY Metoprolol Tartrate (Metoprolol Tartrate 1 Mg/Ml Vial) 5 mg IV NOW STA Stop: 11/23/24 10:09 Last Admin: 11/23/24 10:47 Dose: Not Given Documented By: ANDRE Metoprolol Tartrate (Metoprolol Tartrate 1 Mg/Ml Vial) 2.5 mg IV NOW STA Stop: 11/23/24 11:14 Last Admin: 11/23/24 11:19 Dose: 2.5 mg Documented By: HILARY Metoprolol Tartrate (Metoprolol Tartrate 1 Mg/Ml Vial) 2.5 mg IV NOW STA Stop: 11/23/24 11:34 Last Admin: 11/23/24 11:48 Dose: 2.5 mg Documented By: HILARY Imaging Data Radiologist's Impression: Humerus X-Ray 11/23/24 10:04 LEFT HUMERUS 2 VIEWS CLINICAL HISTORY: Left arm pain. FINDINGS: AP and lateral views of the left humerus are obtained. No prior studies are available for comparison at the time of dictation. The skeletal structures are osteopenic. There is no radiographic evidence of left humeral fracture. The shoulder and elbow joints are grossly maintained. The overlying soft tissues are within normal limits. IMPRESSION: No acute bony abnormality is identified. Electronically signed by: Eris Russell M.D. 11/23/2024 11:22 AM Knee X-Ray 11/23/24 10:04 RIGHT KNEE 2 VIEWS CLINICAL HISTORY: Right knee pain. FINDINGS: AP and crosstable lateral views of the right knee are obtained. No prior studies are available for comparison at the time of dictation. The skeletal structures are osteopenic. No fracture is seen. There is minimal degenerative joint space narrowing, which is greatest at the patellofemoral articulation. A calcified fabella is incidentally noted. There is a joint effusion. Soft tissue swelling is seen around the knee. IMPRESSION: Soft tissue swelling and joint effusion with no acute bony abnormality identified. Electronically signed by: Eris Russell M.D. 11/23/2024 11:11 AM Knee X-Ray 11/23/24 10:04 LEFT KNEE 2 VIEWS CLINICAL HISTORY: Left knee pain. FINDINGS: AP and crosstable lateral views of the left knee are compared to study dated 07/03/2016. The skeletal structures are osteopenic. No fracture is seen. There is mild tricompartmental degenerative joint space narrowing, greatest at the patellofemoral articulation. Chondrocalcinosis is seen within the medial and lateral compartments. A calcified fabella is incidentally noted. There is a joint effusion. Soft tissue swelling is seen around the knee. An approximately 4.5 cm osteochondroma is again seen arising from the posteromedial aspect of the distal femoral metadiaphysis. IMPRESSION: 1. Soft tissue swelling and joint effusion with no acute bony abnormality identified. 2. An osteochondroma of the distal femur has not appreciably changed dating back to 2016. Electronically signed by: Eris Russell M.D. 11/23/2024 11:21 AM Chest X-Ray 11/23/24 10:05 SINGLE VIEW CHEST CLINICAL HISTORY: Generalized weakness. Lower extremity edema FINDINGS: An AP, portable, upright chest radiograph is compared to study dated 11/05/2024 and correlated with chest CT dated 11/06/2024. The the heart is enlarged noting atherosclerotic calcification of the thoracic. There is pulmonary vascular congestion with interstitial edema. There are small pleural effusions with dependent consolidation. No pneumothorax is seen. The structures are osteopenic. The bony thorax is grossly intact. Degenerative change is noted in the shoulders. IMPRESSION: 1. Cardiomegaly with evidence of congestive failure and pulmonary edema. 2. When correlated with the recent chest CT, some of the enlarged cardiac silhouette is likely related to a pericardial effusion. 3. Layering pleural effusions with dependent consolidation. ACT 112: Negative or not required by law. Electronically signed by: Eris Russell M.D. 11/23/2024 11:13 AM Discharge Plan Visit Data Chief Complaint: Leg Weakness, Bilateral Stated Complaint: KNEES GIVING OUT,L SHOULDER PAINFUL ED Provider: Oliverio Vazquez Discharge Problem: Atrial fibrillation with rapid ventricular response, Acute exacerbation of CHF (congestive heart failure), Arm and leg pain, Hypomagnesemia Patient Disposition: Being Evaluated by Hospitalist Condition: Serious Discharge Instructions Interventions: ED Discharge Assessment Last Done: 11/23/24 13:56
[2024-11-23 10:47] LABS: Hematocrit (blood only) 34.6 % (42.0-52.0); Hemoglobin 12.4 g/dl (14.0-18.0); Immature Granulocytes # (auto) 0.05 K/uL (0.01-0.20); Immature Granulocytes % (auto) 0.6 %; Mean Corpuscular Hemoglobin 33.6 pg (25.0-34.0); Mean Corpuscular Volume 93.8 fL (80.0-100.0); Platelet Count 128 K/uL (130-400); RDW Standard Deviation 53.4 fL (36.4-46.3); Red Blood Count 3.69 M/uL (4.70-6.10); White Blood Count 8.85 K/ul (4.8-10.8)
[2024-11-23] MEDS: METOPROLOL TARTRATE 1 MG/ML VIAL IV STA ×3 (10:47→11:48)
[2024-11-23 10:59] LABS: Alanine Aminotransferase 74 U/L (7-52); Albumin Globulin Ratio 0.5 (0.9-2); Alkaline Phosphatase 352 U/L (34-104); Anion Gap 6 (3-11); Bilirubin,Total 10.8 mg/dl (0.2-1.0); Blood Urea Nitrogen 25 mg/dl (6-23); Calcium 8.2 mg/dl (8.6-10.3); Carbon Dioxide 25 mmol/L (21-32); Chloride 99 mmol/L (98-107); Globulin 4.5 gm/dl (2.5-4.0); Glucose 209 mg/dl (70-99(Fasting)); Magnesium 1.5 mg/dl (1.7-2.4); Potassium 4.2 mmol/L (3.5-5.1); Sodium 130 mmol/L (136-145); Total Protein 6.8 gm/dl (6.0-8.3)
[2024-11-23 11:11] LABS: INR 1.6 (0.9-1.1); Prothrombin Time 16.8 Seconds (9.0-12.0)
[2024-11-23 11:13] LABS: Thyroid Stimulating Hormone 4.725 uIu/ml (0.300-4.500)
--- NOTE | 2024-11-23 11:13 | XRay Report ---
RIGHT KNEE 2 VIEWS CLINICAL HISTORY: Right knee pain. FINDINGS: AP and crosstable lateral views of the right knee are obtained. No prior studies are availa ble for comparison at the time of dictation. The skeletal structures are osteopenic. No fracture is s een. There is minimal degenerative joint space narrowing, which is greatest at the patellofemoral art iculation. A calcified fabella is incidentally noted. There is a joint effusion. Soft tissue swelling is seen around the knee. IMPRESSION: Soft tissue swelling and joint effusion with no acute bony abnormality identified. Electronically signed by: Eris Russell M.D. 11/23/2024 11:11 AM
--- NOTE | 2024-11-23 11:14 | XRay Report ---
SINGLE VIEW CHEST CLINICAL HISTORY: Generalized weakness. Lower extremity edema FINDINGS: An AP, portable, upright chest radiograph is compared to study dated 11/05/2024 and correlat ed with chest CT dated 11/06/2024. The the heart is enlarged noting atherosclerotic calcification of th e thoracic. There is pulmonary vascular congestion with interstitial edema. There are small pleural e ffusions with dependent consolidation. No pneumothorax is seen. The structures are osteopenic. The shay ny thorax is grossly intact. Degenerative change is noted in the shoulders. IMPRESSION: 1. Cardiomegaly with evidence of congestive failure and pulmonary edema. 2. When correlated with the recent chest CT, some of the enlarged cardiac silhouette is likely relate d to a pericardial effusion. 3. Layering pleural effusions with dependent consolidation. ACT 112: Negative or not required by law. Electronically signed by: Eris Russell M.D. 11/23/2024 11:13 AM
[2024-11-23] MEDS: MAGNESIUM SULFATE / D5W 1 GM/100 ML BAG IV SCH (11:19)
--- NOTE | 2024-11-23 11:23 | XRay Report ---
LEFT KNEE 2 VIEWS CLINICAL HISTORY: Left knee pain. FINDINGS: AP and crosstable lateral views of the left knee are compared to study dated 07/03/2016. The skeletal structures are osteopenic. No fracture is seen. There is mild tricompartmental degenerative joint space narrowing, greatest at the patellofemoral articulation. Chondrocalcinosis is seen within the medial and lateral compartments. A calcified fabella is incidentally noted. There is a joint eff usion. Soft tissue swelling is seen around the knee. An approximately 4.5 cm osteochondroma is again seen arising from the posteromedial aspect of the distal femoral metadiaphysis. IMPRESSION: 1. Soft tissue swelling and joint effusion with no acute bony abnormality identified. 2. An osteochondroma of the distal femur has not appreciably changed dating back to 2016. Electronically signed by: Eris Russell M.D. 11/23/2024 11:21 AM
--- NOTE | 2024-11-23 11:23 | XRay Report ---
LEFT HUMERUS 2 VIEWS CLINICAL HISTORY: Left arm pain. FINDINGS: AP and lateral views of the left humerus are obtained. No prior studies are available for c omparison at the time of dictation. The skeletal structures are osteopenic. There is no radiographic evidence of left humeral fracture. The shoulder and elbow joints are grossly maintained. The overlyin g soft tissues are within normal limits. IMPRESSION: No acute bony abnormality is identified. Electronically signed by: Eris Russell M.D. 11/23/2024 11:22 AM
[2024-11-23 13:25] LABS: Appearance Urine Clear (Clear); Bacteria Urine Automated None Seen (None Seen); Cast Urine Automated 0-2 /lpf (0-2); Epithelial Cell Urine Auto 0-2 /hpf (0-2); Glucose Urine UA Negative (Negative); RBC Urine Automated 0-2 /hpf (0-2); WBC Urine Automated 0-5 /hpf (0-5)
--- NOTE | 2024-11-23 15:08 | Electrocardiogram Report ---
Test Reason : Blood Pressure : */* mmHG Vent. Rate : 125 BPM Atrial Rate : 277 BPM P-R Int : * ms QRS Dur : 78 ms QT Int : 270 ms P-R-T Axes : * -15 -42 degrees QTcB Int : 389 ms Atrial flutter with variable A-V block Poor R wave progression, consider anterior CT vs. lead placement vs. LVH Abnormal ECG When compared with ECG of 08-Nov-2024 08:45, Atrial flutter has replaced Sinus rhythm Vent. rate has increased by 58 bpm Minimal criteria for Anterior infarct are now Present Confirmed by Aron Beth ([id number]) on 11/23/2024 3:08:03 PM Referred By: REFERRED SELF Confirmed By: Aron Beth
[2024-11-23] MEDS ORDERED: GLUCOSE 10 TAB/TUBE PO PRN (15:11)
[2024-11-23] MEDS ORDERED: DEXTROSE 50% 50 ML SYRINGE IV PRN (15:11)
[2024-11-23] MEDS ORDERED: GLUCAGON FOR INJ 1 MG VIAL SQ PRN (15:11)
[2024-11-23] MEDS ORDERED: GLUCOSE 40% GEL 15 GM TUBE PO PRN (15:11)
[2024-11-23] MEDS ORDERED: CARBOHYDRATES FOR HYPOGLYCEMIA PO PRN (15:11)
[2024-11-23] MEDS: BUMETANIDE 1 MG in SYRINGE 0 ML IV ONE (15:39)
[2024-11-23] MEDS: ACETAMINOPHEN 325 MG TAB PO PRN (16:21)
--- NOTE | 2024-11-23 16:38 | History & Physical Report ---
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 Replete Knee x-rays are negative #Rapid atrial fibrillation Patient was recently switched from propranolol to carvedilol to control heart rate On carvedilol, he is currently in rapid rate Added IV metoprolol every 6 as needed Continue carvedilol Heart rate improving Replete magnesium Continue Eliquis #CHF exacerbation/hypoxia Patient presented with bilateral lower extremity edema BNP elevated Chest x-ray shows pulmonary edema Possibly induced by rapid A-fib Recently patient was not compliant with a low-salt diet that could have played a role Start a low-salt diet Diuresis with 1 mg IV Bumex for now. Hopefully blood pressure will tolerate. Patient recently had HFrEF with EF of 35% which was thought to be related to rapid A-fib. Patient tells me that he had another echocardiogram which Dr. Vegas reviewed and the patient was informed that his EF improved to 60%. I am not able to review the echocardiogram report Consult [facility] cardiology #Cirrhosis Not encephalopathic. Does not take lactulose on a regular basis. Will hold off on starting lactulose LFTs seem to be at baseline. Hypervolemic. Diurese. 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 He even had an appointment with Dr. Vegas, his 3d animator who did an echocardiogram and told him that his EF had improved. Yesterday, he noticed some leg cramps that got much worse today. Today he is that his legs were much more swollen than usual and thus he presented to the emergency room. In the ER he was noted to be in rapid atrial fibrillation. Heart rate was initially in the 140s range. He was given IV metoprolol with improvement in his heart rate to the 100s range. His blood pressure was soft and thus diuretic was not given in the emergency room. Initial screening tests showed fairly stable CBC, stable BMP with creatinine of 0.85 and sodium of 130 which is at baseline, magnesium of 1.5, LFTs elevated at baseline. His BNP was elevated at 297. His chest x-ray showed findings consistent with pulmonary edema. Allergies Allergy/AdvReac Type Severity Reaction Status Date / Time penicillin G Allergy Unknown Childhood Unverified 11/05/24 09:54 allergy penicillin V Allergy Unknown Childhood Unverified 11/05/24 09:54 allergy Home Medications Medication Instructions Recorded Confirmed Type multivitamin 1 tab PO QAM 03/28/18 11/23/24 History glipizide 5 mg tablet See Rx Instructions .Route .COMPLEX 01/15/22 11/23/24 History cholecalciferol (vitamin D3) 50 100 mcg PO QAM 12/14/22 11/23/24 History mcg (2,000 unit) capsule (Vitamin D3) ascorbic acid (vitamin C) 250 mg 250 mg PO QAM 03/04/23 11/23/24 History tablet (Vitamin C) fluticasone propionate 50 1 spray intranasal DAILY 11/05/24 11/23/24 History mcg/actuation nasal spray,suspension glucosamine sulf dipot 1 cap PO DAILY 11/05/24 11/23/24 History chlr,msm,chond 550 mg-C 30 mg-lauren 1 mg capsule (Glucosamine Chondroitin) hydroxyzine HCl 10 mg tablet 10 mg PO TID PRN Itching 11/05/24 11/23/24 History milk thistle 150 mg capsule 150 mg PO QAM 11/05/24 11/23/24 History apixaban 5 mg tablet (Eliquis) 5 mg PO BID #60 tabs 11/08/24 11/23/24 Rx bumetanide 1 mg tablet 1 mg PO BID #60 tabs 11/09/24 11/23/24 Rx carvedilol 3.125 mg tablet 3.125 mg PO BIDM #60 tabs 11/09/24 11/23/24 Rx lactulose 10 gram/15 mL oral 30 g (45 mL) PO DAILY 30 days 11/09/24 11/23/24 Rx solution #1,350 mL magnesium chloride 64 mg 64 mg PO QAM #30 tabs 11/09/24 11/23/24 Rx (magnesium chloride) tablet,delayed release (Mag 64) spironolactone 50 mg tablet 50 mg PO DAILY #30 tabs 11/09/24 11/23/24 Rx Past Med/Surg History Problem List (Updated 11/23/24 @ 11:28 by Oliverio Vazquez M.D.) Hypomagnesemia (Acute) Arm and leg pain (Acute) Acute exacerbation of CHF (congestive heart failure) (Acute) Atrial fibrillation with rapid ventricular response (Acute) Jaundice (Acute) Atrial fibrillation with rapid ventricular response (Acute) Pericardial effusion Acute respiratory failure with hypoxia (HFpEF) heart failure with preserved ejection fraction Hypokalemia History of colon polyps Colon cancer screening Dog bite of right arm (Acute) Osteoarthritis of carpometacarpal joint of right thumb Osteoarthritis of right wrist Esophageal varices Diabetes mellitus, type 2 NIDDM Encounter for pre-operative examination Non-alcoholic cirrhosis Aortic valve sclerosis Atrial fibrillation hx ~2019. no current issues. follows with Dr Vegas Bradycardia Anemia Lyme disease hx ~2019. no current issues. Pre-diabetes Hypertension Epigastric pain (Acute) Ascites (Acute) hx - is unsure. Cirrhosis (Acute) Encounter for pre-operative examination Elevated blood pressure reading (Acute) Dog bite of left hand (Acute) Medical History Ascites pt denies current issues HTN (hypertension) Hx of Lyme disease hx ~2019. no current issues. History of anemia Aortic valve sclerosis Atrial fibrillation hx ~2019. no current issues. 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 History of right cataract extraction History of esophagogastroduodenoscopy (EGD) History of colonoscopy History of tooth extraction Family History Other No family history of adverse response to anesthesia No significant family history Social History Smoking Status: Never smoker Second Hand Exposure: Yes (mom smoked/father smoked a pipe); Do You Dip or Chew Tobacco: No; Hx Alcohol Use: No Hx Substance Use: No Preferred Language: Nam[place]ian Communication Ability: Effective Glue Sprayer Required: No Beliefs That Will Affect Care: None Current Living Situation: Spouse Current Living Situation Comment: 2 story house Feels Safe at Home: Yes Safety Concerns: Feels Safe At This Time Assistive Devices: None Review of Systems Review of Systems: All systems reviewed & are unremarkable except as noted in Subjective Physical Exam Physical Exam: General appearance: Awake, conversant, able to answer questions appropriately. AOx3. Appears visibly jaundiced. Per , this is his baseline. Pupils: Equally reactive to light and accommodation Neck: No masses, no thyromegaly Respiration: Bibasilar crackles. Normal effort Cardiovascular: S1-S2/regular rate and rhythm. No murmur, rubs or gallop. 2+ bilateral pedal edema. Abdomen: Soft, nontender. Distended with some fluid thrill. Positive bowel sounds. Musculoskeletal: No clubbing, no cyanosis, normal range of motion Skin: No rashes, no nodules Neuro exam: Cranial nerves intact, sensation grossly intact Psychiatric: Patient has good judgment and insight. AOx3. Mood and affect appear normal Lymphatics: No cervical or axillary lymphadenopathy noted Results & Data Results & Data Vital Signs (Past 12 Hours) Vital Signs Temp Pulse Pulse Resp BP BP Pulse Ox 11/23/24 15:18 11/23/24 14:40 36.8 C 102 H 18 93/63 L 94 07/18/25 14:23 117 H 11/23/24 13:30 120 H 16 119/72 95 11/23/24 13:00 126 H 18 108/73 96 11/23/24 12:30 109 H 22 113/72 95 11/23/24 12:09 111 H 18 95 11/23/24 12:02 105 H 94/49 L 11/23/24 11:48 114 H 102/57 L 11/23/24 11:41 123 H 108/67 11/23/24 11:28 89 L 11/23/24 11:27 112 H 21 99/64 L 95 11/23/24 11:19 118 H 103/95 11/23/24 11:09 136 H 30 H 103/65 90 11/23/24 10:08 123 H 11/23/24 09:37 37 C 118 H 18 109/57 L 94 O2 Del Method O2 Flow Rate 11/23/24 15:18 Nasal Cannula 3 11/23/24 14:40 Nasal Cannula 3 11/23/24 14:23 11/23/24 13:30 Nasal Cannula 2 11/23/24 13:00 Nasal Cannula 2 11/23/24 12:30 Nasal Cannula 2 11/23/24 12:09 Nasal Cannula 2 11/23/24 12:02 11/23/24 11:48 11/23/24 11:41 11/23/24 11:28 Room Air 11/23/24 11:27 Nasal Cannula 2 11/23/24 11:19 11/23/24 11:09 Room Air 11/23/24 10:08 11/23/24 09:37 Room Air Laboratory Results Abnormal lab results 11/23/24 11/23/24 Range/Units 10:20 12:07 RBC 3.69 L (4.70-6.10) M/uL Hgb 12.4 L (14.0-18.0) g/dl Hct 34.6 L (42.0-52.0) % RDW Std Deviation 53.4 H (36.4-46.3) fL RDW Coeff of Janice 15.5 H (11.5-14.5) % Plt Count 128 L (130-400) K/uL Neut # (Auto) 7.53 H (1.40-6.50) K/uL Lymph # (Auto) 0.38 L (1.20-3.40) K/uL [place] # (Auto) 0.79 H (0.11-0.59) K/uL PT 16.8 H (9.0-12.0) Seconds INR 1.6 H (0.9-1.1) Sodium 130 L (136-145) mmol/L BUN 25 H (6-23) mg/dl BUN/Creatinine Ratio 29.4 H (10-20) Glucose 209 H (70-99(Fasting)) mg/dl Calcium 8.2 L (8.6-10.3) mg/dl Magnesium 1.5 L (1.7-2.4) mg/dl Total Bilirubin 10.8 H (0.2-1.0) mg/dl AST 98 H (13-39) U/L ALT 74 H (7-52) U/L Alkaline Phosphatase 352 H (34-104) U/L B-Natriuretic Peptide 297 H (0-100) pg/ml Albumin 2.3 L (3.4-5.0) gm/dl Globulin 4.5 H (2.5-4.0) gm/dl Albumin/Globulin Ratio 0.5 L (0.9-2) TSH 4.725 H (0.300-4.500) uIu/ml Urine Nitrite Positive A (Negative) Urine Bilirubin 2+ H (Negative) Ur Leukocyte Esterase Trace H (Negative) Diagnostic Findings Humerus X-Ray 11/23/24 10:04 LEFT HUMERUS 2 VIEWS CLINICAL HISTORY: Left arm pain. FINDINGS: AP and lateral views of the left humerus are obtained. No prior studies are available for comparison at the time of dictation. The skeletal structures are osteopenic. There is no radiographic evidence of left humeral fracture. The shoulder and elbow joints are grossly maintained. The overlying soft tissues are within normal limits. IMPRESSION: No acute bony abnormality is identified. Electronically signed by: Eris Russell M.D. 11/23/2024 11:22 AM Knee X-Ray 11/23/24 10:04 RIGHT KNEE 2 VIEWS CLINICAL HISTORY: Right knee pain. FINDINGS: AP and crosstable lateral views of the right knee are obtained. No prior studies are available for comparison at the time of dictation. The skeletal structures are osteopenic. No fracture is seen. There is minimal degenerative joint space narrowing, which is greatest at the patellofemoral articulation. A calcified fabella is incidentally noted. There is a joint effusion. Soft tissue swelling is seen around the knee. IMPRESSION: Soft tissue swelling and joint effusion with no acute bony abnormality identified. Electronically signed by: Eris Russell M.D. 11/23/2024 11:11 AM Knee X-Ray 11/23/24 10:04 LEFT KNEE 2 VIEWS CLINICAL HISTORY: Left knee pain. FINDINGS: AP and crosstable lateral views of the left knee are compared to study dated 07/03/2016. The skeletal structures are osteopenic. No fracture is seen. There is mild tricompartmental degenerative joint space narrowing, greatest at the patellofemoral articulation. Chondrocalcinosis is seen within the medial and lateral compartments. A calcified fabella is incidentally noted. There is a joint effusion. Soft tissue swelling is seen around the knee. An approximately 4.5 cm osteochondroma is again seen arising from the posteromedial aspect of the distal femoral metadiaphysis. IMPRESSION: 1. Soft tissue swelling and joint effusion with no acute bony abnormality identified. 2. An osteochondroma of the distal femur has not appreciably changed dating back to 2016. Electronically signed by: Eris Russell M.D. 11/23/2024 11:21 AM Chest X-Ray 11/23/24 10:05 SINGLE VIEW CHEST CLINICAL HISTORY: Generalized weakness. Lower extremity edema FINDINGS: An AP, portable, upright chest radiograph is compared to study dated 11/05/2024 and correlated with chest CT dated 11/06/2024. The the heart is enlarged noting atherosclerotic calcification of the thoracic. There is pulmonary vascular congestion with interstitial edema. There are small pleural effusions with dependent consolidation. No pneumothorax is seen. The structures are osteopenic. The bony thorax is grossly intact. Degenerative change is noted in the shoulders. IMPRESSION: 1. Cardiomegaly with evidence of congestive failure and pulmonary edema. 2. When correlated with the recent chest CT, some of the enlarged cardiac silhouette is likely related to a pericardial effusion. 3. Layering pleural effusions with dependent consolidation. ACT 112: Negative or not required by law. Electronically signed by: Eris Russell M.D. 11/23/2024 11:13 AM Code Status & VTE Plan VTE Prophylaxis Plan VTE Prophylaxis will be ordered: Yes Reason for no VTE drug order: Treatment not indicated PG Care Time/CCT Total # of Minutes Spent Total Time Spent with Patient: Total time spent is greater than 50% in coordination of care (as documented) at patient's floor/unit and/or counseling patient: Coding Level of Care Code 48723 INT INP/OBS CARE 2/55MIN Diagnoses Hypomagnesemia E83.42 Acute exacerbation of CHF (congestive heart failure) I50.9 Atrial fibrillation with rapid ventricular response I48.91 Acute respiratory failure with hypoxia J96.01 (HFpEF) heart failure with preserved ejection fraction I50.30 Other cirrhosis of liver K74.60; R18.8 Hepatic cirrhosis type: unspecified hepatic cirrhosis Ascites presence: with ascites Diabetes mellitus, type 2 E11.9 (6) Cirrhosis Hepatic cirrhosis type: unspecified hepatic cirrhosis Ascites presence: with ascites Qualified Code(s): K74.60 - Unspecified cirrhosis of liver; R18.8 - Other ascites
[2024-11-23] MEDS: INSULIN ASPART PER UNIT CHARGE SC SCH (16:40)
[2024-11-23] MEDS: APIXABAN 5 MG TABLET PO SCH (20:55)
[2024-11-23] MEDS: MAGNESIUM OXIDE 400 MG TAB PO SCH (20:55)
[2024-11-23] MEDS: MELATONIN 3 MG TAB PO PRN (20:56)
[2024-11-24 06:38] LABS: Hematocrit (blood only) 33.7 % (42.0-52.0); Hemoglobin 12.0 g/dl (14.0-18.0); Mean Corpuscular Hemoglobin 33.3 pg (25.0-34.0); Mean Corpuscular Volume 93.6 fL (80.0-100.0); Platelet Count 141 K/uL (130-400); RDW Standard Deviation 53.2 fL (36.4-46.3); Red Blood Count 3.60 M/uL (4.70-6.10); White Blood Count 8.47 K/ul (4.8-10.8)
[2024-11-24 06:56] LABS: Anion Gap 5.0 (3-11); Blood Urea Nitrogen 29.0 mg/dl (6-23); Calcium 7.6 mg/dl (8.6-10.3); Carbon Dioxide 27.0 mmol/L (21-32); Chloride 102.0 mmol/L (98-107); Creatinine Clr Calc Pharmacy 99.9 ml/min; Glucose 80.0 mg/dl (70-99(Fasting)); Potassium 3.9 mmol/L (3.5-5.1); Sodium 134.0 mmol/L (136-145)
[2024-11-24] MEDS: BUMETANIDE 1 MG TAB PO SCH (07:53)
[2024-11-24] MEDS ORDERED: LACTULOSE SYRUP 10 GM/15 ML BTL 960 ML PO SCH (09:00)
--- NOTE | 2024-11-24 11:19 | Hospitalist Progress Note ---
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 Repleted. Recheck in a.m. Knee x-rays are negative Improved clinically #Rapid atrial fibrillation Patient was recently switched from propranolol to carvedilol to control heart rate On carvedilol, he is currently in rapid rate Added IV metoprolol every 6 as needed Increase the dose of carvedilol to 6.25 mg twice daily Heart rate improving Replete magnesium Continue Eliquis [facility] cardiology consulted, awaiting recommendations #CHF exacerbation/hypoxia Patient presented with bilateral lower extremity edema BNP elevated Chest x-ray showed pulmonary edema Possibly induced by rapid A-fib Recently patient was not compliant with a low-salt diet that could have played a role Continue low-salt diet Patient was diuresed with 1 dose of IV Bumex yesterday Improved. Breathing well. Leg swelling down. Switch to p.o. Bumex 1 mg p.o. twice daily home dose. Patient recently had HFrEF with EF of 35% which was thought to be related to rapid A-fib. Patient tells me that he had another echocardiogram which Dr. Vegas reviewed and the patient was informed that his EF improved to 60%. I am not able to review the echocardiogram report Consult [facility] cardiology #Cirrhosis Not encephalopathic. Does not take lactulose on a regular basis. Will hold off on starting lactulose LFTs seem to be at baseline. Hypervolemic. Diurese. Hold spironolactone for now to give room for diuretics and rate controlling medications but eventually will discharge on Lasix or Bumex and spironolactone #Qhb-fadyqid-glbhphrrn diabetes mellitus type 2 Hold glipizide Continue sliding scale insulin Carb controlled diet DVT prophylaxis: SCDs and Eliquis Full code Admission and Anticipated Discharge Date Admission Date: November 23, 2024 Subjective Patient says that he feels much better overall. The leg cramps have resolved. His leg swelling has improved. Per nurse, his heart rate is still running from 100-120s. Review of Systems Review of Systems: All systems reviewed & are unremarkable except as noted in Subjective Physical Exam Physical Exam: General: Awake, conversant. Sitting on his chair with legs hanging down. Heart: S1, S2/irregular rhythm slightly fast rate, no murmur rubs or gallops Lungs: Clear to auscultation bilaterally. Normal effort Abdomen: Soft/nontender. Slightly distended abdomen with fluid thrill. Inverted umbilicus. Positive bowel sounds. Extremities: No clubbing/cyanosis. 1-2+ pitting bilateral edema Behavior: Appropriate, cooperative Results & Data Results & Data Vital Signs (Past 12 Hours) Vital Signs Temp Pulse Resp BP Pulse Ox Pulse Ox O2 Del Method 11/24/24 09:36 Room Air 11/24/24 08:18 36.6 C 106 H 18 105/58 L 90 Room Air 11/24/24 08:00 90 11/24/24 07:51 85/52 L 11/24/24 03:00 36.8 C 110 H 18 99/57 L 92 Room Air 11/24/24 00:00 92 11/24/24 00:00 36.6 C 94 H 18 103/65 92 Room Air O2 Del Method 11/24/24 09:36 11/24/24 08:18 11/24/24 08:00 Room Air 11/24/24 07:51 11/24/24 03:00 11/24/24 00:00 Room Air 11/24/24 00:00 Laboratory Results Abnormal lab results 11/23/24 11/23/24 11/23/24 Range/Units 12:07 16:28 20:46 RBC (4.70-6.10) M/uL Hgb (14.0-18.0) g/dl Hct (42.0-52.0) % RDW Std Deviation (36.4-46.3) fL RDW Coeff of Janice (11.5-14.5) % Sodium (136-145) mmol/L BUN (6-23) mg/dl BUN/Creatinine Ratio (10-20) POC Glucose 177 H 141 H (70-99) mg/dl Calcium (8.6-10.3) mg/dl Urine Nitrite Positive A (Negative) Urine Bilirubin 2+ H (Negative) Ur Leukocyte Esterase Trace H (Negative) 11/24/24 Range/Units 06:02 RBC 3.60 L (4.70-6.10) M/uL Hgb 12.0 L (14.0-18.0) g/dl Hct 33.7 L (42.0-52.0) % RDW Std Deviation 53.2 H (36.4-46.3) fL RDW Coeff of Janice 15.4 H (11.5-14.5) % Sodium 134 L (136-145) mmol/L BUN 29 H (6-23) mg/dl BUN/Creatinine Ratio 34.9 H (10-20) POC Glucose (70-99) mg/dl Calcium 7.6 L (8.6-10.3) mg/dl Urine Nitrite (Negative) Urine Bilirubin (Negative) Ur Leukocyte Esterase (Negative) PG Care Time/CCT Total # of Minutes Spent Total Time Spent with Patient: Total time spent is greater than 50% in coordination of care (as documented) at patient's floor/unit and/or counseling patient: Coding Level of Care Code 05851 SUB INP/OBS CARE 2/35MIN Diagnoses Hypomagnesemia E83.42 Acute exacerbation of CHF (congestive heart failure) I50.9 Atrial fibrillation with rapid ventricular response I48.91 Acute respiratory failure with hypoxia J96.01 (HFpEF) heart failure with preserved ejection fraction I50.30 Other cirrhosis of liver K74.60; R18.8 Hepatic cirrhosis type: unspecified hepatic cirrhosis Ascites presence: with ascites Diabetes mellitus, type 2 E11.9 (6) Cirrhosis Hepatic cirrhosis type: unspecified hepatic cirrhosis Ascites presence: with ascites Qualified Code(s): K74.60 - Unspecified cirrhosis of liver; R18.8 - Other ascites
[2024-11-24] MEDS: METOPROLOL TARTRATE 1 MG/ML VIAL IV PRN (11:25)
--- NOTE | 2024-11-24 13:03 | Cardiology Consultation ---
Date of Consultation November 24, 2024 Assessment & Plan (1) Atrial fibrillation with rapid ventricular response: (2) Acute exacerbation of CHF (congestive heart failure): (3) Nonischemic cardiomyopathy: Plan 1. Atrial fibrillation: Based on his history (he does not feel atrial f ibrillation but does monitor his heart rate) it is likely that he maintain sinus rhythm about 2 weeks before reverting back to atrial fibrillation. This was without antiarrhythmic medications. I cannot be certain but I think he does not tolerate atrial fibrillation very well, his ejection fraction appeared to suffer during his last hospitalization and I would not be surprised if his arrhythmia i s poorly tolerated even with proper rate control. Even so I would like to get better rate control, and we can consider cardioversion next week. We may want to do that with an antiarrhythmic agent, although his liver problems may make that problematic. Weekend I am going to add digoxin to his regimen since that will slow his heart rate without causing hypotension and I agree with going up on the beta-anant. 2. CHF: He does not appear to be grossly fluid overloaded although he does have peripheral edema. His peripheral edema may not be closely correlated with left heart failure, his right ventricle was enlarged by echocardiography and I suspect he has elevated right-sided pressures, additionally he has a low serum albumin which will tend to exacerbate edema. I think external pressure (such as the machine that he apparently ordered) may be beneficial, I agree with diuresis although he may become prerenal without eliminating all of the edema. His weight interestingly enough is not up this admission, although perhaps it is incorrect. I did discuss fluid intake with him and he does not appear to drink excessive fluid but I am going to put him on a fluid restriction here even t khoa I do not think he is drinking a lot. I did discuss intake versus output fluid and he feels that he is not urinating as much leading up to this admission that he did in the past when he was on Lasix but I am not changing his diuretic at the moment. 3. Cardiomyopathy: On his last admission he appeared to have a cardiomyopathy which resolved with correction of his atrial fibrillation, that may have been an artifact of the arrhythmia or perhaps he does not tolerate atrial fibrillation. We can see with rate control if that is the case, if we can achieve rate control and if he feels well that might be preferable to trying to maintain sinus rhythm with antiarrhythmic therapy. Development of a cardiomyopathy is certainly an indication to maintain sinus rhythm, even if he does not have symptoms. History of Present Illness Reason for Consultation: Atrial fibrillation with rapid response, CHF Attending Physician: Elke Huang MD History of Present Illness This is a 69-year-old male was follows with [facility] and has a background of cryptogenic cirrhosis with portal hypertension and esophageal varices, diabetes mellitus, pancytopenia and was recently hospitalized with heart failure and atrial fibrillation and discharged on November 09, 2024. He presented to emergency room November 23, 2024 in atrial fibrillation and with an exacerbation of congestive heart failure. He has a background history of hypertension, aortic sclerosis as well as atrial fibrillation. His left ventricular ejection fraction in November 2018 was normal, however on November 05, 2024 his ejection fraction was reported as 35 to 40% but he was in atrial fibrillation. His right ventricular systolic function was also moderately reduced and he did not have significant valvular disease. He did have a circumferential pericardial effusion without tamponade at that time. He underwent KAHLIL guided cardioversion on November 08, 2024, his ejection fraction was felt to be 40 to 45% at that time and a limited echocardiogram done following cardioversion suggest an improvement in his ejection fraction to 55 to 60%. His electrocardiogram on that presentation showed atrial fibrillation with a heart rate of about 140 bpm. He was discharged on November 09, 2024 with Eliquis 5 mg twice a day, carvedilol 3.125 mg twice daily, spironolactone 50 mg daily and some other noncardiac medications. This represents an increase in his spironolactone and discontinuation of propranolol 20 mg daily. He was on furosemide 40 mg daily as needed on that presentation and this was switched to Bumex 1 mg twice daily during that hospitalization. He feels that the Bumex was not doing as good a job as the furosemide was before. It sounds as though his atrial fibrillation may only have occurred about 24 hours before presenting, he and his recall his heart rate being about 70 until the day before when it went up to about 100. The next day he felt poorly and his heart rate continued to be elevated so he came into the emergency room. Prior to that he had been gradually retaining fluid so it is unlikely it was the atrial fibrillation alone that caused the heart failure. He presented to the emergency room November 23, 2024 having had leg swelling and a chest x-ray did not show significant failure although May showed mild findings. His weights fluctuate somewhat but do not seem to indicate an increase in weight this admission, in fact his weight is little bit lower than when he went home, if correct. His electrocardiogram on presentation this admission showed atrial fibrillation with a rapid heart rate of 125 bpm. Here his beta-anant was increased, Eliquis was continued and he received intravenous diuresis. At the time of my evaluation he is in bed, apparently feeling well being unaware of his cardiac rhythm. He does not seem short of breath, he and his note that his legs have been swollen and they have actually purchased some type of machine that compresses his legs but they have not received it yet so he has not been using it. He does not have other cardiovascular symptoms. Allergies Allergy/AdvReac Type Severity Reaction Status Date / Time penicillin G Allergy Unknown Childhood Unverified 11/05/24 09:54 allergy penicillin V Allergy Unknown Childhood Unverified 11/05/24 09:54 allergy Home Medications Medication Instructions Recorded Confirmed Type multivitamin 1 tab PO QAM 03/28/18 11/23/24 History glipizide 5 mg tablet See Rx Instructions .Route .COMPLEX 01/15/22 11/23/24 History cholecalciferol (vitamin D3) 50 100 mcg PO QAM 12/14/22 11/23/24 History mcg (2,000 unit) capsule (Vitamin D3) ascorbic acid (vitamin C) 250 mg 250 mg PO QAM 03/04/23 11/23/24 History tablet (Vitamin C) fluticasone propionate 50 1 spray intranasal DAILY 11/05/24 11/23/24 History mcg/actuation nasal spray,suspension glucosamine sulf dipot 1 cap PO DAILY 11/05/24 11/23/24 History chlr,msm,chond 550 mg-C 30 mg-lauren 1 mg capsule (Glucosamine Chondroitin) hydroxyzine HCl 10 mg tablet 10 mg PO TID PRN Itching 11/05/24 11/23/24 History milk thistle 150 mg capsule 150 mg PO QAM 11/05/24 11/23/24 History apixaban 5 mg tablet (Eliquis) 5 mg PO BID #60 tabs 11/08/24 11/23/24 Rx bumetanide 1 mg tablet 1 mg PO BID #60 tabs 11/09/24 11/23/24 Rx carvedilol 3.125 mg tablet 3.125 mg PO BIDM #60 tabs 11/09/24 11/23/24 Rx lactulose 10 gram/15 mL oral 30 g (45 mL) PO DAILY 30 days 11/09/24 11/23/24 Rx solution #1,350 mL magnesium chloride 64 mg 64 mg PO QAM #30 tabs 11/09/24 11/23/24 Rx (magnesium chloride) tablet,delayed release (Mag 64) spironolactone 50 mg tablet 50 mg PO DAILY #30 tabs 11/09/24 11/23/24 Rx Patient History Medical History Ascites pt denies current issues HTN (hypertension) Hx of Lyme disease hx ~2019. no current issues. History of anemia Aortic valve sclerosis Atrial fibrillation hx ~2019. no current issues. 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 History of right cataract extraction History of esophagogastroduodenoscopy (EGD) History of colonoscopy History of tooth extraction Family History Other No family history of adverse response to anesthesia No significant family history Social History Smoking Status: Never smoker Second Hand Exposure: Yes (mom smoked/father smoked a pipe); Do You Dip or Chew Tobacco: No; Hx Alcohol Use: No Hx Substance Use: No Preferred Language: Welsh Communication Ability: Effective Animal Feeder Required: No Beliefs That Will Affect Care: None Current Living Situation: Spouse Current Living Situation Comment: 2 story house Feels Safe at Home: Yes Safety Concerns: Feels Safe At This Time Assistive Devices: None Review of Systems Review of Systems: All systems reviewed & are unremarkable except as noted in HPI & below Physical Exam Physical Exam: Constitutional: Alert, cooperative and in no distress. He is supine in bed. HEENT: Unremarkable Neck: No jugular venous distention, carotid pulses are irregular but otherwise normal and equal bilaterally without bruits. Pulmonary: He has expiratory wheezing on the right. Cardiac: Irregular somewhat rapid rhythm with no murmur, gallop or rub. Abdomen: Soft, nontender with normal bowel sounds. Extremities: +2 bilateral pretibial edema. Neurologic: No focal findings. Skin: No rash, ecchymoses or petechiae. Results & Data Vital Signs (Past 12 Hours) Vital Signs Temp Pulse Pulse Resp BP BP Pulse Ox 11/24/24 11:41 103 H 99/60 L 11/24/24 11:37 36.4 C L 116 H 18 101/64 92 11/24/24 11:25 130 H 110/65 11/24/24 11:24 110/65 11/24/24 09:36 11/24/24 08:18 36.6 C 106 H 18 105/58 L 90 11/24/24 08:00 11/24/24 07:51 85/52 L 11/24/24 03:00 36.8 C 110 H 18 99/57 L 92 Pulse Ox O2 Del Method O2 Del Method 11/24/24 11:41 11/24/24 11:37 Room Air 11/24/24 11:25 11/24/24 11:24 11/24/24 09:36 Room Air 11/24/24 08:18 Room Air 11/24/24 08:00 90 Room Air 11/24/24 07:51 11/24/24 03:00 Room Air Laboratory Results CBC 11/24/24 Range/Units 06:02 WBC 8.47 (4.8-10.8) K/ul RBC 3.60 L (4.70-6.10) M/uL Hgb 12.0 L (14.0-18.0) g/dl Hct 33.7 L (42.0-52.0) % Plt Count 141 (130-400) K/uL Comprehensive Metabolic Panel 11/24/24 Range/Units 06:02 Sodium 134 L (136-145) mmol/L Potassium 3.9 (3.5-5.1) mmol/L Chloride 102 (98-107) mmol/L Carbon Dioxide 27 (21-32) mmol/L BUN 29 H (6-23) mg/dl Creatinine 0.83 (0.6-1.4) mg/dl Glucose 80 (70-99(Fasting)) mg/dl Calcium 7.6 L (8.6-10.3) mg/dl Intake and Output 11/23/24 11/24/24 11/24/24 22:59 06:59 14:59 Output Total 420 / 720 300 / 720 Balance -420 / -526.667 -300 / -526.667 Output: Urine 420 / 720 300 / 720 Other: # Unmeasured Voids 1 Weight 96.9 kg Weight Measurement Method Built in [facility] Diagnostic Findings Telemetry: Atrial fibrillation with a heart rate averaging around 100, little manager of change the past 24 hours PG Care Time/CCT Total # of Minutes Spent Total Time Spent with Patient: Total time spent is greater than 50% in coordination of care (as documented) at patient's floor/unit and/or counseling patient: Coding Level of Care Code 15091 INT INP/OBS CARE 3/75MIN Diagnoses Atrial fibrillation with rapid ventricular response I48.91 Acute exacerbation of CHF (congestive heart failure) I50.9 Nonischemic cardiomyopathy I42.8
[2024-11-24] MEDS: DIGOXIN 0.125 MG TAB PO ONE ×2 (15:22→19:49)
[2024-11-25 06:46] LABS: Hematocrit (blood only) 33.5 % (42.0-52.0); Hemoglobin 11.8 g/dl (14.0-18.0); Mean Corpuscular Hemoglobin 33.1 pg (25.0-34.0); Mean Corpuscular Volume 93.8 fL (80.0-100.0); Platelet Count 143 K/uL (130-400); RDW Standard Deviation 52.8 fL (36.4-46.3); Red Blood Count 3.57 M/uL (4.70-6.10); White Blood Count 6.15 K/ul (4.8-10.8)
[2024-11-25 07:23] LABS: Anion Gap 5.0 (3-11); Blood Urea Nitrogen 29.0 mg/dl (6-23); Calcium 7.6 mg/dl (8.6-10.3); Carbon Dioxide 27.0 mmol/L (21-32); Chloride 102.0 mmol/L (98-107); Creatinine Clr Calc Pharmacy 115.8 ml/min; Glucose 131.0 mg/dl (70-99(Fasting)); Magnesium 1.6 mg/dl (1.7-2.4); Potassium 3.9 mmol/L (3.5-5.1); Sodium 134.0 mmol/L (136-145)
[2024-11-25] MEDS: MAGNESIUM SULFATE / D5W 1 GM/100 ML BAG IV SCH (08:03)
--- NOTE | 2024-11-25 12:56 | Hospitalist Progress Note ---
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 Repleted. Magnesium is still low. Replete again. Recheck every morning. Knee x-rays are negative Improved clinically #Rapid atrial fibrillation Patient was recently switched from propranolol to carvedilol to control heart rate On carvedilol, he was in rapid rate Added IV metoprolol every 6 as needed Increased the dose of carvedilol to 6.25 mg twice daily [employer] Operator involved. Ordered a dose of digoxin with improvement in heart rate Dig level 0.5 [employer] Operator to consider daily dosing of digoxin. Awaiting recommendations today. If heart rate not improving, may consider cardioversion next week. Heart rate improving Replete magnesium Continue Eliquis #CHF exacerbation/hypoxia Patient presented with bilateral lower extremity edema BNP elevated Chest x-ray showed pulmonary edema Possibly induced by rapid A-fib Recently patient was not compliant with a low-salt diet that could have played a role Continue low-salt diet Patient was initially diuresed with 1 dose of IV Bumex yesterday, now on p.o. Bumex 1 mg p.o. twice daily Recently, patient had developed cardiomyopathy most likely as a result of rapid rate A-fib. Rate control will be the goal. #Cirrhosis Not encephalopathic. Does not take lactulose on a regular basis. Will hold off on starting lactulose LFTs seem to be at baseline. Slightly hypervolemic. Diurese. Hold spironolactone for now to give room for diuretics and rate controlling medications but eventually will discharge on Lasix or Bumex and spironolactone #Cyd-[id number] diabetes mellitus type 2 Hold glipizide Continue sliding scale insulin Carb controlled diet DVT prophylaxis: SCDs and Eliquis Full code Admission and Anticipated Discharge Date Admission Date: November 23, 2024 Subjective Patient feels well overall. His leg swelling is improving. He does not have the leg cramps anymore. He does not feel any palpitations. He is not short of breath. No dizziness or lightheadedness. Review of Systems Review of Systems: All systems reviewed & are unremarkable except as noted in Subjective Physical Exam Physical Exam: General: Awake, conversant. Sitting on his chair with legs hanging down. Heart: S1, S2/irregular rhythm slightly fast rate, no murmur rubs or gallops Lungs: Clear to auscultation bilaterally. Normal effort Abdomen: Soft/nontender. Slightly distended abdomen with fluid thrill. Inverted umbilicus. Positive bowel sounds. Extremities: No clubbing/cyanosis. 1-2+ pitting bilateral edema Behavior: Appropriate, cooperative Results & Data Results & Data Vital Signs (Past 12 Hours) Vital Signs Temp Pulse Pulse Resp BP BP Pulse Ox 11/25/24 11:50 36.6 C 94 H 20 90/59 L 94 11/25/24 09:19 92 H 92/54 L 11/25/24 09:00 126 H 117/64 11/25/24 08:41 126 H 11/25/24 08:16 36.7 C 137 H 16 117/64 93 11/25/24 08:00 11/25/24 07:11 11/25/24 03:00 36.5 C 115 H 16 103/66 92 Pulse Ox O2 Del Method O2 Del Method O2 Flow Rate 11/25/24 11:50 Room Air 11/25/24 09:19 11/25/24 09:00 11/25/24 08:41 11/25/24 08:16 Room Air 11/25/24 08:00 93 Room Air 11/25/24 07:11 Room Air 11/25/24 03:00 Nasal Cannula 2 Laboratory Results Abnormal lab results 11/24/24 11/24/24 11/25/24 Range/Units 16:11 19:42 05:56 RBC 3.57 L (4.70-6.10) M/uL Hgb 11.8 L (14.0-18.0) g/dl Hct 33.5 L (42.0-52.0) % RDW Std Deviation 52.8 H (36.4-46.3) fL RDW Coeff of Janice 15.3 H (11.5-14.5) % Sodium 134 L (136-145) mmol/L BUN 29 H (6-23) mg/dl BUN/Creatinine Ratio 40.8 H (10-20) Glucose 131 H (70-99(Fasting)) mg/dl POC Glucose 241 H 192 H (70-99) mg/dl Calcium 7.6 L (8.6-10.3) mg/dl Magnesium 1.6 L (1.7-2.4) mg/dl Digoxin 0.5 L (0.8-2.0) ng/ml 11/25/24 11/25/24 Range/Units 07:30 11:17 RBC (4.70-6.10) M/uL Hgb (14.0-18.0) g/dl Hct (42.0-52.0) % RDW Std Deviation (36.4-46.3) fL RDW Coeff of Janice (11.5-14.5) % Sodium (136-145) mmol/L BUN (6-23) mg/dl BUN/Creatinine Ratio (10-20) Glucose (70-99(Fasting)) mg/dl POC Glucose 133 H 219 H (70-99) mg/dl Calcium (8.6-10.3) mg/dl Magnesium (1.7-2.4) mg/dl Digoxin (0.8-2.0) ng/ml PG Care Time/CCT Total # of Minutes Spent Total Time Spent with Patient: Total time spent is greater than 50% in coordination of care (as documented) at patient's floor/unit and/or counseling patient: Coding Level of Care Code 97588 SUB INP/OBS CARE 2/35MIN Diagnoses Hypomagnesemia E83.42 Acute exacerbation of CHF (congestive heart failure) I50.9 Atrial fibrillation with rapid ventricular response I48.91 Acute respiratory failure with hypoxia J96.01 (HFpEF) heart failure with preserved ejection fraction I50.30 Other cirrhosis of liver K74.60; R18.8 Hepatic cirrhosis type: unspecified hepatic cirrhosis Ascites presence: with ascites Diabetes mellitus, type 2 E11.9 (6) Cirrhosis Hepatic cirrhosis type: unspecified hepatic cirrhosis Ascites presence: with ascites Qualified Code(s): K74.60 - Unspecified cirrhosis of liver; R18.8 - Oth er ascites
--- NOTE | 2024-11-25 13:44 | Cardiology Progress Note ---
Date of Service November 25, 2024 Assessment & Plan (1) Atrial fibrillation with rapid ventricular response: (2) Acute exacerbation of CHF (congestive heart failure): (3) Nonischemic cardiomyopathy: Plan 1. Atrial fibrillation: Based on his history (he does not feel atrial fibril lation but does monitor his heart rate) it is likely that he maintained sinus rhythm for about 2 weeks before reverting back to atrial fibrillation shortly before this admission. This was without antiarrhythmic medications. I cannot be certain but I think he does not tolerate atrial fibrillation very well, his ejection fraction appeared to suffer during his last hospitalization and I would not be surprised if his arrhythmia is poorly tolerated even with proper rate control. Even so I would like to get better rate control, and we can consider cardioversion next week but we may want to do that with an antiarrhythmic agent, although his liver problems may make that problematic. I did add digoxin to his regimen since that will slow his heart rate without causing hypotension and his level this morning was low so I gave him an additional dose today. I did not put him on a daily dose as yet. His heart rate has improved with the digoxin and increased beta-blockade and may be acceptable but I would like to do it somewhat further if possible. 2. CHF: He does not appear to be grossly fluid overloaded although he does have peripheral edema. His peripheral edema may not be closely correlated with left heart failure, his right ventricle was enlarged by echocardiography and I suspect he has elevated right-sided pressures, additionally he has a low serum albumin which will tend to exacerbate edema. I think external pressure (such as the machine that he apparently ordered) may be beneficial, I agree with diuresis although he may become prerenal without eliminating all of the edema. His weight interestingly enough is not up this admission compared to discharge last admission, although perhaps it is incorrect. I did discuss fluid intake with him and he does not appear to drink excessive fluid but I am going to put him on a fluid restriction here even though I do not think he is drinking a lot. I did discuss intake versus output fluid and he feels that he is not urinating as much leading up to this admission that he did in the past when he was on Lasix but I am not changing his diuretic at the moment. Based on his weight we are not making much progress even though he feels better. 3. Cardiomyopathy: On his last admission he appeared to have a cardiomyopathy which resolved with correction of his atrial fibrillation, that may have been an artifact of the arrhythmia or perhaps he does not tolerate atrial fibrillation. We can see with rate control if that is the case, if we can achieve rate control and if he feels well that might be preferable rather than trying to maintain sinus rhythm with antiarrhythmic therapy. Development of a cardiomyopathy is certainly an indication to maintain sinus rhythm, even if he does not have symptoms. Admission and Anticipated Discharge Date Admission Date: November 23, 2024 Subjective He is feeling very well today, he feels that he is much improved in presentation. He also notes that his legs have improved significantly (although they still seem quite edematous). Physical Exam Physical Exam: Constitutional: Alert, cooperative and in no distress. He is supine in bed. HEENT: Unremarkable Neck: No jugular venous distention, carotid pulses are irregular but otherwise normal and equal bilaterally without bruits. Pulmonary: He has expiratory wheezing on the right. Cardiac: Irregular somewhat rapid rhythm with no murmur, gallop or rub. Abdomen: Soft, nontender with normal bowel sounds. Extremities: +2 bilateral pretibial edema. Neurologic: No focal findings. Skin: No rash, ecchymoses or petechiae. Results & Data Vital Signs (Past 12 Hours) Vital Signs Temp Pulse Pulse Resp BP BP Pulse Ox 11/25/24 11:50 36.6 C 94 H 20 90/59 L 94 11/25/24 09:19 92 H 92/54 L 11/25/24 09:00 126 H 117/64 11/25/24 08:41 126 H 11/25/24 08:16 36.7 C 137 H 16 117/64 93 11/25/24 08:00 11/25/24 07:11 11/25/24 03:00 36.5 C 115 H 16 103/66 92 Pulse Ox O2 Del Method O2 Del Method O2 Flow Rate 11/25/24 11:50 Room Air 11/25/24 09:19 11/25/24 09:00 11/25/24 08:41 11/25/24 08:16 Room Air 11/25/24 08:00 93 Room Air 11/25/24 07:11 Room Air 11/25/24 03:00 Nasal Cannula 2 Laboratory Results CBC 11/25/24 Range/Units 05:56 WBC 6.15 (4.8-10.8) K/ul RBC 3.57 L (4.70-6.10) M/uL Hgb 11.8 L (14.0-18.0) g/dl Hct 33.5 L (42.0-52.0) % Plt Count 143 (130-400) K/uL Comprehensive Metabolic Panel 11/25/24 Range/Units 05:56 Sodium 134 L (136-145) mmol/L Potassium 3.9 (3.5-5.1) mmol/L Chloride 102 (98-107) mmol/L Carbon Dioxide 27 (21-32) mmol/L BUN 29 H (6-23) mg/dl Creatinine 0.71 (0.6-1.4) mg/dl Glucose 131 H (70-99(Fasting)) mg/dl Calcium 7.6 L (8.6-10.3) mg/dl Intake and Output 11/24/24 11/25/24 11/25/24 22:59 06:59 14:59 Intake Total 192.500 / 192.500 Balance 192.500 / 192.500 Intake: IV 192.500 / 192.500 Magnesium Sulfate / D5w 1 gm In 192.500 / 192.500 100 ml @ 50 mls/hr IV Q2H ALISIA Rx#:[id number] Other: # Unmeasured Voids 1 1 Weight 95 kg Weight Measurement Method Built in [facility] Digoxin level this morning 0.5 Diagnostic Findings Telemetry: Atrial fibrillation, heart rate averaging about 90 bpm overnight and today. PG Care Time/CCT Total # of Minutes Spent Total Time Spent with Patient: Total time spent is greater than 50% in coordination of care (as documented) at patient's floor/unit and/or counseling patient: Coding Level of Care Code 48342 SUB INP/OBS CARE 3/50MIN Diagnoses Atrial fibrillation with rapid ventricular response I48.91 Acute exacerbation of CHF (congestive heart failure) I50.9 Nonischemic cardiomyopathy I42.8
[2024-11-25] MEDS: DIGOXIN 0.125 MG TAB PO ONE (14:29)
[2024-11-26 06:19] LABS: Hematocrit (blood only) 32.7 % (42.0-52.0); Hemoglobin 11.7 g/dl (14.0-18.0); Mean Corpuscular Hemoglobin 33.6 pg (25.0-34.0); Mean Corpuscular Volume 94.0 fL (80.0-100.0); Platelet Count 155 K/uL (130-400); RDW Standard Deviation 49.9 fL (36.4-46.3); Red Blood Count 3.48 M/uL (4.70-6.10); White Blood Count 4.60 K/ul (4.8-10.8)
[2024-11-26 06:32] LABS: Anion Gap 5.0 (3-11); Blood Urea Nitrogen 28.0 mg/dl (6-23); Calcium 7.7 mg/dl (8.6-10.3); Carbon Dioxide 28.0 mmol/L (21-32); Chloride 102.0 mmol/L (98-107); Creatinine Clr Calc Pharmacy 103.3 ml/min; Glucose 138.0 mg/dl (70-99(Fasting)); Magnesium 1.7 mg/dl (1.7-2.4); Potassium 3.8 mmol/L (3.5-5.1); Sodium 135.0 mmol/L (136-145)
--- NOTE | 2024-11-26 08:52 | Cardiology Progress Note ---
Date of Service November 26, 2024 Assessment & Plan (1) Atrial fibrillation with rapid ventricular response: (2) Nonischemic cardiomyopathy: (3) Pericardial effusion: (4) Diastolic heart failure: (5) Leg cramps: Plan Mr. Angel feels well today. His heart rate remains on the fast side but he does not sense being in afib. He does not really have good antiarrhythmic options between his heart failure and liver disease so repeat cardioversion is unlikely to be successful. Given the return of his EF to normal and his tolerance of afib, we can opt for a rate control approach. He received IV digoxin yesterday. I've placed orders for 0.125 mg of digoxin to start today. His blood pressure is often mildly hypotensive so I don't think he has room to go up on the Coreg. He continues on anticoagulation for stroke prevention. His platelets were normal this morning. He does have lower extremity edema but his bnp is better than last hospitalization and he is not sob. His liver disease and low albumin are likely contributing to his edema as well. He could be discharged with Bumex just once a day in an effort to keep his sodium from going too low again. I would recommend he start Entresto if they could make it work financially. He was going to work on qualifying for [employer] and it would be helpful if case management would assist. Fortunately his pericardial effusion had improved on echo 11/22 in the clinic. Admission and Anticipated Discharge Date Admission Date: November 23, 2024 Subjective Mr. Card is feeling much better today than at admission. His muscle cramps have resolved. No sob or chest pain. He does not feel being in afib. His rates on the monitor have been 100 - 150 bpm. Review of Systems Review of Systems: All systems reviewed & are unremarkable except as noted in HPI & below Physical Exam Constitutional: WD/WN, vitals as above Respiratory: normal respiratory effort, lungs clear to auscultation Cardiovascular: Rate/Rhythm: + abnormal rate and + abnormal rhythm Heart Sounds: + cardiac rub Extremities: + edema (bilateral lower extremity pitting) Skin: + jaundice Neurologic: moves all extremities and awake Results & Data Vital Signs (Past 12 Hours) Vital Signs Temp Pulse Pulse Resp BP Pulse Ox O2 Del Method 11/26/24 07:24 108 H 11/26/24 07:14 36.5 C 101 H 20 129/62 95 Room Air 11/26/24 04:05 36.7 C 83 16 106/55 L 91 Room Air 11/25/24 23:12 36.8 C 96 H 16 97/57 L 92 Room Air 11/25/24 22:08 91 H Diagnostic Findings [facility] Echo 11/22/2024 Summary 1. Normal left ventricular size and systolic function with no regional wall motion abnormalities. 2. Ejection fraction as calculated by Biplane Simpsons method is 70%. 3. No left ventricular hypertrophy. 4. False tendon visualized in the LV apex and hypertrophied papillary muscles. 5. Grade II diastolic dysfunction of the left ventricle (pseudonormal filling pattern) with elevated left atrial pressure. 6. Severely dilated right ventricle with normal systolic function. 7. Severely dilated left atrium. 8. Markedly dilated right atrium. 9. Small circumferential pericardial effusion (slightly larger posteriorly) without evidence of tamponade. 10. Tricuspid aortic valve with heavily calcified non-coronary cusp. No significant stenosis. 11. Trace aortic insufficiency. 12. Mild mitral regurgitation. 13. Mild tricuspid regurgitation. 14. Mildly elevated pulmonary artery pressures, estimated PASP 38 mmHg. 15. Compared to the previous study performed 07/16/2022, there is now a small pericardial effusion, the RV has increased in size and the pulmonary pressures are now mildly elevated.
[2024-11-26] MEDS: SPIRONOLACTONE 25 MG TAB PO SCH (11:35)
--- NOTE | 2024-11-26 13:40 | Hospitalist Progress Note ---
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 Repleted. Knee x-rays are negative Improved clinically #Rapid atrial fibrillation Patient was recently switched from propranolol to carvedilol to control heart rate On carvedilol, he was in rapid rate Added IV metoprolol every 6 as needed Increased the dose of carvedilol to 6.25 mg twice daily Drupal Php Developer involved. Added digoxin daily If heart rate not improving, may consider cardioversion but probably moving away from needing this. Heart rate improving although heart rate still goes up with ambulation Replete magnesium Continue Eliquis #CHF exacerbation/hypoxia Patient presented with bilateral lower extremity edema BNP elevated Chest x-ray showed pulmonary edema Possibly induced by rapid A-fib Recently patient was not compliant with a low-salt diet that could have played a role Continue low-salt diet Patient was initially diuresed with 1 dose of IV Bumex yesterday, now on p.o. Bumex 1 mg p.o. twice daily. Will switch to p.o. Bumex 1 mg once daily. Recently, patient had developed cardiomyopathy most likely as a result of r apid rate A-fib. Rate control will be the goal. #Cirrhosis Not encephalopathic. Does not take lactulose on a regular basis. Will hold off on starting lactulose LFTs seem to be at baseline. Slightly hypervolemic. Diurese. Resume Aldactone today. #Xrb-ovtxiza-lprfpayli diabetes mellitus type 2 Hold glipizide Continue sliding scale insulin Carb controlled diet DVT prophylaxis: SCDs and Eliquis Full code Admission and Anticipated Discharge Date Admission Date: November 23, 2024 Subjective Patient denies any chest pain, shortness of breath, palpitations. His leg swelling has improved. Leg cramps have resolved. Review of Systems Review of Systems: All systems reviewed & are unremarkable except as noted in Subjective Physical Exam 2 Physical Exam: General: Awake, conversant. Accompanied by his in the room. Heart: S1, S2/irregular rhythm slightly fast rate, no murmur rubs or gallops Lungs: Clear to auscultation bilaterally. Normal effort Abdomen: Soft/nontender. Slightly distended abdomen with fluid thrill. Inverted umbilicus. Positive bowel sounds. Extremities: No clubbing/cyanosis. 1-2+ pitting bilateral edema Behavior: Appropriate, cooperative Results & Data Results & Data Vital Signs (Past 12 Hours) Vital Signs Temp Pulse Pulse Resp BP Pulse Ox O2 Del Method 11/26/24 11:06 36.4 C L 87 20 99/64 L 94 Room Air 11/26/24 07:24 108 H 11/26/24 07:14 36.5 C 101 H 20 129/62 95 Room Air 11/26/24 04:05 36.7 C 83 16 106/55 L 91 Room Air Laboratory Results Abnormal lab results 11/25/24 11/25/24 11/26/24 Range/Units 16:30 20:16 05:58 WBC 4.60 L (4.8-10.8) K/ul RBC 3.48 L (4.70-6.10) M/uL Hgb 11.7 L (14.0-18.0) g/dl Hct 32.7 L (42.0-52.0) % RDW Std Deviation 49.9 H (36.4-46.3) fL RDW Coeff of Janice 14.6 H (11.5-14.5) % Sodium 135 L (136-145) mmol/L BUN 28 H (6-23) mg/dl BUN/Creatinine Ratio 38.4 H (10-20) Glucose 138 H (70-99(Fasting)) mg/dl POC Glucose 208 H 215 H (70-99) mg/dl Calcium 7.7 L (8.6-10.3) mg/dl Digoxin 0.4 L (0.8-2.0) ng/ml 11/26/24 11/26/24 Range/Units 07:16 11:04 WBC (4.8-10.8) K/ul RBC (4.70-6.10) M/uL Hgb (14.0-18.0) g/dl Hct (42.0-52.0) % RDW Std Deviation (36.4-46.3) fL RDW Coeff of Janice (11.5-14.5) % Sodium (136-145) mmol/L BUN (6-23) mg/dl BUN/Creatinine Ratio (10-20) Glucose (70-99(Fasting)) mg/dl POC Glucose 138 H 234 H (70-99) mg/dl Calcium (8.6-10.3) mg/dl Digoxin (0.8-2.0) ng/ml PG Care Time/CCT Total # of Minutes Spent Total Time Spent with Patient: Total time spent is greater than 50% in coordination of care (as documented) at patient's floor/unit and/or counseling patient: Coding Level of Care Code 07746 SUB INP/OBS CARE 2/35MIN Diagnoses Hypomagnesemia E83.42 Acute exacerbation of CHF (congestive heart failure) I50.9 Atrial fibrillation with rapid ventricular response I48.91 Acute respiratory failure with hypoxia J96.01 (HFpEF) heart failure with preserved ejection fraction I50.30 Other cirrhosis of liver K74.60; R18.8 Hepatic cirrhosis type: unspecified hepatic cirrhosis Ascites presence: with ascites Diabetes mellitus, type 2 E11.9 (6) Cirrhosis Hepatic cirrhosis type: unspecified hepatic cirrhosis Ascites presence: with ascites Qualified Code(s): K74.60 - Unspecified cirrhosis of liver; R18.8 - Other ascites
[2024-11-26] MEDS: DIGOXIN 0.25 MG TAB PO SCH (16:23)
[2024-11-26] MEDS: BUMETANIDE 1 MG TAB PO SCH (16:23)
[2024-11-27 06:05] LABS: Hematocrit (blood only) 32.7 % (42.0-52.0); Hemoglobin 11.3 g/dl (14.0-18.0); Mean Corpuscular Hemoglobin 32.8 pg (25.0-34.0); Mean Corpuscular Volume 94.8 fL (80.0-100.0); Platelet Count 142 K/uL (130-400); RDW Standard Deviation 53.5 fL (36.4-46.3); Red Blood Count 3.45 M/uL (4.70-6.10); White Blood Count 4.33 K/ul (4.8-10.8)
[2024-11-27 06:33] LABS: Anion Gap 4.0 (3-11); Blood Urea Nitrogen 23.0 mg/dl (6-23); Calcium 7.8 mg/dl (8.6-10.3); Carbon Dioxide 27.0 mmol/L (21-32); Chloride 103.0 mmol/L (98-107); Creatinine Clr Calc Pharmacy 127.9 ml/min; Glucose 142.0 mg/dl (70-99(Fasting)); Magnesium 1.5 mg/dl (1.7-2.4); Potassium 3.9 mmol/L (3.5-5.1); Sodium 134.0 mmol/L (136-145)
[2024-11-27 08:05] VITALS: RESP 18
[2024-11-27] MEDS: BUMETANIDE 1 MG TAB PO SCH (08:27)
[2024-11-27] MEDS: MAGNESIUM SULFATE / D5W 1 GM/100 ML BAG IV SCH (08:27)
--- NOTE | 2024-11-27 10:07 | Cardiology Progress Note ---
Date of Service November 27, 2024 Assessment & Plan (1) Atrial fibrillation with rapid ventricular response: (2) Nonischemic cardiomyopathy: (3) Pericardial effusion: (4) Diastolic heart failure: (5) Leg cramps: Plan Mr. Angel feels well today. His heart rate has improved and he remains asymptomatic to his afib. He does not really have good antiarrhythmic options between his heart failure and liver disease so repeat cardioversion is unlikely to be successful. Given the return of his EF to normal and his tolerance of afib, we can opt for a rate control approach. He was started on 0.125 mg of digoxin yesterday. His blood pressure is often mildly hypotensive so I don't think he has room to go up on the Coreg. He should have a repeat dig level in a week and if there is room, we can increase his digoxin dosing. He continues on anticoagulation for stroke prevention. His platelets were normal this morning. He does have lower extremity edema but his bnp is better than last hospitalization and he is not sob. His liver disease and low albumin are likely contributing to his edema as well. He could be discharged with Bumex just once a day in an effort to keep his sodium from going too low again. I would recommend he start Entresto if they could make it work financially. He was going to work on assistance programs to help cover the cost. Fortunately his pericardial effusion had improved on echo 11/22 in the clinic. His rub does sound a little worse today. I will start him on colchicine. His magnesium was low today. Will defer to hospitalists for replacement but goal would be to keep magnesium level normal and potassium above 4. He is ok to discharge home from a cardiovascular standpoint. He will need a bmp and digoxin level in a week. Admission and Anticipated Discharge Date Admission Date: November 23, 2024 Subjective Mr. Card feels well today. He's really having no symptoms. His heart rates are better on the monitor - hovering around 100 bpm but up to 130 bpm with exertion. He is not having any sob or chest pain. He thinks his edema has improved. Review of Systems Review of Systems: All systems reviewed & are unremarkable except as noted in HPI & below Physical Exam Constitutional: WD/WN, vitals as above Respiratory: normal respiratory effort, lungs clear to auscultation Cardiovascular: Rate/Rhythm: + abnormal rate and + abnormal rhythm Heart Sounds: + cardiac rub Extremities: + edema (bilateral lower extremity pitting) Skin: + jaundice Neurologic: moves all extremities and awake Results & Data Vital Signs (Past 12 Hours) Vital Signs Temp Pulse Pulse Resp BP Pulse Ox O2 Del Method 11/27/24 08:04 36.5 C 88 18 133/74 90 Room Air 11/27/24 08:00 92 H 11/27/24 02:55 36.4 C L 81 20 108/54 L 94 Nasal Cannula 11/27/24 02:18 Nasal Cannula 11/26/24 23:02 36.5 C 84 18 106/64 92 Nasal Cannula O2 Flow Rate 11/27/24 08:04 11/27/24 08:00 11/27/24 02:55 1 11/27/24 02:18 1 11/26/24 23:02 1.0
--- NOTE | 2024-11-27 10:59 | Discharge Summary ---
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 He even had an appointment with Dr. Vegas, his beam dyer who did an echocardiogram and told him that his EF had improved. Yesterday, he noticed some leg cramps that got much worse today. Today he is that his legs were much more swollen than usual and thus he presented to the emergency room. In the ER he was noted to be in rapid atrial fibrillation. Heart rate was initially in the 140s range. He was given IV metoprolol with improvement in his heart rate to the 100s range. His blood pressure was soft and thus diuretic was not given in the emergency room. Initial screening tests showed fairly stable CBC, stable BMP with creatinine of 0.85 and sodium of 130 which is at baseline, magnesium of 1.5, LFTs elevated at baseline. His BNP was elevated at 297. His chest x-ray showed findings consistent with pulmonary edema. Principal Diagnosis Rapid atrial fibrillation. Started on digoxin Nonischemic cardiomyopathy due to rapid A-fib Acute systolic congestive heart failure Hypomagnesemia Cirrhosis Discharge Exam General: Awake, conversant. Heart: S1, S2/irregular rhythm slightly fast rate, no murmur rubs or gallops Lungs: Clear to auscultation bilaterally. Normal effort Abdomen: Soft/nontender. Slightly distended abdomen with fluid thrill. Inverted umbilicus. Positive bowel sounds. Extremities: No clubbing/cyanosis. 1-2+ pitting bilateral edema Behavior: Appropriate, cooperative Discharge Data Allergies Allergy/AdvReac Type Severity Reaction Status Date / Time penicillin G Allergy Unknown Childhood Unverified 11/05/24 09:54 allergy penicillin V Allergy Unknown Childhood Unverified 11/05/24 09:54 allergy Consultations 11/23/24 11:32 ED Decision to Admit Stat 11/23/24 16:29 Consult Cardiology Routine Ordered Studies Humerus X-Ray 11/23/24 10:04 LEFT HUMERUS 2 VIEWS CLINICAL HISTORY: Left arm pain. FINDINGS: AP and lateral views of the left humerus are obtained. No prior studies are available for comparison at the time of dictation. The skeletal structures are osteopenic. There is no radiographic evidence of left humeral fracture. The shoulder and elbow joints are grossly maintained. The overlying soft tissues are within normal limits. IMPRESSION: No acute bony abnormality is identified. Electronically signed by: Eris Russell M.D. 11/23/2024 11:22 AM Knee X-Ray 11/23/24 10:04 RIGHT KNEE 2 VIEWS CLINICAL HISTORY: Right knee pain. FINDINGS: AP and crosstable lateral views of the right knee are obtained. No prior studies are available for comparison at the time of dictation. The skeletal structures are osteopenic. No fracture is seen. There is minimal degenerative joint space narrowing, which is greatest at the patellofemoral articulation. A calcified fabella is incidentally noted. There is a joint effusion. Soft tissue swelling is seen around the knee. IMPRESSION: Soft tissue swelling and joint effusion with no acute bony abnormality identified. Electronically signed by: Eris Russell M.D. 11/23/2024 11:11 AM Knee X-Ray 11/23/24 10:04 LEFT KNEE 2 VIEWS CLINICAL HISTORY: Left knee pain. FINDINGS: AP and crosstable lateral views of the left knee are compared to study dated 07/03/2016. The skeletal structures are osteopenic. No fracture is seen. There is mild tricompartmental degenerative joint space narrowing, greatest at the patellofemoral articulation. Chondrocalcinosis is seen within the medial and lateral compartments. A calcified fabella is incidentally noted. There is a joint effusion. Soft tissue swelling is seen around the knee. An approximately 4.5 cm osteochondroma is again seen arising from the posteromedial aspect of the distal femoral metadiaphysis. IMPRESSION: 1. Soft tissue swelling and joint effusion with no acute bony abnormality identified. 2. An osteochondroma of the distal femur has not appreciably changed dating back to 2016. Electronically signed by: Eris Russell M.D. 11/23/2024 11:21 AM Chest X-Ray 11/23/24 10:05 SINGLE VIEW CHEST CLINICAL HISTORY: Generalized weakness. Lower extremity edema FINDINGS: An AP, portable, upright chest radiograph is compared to study dated 11/05/2024 and correlated with chest CT dated 11/06/2024. The the heart is enlarged noting atherosclerotic calcification of the thoracic. There is pulmonary vascular congestion with interstitial edema. There are small pleural effusions with dependent consolidation. No pneumothorax is seen. The structures are osteopenic. The bony thorax is grossly intact. Degenerative change is noted in the shoulders. IMPRESSION: 1. Cardiomegaly with evidence of congestive failure and pulmonary edema. 2. When correlated with the recent chest CT, some of the enlarged cardiac silhouette is likely related to a pericardial effusion. 3. Layering pleural effusions with dependent consolidation. ACT 112: Negative or not required by law. Electronically signed by: Eris Russell M.D. 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 Repleted. 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 Added digoxin daily Continue Eliquis - He is being discharged on Digoxin. Check dig level in 1 week #CHF exacerbation/hypoxia Patient presented with bilateral lower extremity edema BNP elevated Chest x-ray showed pulmonary edema Possibly induced by rapid A-fib Recently patient was not compliant with a low-salt diet that could have played a role Continue low-salt diet Patient was initially diuresed with 1 dose of IV Bumex yesterday, now on p.o. Bumex 1 mg p.o. once daily. Recently, patient had developed cardiomyopathy most likely as a result of rapid rate A-fib. Rate control will be the goal. #Cirrhosis Not encephalopathic. Does not take lactulose on a regular basis. Will hold off on starting lactulose LFTs seem to be at baseline. Slightly hypervolemic. Diurese. Resumed Aldactone #Oxb-maenynx-pqrjmjiyi diabetes mellitus type 2 Resume home regimen D/c to home today Total Time Total Time Spent Total Time Spent (In Minutes): 35 Discharge Plan Discharge Items Patient Disposition: Home - Self-Care Reason For Visit: LEG SWELLING Discharge Diagnosis: Rapid atrial fibrillation. Started on digoxin Nonischemic cardiomyopathy due to rapid A-fib Acute systolic congestive heart failure Hypomagnesemia Cirrhosis Condition on Discharge: Serious Activity: Resume your previous activity Non-emergency contact: Primary Care Provider Call non-emergency contact if: you have any medication questions and your symptoms worsen Follow-up/Referrals: Ashleigh Carreno [Primary Care Provider] - 12/05/24 7:45 am (Primary care hospital follow up scheduled on 12/05/24 at 7:45) Dutch Vegas DO [Physician] - (Office aware, will call patient to schedule.) Diet: Low Sodium (2gm) Ambulatory Orders: Digitoxin (Routine) Timeframe: 1 Week Location: None Selected Ordered By: Elke Huang Basic Metabolic Panel (Routine) Timeframe: 1 Week Location: Determined by Patient Ordered By: Elke Huang Addtl Attending Provider Instructions: Advised to follow-up with PCP in 1 week Advised to follow-up with beam dyer in 1 week Advised to follow-up with plant floor automation manager in 2 weeks Pending Studies at Discharge: No Stand-Alone Forms: My [facility] Medications and DC Order Prescriptions: New carvedilol 6.25 mg Tablet 6.25 mg PO BIDM 30 Days Qty: 60 0RF digoxin 250 mcg (0.25 mg) Tablet 0.25 mg PO DAILY@1600 30 Days Qty: 30 0RF bumetanide 1 mg Tablet 1 mg PO DAILY Qty: 30 0RF magnesium oxide 400 mg (241.3 mg magnesium) Tablet 400 mg PO BID 30 Days Qty: 60 0RF Continued multivitamin Tablet 1 tab PO QAM cholecalciferol (vitamin D3) [Vitamin D3] 50 mcg (2,000 unit) Capsule 100 mcg PO QAM glipizide 5 mg Tablet See Rx Instructions .ROUTE .COMPLEX Rx Instructions: TAKES 5 MG QAM, THEN 10 MG QPM. ascorbic acid (vitamin C) [Vitamin C] 250 mg Tablet 250 mg PO QAM milk thistle 150 mg Capsule 150 mg PO QAM Rx Instructions: give with meal/snack hydroxyzine HCl 10 mg tablet 10 mg PO TID PRN (Reason: Itching) fluticasone propionate 50 mcg/actuation Trail,Suspension 1 spray INTRANASAL DAILY Rx Instructions: administer into each nostril Glucosamine Chondroitin 550-30-1 mg Capsule 1 cap PO DAILY Eliquis 5 mg Tablet 5 mg PO BID Qty: 60 0RF spironolactone 50 mg tablet 50 mg PO DAILY Qty: 30 0RF lactulose 10 gram/15 mL Solution 30 g PO DAILY 30 Days Qty: 1350 0RF magnesium chloride [Mag 64] 64 mg Tablet,Delayed Release (Dr/Ec) 64 mg PO QAM Qty: 30 0RF Discontinued carvedilol 3.125 mg Tablet 3.125 mg PO BIDM Qty: 60 0RF bumetanide 1 mg tablet 1 mg PO BID Qty: 60 0RF Rx Instructions: Take the evening dose around 5 PM Discharge Orders: Discharge Order (Routine); Ordered 11/27/24 Ordered By: Elke Huang Admission Data Admit Date/Time: 11/23/24 13:06 Attending Provider: Elke Huang Admit Provider: Elke Huang Primary Care Provider: Ashleigh Carreno Other Providers: Elke Huang; Dutch Vegas Other Interventions: Discharge Summary Assessment (RN) Last Done: 11/27/24 11:01
[2024-11-27 11:49] VITALS: BP 94/57; TEMP 97.3; O2SAT 95
[2024-11-27 16:22] VITALS: PULSE 106
== END 2024-11-27 16:35 | disposition home or self-care (01) | DRG 291 ==
LOC: SUATTDRO → ED 09:34 → 2E 13:06